=== PATIENT | male | born 1960 | race Hispanic/Latino ===

== ENCOUNTER 2017-01-26 01:07 | Inpatient (IN) | payer MEDICARE, MEDICAID ==
[2017-01-26] MEDS ORDERED: PROVENTIL IH ONE ×3 (01:16→01:23)
[2017-01-26] MEDS ORDERED: ATROVENT IH ONE ×2 (01:16→01:18)
--- NOTE | 2017-01-26 01:21 | Emergency Department Report ---
ED General Adult HPI - General Chief complaint: Dyspnea/Respdistress Stated complaint: CHIVO Time Seen by Provider: 01/26/17 01:19 Source: patient Mode of arrival: Ambulatory Limitations: No Limitations - History of Present Illness Initial comments: He is a 56-year-old male past medical history of COPD history is limited due to acuity of condition. Patient arrives short of breath with increasing difficulty breathing. History obtained by patient's son who states the patient went out for a walk however he became more short of breath and EMS arrived. He was given breathing treatments and his initial O2 sat was 75% and was placed on a nonrebreather mask. Patient's shortness of breath is severe - Related Data Previous Rx's Medication Instructions Recorded Last Taken Type ALBUTEROL NEB's [Proventil 0.083% 2.5 mg IH Q3HRT PRN #100 nebu 01/17/17 Unknown Rx NEBS] Carvedilol [Coreg] 6.25 mg PO BID #60 tablet 01/17/17 Unknown Rx Citalopram [celeXA] 10 mg PO QDAY #30 tablet 01/17/17 Unknown Rx Clopidogrel [Plavix] 75 mg PO QDAY #30 tablet 01/17/17 Unknown Rx Digoxin [Lanoxin] 0.125 mg PO DAILY@1700 #30 tablet 01/17/17 Unknown Rx Furosemide [Lasix TAB] 40 mg PO QDAY #30 tablet 01/17/17 Unknown Rx Ipratropium [Atrovent NEB] 0.5 mg IH Q4HR #100 ml 01/17/17 Unknown Rx Ipratropium/Albuterol Sulfate 1 ampul IH Q6HRT #50 ampul.neb 01/17/17 Unknown Rx [DUONEB *Not for PRN Use*] LORazepam [Ativan] 1 mg PO Q6H PRN 10 Days #40 tablet 01/17/17 Unknown Rx Levofloxacin [Levaquin] 750 mg PO QDAY #8 tablet 01/17/17 Unknown Rx Sacubitril/Valsartan [Entresto 24 1 each PO BID #60 01/17/17 Unknown Rx mg-26 mg Tablet] levETIRAcetam [Keppra TAB] 500 mg PO BID #60 tablet 01/17/17 Unknown Rx oxyCODONE /ACETAMINOPHEN [Percocet 1 tab PO Q6H PRN #40 tablet 01/17/17 Unknown Rx 5/325 mg] Allergies Allergy/AdvReac Type Severity Reaction Status Date / Time No Known Allergies Allergy Verified 12/29/16 02:17 ED Review of Systems ROS: Stated complaint: CHIVO Other details as noted in HPI Comment: Unobtainable due to pts medical conditions (acute of patient's condition) ED Past Medical Hx - Past Medical History Previous Medical History?: Yes Hx Hypertension: Yes Hx CVA: Yes Hx Heart Attack/AMI: Yes Hx Congestive Heart Failure: Yes Hx Diabetes: No Hx Asthma: No Hx COPD: Yes - Surgical History Past Surgical History?: Yes Hx Pacemaker: Yes Additional Surgical History: brain surgery. - Social History Smoking Status: Never Smoker - Medications Home Medications: Home Medications Medication Instructions Recorded Confirmed Last Taken Type ALBUTEROL NEB's [Proventil 0.083% 2.5 mg IH Q3HRT PRN #100 nebu 01/17/17 Unknown Rx NEBS] Carvedilol [Coreg] 6.25 mg PO BID #60 tablet 01/17/17 01/26/17 Unknown Rx Citalopram [celeXA] 10 mg PO QDAY #30 tablet 01/17/17 01/26/17 Unknown Rx Clopidogrel [Plavix] 75 mg PO QDAY #30 tablet 01/17/17 01/26/17 Unknown Rx Digoxin [Lanoxin] 0.125 mg PO DAILY@1700 #30 tablet 01/17/17 01/26/17 Unknown Rx Furosemide [Lasix TAB] 40 mg PO QDAY #30 tablet 01/17/17 01/26/17 Unknown Rx Ipratropium [Atrovent NEB] 0.5 mg IH Q4HR #100 ml 01/17/17 01/26/17 Unknown Rx Ipratropium/Albuterol Sulfate 1 ampul IH Q6HRT #50 ampul.neb 01/17/17 01/26/17 Unknown Rx [DUONEB *Not for PRN Use*] LORazepam [Ativan] 1 mg PO Q6H PRN 10 Days #40 tablet 01/17/17 01/26/17 Unknown Rx Levofloxacin [Levaquin] 750 mg PO QDAY #8 tablet 01/17/17 01/26/17 Unknown Rx Sacubitril/Valsartan [Entresto 24 1 each PO BID #60 01/17/17 01/26/17 Unknown Rx mg-26 mg Tablet] levETIRAcetam [Keppra TAB] 500 mg PO BID #60 tablet 01/17/17 01/26/17 Unknown Rx oxyCODONE /ACETAMINOPHEN [Percocet 1 tab PO Q6H PRN #40 tablet 01/17/17 Unknown Rx 5/325 mg] ED Physical Exam - General Limitations: No Limitations General appearance: in distress - Head Head exam: Present: atraumatic, normocephalic - Eye Eye exam: Present: normal appearance - ENT ENT exam: Present: mucous membranes moist - Neck Neck exam: Present: normal inspection - Respiratory Respiratory exam: Present: respiratory distress, wheezes, rhonchi, accessory muscle use - Cardiovascular Cardiovascular Exam: Present: normal rhythm, tachycardia. Absent: systolic murmur, diastolic murmur, rubs, gallop - GI/Abdominal GI/Abdominal exam: Present: soft, normal bowel sounds - Rectal Rectal exam: Present: deferred - Extremities Exam Extremities exam: Present: normal inspection - Back Exam Back exam: Present: normal inspection - Neurological Exam Neurological exam: Present: alert, oriented X3 - Psychiatric Psychiatric exam: Present: normal affect, normal mood - Skin Skin exam: Present: warm, dry, intact, normal color. Absent: rash ED Course Vital Signs 01/26/17 01/26/17 01/26/17 01:08 01:09 01:16 Temperature 97.8 F Pulse Rate 119 H 121 H Pulse Rate [ Anterior Left] Respiratory 22 23 Rate Respiratory Rate [Anterior Left] Blood Pressure 118/116 187/116 O2 Sat by Pulse 94 98 98 Oximetry 01/26/17 01/26/17 01/26/17 01:30 01:46 01:47 Temperature Pulse Rate 116 H 114 H 114 H Pulse Rate [ Anterior Left] Respiratory 21 20 25 H Rate Respiratory Rate [Anterior Left] Blood Pressure 187/116 187/116 187/116 O2 Sat by Pulse 100 100 100 Oximetry 01/26/17 01/26/17 01/26/17 01:59 02:00 02:15 Temperature Pulse Rate 112 H 110 H Pulse Rate [ 111 H Anterior Left] Respiratory 20 19 Rate Respiratory 20 Rate [Anterior Left] Blood Pressure 187/116 101/72 O2 Sat by Pulse 99 100 Oximetry 1201/26/17 01/26/17 02:30 02:41 02:51 Temperature Pulse Rate 106 H 103 H 99 H Pulse Rate [ Anterior Left] Respiratory 15 15 15 Rate Respiratory Rate [Anterior Left] Blood Pressure 97/59 101/72 101/72 O2 Sat by Pulse 98 100 100 Oximetry 01/26/17 01/26/17 01/26/17 03:00 03:11 03:21 Temperature Pulse Rate 101 H 102 H 99 H Pulse Rate [ Anterior Left] Respiratory 19 19 16 Rate Respiratory Rate [Anterior Left] Blood Pressure 106/63 97/59 97/59 O2 Sat by Pulse 90 95 99 Oximetry 01/26/17 01/26/17 01/26/17 03:30 03:41 03:51 Temperature Pulse Rate 99 H 101 H 102 H Pulse Rate [ Anterior Left] Respiratory 16 20 15 Rate Respiratory Rate [Anterior Left] Blood Pressure 94/61 106/63 106/63 O2 Sat by Pulse 98 97 95 Oximetry 01/26/17 01/26/17 04:01 05:12 Temperature 98.9 F Pulse Rate 104 H 96 H Pulse Rate [ Anterior Left] Respiratory 16 18 Rate Respiratory Rate [Anterior Left] Blood Pressure 102/47 94/57 O2 Sat by Pulse 97 100 Oximetry ED Medical Decision Making - Lab Data Result diagrams: 01/26/17 01:23 01/26/17 01:23 Lab Results 01/26/17 01/26/17 01/26/17 Range/Units 01:23 01:23 02:17 WBC 18.9 H (4.5-11.0) K/mm3 RBC 5.39 H (3.65-5.03) M/mm3 Hgb 10.8 L (11.8-15.2) gm/dl Hct 36.5 (35.5-45.6) % MCV 68 L (84-94) fl MCH 20 L (28-32) pg MCHC 30 L (32-34) % RDW 19.8 H (13.2-15.2) % Plt Count 320 (140-440) K/mm3 Lymph % (Auto) 15.6 (13.4-35.0) % [place] % (Auto) 8.3 H (0.0-7.3) % Eos % (Auto) 8.3 H (0.0-4.3) % Baso % (Auto) 0.7 (0.0-1.8) % Lymph # 3.0 (1.2-5.4) K/mm3 [place] # 1.6 H (0.0-0.8) K/mm3 Eos # 1.6 H (0.0-0.4) K/mm3 Baso # 0.1 (0.0-0.1) K/mm3 Seg Neutrophils % 67.1 (40.0-70.0) % Seg Neutrophils # 12.7 H (1.8-7.7) K/mm3 Sodium 134 L (137-145) mmol/L Potassium 4.3 (3.6-5.0) mmol/L Chloride 97.7 L (98-107) mmol/L Carbon Dioxide 22 (22-30) mmol/L Anion Gap 19 mmol/L BUN 26 H (9-20) mg/dL Creatinine 1.2 (0.8-1.5) mg/dL Estimated GFR > 60 ml/min BUN/Creatinine Ratio 22 % Glucose 107 H (75-100) mg/dL Calcium 8.9 (8.4-10.2) mg/dL Troponin T 0.037 H 0.032 H (0.00-0.029) ng/mL Triglycerides 192 H (2-149) mg/dL Cholesterol 174 (50-199) mg/dL LDL Cholesterol Direct 76 (50-130) mg/dL HDL Cholesterol 60 H (40-59) mg/dL Cholesterol/HDL Ratio 2.90 % - EKG Data -: EKG Interpreted by Ar - EKG Data 01/26/17 07:23 EKG shows sinus tachycardia no ST segment elevation no nonspecific T-wave abnormality normal axis 01/26/17 07:23 - Radiology Data Radiology results: report reviewed, image reviewed Chest x-ray: Shows no acute cardiopulmonary disease - Medical Decision Making Chief medical diagnosis: COPD exacerbation except differential diagnosis: Pneumonia, arrhythmia, pneumothorax, metabolic abnormality CBC, CMP, EKG, albuterol, IV steroids, IV magnesium, BiPAP, ABG Due to patient's severe shortness of breath he will need to be admitted for this life-threatening condition. Upon reevaluation after an hour of BiPAP patient is able to tolerate nasal cannula. Discussed Dr. Maria the hospitalist. Patient will be admitted. Patient's current O2 sat was 96% with 80% FiO2 on BiPAP. Patient's chest x-ray shows some infiltrates due to him having severe leukocytosis even though chest x-ray is negative due to his severe shortness of breath that occurred without warning I will treat him empirically for HCAP. IV vancomycin IV Rocephin and IV azithromycin Critical Care Time: Yes (50) Critical care time in (mins) excluding proc time.: 50 Critical care attestation.: If time is entered above; I have spent that time in minutes in the direct care of this critically ill patient, excluding procedure time. Critical care time spent with patient is 30 minutes Critical care time spent doing all the labs 10 minutes Critical care time spent patient's family 5 minutes critical care time spent reviewing imaging findings 5 minutes ED Disposition Clinical Impression: Respiratory distress, COPD exacerbation, Shortness of breath Pneumonia Qualifiers: Pneumonia type: due to unspecified organism Laterality: right Lung location: lower lobe of lung Qualified Code(s): J18.1 - Lobar pneumonia, unspecified organism Disposition: OP ADMIT IP TO THIS HOSP Is pt being admited?: Yes Condition: Stable
[2017-01-26] MEDS ORDERED: MAGNESIUM SULFATE 2GM/50ML 2 GM/50 ML BAG IV ONE (01:23)
[2017-01-26 01:33] LABS: Basophils % (Auto) 0.7 % (0.0-1.8); Eosinophils % (Auto) 8.3 % (0.0-4.3); Mean Corpuscular HGB Conc 30 % (32-34); Platelet Count 320 K/mm3 (140-440); Red Blood Count 5.39 M/mm3 (3.65-5.03); Red Cell Distribution Width 19.8 % (13.2-15.2); White Blood Count 18.9 K/mm3 (4.5-11.0)
[2017-01-26 01:54] LABS: Hematocrit 36.5 % (35.5-45.6); Hemoglobin 10.8 gm/dl (11.8-15.2); Mean Corpuscular Hemoglobin 20 pg (28-32); Mean Corpuscular Volume 68 fl (84-94)
[2017-01-26 01:56] LABS: Anion Gap 19 mmol/L; BUN/Creatinine Ratio 22; Blood Urea Nitrogen 26 mg/dL (9-20); Calcium 8.9 mg/dL (8.4-10.2); Carbon Dioxide 22 mmol/L (22-30); Chloride 97.7 mmol/L (98-107); Glucose 107 mg/dL (75-100); Potassium 4.3 mmol/L (3.6-5.0); Sodium 134 mmol/L (137-145)
[2017-01-26 02:24] LABS: Cholesterol 174 mg/dL (50-199); HDL Cholesterol 60 mg/dL (40-59); LDL Cholesterol,Direct 76 mg/dL (50-130); Triglycerides 192 mg/dL (2-149)
[2017-01-26] MEDS ORDERED: ROCEPHIN/NS 1 GM/50 ML 1 GM/50 ML BAG IV ONE (02:46)
[2017-01-26] MEDS ORDERED: VANCOMYCIN VIAL IV ONE ×2 (02:46→03:22)
[2017-01-26] MEDS ORDERED: VANCOMYCIN PHARMACY TO DOSE IV SCH (03:00)
[2017-01-26] MEDS ORDERED: ROCEPHIN 1 GM in NACL 0.9% 20 ML IV ONE (03:00)
[2017-01-26] MEDS ORDERED: ZITHROMAX 500 MG in NACL 0.9% 250ML 250 ML IV ONE (03:00)
--- NOTE | 2017-01-26 03:02 | XRay Report ---
FINAL REPORT PROCEDURE: XR CHEST 1V AP TECHNIQUE: Chest radiograph anteroposterior view. CPT 01845 HISTORY: Shortness of breath COMPARISON: No prior studies are available for comparison. FINDINGS: Heart: Heart size is normal. Mediastinum/Vessels: Normal. Lungs/Pleural space: Lungs are clear and expanded. There are no infiltrates, effusions or pneumothoraces.. Bony thorax: No acute osseous abnormality. Life support devices: Pacemaker leads are in proper position.. IMPRESSION: No acute cardiopulmonary abnormality.
--- NOTE | 2017-01-26 03:19 | History and Physical Report ---
History of Present Illness Chief complaint: I cant breathe History of present illness: 56 YO Male with HTN, COPD, CHF, SD, CVA presents to ED for evaluation. Pt states that he has experienced shortness of breath for the past 2 days with worsening symptoms over the past 2 hours. Pt acknowledges productive cough of greenish sputum over the past 3 days with increased sputum production over the past 1 day. Pt states that he tried multiple nebulizer therapies over the past day without relief. Pt denies fever, chills, CP, Palpitations, NVD, skin rash, recent ill contacts, sore throat, hemoptysis, unintentional weight loss, leg swelling, calf pain, prolonged immobility/travel, individual/family history of DVT/PE. Pt seen and evaluated in ED and found to have evidence of sepsis, as well as hypoxemic respiratory failure. Pt treated IAW sepsis protocol, nebulizer therpay, and supplemental oxygen. Past History Past Medical History: acute SD, COPD, heart failure, hypertension, stroke Past Surgical History: Other (Brain surgery, ICD placement) Social history: . denies: smoking, alcohol abuse, prescription drug abuse Family history: CAD, hypertension Medications and Allergies Allergies Allergy/AdvReac Type Severity Reaction Status Date / Time No Known Allergies Allergy Verified 12/29/16 02:17 Home Medications Medication Instructions Recorded Confirmed Last Taken Type ALBUTEROL NEB's [Proventil 0.083% 2.5 mg IH Q3HRT PRN #100 nebu 01/17/17 Unknown Rx NEBS] Carvedilol [Coreg] 6.25 mg PO BID #60 tablet 01/17/17 01/26/17 Unknown Rx Citalopram [celeXA] 10 mg PO QDAY #30 tablet 01/17/17 01/26/17 Unknown Rx Clopidogrel [Plavix] 75 mg PO QDAY #30 tablet 01/17/17 01/26/17 Unknown Rx Digoxin [Lanoxin] 0.125 mg PO DAILY@1700 #30 tablet 01/17/17 01/26/17 Unknown Rx Furosemide [Lasix TAB] 40 mg PO QDAY #30 tablet 01/17/17 01/26/17 Unknown Rx Ipratropium [Atrovent NEB] 0.5 mg IH Q4HR #100 ml 01/17/17 01/26/17 Unknown Rx Ipratropium/Albuterol Sulfate 1 ampul IH Q6HRT #50 ampul.neb 01/17/17 01/26/17 Unknown Rx [DUONEB *Not for PRN Use*] LORazepam [Ativan] 1 mg PO Q6H PRN 10 Days #40 tablet 01/17/17 01/26/17 Unknown Rx Levofloxacin [Levaquin] 750 mg PO QDAY #8 tablet 01/17/17 01/26/17 Unknown Rx Sacubitril/Valsartan [Entresto 24 1 each PO BID #60 01/17/17 01/26/17 Unknown Rx mg-26 mg Tablet] levETIRAcetam [Keppra TAB] 500 mg PO BID #60 tablet 01/17/17 01/26/17 Unknown Rx oxyCODONE /ACETAMINOPHEN [Percocet 1 tab PO Q6H PRN #40 tablet 01/17/17 Unknown Rx 5/325 mg] Active Meds: Active Medications Azithromycin 500 mg/ Sodium (Chloride) 250 mls @ 250 mls/hr IV ONCE.ED ONE Stop: 01/26/17 03:59 Vancomycin HCl 1,250 mg/ (Sodium Chloride) 262.5 mls @ 166.667 mls/hr IV ONCE.ED ONE Stop: 01/26/17 05:34 Vancomycin HCl (Vancomycin Pharmacy To Dose) 1 each IV PKCONSULT DANNY PRN Reason: Protocol Review of Systems Constitutional: no weight loss, no weight gain, no fever, no chills Ears, nose, mouth and throat: no ear pain, no ear discharge, no tinnitis, no decreased hearing, no nose pain, no nasal congestion Cardiovascular: shortness of breath, no chest pain, no orthopnea, no palpitations Respiratory: cough with sputum, excessive sputum, shortness of breath, no hemoptysis Gastrointestinal: no abdominal pain, no nausea, no vomiting, no diarrhea Genitourinary Male: no hematuria, no flank pain, no discharge, no urinary frequency, no urinary hesitancy Rectal: no pain, no incontinence, no bleeding Musculoskeletal: no neck stiffness, no neck pain, no shooting arm pain, no arm numbness/tingling, no low back pain, no shooting leg pain Integumentary: no rash, no pruritis, no redness, no sores, no wounds Neurological: no head injury, no transient paralysis, no paralysis, no weakness , no parathesias, no numbness, no tingling, no seizures, no syncope Psychiatric: no anxiety, no memory loss, no change in sleep habits, no sleep disturbances, no insomnia, no hypersomnia, no change in appetite Endocrine: no cold intolerance, no heat intolerance, no polyphagia, no excessive thirst, no polydipsia, no polyuria Hematologic/Lymphatic: no easy bruising, no easy bleeding Allergic/Immunologic: no urticaria, no allergic rhinitis, no wheezing Exam - Constitutional Vitals: Temp Pulse Resp BP Pulse Ox 97.8 F 110 H 18 101/72 100 01/26/17 01:09 01/26/17 02:15 01/26/17 02:30 01/26/17 02:15 01/26/17 02:30 General appearance: Present: mild distress, cachectic - EENT Eyes: Present: PERRL ENT: hearing intact, clear oral mucosa - Neck Neck: Present: supple, normal ROM - Respiratory Respiratory effort: labored Respiratory: bilateral: diminished, wheezing - Cardiovascular Rhythm: regular (tachycardia) - Extremities Extremities: pulses symmetrical, No edema Peripheral Pulses: abnormal (capillary refill: greater than 4 seconds) - Abdominal General gastrointestinal: Present: soft, non-tender, non-distended Male genitourinary: Present: normal - Integumentary Integumentary: Present: clear, dry, clammy, decreased turgor - Musculoskeletal Musculoskeletal: generalized weakness - Psychiatric Psychiatric: appropriate mood/affect, intact judgment & insight - Neurologic Neurologic: CNII-XII intact, moves all extremities Results - Labs CBC & Chem 7: 01/26/17 01:23 01/26/17 01:23 Labs: Abnormal lab results 01/26/17 01/26/17 01/26/17 Range/Units 01:23 01:23 02:17 WBC 18.9 H (4.5-11.0) K/mm3 RBC 5.39 H (3.65-5.03) M/mm3 Hgb 10.8 L (11.8-15.2) gm/dl MCV 68 L (84-94) fl MCH 20 L (28-32) pg MCHC 30 L (32-34) % RDW 19.8 H (13.2-15.2) % [place] % (Auto) 8.3 H (0.0-7.3) % Eos % (Auto) 8.3 H (0.0-4.3) % [place] # 1.6 H (0.0-0.8) K/mm3 Eos # 1.6 H (0.0-0.4) K/mm3 Seg Neutrophils # 12.7 H (1.8-7.7) K/mm3 Sodium 134 L (137-145) mmol/L Chloride 97.7 L (98-107) mmol/L BUN 26 H (9-20) mg/dL Glucose 107 H (75-100) mg/dL Troponin T 0.037 H 0.032 H (0.00-0.029) ng/mL Triglycerides 192 H (2-149) mg/dL HDL Cholesterol 60 H (40-59) mg/dL Assessment and Plan - Patient Problems (1) Sepsis Current Visit: Yes Status: Acute Qualifiers: Sepsis type: sepsis due to unspecified organism Qualified Code(s): A41.9 - Sepsis, unspecified organism Plan to address problem: IV abx, monitor uop q shift, IVF resuscitation, monitor uop q shift, blood cultures, urinalysis, serial lactic acid levels. (2) Acute respiratory failure Current Visit: Yes Status: Acute Plan to address problem: Supplemental oxygen, nebs, aspiration precautions, NIPPV as clinically indicated , treat pneumonia/copd exacerbation, (3) COPD exacerbation Current Visit: No Status: Acute Plan to address problem: supplemental oxygen, nebs, aspiration precautions, will hold steroid therapy for now. (4) Pneumonia Current Visit: No Status: Acute Qualifiers: Laterality: right Lung location: lower lobe of lung Plan to address problem: IV ABX, IVF, blood cultures, supplemental oxygen, nebulizer therapy, (5) CHF (congestive heart failure) Current Visit: Yes Status: Chronic Plan to address problem: Stable, continue current therapy, remote telemetry, No angina at this time. (6) DVT prophylaxis Current Visit: No Status: Acute Plan to address problem: SCD to BLE while in bed
[2017-01-26] MEDS ORDERED: MILK OF MAGNESIA PO PRN (03:22)
[2017-01-26] MEDS ORDERED: DULCOLAX PR PRN (03:22)
[2017-01-26] MEDS ORDERED: ZOFRAN IV PRN (03:22)
[2017-01-26] MEDS ORDERED: TYLENOL PO PRN (03:22)
[2017-01-26] MEDS ORDERED: NACL 0.9% 1000 ML IV ONE (03:22)
[2017-01-26] MEDS ORDERED: VANCOMYCIN 1,250 MG in NACL 0.9% 250ML 250 ML IV ONE (04:00)
[2017-01-26 05:15] LABS: Bilirubin,Urine NEG (Negative); Blood,Urine SM (Negative); Ketones,Urine NEG (Negative); Leukocyte Esterase,Urine NEG (Negative); Nitrite,Urine NEG (Negative); Urobilinogen,Urine < 2.0 mg/dL (<2.0)
[2017-01-26] MEDS ORDERED: LASIX IV SCH (06:00)
[2017-01-26] MEDS ORDERED: LASIX PO SCH (06:00)
[2017-01-26] MEDS: ZOSYN/NS 4.5GM/100ML 4.5 GM/100 ML VIAL IV SCH ×2 (06:36→14:04)
[2017-01-26] MEDS ORDERED: DUONEB *Not for PRN Use IH SCH (08:00)
[2017-01-26] MEDS: LEVAQUIN 750MG/150ML 750 MG/150 ML BAG IV SCH (09:10)
[2017-01-26] MEDS: PLAVIX PO SCH (09:11)
[2017-01-26] MEDS: celeXA PO SCH (09:11)
[2017-01-26] MEDS: KEPPRA PO SCH ×2 (09:11→21:47)
[2017-01-26] MEDS: PEPCID PO SCH ×2 (09:11→21:47)
[2017-01-26] MEDS ORDERED: SACUBITRIL PO SCH (10:00)
[2017-01-26] MEDS ORDERED: COREG PO SCH (10:00)
[2017-01-26] MEDS ORDERED: VALSARTAN PO SCH (10:00)
[2017-01-26] MEDS: PERCOCET 5/325 PO PRN ×3 (10:45→23:13)
[2017-01-26] MEDS: ATROVENT IH SCH ×5 (10:48→23:29)
[2017-01-26] MEDS ORDERED: NACL 0.9% 1000 ML 1,000 ML IV ONE (11:10)
[2017-01-26] MEDS ORDERED: NACL 0.9% 250ML 250 ML IV ONE (15:15)
--- NOTE | 2017-01-26 15:18 | Event Note ---
Date: 01/26/17 Patient seen and examined in no acute distress but bedside reported the patient says his stroke a few years ago has been having some forgetful memory. Also the patient went out to walk in about 2 days ago and was out follow-up 3 hours prior to returning. The patient reports that he believes he got in contact with one of his family members who has an upper respiratory infection and for 3 days has been having postnasal drip and also rhinorrhea. She tries to the compliance with all his medications and also with by mouth intake although his dullness concerned about his intake of decaffeinated coffee. On admission the patient was noted to have an oxygen saturation of 88% and remarkably improved within 24 hours. He still very lethargic. He probably will benefit from home health and also cardiopulmonary discharge. We'll continue current treatment at this time
[2017-01-26] MEDS ORDERED: VANCOMYCIN/NS 1 GM/250 ML 1 GM/250 ML BAG IV SCH (16:00)
[2017-01-26] MEDS: VANCOMYCIN/NS 1 GM/250 ML 1 GM/250 ML BAG IV SCH (17:35)
[2017-01-26] MEDS: LANOXIN PO SCH (17:36)
--- NOTE | 2017-01-26 19:52 | Consultation ---
History of Present Illness - Reason for Consult Consult date: 01/26/17 sepsis Requesting physician: GREG ROSALES - History of Present Illness 56 years old male with history of cardiomyopathy status post AICD placement, CAD , COPD, hypertension, previous brain hemorrhage status post craniotomy; admitted on 12/29/2016 - 01/04/17 due to one-week history of worsening shortness of breath, cough with yellowish sputum production and weakness. Initial white count 17.6. Lactate acid 4.8. His BP dropped and he was placed on levophed. Chest x-ray showed bilateral pulmonary infiltrates. CT of the chest showed extensive alveolar and interstitial infiltrate right more than the left. Pt was intubated on the vent sent to ICU, found to be on severe sepsis with septic shock from bilateral pneumonia felt to be aspiration. Sputum positive for Corazon. Strep pneumoniae urine antigen was negative. Legionella urine antigen negative. HIV negative. Treated with zosyn and levaquin for 10 days. Patient sent home. Unfortunately, readmitted today 01/26 due to 3 weeks history ( since discharge) of progressive SOB, dry cough and paroximal nocturnal dyspnea. Denies fever, chills, chest pain, urinary symptoms. In the ED, temp 97.8, HR 119, R22 BP 118/116. WBC 18K, hg 10.8. plat 320. Lactic acid 2.4. UA negative. CXR was negative. Micro: Influenza negative GAS negative blood cx ngtd Antibiotics: zosyn Past History Past Medical History: acute [place], COPD, heart failure, hypertension, stroke Past Surgical History: Other (Brain surgery, ICD placement) Social history: . denies: smoking, alcohol abuse, prescription drug abuse Family history: CAD, hypertension Medications and Allergies Allergies Allergy/AdvReac Type Severity Reaction Status Date / Time No Known Allergies Allergy Verified 12/29/16 02:17 Home Medications Medication Instructions Recorded Confirmed Last Taken Type ALBUTEROL NEB's [Proventil 0.083% 2.5 mg IH Q3HRT PRN #100 nebu 01/17/17 Unknown Rx NEBS] Carvedilol [Coreg] 6.25 mg PO BID #60 tablet 01/17/17 01/26/17 Unknown Rx Citalopram [celeXA] 10 mg PO QDAY #30 tablet 01/17/17 01/26/17 Unknown Rx Clopidogrel [Plavix] 75 mg PO QDAY #30 tablet 01/17/17 01/26/17 Unknown Rx Digoxin [Lanoxin] 0.125 mg PO DAILY@1700 #30 tablet 01/17/17 01/26/17 Unknown Rx Furosemide [Lasix TAB] 40 mg PO QDAY #30 tablet 01/17/17 01/26/17 Unknown Rx Ipratropium [Atrovent NEB] 0.5 mg IH Q4HR #100 ml 01/17/17 01/26/17 Unknown Rx Ipratropium/Albuterol Sulfate 1 ampul IH Q6HRT #50 ampul.neb 01/17/17 01/26/17 Unknown Rx [DUONEB *Not for PRN Use*] LORazepam [Ativan] 1 mg PO Q6H PRN 10 Days #40 tablet 01/17/17 01/26/17 Unknown Rx Levofloxacin [Levaquin] 750 mg PO QDAY #8 tablet 01/17/17 01/26/17 Unknown Rx Sacubitril/Valsartan [Entresto 24 1 each PO BID #60 01/17/17 01/26/17 Unknown Rx mg-26 mg Tablet] levETIRAcetam [Keppra TAB] 500 mg PO BID #60 tablet 01/17/17 01/26/17 Unknown Rx oxyCODONE /ACETAMINOPHEN [Percocet 1 tab PO Q6H PRN #40 tablet 01/17/17 Unknown Rx 5/325 mg] Active Meds: Active Medications Acetaminophen (Tylenol) 650 mg PO Q4H PRN PRN Reason: Pain MILD(1-3)/Fever >100.5/OCAMPO Albuterol (Proventil) 2.5 mg IH Q4HRT PRN PRN Reason: Shortness Of Breath Bisacodyl (Dulcolax) 10 mg [place] QDAY PRN PRN Reason: Constipation unrelieved by MOM Carvedilol (Coreg) 3.125 mg PO BID [facility] Citalopram Hydrobromide (Celexa) 10 mg PO QDAY [facility] Last Admin: 01/26/17 09:11 Dose: 10 mg Clopidogrel Bisulfate (Plavix) 75 mg PO QDAY [facility] Last Admin: 01/26/17 09:11 Dose: 75 mg Digoxin (Lanoxin) 0.125 mg PO DAILY@1700 [facility] Last Admin: 01/26/17 17:36 Dose: 0.125 mg Famotidine (Pepcid) 10 mg PO BID [facility] Last Admin: 01/26/17 09:11 Dose: 10 mg Furosemide (Lasix) 40 mg PO DAILY@0600 [facility] Levofloxacin/Dextrose (Levaquin 750mg/150ml) 750 mg in 150 mls @ 100 mls/hr IV Q24HR [facility] PRN Reason: Protocol Last Admin: 01/26/17 09:10 Dose: 100 mls/hr Piperacillin Sod/Tazobactam Sod (Zosyn/Ns 4.5gm/100ml) 4.5 gm in 100 mls @ 200 mls/hr IV Q8HR [facility] PRN Reason: Protocol Last Admin: 01/26/17 14:04 Dose: 200 mls/hr Vancomycin HCl (Vancomycin/Ns 1 Gm/250 Ml) 1 gm in 250 mls @ 166.667 mls/hr IV Q12H [facility] Last Admin: 01/26/17 17:35 Dose: 166.667 mls/hr Influenza Virus Vaccine Quadrival (Fluarix Quad [id number](36 Mos+) 0.5 ml IM .ONCE ONE Stop: 01/27/17 12:01 Ipratropium [place] (Atrovent) 0.5 mg IH Q4HRT [facility] Last Admin: 01/26/17 18:01 Dose: 0.5 mg Levetiracetam (Keppra) 500 mg PO BID [facility] Last Admin: 01/26/17 09:11 Dose: 500 mg Lorazepam (Ativan) 1 mg PO Q6H PRN PRN Reason: CIWA-Ar 16-25 Magnesium Hydroxide (Milk Of Magnesia) 30 ml PO Q4H PRN PRN Reason: Constipation Miscellaneous Medication (Sacubitril/Valsartan [Entresto 24 Mg-26 Mg Tablet]) 1 each PO BID [facility] Ondansetron HCl (Zofran) 4 mg IV Q8H PRN PRN Reason: N/V unrelieved by Reglan Oxycodone/Acetaminophen (Percocet 5/325) 1 tab PO Q6H PRN PRN Reason: Pain, Moderate (4-6) Last Admin: 01/26/17 16:45 Dose: 1 tab Pneumococcal Polyvalent Vaccine (Pneumovax 23) 0.5 ml IM .ONCE ONE Stop: 01/27/17 12:01 Vancomycin HCl (Vancomycin Pharmacy To Dose) 1 each IV PKCONSULT [facility] PRN Reason: Protocol Review of Systems All systems: negative (as per HPI rest neg) Physical Examination - Constitutional Vitals: Vital Signs Temp Pulse Resp BP Pulse Ox 97.2 F L 80 18 95/57 99 01/26/17 16:38 01/26/17 18:05 01/26/17 18:05 01/26/17 16:38 01/26/17 16:38 Temperature -Last 24 Hours Temperature 97.2 F Temperature 99.1 F Temperature 98.9 F Temperature 97.8 F Results - Labs CBC & Chem 7: 01/26/17 01:23 01/26/17 01:23 Labs: Abnormal lab results 01/26/17 01/26/17 01/26/17 Range/Units 01:23 01:23 02:17 WBC 18.9 H (4.5-11.0) K/mm3 RBC 5.39 H (3.65-5.03) M/mm3 Hgb 10.8 L (11.8-15.2) gm/dl MCV 68 L (84-94) fl MCH 20 L (28-32) pg MCHC 30 L (32-34) % RDW 19.8 H (13.2-15.2) % [place] % (Auto) 8.3 H (0.0-7.3) % Eos % (Auto) 8.3 H (0.0-4.3) % [place] # 1.6 H (0.0-0.8) K/mm3 Eos # 1.6 H (0.0-0.4) K/mm3 Seg Neutrophils # 12.7 H (1.8-7.7) K/mm3 Sodium 134 L (137-145) mmol/L Chloride 97.7 L (98-107) mmol/L BUN 26 H (9-20) mg/dL Glucose 107 H (75-100) mg/dL Lactic Acid (0.7-2.0) mmol/L Troponin T 0.037 H 0.032 H (0.00-0.029) ng/mL Triglycerides 192 H (2-149) mg/dL HDL Cholesterol 60 H (40-59) mg/dL 01/26/17 01/26/17 Range/Units 09:32 12:30 WBC (4.5-11.0) K/mm3 RBC (3.65-5.03) M/mm3 Hgb (11.8-15.2) gm/dl MCV (84-94) fl MCH (28-32) pg MCHC (32-34) % RDW (13.2-15.2) % [place] % (Auto) (0.0-7.3) % Eos % (Auto) (0.0-4.3) % [place] # (0.0-0.8) K/mm3 Eos # (0.0-0.4) K/mm3 Seg Neutrophils # (1.8-7.7) K/mm3 Sodium (137-145) mmol/L Chloride (98-107) mmol/L BUN (9-20) mg/dL Glucose (75-100) mg/dL Lactic Acid 2.40 H* 2.40 H* (0.7-2.0) mmol/L Troponin T (0.00-0.029) ng/mL Triglycerides (2-149) mg/dL HDL Cholesterol (40-59) mg/dL Assessment and Plan Assessment: 1) SIRS: present on admission, manifested by leukocytosis/tachycardia/elevated lactic acid. Unclear etiology ? COPD exacerbation ? CHF exacerbation. Doubt pneumonia. 2) Resp distress ? COPD excerbation, ? CHF exacerbation 3) Recent Bilateral pneumonia/multifocal: CT of the chest showed extensive alveolar and interstitial infiltrate right more than the left. Sputum cx + Corazon Influenza ag negative. HIV neg / CD4>500. Legionella and Strep pnuemoniae urine ag negative. 3) Recent respiratory failure 4) COPD 5) CMP status post AICD placement 6) CAD 7) Previous brain hemorrhage status post craniotomy 8) Dysphagia / GERD / Hiatal hernia 9) Weight loss Plan: -check CRP, procalcitonin -stop zosyn -add levaquin x 3 days -COPD exacerbation / CHF exacerbation per IMS -monitor leukocytosis Desirae Lucas
[2017-01-26] MEDS: COREG PO SCH (22:47)
[2017-01-27] MEDS: ATROVENT IH SCH ×4 (03:40→16:11)
[2017-01-27] MEDS ORDERED: NACL 0.9% 250ML 250 ML IV ONE (05:39)
[2017-01-27] MEDS: LASIX PO SCH (06:22)
[2017-01-27 06:25] LABS: Mean Corpuscular HGB Conc 30 % (32-34); Platelet Count 239 K/mm3 (140-440); Red Blood Count 4.35 M/mm3 (3.65-5.03); Red Cell Distribution Width 19.3 % (13.2-15.2); White Blood Count 12.2 K/mm3 (4.5-11.0)
[2017-01-27 06:28] LABS: Hematocrit 29.2 % (35.5-45.6); Hemoglobin 8.6 gm/dl (11.8-15.2); Mean Corpuscular Hemoglobin 20 pg (28-32); Mean Corpuscular Volume 67 fl (84-94)
[2017-01-27] MEDS: PERCOCET 5/325 PO PRN ×3 (06:28→23:49)
[2017-01-27 06:39] LABS: Anion Gap 14 mmol/L; BUN/Creatinine Ratio 29; Blood Urea Nitrogen 23 mg/dL (9-20); Calcium 8.3 mg/dL (8.4-10.2); Carbon Dioxide 24 mmol/L (22-30); Chloride 102.2 mmol/L (98-107); Glucose 88 mg/dL (75-100); Potassium 3.8 mmol/L (3.6-5.0); Sodium 136 mmol/L (137-145)
[2017-01-27] MEDS: VANCOMYCIN/NS 1 GM/250 ML 1 GM/250 ML BAG IV SCH ×2 (06:46→17:46)
--- NOTE | 2017-01-27 08:18 | Progress Note ---
Assessment and Plan Assessment and plan: 56 YO Male with HTN, COPD, CHF, [place], CVA presents to ED for evaluation. Pt states that he has experienced shortness of breath for the past 2 days with worsening symptoms over the past 2 hours. Pt acknowledges productive cough of greenish sputum over the past 3 days with increased sputum production over the past 1 day. Patient was recently hospitalized and treated for bilateral pneumonia which involved on ICU stay. Acute on chronic hypoxic respiratory failure * Continue oxygen therapy. * Aspiration precautions COPD with exacerbation * Continue nebs SIRS likely secondary to COPD * Continue Abx Possible on the line and upper respiratory infection * The patient to recent sick contacts, recent hospitalization, had rhinorrhea and postnasal drip a few days prior to admission. * Continue Levaquin Cardiomyopathy with an ejection fraction of 10% status post AICD * Continue lasix Anemia of chronic disease * Slight drop, will monitor. Recurrent lactic acidosis * Gave some fluids also due to Hypotension. Will monitor Vascular dementia likely secondary to CVA with intermittent memory loss * Stable per family GERD * ppi DVT and GI prophylaxis Plan discussed with patient and family History Interval history: Patient seen and examined, still with some shortness of breath but denies any chest pain, nausea, vomiting, fever. Nursing staff reports patient with hypotension early this morning. Hospitalist Physical - Physical exam Narrative exam: VITAL SIGNS: Reviewed. GENERAL: The patient appeared chronically ill over the past. Age. Vital signs as documented. HEAD: No signs of head trauma. EYES: Pupils are equal. Extraocular motions intact. EARS: Hearing grossly intact. MOUTH: Oropharynx is normal. NECK: No adenopathy, no JVD. CHEST: Chest with wheezing expiratory more than expected breath sounds bilaterally. No rales, or rhonchi. CARDIAC: Regular rate and rhythm. S1 and S2, without murmurs, gallops, or rubs. VASCULAR: No Edema. Peripheral pulses normal and equal in all extremities. ABDOMEN: Soft, without detectable tenderness. No sign of distention. No rebound or guarding, and no masses palpated. Bowel Sounds normal. MUSCULOSKELETAL: Good range of motion of all major joints. Extremities without clubbing, cyanosis or edema. NEUROLOGIC EXAM: Alert and oriented x 3. No focal sensory or strength deficits. Speech normal. Follows commands. PSYCHIATRIC: Mood normal. SKIN: No rash or lesions. - Constitutional Vitals: Temp Pulse Resp BP Pulse Ox 98.2 F 85 16 89/58 98 12/02/17 03:50 01/27/17 05:00 01/27/17 06:28 01/27/17 05:00 01/27/17 03:50 General appearance: Present: mild distress, cachectic Results - Labs CBC & Chem 7: 01/27/17 05:46 01/27/17 05:46 Labs: Laboratory Last Values WBC 12.2 K/mm3 (4.5-11.0) H 01/27/17 05:46 RBC 4.35 M/mm3 (3.65-5.03) 01/27/17 05:46 Hgb 8.6 gm/dl (11.8-15.2) L 01/27/17 05:46 Hct 29.2 % (35.5-45.6) L D 01/27/17 05:46 MCV 67 fl (84-94) L 01/27/17 05:46 MCH 20 pg (28-32) L 01/27/17 05:46 MCHC 30 % (32-34) L 01/27/17 05:46 RDW 19.3 % (13.2-15.2) H 01/27/17 05:46 Plt Count 239 K/mm3 (140-440) 01/27/17 05:46 Lymph % (Auto) 15.6 % (13.4-35.0) 01/26/17 01:23 [place] % (Auto) 8.3 % (0.0-7.3) H 01/26/17 01:23 Eos % (Auto) 8.3 % (0.0-4.3) H 01/26/17 01:23 Baso % (Auto) 0.7 % (0.0-1.8) 01/26/17 01:23 Lymph # 3.0 K/mm3 (1.2-5.4) 01/26/17 01:23 [place] # 1.6 K/mm3 (0.0-0.8) H 01/26/17 01:23 Eos # 1.6 K/mm3 (0.0-0.4) H 01/26/17 01:23 Baso # 0.1 K/mm3 (0.0-0.1) 01/26/17 01:23 Seg Neutrophils % 67.1 % (40.0-70.0) 01/26/17 01:23 Seg Neutrophils # 12.7 K/mm3 (1.8-7.7) H 01/26/17 01:23 Sodium 136 mmol/L (137-145) L 01/27/17 05:46 Potassium 3.8 mmol/L (3.6-5.0) 01/27/17 05:46 Chloride 102.2 mmol/L (98-107) 01/27/17 05:46 Carbon Dioxide 24 mmol/L (22-30) 01/27/17 05:46 Anion Gap 14 mmol/L 01/27/17 05:46 BUN 23 mg/dL (9-20) H 01/27/17 05:46 Creatinine 0.8 mg/dL (0.8-1.5) 01/27/17 05:46 Estimated GFR > 60 ml/min 01/27/17 05:46 BUN/Creatinine Ratio 29 % 01/27/17 05:46 Glucose 88 mg/dL (75-100) 01/27/17 05:46 Lactic Acid 2.40 mmol/L (0.7-2.0) H* 01/26/17 12:30 Calcium 8.3 mg/dL (8.4-10.2) L 01/27/17 05:46 Troponin T 0.019 ng/mL (0.00-0.029) 01/26/17 07:30 C-Reactive Protein 1.20 mg/dL (0.00-1.30) 01/26/17 20:38 Triglycerides 192 mg/dL (2-149) H 01/26/17 01:23 Cholesterol 174 mg/dL (50-199) 01/26/17 01:23 LDL Cholesterol Direct 76 mg/dL (50-130) 01/26/17 01:23 HDL Cholesterol 60 mg/dL (40-59) H 01/26/17 01:23 Cholesterol/HDL Ratio 2.90 % 01/26/17 01:23 Urine Color Yellow (Yellow) 01/26/17 03:58 Urine Turbidity Clear (Clear) 01/26/17 03:58 Urine pH 6.0 (5.0-7.0) 01/26/17 03:58 Ur Specific [place] 1.012 (1.003-1.030) 01/26/17 03:58 Urine Protein 30 mg/dl mg/dL (Negative) 01/26/17 03:58 Urine Glucose (UA) Neg mg/dL (Negative) 01/26/17 03:58 Urine Ketones Neg mg/dL (Negative) 01/26/17 03:58 Urine Blood Sm (Negative) 01/26/17 03:58 Urine Nitrite Neg (Negative) 01/26/17 03:58 Urine Bilirubin Neg (Negative) 01/26/17 03:58 Urine Urobilinogen < 2.0 mg/dL (<2.0) 01/26/17 03:58 Ur Leukocyte Esterase Neg (Negative) 01/26/17 03:58 Urine WBC (Auto) 1.0 /HPF (0.0-6.0) 01/26/17 03:58 Urine RBC (Auto) 1.0 /HPF (0.0-6.0) 01/26/17 03:58 - Imaging and Cardiology Chest x-ray: image reviewed (no acute cardiopulmonary pathology)
[2017-01-27] MEDS: PEPCID PO SCH ×2 (09:55→23:48)
[2017-01-27] MEDS: celeXA PO SCH (09:56)
[2017-01-27] MEDS: PLAVIX PO SCH (09:56)
[2017-01-27] MEDS: KEPPRA PO SCH ×2 (09:59→23:50)
[2017-01-27] MEDS: LEVAQUIN 750MG/150ML 750 MG/150 ML BAG IV SCH (10:05)
[2017-01-27] MEDS: COREG PO SCH ×2 (10:10→23:48)
[2017-01-27] MEDS ORDERED: Fluarix Quad 2017-2018(36 MOS+ IM ONE (12:00)
[2017-01-27] MEDS ORDERED: PNEUMOVAX 23 IM ONE (12:00)
--- NOTE | 2017-01-27 13:02 | Consultation ---
History of Present Illness Consult date: 01/27/17 Requesting physician: GREG ROSALES Reason for consult: COPD History of present illness: PULMONARY/CCM CONSULT NOTE (Full dictation # ) Please see dictated notes for full details Past History Past Medical History: acute [place], COPD, heart failure, hypertension, stroke Past Surgical History: Other (Brain surgery, ICD placement) Social history: . denies: smoking, alcohol abuse, prescription drug abuse Family history: CAD, hypertension Medications and Allergies Allergies Allergy/AdvReac Type Severity Reaction Status Date / Time No Known Allergies Allergy Verified 12/29/16 02:17 Home Medications Medication Instructions Recorded Confirmed Last Taken Type ALBUTEROL NEB's [Proventil 0.083% 2.5 mg IH Q3HRT PRN #100 nebu 01/17/17 Unknown Rx NEBS] Carvedilol [Coreg] 6.25 mg PO BID #60 tablet 01/17/17 01/26/17 Unknown Rx Citalopram [celeXA] 10 mg PO QDAY #30 tablet 01/17/17 01/26/17 Unknown Rx Clopidogrel [Plavix] 75 mg PO QDAY #30 tablet 01/17/17 01/26/17 Unknown Rx Digoxin [Lanoxin] 0.125 mg PO DAILY@1700 #30 tablet 01/17/17 01/26/17 Unknown Rx Furosemide [Lasix TAB] 40 mg PO QDAY #30 tablet 01/17/17 01/26/17 Unknown Rx Ipratropium [Atrovent NEB] 0.5 mg IH Q4HR #100 ml 01/17/17 01/26/17 Unknown Rx Ipratropium/Albuterol Sulfate 1 ampul IH Q6HRT #50 ampul.neb 01/17/17 01/26/17 Unknown Rx [DUONEB *Not for PRN Use*] LORazepam [Ativan] 1 mg PO Q6H PRN 10 Days #40 tablet 01/17/17 01/26/17 Unknown Rx Levofloxacin [Levaquin] 750 mg PO QDAY #8 tablet 01/17/17 01/26/17 Unknown Rx Sacubitril/Valsartan [Entresto 24 1 each PO BID #60 01/17/17 01/26/17 Unknown Rx mg-26 mg Tablet] levETIRAcetam [Keppra TAB] 500 mg PO BID #60 tablet 01/17/17 01/26/17 Unknown Rx oxyCODONE /ACETAMINOPHEN [Percocet 1 tab PO Q6H PRN #40 tablet 01/17/17 Unknown Rx 5/325 mg] Active Meds: Active Medications Acetaminophen (Tylenol) 650 mg PO Q4H PRN PRN Reason: Pain MILD(1-3)/Fever >100.5/OCAMPO Albuterol (Proventil) 2.5 mg IH Q4HRT PRN PRN Reason: Shortness Of Breath Bisacodyl (Dulcolax) 10 mg [place] QDAY PRN PRN Reason: Constipation unrelieved by MOM Carvedilol (Coreg) 3.125 mg PO BID [facility] Last Admin: 01/27/17 10:10 Dose: Not Given Citalopram Hydrobromide (Celexa) 10 mg PO QDAY [facility] Last Admin: 01/27/17 09:56 Dose: 10 mg Clopidogrel Bisulfate (Plavix) 75 mg PO QDAY [facility] Last Admin: 01/27/17 09:56 Dose: 75 mg Digoxin (Lanoxin) 0.125 mg PO DAILY@1700 [facility] Last Admin: 01/26/17 17:36 Dose: 0.125 mg Famotidine (Pepcid) 10 mg PO BID [facility] Last Admin: 01/27/17 09:55 Dose: 10 mg Furosemide (Lasix) 40 mg PO DAILY@0600 [facility] Last Admin: 01/27/17 06:22 Dose: 40 mg Levofloxacin/Dextrose (Levaquin 750mg/150ml) 750 mg in 150 mls @ 100 mls/hr IV Q24HR [facility] PRN Reason: Protocol Last Admin: 01/27/17 10:05 Dose: 100 mls/hr Vancomycin HCl (Vancomycin/Ns 1 Gm/250 Ml) 1 gm in 250 mls @ 166.667 mls/hr IV Q12H [facility] Last Admin: 01/27/17 06:46 Dose: 166.667 mls/hr Ipratropium [place] (Atrovent) 0.5 mg IH Q4HRT [facility] Last Admin: 01/27/17 09:08 Dose: 0.5 mg Levetiracetam (Keppra) 500 mg PO BID [facility] Last Admin: 12/02/17 09:59 Dose: 500 mg Lorazepam (Ativan) 1 mg PO Q6H PRN PRN Reason: CIWA-Ar 16-25 Magnesium Hydroxide (Milk Of Magnesia) 30 ml PO Q4H PRN PRN Reason: Constipation Miscellaneous Medication (Sacubitril/Valsartan [Entresto 24 Mg-26 Mg Tablet]) 1 each PO BID [facility] Ondansetron HCl (Zofran) 4 mg IV Q8H PRN PRN Reason: N/V unrelieved by Reglan Oxycodone/Acetaminophen (Percocet 5/325) 1 tab PO Q6H PRN PRN Reason: Pain, Moderate (4-6) Last Admin: 01/27/17 06:28 Dose: 1 tab Vancomycin HCl (Vancomycin Pharmacy To Dose) 1 each IV PKCONSULT DANNY PRN Reason: Protocol Physical Examination Vital signs: Vital Signs Pulse Ox 94 01/26/17 01:08 Results - Laboratory Findings CBC and BMP: 01/27/17 05:46 01/27/17 05:46 Abnormal lab findings: Abnormal Labs 01/26/17 01/26/17 01/26/17 01:23 01:23 02:17 WBC 18.9 H RBC 5.39 H Hgb 10.8 L Hct MCV 68 L MCH 20 L MCHC 30 L RDW 19.8 H Page % (Auto) 8.3 H Eos % (Auto) 8.3 H Page # 1.6 H Eos # 1.6 H Seg Neutrophils # 12.7 H Sodium 134 L Chloride 97.7 L BUN 26 H Glucose 107 H Lactic Acid Calcium Troponin T 0.037 H 0.032 H Triglycerides 192 H HDL Cholesterol 60 H 01/26/17 01/26/17 01/27/17 09:32 12:30 05:46 WBC 12.2 H RBC Hgb 8.6 L Hct 29.2 L D MCV 67 L MCH 20 L MCHC 30 L RDW 19.3 H Page % (Auto) Eos % (Auto) Page # Eos # Seg Neutrophils # Sodium Chloride BUN Glucose Lactic Acid 2.40 H* 2.40 H* Calcium Troponin T Triglycerides HDL Cholesterol 01/27/17 01/27/17 05:46 09:21 WBC RBC Hgb Hct MCV MCH MCHC RDW [place] % (Auto) Eos % (Auto) Page # Eos # Seg Neutrophils # Sodium 136 L Chloride BUN 23 H Glucose Lactic Acid 2.90 H* Calcium 8.3 L Troponin T Triglycerides HDL Cholesterol
--- NOTE | 2017-01-27 14:43 | Consultation ---
History of Present Illness - Reason for Consult Consult date: 01/27/17 - History of Present Illness Micro: Influenza negative GAS negative blood cx ngtd Antibiotics: zosyn Past History Past Medical History: acute [place], COPD, heart failure, hypertension, stroke Past Surgical History: Other (Brain surgery, ICD placement) Social history: . denies: smoking, alcohol abuse, prescription drug abuse Family history: CAD, hypertension Medications and Allergies Allergies Allergy/AdvReac Type Severity Reaction Status Date / Time No Known Allergies Allergy Verified 12/29/16 02:17 Home Medications Medication Instructions Recorded Confirmed Last Taken Type ALBUTEROL NEB's [Proventil 0.083% 2.5 mg IH Q3HRT PRN #100 nebu 01/17/17 Unknown Rx NEBS] Carvedilol [Coreg] 6.25 mg PO BID #60 tablet 01/17/17 01/26/17 Unknown Rx Citalopram [celeXA] 10 mg PO QDAY #30 tablet 01/17/17 01/26/17 Unknown Rx Clopidogrel [Plavix] 75 mg PO QDAY #30 tablet 01/17/17 01/26/17 Unknown Rx Digoxin [Lanoxin] 0.125 mg PO DAILY@1700 #30 tablet 01/17/17 01/26/17 Unknown Rx Furosemide [Lasix TAB] 40 mg PO QDAY #30 tablet 01/17/17 01/26/17 Unknown Rx Ipratropium [Atrovent NEB] 0.5 mg IH Q4HR #100 ml 01/17/17 01/26/17 Unknown Rx Ipratropium/Albuterol Sulfate 1 ampul IH Q6HRT #50 ampul.neb 01/17/17 01/26/17 Unknown Rx [DUONEB *Not for PRN Use*] LORazepam [Ativan] 1 mg PO Q6H PRN 10 Days #40 tablet 01/17/17 01/26/17 Unknown Rx Levofloxacin [Levaquin] 750 mg PO QDAY #8 tablet 01/17/17 01/26/17 Unknown Rx Sacubitril/Valsartan [Entresto 24 1 each PO BID #60 01/17/17 01/26/17 Unknown Rx mg-26 mg Tablet] levETIRAcetam [Keppra TAB] 500 mg PO BID #60 tablet 01/17/17 01/26/17 Unknown Rx oxyCODONE /ACETAMINOPHEN [Percocet 1 tab PO Q6H PRN #40 tablet 01/17/17 Unknown Rx 5/325 mg] Active Meds: Active Medications Acetaminophen (Tylenol) 650 mg PO Q4H PRN PRN Reason: Pain MILD(1-3)/Fever >100.5/OCAMPO Albuterol (Proventil) 2.5 mg IH Q4HRT PRN PRN Reason: Shortness Of Breath Bisacodyl (Dulcolax) 10 mg [place] QDAY PRN PRN Reason: Constipation unrelieved by MOM Carvedilol (Coreg) 3.125 mg PO BID [facility] Last Admin: 01/27/17 10:10 Dose: Not Given Citalopram Hydrobromide (Celexa) 10 mg PO QDAY [facility] Last Admin: 01/27/17 09:56 Dose: 10 mg Clopidogrel Bisulfate (Plavix) 75 mg PO QDAY [facility] Last Admin: 01/27/17 09:56 Dose: 75 mg Digoxin (Lanoxin) 0.125 mg PO DAILY@1700 [facility] Last Admin: 01/26/17 17:36 Dose: 0.125 mg Famotidine (Pepcid) 10 mg PO BID [facility] Last Admin: 01/27/17 09:55 Dose: 10 mg Furosemide (Lasix) 40 mg PO DAILY@0600 [facility] Last Admin: 01/27/17 06:22 Dose: 40 mg Levofloxacin/Dextrose (Levaquin 750mg/150ml) 750 mg in 150 mls @ 100 mls/hr IV Q24HR [facility] PRN Reason: Protocol Last Admin: 01/27/17 10:05 Dose: 100 mls/hr Vancomycin HCl (Vancomycin/Ns 1 Gm/250 Ml) 1 gm in 250 mls @ 166.667 mls/hr IV Q12H [facility] Last Admin: 01/27/17 06:46 Dose: 166.667 mls/hr Ipratropium [place] (Atrovent) 0.5 mg IH Q4HRT [facility] Last Admin: 01/27/17 13:04 Dose: 0.5 mg Levetiracetam (Keppra) 500 mg PO BID [facility] Last Admin: 01/27/17 09:59 Dose: 500 mg Lorazepam (Ativan) 1 mg PO Q6H PRN PRN Reason: CIWA-Ar 16-25 Magnesium Hydroxide (Milk Of Magnesia) 30 ml PO Q4H PRN PRN Reason: Constipation Miscellaneous Medication (Sacubitril/Valsartan [Entresto 24 Mg-26 Mg Tablet]) 1 each PO BID [facility] Ondansetron HCl (Zofran) 4 mg IV Q8H PRN PRN Reason: N/V unrelieved by Reglan Oxycodone/Acetaminophen (Percocet 5/325) 1 tab PO Q6H PRN PRN Reason: Pain, Moderate (4-6) Last Admin: 01/27/17 14:38 Dose: 1 tab Vancomycin HCl (Vancomycin Pharmacy To Dose) 1 each IV PKCONSULT [facility] PRN Reason: Protocol Physical Examination - Constitutional Vitals: Vital Signs Temp Pulse Resp BP Pulse Ox 98.4 F 81 18 104/72 100 01/27/17 07:51 01/27/17 13:14 01/27/17 13:14 01/27/17 07:51 01/27/17 10:00 Temperature -Last 24 Hours Temperature 98.4 F Temperature 98.2 F Temperature 98.6 F Temperature 98.6 F Temperature 98.6 F Temperature 97.2 F Results - Labs CBC & Chem 7: 01/27/17 05:46 01/27/17 05:46 Labs: Abnormal lab results 01/27/17 01/27/17 01/27/17 Range/Units 05:46 05:46 09:21 WBC 12.2 H (4.5-11.0) K/mm3 Hgb 8.6 L (11.8-15.2) gm/dl Hct 29.2 L D (35.5-45.6) % MCV 67 L (84-94) fl MCH 20 L (28-32) pg MCHC 30 L (32-34) % RDW 19.3 H (13.2-15.2) % Sodium 136 L (137-145) mmol/L BUN 23 H (9-20) mg/dL Lactic Acid 2.90 H* (0.7-2.0) mmol/L Calcium 8.3 L (8.4-10.2) mg/dL Assessment and Plan Assessment: 1) SIRS: present on admission, manifested by leukocytosis/tachycardia/elevated lactic acid. Unclear etiology ? COPD exacerbation ? CHF exacerbation. Doubt pneumonia. 2) Resp distress ? COPD excerbation, ? CHF exacerbation 3) Recent Bilateral pneumonia/multifocal: CT of the chest showed extensive alveolar and interstitial infiltrate right more than the left. Sputum cx + Corazon Influenza ag negative. HIV neg / CD4>500. Legionella and Strep pnuemoniae urine ag negative. 3) Recent respiratory failure 4) COPD 5) CMP status post AICD placement 6) CAD 7) Previous brain hemorrhage status post craniotomy 8) Dysphagia / GERD / Hiatal hernia 9) Weight loss Plan: -check CRP, procalcitonin -stop zosyn -add levaquin x 3 days -COPD exacerbation / CHF exacerbation per IMS -monitor leukocytosis Desirae Lucas
[2017-01-27] MEDS: LANOXIN PO SCH (17:45)
[2017-01-27] MEDS: ATIVAN PO PRN (18:03)
[2017-01-27] MEDS ORDERED: PROVENTIL IH SCH (20:00)
[2017-01-27] MEDS: DUONEB *Not for PRN Use IH SCH (21:35)
[2017-01-28] MEDS: DUONEB *Not for PRN Use IH SCH ×4 (02:24→20:24)
[2017-01-28 05:11] LABS: Anion Gap 16 mmol/L; BUN/Creatinine Ratio 26; Blood Urea Nitrogen 21 mg/dL (9-20); Calcium 8.7 mg/dL (8.4-10.2); Carbon Dioxide 24 mmol/L (22-30); Chloride 101.1 mmol/L (98-107); Glucose 83 mg/dL (75-100); Potassium 4.2 mmol/L (3.6-5.0); Sodium 137 mmol/L (137-145)
[2017-01-28 05:25] LABS: Mean Corpuscular HGB Conc 30 % (32-34); Platelet Count 253 K/mm3 (140-440); Red Blood Count 4.84 M/mm3 (3.65-5.03); Red Cell Distribution Width 19.5 % (13.2-15.2)
[2017-01-28 05:31] LABS: Hematocrit 32.5 % (35.5-45.6); Hemoglobin 9.8 gm/dl (11.8-15.2); Mean Corpuscular Hemoglobin 20 pg (28-32); Mean Corpuscular Volume 67 fl (84-94)
[2017-01-28] MEDS: VANCOMYCIN/NS 1 GM/250 ML 1 GM/250 ML BAG IV SCH ×2 (06:59→17:31)
[2017-01-28] MEDS: LASIX PO SCH (07:03)
[2017-01-28] MEDS: PERCOCET 5/325 PO PRN ×3 (07:03→19:52)
[2017-01-28] MEDS: ATIVAN PO PRN (10:03)
[2017-01-28] MEDS: PEPCID PO SCH ×2 (10:03→21:54)
[2017-01-28] MEDS: LEVAQUIN 750MG/150ML 750 MG/150 ML BAG IV SCH (10:04)
[2017-01-28] MEDS: PLAVIX PO SCH (10:04)
[2017-01-28] MEDS: celeXA PO SCH (10:04)
[2017-01-28] MEDS: KEPPRA PO SCH ×2 (10:04→21:54)
[2017-01-28] MEDS: COREG PO SCH ×2 (10:04→21:53)
[2017-01-28] MEDS: PROVENTIL IH PRN (11:52)
[2017-01-28] MEDS: LANOXIN PO SCH (16:05)
--- NOTE | 2017-01-28 21:36 | Progress Note ---
Assessment and Plan Assessment and Plan Assessment and plan: 56 YO Male with HTN, COPD, CHF, [place], CVA presents to ED for evaluation. Pt states that he has experienced shortness of breath for the past 2 days with worsening symptoms over the past 2 hours. Pt acknowledges productive cough of greenish sputum over the past 3 days with increased sputum production over the past 1 day. Patient was recently hospitalized and treated for bilateral pneumonia which involved on ICU stay. Acute on chronic hypoxic respiratory failure * Continue oxygen therapy. * Aspiration precautions COPD with exacerbation * Continue nebs SIRS likely secondary to COPD * Continue Abx Possible on the line and upper respiratory infection * The patient to recent sick contacts, recent hospitalization, had rhinorrhea and postnasal drip a few days prior to admission. * Continue Levaquin Cardiomyopathy with an ejection fraction of 10% status post AICD * Continue lasix Anemia of chronic disease * Slight drop, will monitor. Recurrent lactic acidosis * Gave some fluids also due to Hypotension. Will monitor Vascular dementia likely secondary to CVA with intermittent memory loss * Stable per family GERD * ppi DVT and GI prophylaxis Plan discussed with patient and family Possible discharge tomorrow. Subjective Date of service: 01/28/17 Principal diagnosis: Resp failure Copd exacerbation Interval history: Sx better Objective - Constitutional Vitals: Vital Signs - 12hr 01/28/17 01/28/17 01/28/17 11:52 12:02 12:45 Temperature 98.6 F Pulse Rate 75 Pulse Rate [ 94 H 84 Anterior Bilateral Throughout] Respiratory 15 Rate Respiratory 20 20 Rate [Anterior Bilateral Throughout] Blood Pressure 85/51 O2 Sat by Pulse 100 Oximetry 01/28/17 01/28/17 01/28/17 14:33 14:43 15:24 Temperature 98.6 F Pulse Rate 74 Pulse Rate [ 80 88 Anterior Bilateral Throughout] Respiratory 16 Rate Respiratory 20 20 Rate [Anterior Bilateral Throughout] Blood Pressure 96/60 O2 Sat by Pulse 100 Oximetry 01/28/17 01/28/17 01/28/17 16:05 19:53 20:26 Temperature 98.4 F Pulse Rate 88 88 Pulse Rate [ 81 Anterior Bilateral Throughout] Respiratory 20 Rate Respiratory 22 Rate [Anterior Bilateral Throughout] Blood Pressure 130/83 O2 Sat by Pulse 99 99 Oximetry 01/28/17 20:58 Temperature Pulse Rate Pulse Rate [ 85 Anterior Bilateral Throughout] Respiratory Rate Respiratory 19 Rate [Anterior Bilateral Throughout] Blood Pressure O2 Sat by Pulse Oximetry General appearance: Present: no acute distress, well-nourished - EENT Eyes: PERRL, EOM intact ENT: hearing intact, clear oral mucosa Ears: bilateral: normal - Neck Neck: supple, normal ROM - Respiratory Respiratory effort: normal Respiratory: bilateral: CTA, rhonchi - Breasts Breasts: normal - Cardiovascular Rhythm: regular Heart Sounds: Present: S1 & S2. Absent: gallop, rub Extremities: pulses intact, No edema, normal color, Full ROM - Gastrointestinal General gastrointestinal: Present: soft, non-tender, non-distended, normal bowel sounds - Genitourinary Male genitourinary: normal - Integumentary Integumentary: clear, warm, dry - Musculoskeletal Musculoskeletal: 1, strength equal bilaterally - Neurologic Neurologic: moves all extremities - Psychiatric Psychiatric: memory intact, appropriate mood/affect, intact judgment & insight - Labs CBC & Chem 7: 01/28/17 04:36 01/28/17 04:36 Labs: Abnormal lab results 01/28/17 01/28/17 Range/Units 04:36 04:36 WBC 15.0 H (4.5-11.0) K/mm3 Hgb 9.8 L (11.8-15.2) gm/dl Hct 32.5 L (35.5-45.6) % MCV 67 L (84-94) fl MCH 20 L (28-32) pg MCHC 30 L (32-34) % RDW 19.5 H (13.2-15.2) % BUN 21 H (9-20) mg/dL
[2017-01-29] MEDS: PROVENTIL IH PRN (00:02)
[2017-01-29] MEDS: PERCOCET 5/325 PO PRN ×4 (01:49→20:24)
[2017-01-29] MEDS: DUONEB *Not for PRN Use IH SCH ×4 (06:17→20:18)
[2017-01-29] MEDS: LASIX PO SCH (06:21)
[2017-01-29] MEDS: VANCOMYCIN/NS 1 GM/250 ML 1 GM/250 ML BAG IV SCH ×2 (07:37→18:27)
[2017-01-29] MEDS: COREG PO SCH ×2 (09:37→21:25)
[2017-01-29] MEDS: PEPCID PO SCH ×2 (09:54→21:25)
[2017-01-29] MEDS: celeXA PO SCH (09:55)
[2017-01-29] MEDS: PLAVIX PO SCH (09:55)
[2017-01-29] MEDS: LEVAQUIN PO SCH (09:55)
[2017-01-29] MEDS: KEPPRA PO SCH ×2 (09:55→21:25)
[2017-01-29] MEDS: LANOXIN PO SCH (18:19)
--- NOTE | 2017-01-29 19:38 | Progress Note ---
Assessment and Plan Assessment and plan: 56 YO Male with HTN, CHF, COPD, CVA presented for SOB, productive cough; he was recently hospitalized and treated for bilateral pneumonia which involved ICU stay. Acute on chronic hypoxic respiratory failure - Treat underlying conditions - Supplemental oxygen - Inhaled bronchodilators - Aspiration precautions COPD exacerbation - Continue levofloxacin alone complete a had bronchodilators Sepsis - Upper respiratory infection+/- line infection - On antibiotic Cardiomyopathy with an ejection fraction of 10% status post AICD - On BB and diuresis with Lasix Anemia of chronic disease - Monitor Hgb Vascular dementia likely secondary to CVA with intermittent memory loss - Supportive care DVT and GI prophylaxis History Interval history: no complaints Hospitalist Physical - Constitutional Vitals: Temp Pulse Resp BP Pulse Ox 98.5 F 90 18 114/71 98 01/29/17 17:33 01/29/17 17:33 01/29/17 17:33 01/29/17 17:33 01/29/17 17:33 General appearance: Present: no acute distress, cachectic - EENT Eyes: Present: PERRL, EOM intact - Neck Neck: Present: supple, normal ROM. Absent: masses or JVD - Respiratory Respiratory effort: normal Respiratory: bilateral: CTA, negative: rhonchi, wheezing - Cardiovascular Rhythm: regular Heart Sounds: Present: S1 & S2. Absent: systolic murmur - Extremities Extremities: no ischemia - Abdominal General gastrointestinal: soft, non-tender, non-distended, normal bowel sounds - Neurologic Neurologic: moves all extremities Results - Labs CBC & Chem 7: 02/02/17 05:38 02/02/17 05:38 Labs: Laboratory Last Values WBC 15.0 K/mm3 (4.5-11.0) H 01/28/17 04:36 RBC 4.84 M/mm3 (3.65-5.03) 01/28/17 04:36 Hgb 9.8 gm/dl (11.8-15.2) L 01/28/17 04:36 Hct 32.5 % (35.5-45.6) L 01/28/17 04:36 MCV 67 fl (84-94) L 01/28/17 04:36 MCH 20 pg (28-32) L 01/28/17 04:36 MCHC 30 % (32-34) L 01/28/17 04:36 RDW 19.5 % (13.2-15.2) H 01/28/17 04:36 Plt Count 253 K/mm3 (140-440) 01/28/17 04:36 Lymph % (Auto) 15.6 % (13.4-35.0) 01/26/17 01:23 [place] % (Auto) 8.3 % (0.0-7.3) H 01/26/17 01:23 Eos % (Auto) 8.3 % (0.0-4.3) H 01/26/17 01:23 Baso % (Auto) 0.7 % (0.0-1.8) 01/26/17 01:23 Lymph # 3.0 K/mm3 (1.2-5.4) 01/26/17 01:23 [place] # 1.6 K/mm3 (0.0-0.8) H 01/26/17 01:23 Eos # 1.6 K/mm3 (0.0-0.4) H 01/26/17 01:23 Baso # 0.1 K/mm3 (0.0-0.1) 01/26/17 01:23 Seg Neutrophils % 67.1 % (40.0-70.0) 01/26/17 01:23 Seg Neutrophils # 12.7 K/mm3 (1.8-7.7) H 01/26/17 01:23 Sodium 137 mmol/L (137-145) 01/28/17 04:36 Potassium 4.2 mmol/L (3.6-5.0) 01/28/17 04:36 Chloride 101.1 mmol/L (98-107) 01/28/17 04:36 Carbon Dioxide 24 mmol/L (22-30) 01/28/17 04:36 Anion Gap 16 mmol/L 01/28/17 04:36 BUN 21 mg/dL (9-20) H 01/28/17 04:36 Creatinine 0.8 mg/dL (0.8-1.5) 01/28/17 04:36 Estimated GFR > 60 ml/min 01/28/17 04:36 BUN/Creatinine Ratio 26 % 01/28/17 04:36 Glucose 83 mg/dL (75-100) 01/28/17 04:36 Lactic Acid 2.90 mmol/L (0.7-2.0) H* 01/27/17 09:21 Calcium 8.7 mg/dL (8.4-10.2) 01/28/17 04:36 Troponin T 0.019 ng/mL (0.00-0.029) 01/26/17 07:30 C-Reactive Protein 1.20 mg/dL (0.00-1.30) 01/26/17 20:38 Triglycerides 192 mg/dL (2-149) H 01/26/17 01:23 Cholesterol 174 mg/dL (50-199) 01/26/17 01:23 LDL Cholesterol Direct 76 mg/dL (50-130) 01/26/17 01:23 HDL Cholesterol 60 mg/dL (40-59) H 01/26/17 01:23 Cholesterol/HDL Ratio 2.90 % 01/26/17 01:23 Urine Color Yellow (Yellow) 01/26/17 03:58 Urine Turbidity Clear (Clear) 01/26/17 03:58 Urine pH 6.0 (5.0-7.0) 01/26/17 03:58 Ur Specific [place] 1.012 (1.003-1.030) 01/26/17 03:58 Urine Protein 30 mg/dl mg/dL (Negative) 01/26/17 03:58 Urine Glucose (UA) Neg mg/dL (Negative) 01/26/17 03:58 Urine Ketones Neg mg/dL (Negative) 01/26/17 03:58 Urine Blood Sm (Negative) 01/26/17 03:58 Urine Nitrite Neg (Negative) 01/26/17 03:58 Urine Bilirubin Neg (Negative) 01/26/17 03:58 Urine Urobilinogen < 2.0 mg/dL (<2.0) 01/26/17 03:58 Ur Leukocyte Esterase Neg (Negative) 01/26/17 03:58 Urine WBC (Auto) 1.0 /HPF (0.0-6.0) 01/26/17 03:58 Urine RBC (Auto) 1.0 /HPF (0.0-6.0) 01/26/17 03:58 Vancomycin Trough 18.1 ug/mL (5.0-20.0) 01/29/17 04:55
[2017-01-30] MEDS: DUONEB *Not for PRN Use IH SCH ×4 (02:12→20:20)
[2017-01-30] MEDS: PERCOCET 5/325 PO PRN ×4 (02:50→23:21)
[2017-01-30] MEDS: VANCOMYCIN/NS 1 GM/250 ML 1 GM/250 ML BAG IV SCH (05:36)
[2017-01-30] MEDS: LASIX PO SCH ×2 (05:37→05:43)
[2017-01-30] MEDS: KEPPRA PO SCH ×2 (10:21→21:05)
[2017-01-30] MEDS: LEVAQUIN PO SCH (10:21)
[2017-01-30] MEDS: PLAVIX PO SCH (10:21)
[2017-01-30] MEDS: celeXA PO SCH (10:21)
[2017-01-30] MEDS: PEPCID PO SCH ×2 (10:21→21:05)
[2017-01-30] MEDS: COREG PO SCH ×2 (10:21→23:24)
--- NOTE | 2017-01-30 11:00 | Discharge Summary ---
Providers - Providers Date of Admission: 01/26/17 03:22 Date of discharge: 01/30/17 Attending physician: AMRIT PEREZ 01/26/17 11:22 Consult to Physician [CONS] Routine Consulting Provider: CHRISTIE VUONG Reason For Exam: sepsis Place consult to:: dr. valladares Notified:: md Phone number called:: [phone] Was contact made?: No Time called:: 11:35 Comment:: left msg 01/26/17 14:48 Consult to Physician [CONS] Routine Consulting Provider: TONY SCHNEIDER Reason For Exam: copd exacerbation Place consult to:: Notified:: office Phone number called:: Was contact made?: Yes If yes, spoke with:: filipe Time called:: 15:42 01/27/17 10:08 Consult to Physician [CONS] Routine Consulting Provider: KOFI DUKE Reason For Exam: Re:CHF Place consult to:: [facility] Notified:: Was contact made?: Yes If yes, spoke with:: Primary care physician: LABORATORY CHEMICAL ASSISTANT Hospitalization Reason for admission: sob Condition: Stable Hospital course: 56 YO Male with HTN, CHF, COPD, CVA presented for SOB, productive cough; he was recently hospitalized and treated for bilateral pneumonia which involved ICU stay. Acute on chronic hypoxic respiratory failure - Treat underlying conditions - Supplemental oxygen - Inhaled bronchodilators - Aspiration precautions COPD exacerbation - Continue levofloxacin alone complete a had bronchodilators Sepsis - Upper respiratory infection+/- line infection - On antibiotic Cardiomyopathy with an ejection fraction of 10% status post AICD - On BB and diuresis with Lasix Anemia of chronic disease - Monitor Hgb Vascular dementia likely secondary to CVA with intermittent memory loss - Supportive care DVT and GI prophylaxis Disposition: DC/TX-06 HOME UNDER HOME [facility] Time spent for discharge: 40 min Core Measure Documentation - Palliative Care Palliative Care/ Comfort Measures: Not Applicable - Core Measures Any of the following diagnoses?: heart failure - Heart Failure Discharge Requirements SILVERIO/ARB for LVSD if EF <40%: Yes Beta sixto at discharge: Yes Exam - Physical Exam Narrative exam: Seen and examined: - Constitutional Vitals: Temp Pulse Resp BP Pulse Ox 98.6 F 81 18 104/71 99 01/30/17 07:24 01/30/17 07:24 01/30/17 07:24 01/30/17 07:24 01/30/17 07:24 General appearance: Present: no acute distress - EENT Eyes: Present: PERRL, EOM intact - Neck Neck: Present: supple, normal ROM. Absent: masses or JVD - Respiratory Respiratory effort: normal Respiratory: bilateral: CTA, negative: rhonchi, wheezing - Cardiovascular Rhythm: regular Heart Sounds: Present: S1 & S2. Absent: systolic murmur - Extremities Extremities: no ischemia - Abdominal General gastrointestinal: Present: soft, non-tender, non-distended, normal bowel sounds - Musculoskeletal Musculoskeletal: generalized weakness - Neurologic Neurologic: CNII-XII intact, no focal deficits Plan Activity: advance as tolerated, fall precautions Diet: low cholesterol, low salt Special Instructions: home health RN Follow up with: PRIMARY CARE,MD [Primary Care Provider] - 3-5 Days Prescriptions: ALBUTEROL NEB's [Proventil 0.083% NEBS] 2.5 mg IH Q3HRT PRN #100 nebu PRN Reason: Shortness Of Breath Carvedilol [Coreg] 3.125 mg PO BID #60 tablet Carvedilol [Coreg] 6.25 mg PO BID #60 tablet Citalopram [celeXA] 10 mg PO QDAY #30 tablet Clopidogrel [Plavix] 75 mg PO QDAY #30 tablet Digoxin [Lanoxin] 0.125 mg PO DAILY@1700 #30 tablet Famotidine [Pepcid] 10 mg PO BID #60 tablet Furosemide [Lasix TAB] 40 mg PO QDAY #30 tablet Ipratropium [Atrovent NEB] 0.5 mg IH Q4HR #100 ml Ipratropium/Albuterol Sulfate [DUONEB *Not for PRN Use*] 1 ampul IH Q6HRT #50 ampul.neb levETIRAcetam [Keppra TAB] 500 mg PO BID #60 tablet Sacubitril/Valsartan [Entresto 24 mg-26 mg Tablet] 1 each PO BID #60
[2017-01-30] MEDS: PROVENTIL IH PRN (12:11)
[2017-01-30] MEDS ORDERED: PHARMACY CONSULT (FOR PT FALL) PO ONE (13:56)
[2017-01-30] MEDS ORDERED: CUBICIN IV SCH (14:00)
[2017-01-30] MEDS ORDERED: NACL 0.9% IV SCH (14:00)
[2017-01-30 16:54] LABS: Mean Corpuscular HGB Conc 30 % (32-34); Platelet Count 245 K/mm3 (140-440); Red Blood Count 5.24 M/mm3 (3.65-5.03); White Blood Count 11.5 K/mm3 (4.5-11.0)
[2017-01-30 16:56] LABS: Hemoglobin 10.5 gm/dl (11.8-15.2); Mean Corpuscular Volume 67 fl (84-94)
[2017-01-30 16:57] LABS: Mean Corpuscular Hemoglobin 20 pg (28-32); Red Cell Distribution Width 20.4 % (13.2-15.2)
[2017-01-30 17:22] LABS: Alanine Aminotransferase 16 units/L (7-56); Albumin 4.2 g/dL (3.9-5); Albumin/Globulin Ratio 1.8 %; Alkaline Phosphatase 122 units/L (35-129); Anion Gap 19 mmol/L; BUN/Creatinine Ratio 17; Blood Urea Nitrogen 15 mg/dL (9-20); Calcium 9.2 mg/dL (8.4-10.2); Carbon Dioxide 31 mmol/L (22-30); Chloride 97.6 mmol/L (98-107); Glucose 94 mg/dL (75-100); Potassium 4.5 mmol/L (3.6-5.0); Sodium 143 mmol/L (137-145); Total Protein 6.6 g/dL (6.3-8.2)
[2017-01-30 17:32] LABS: Basophils % (Manual) 0 % (0.0-1.8); Blastocytes % (Manual) 0 %
[2017-01-30 17:33] LABS: Anisocytosis 1+; Elliptocytes 1+; Microcytosis 1+
[2017-01-30 17:34] LABS: Diff Status Complete; Poikilocytosis 1+
[2017-01-30] MEDS: LANOXIN PO SCH (17:53)
[2017-01-30] MEDS: CUBICIN IV SCH (20:24)
[2017-01-30] MEDS: NACL 0.9% IV SCH (20:24)
--- NOTE | 2017-01-30 22:25 | Event Note ---
Date: 01/30/17/ blood cultures from 01/26/17 positive for enterococcus resistant to vancomycin. Discussed with ID and start daptomycin. Discharged canceled.
[2017-01-31] MEDS: DUONEB *Not for PRN Use IH SCH ×4 (01:01→19:44)
[2017-01-31] MEDS: PROVENTIL IH PRN ×2 (04:47→23:59)
[2017-01-31] MEDS: LASIX PO SCH (05:58)
[2017-01-31] MEDS: PERCOCET 5/325 PO PRN ×3 (05:59→18:58)
[2017-01-31 06:39] LABS: Hematocrit 31.9 % (35.5-45.6); Hemoglobin 9.7 gm/dl (11.8-15.2); Mean Corpuscular HGB Conc 31 % (32-34); Mean Corpuscular Hemoglobin 21 pg (28-32); Mean Corpuscular Volume 67 fl (84-94); Platelet Count 194 K/mm3 (140-440); Red Blood Count 4.75 M/mm3 (3.65-5.03); Red Cell Distribution Width 19.9 % (13.2-15.2); White Blood Count 11.3 K/mm3 (4.5-11.0)
[2017-01-31 06:57] LABS: Anion Gap 15 mmol/L; BUN/Creatinine Ratio 16; Blood Urea Nitrogen 13 mg/dL (9-20); Calcium 9.1 mg/dL (8.4-10.2); Carbon Dioxide 29 mmol/L (22-30); Chloride 96.7 mmol/L (98-107); Glucose 96 mg/dL (75-100); Potassium 3.3 mmol/L (3.6-5.0); Sodium 137 mmol/L (137-145)
[2017-01-31 08:44] LABS: Anisocytosis 1+; Basophils % (Manual) 0 % (0.0-1.8); Blastocytes % (Manual) 0 %; Eosinophils % (Manual) 20 % (0.0-4.3); Hypochromasia 2+; Microcytosis 2+
[2017-01-31 08:45] LABS: Diff Status Complete; Poikilocytosis 1+
[2017-01-31] MEDS: COREG PO SCH ×2 (09:42→21:30)
[2017-01-31] MEDS: celeXA PO SCH (09:43)
[2017-01-31] MEDS: KEPPRA PO SCH ×2 (09:43→21:30)
[2017-01-31] MEDS: PEPCID PO SCH ×2 (09:43→21:30)
[2017-01-31] MEDS: PLAVIX PO SCH (09:43)
[2017-01-31] MEDS: LANOXIN PO SCH (16:58)
[2017-01-31] MEDS: CUBICIN IV SCH (17:02)
[2017-01-31] MEDS: NACL 0.9% IV SCH (17:02)
--- NOTE | 2017-01-31 19:00 | Progress Note ---
Assessment and Plan Assessment and plan: 56 YO Male with HTN, CHF, COPD, CVA presented for SOB, productive cough; he was recently hospitalized and treated for bilateral pneumonia which involved ICU stay. Acute on chronic hypoxic respiratory failure - Treat underlying conditions - Supplemental oxygen - Inhaled bronchodilators - Aspiration precautions COPD exacerbation - Completed levofloxacin course; continue inhaled bronchodilators Sepsis - 1/2 blood cultures 01/26/17 positive for enterococcus resistant to vancomycin - Discussed with ID and started on daptomycin; repeated blood cultures; ID will decide duration of treatment Cardiomyopathy with an ejection fraction of 10% status post AICD - On BB and diuresis with Lasix Anemia of chronic disease - Monitor Hgb Vascular dementia likely secondary to CVA with intermittent memory loss - Supportive care DVT and GI prophylaxis History Interval history: no complaints Hospitalist Physical - Constitutional Vitals: Temp Pulse Resp BP Pulse Ox 97.6 F 83 18 96/65 98 01/31/17 15:28 01/31/17 16:58 01/31/17 15:28 01/31/17 16:58 01/31/17 15:28 General appearance: Present: no acute distress, cachectic - EENT Eyes: Present: PERRL, EOM intact, scleral icterus. Absent: conjunctival injection - Neck Neck: Present: supple, normal ROM. Absent: masses or JVD - Respiratory Respiratory effort: normal Respiratory: bilateral: CTA, negative: rhonchi, wheezing - Cardiovascular Rhythm: regular Heart Sounds: Present: S1 & S2. Absent: systolic murmur - Extremities Extremities: no ischemia - Abdominal General gastrointestinal: soft, non-tender, non-distended, normal bowel sounds - Psychiatric Psychiatric: cooperative - Neurologic Neurologic: CNII-XII intact, no focal deficits Results - Labs CBC & Chem 7: 02/02/17 05:38 02/02/17 05:38 Labs: Laboratory Last Values WBC 11.3 K/mm3 (4.5-11.0) H 01/31/17 05:54 RBC 4.75 M/mm3 (3.65-5.03) 01/31/17 05:54 Hgb 9.7 gm/dl (11.8-15.2) L 01/31/17 05:54 Hct 31.9 % (35.5-45.6) L 01/31/17 05:54 MCV 67 fl (84-94) L 01/31/17 05:54 MCH 21 pg (28-32) L 01/31/17 05:54 MCHC 31 % (32-34) L 01/31/17 05:54 RDW 19.9 % (13.2-15.2) H 01/31/17 05:54 Plt Count 194 K/mm3 (140-440) 01/31/17 05:54 Lymph % (Auto) 15.6 % (13.4-35.0) 01/26/17 01:23 [place] % (Auto) 8.3 % (0.0-7.3) H 01/26/17 01:23 Eos % (Auto) [employer] 01/31/17 05:54 Baso % (Auto) 0.7 % (0.0-1.8) 01/26/17 01:23 Lymph # 3.0 K/mm3 (1.2-5.4) 01/26/17 01:23 [place] # 1.6 K/mm3 (0.0-0.8) H 01/26/17 01:23 Eos # 1.6 K/mm3 (0.0-0.4) H 01/26/17 01:23 Baso # 0.1 K/mm3 (0.0-0.1) 01/26/17 01:23 Add Manual Diff Complete 01/31/17 05:54 Total Counted 100 01/31/17 05:54 Seg Neutrophils % 67.1 % (40.0-70.0) 01/26/17 01:23 Seg Neuts % (Manual) 59 % (40.0-70.0) 01/31/17 05:54 Band Neutrophils % 0 % 01/31/17 05:54 Lymphocytes % (Manual) 14.0 % (13.4-35.0) 01/31/17 05:54 Reactive Lymphs % (Man) 0 % 01/31/17 05:54 Monocytes % (Manual) 9.0 % (0.0-7.3) H 01/31/17 05:54 Eosinophils % (Manual) 20 % (0.0-4.3) H 01/31/17 05:54 Basophils % (Manual) 0 % (0.0-1.8) 01/31/17 05:54 Metamyelocytes % 0 % 01/31/17 05:54 Myelocytes % 0 % 01/31/17 05:54 Promyelocytes % 0 % 01/31/17 05:54 Blast Cells % 0 % 01/31/17 05:54 Nucleated RBC % Not Reportable 01/31/17 05:54 Seg Neutrophils # 12.7 K/mm3 (1.8-7.7) H 01/26/17 01:23 Seg Neutrophils # Man 6.6 K/mm3 (1.8-7.7) 01/31/17 05:54 Band Neutrophils # 0.0 K/mm3 01/31/17 05:54 Lymphocytes # (Manual) 1.6 K/mm3 (1.2-5.4) 01/31/17 05:54 Abs React Lymphs (Man) 0.0 K/mm3 01/31/17 05:54 Monocytes # (Manual) 1.0 K/mm3 (0.0-0.8) H 01/31/17 05:54 Eosinophils # (Manual) 2.2 K/mm3 (0.0-0.4) H 01/31/17 05:54 Basophils # (Manual) 0.0 K/mm3 (0.0-0.1) 01/31/17 05:54 Metamyelocytes # 0.0 K/mm3 01/31/17 05:54 Myelocytes # 0.0 K/mm3 01/31/17 05:54 Promyelocytes # 0.0 K/mm3 01/31/17 05:54 Blast Cells # 0.0 K/mm3 01/31/17 05:54 WBC Morphology Not Reportable 01/31/17 05:54 Hypersegmented Neuts Not Reportable 01/31/17 05:54 Hyposegmented Neuts Not Reportable 01/31/17 05:54 Hypogranular Neuts Not Reportable 01/31/17 05:54 Smudge Cells Not Reportable 01/31/17 05:54 Toxic Granulation Not Reportable 01/31/17 05:54 Toxic Vacuolation Not Reportable 01/31/17 05:54 Dohle Bodies Not Reportable 01/31/17 05:54 Pelger-Huet Anomaly Not Reportable 01/31/17 05:54 Ana Luisa Rods Not Reportable 01/31/17 05:54 Platelet Estimate Not Reportable 01/31/17 05:54 Clumped Platelets Not Reportable 01/31/17 05:54 Plt Clumps, EDTA Not Reportable 01/31/17 05:54 Large Platelets Not Reportable 01/31/17 05:54 Giant Platelets Not Reportable 01/31/17 05:54 Platelet Satelliting Not Reportable 01/31/17 05:54 Plt Morphology Comment Not Reportable 01/31/17 05:54 RBC Morphology Not Reportable 01/31/17 05:54 Dimorphic RBCs Not Reportable 01/31/17 05:54 Polychromasia Not Reportable 01/31/17 05:54 Hypochromasia 2+ 01/31/17 05:54 Poikilocytosis 1+ 01/31/17 05:54 Anisocytosis 1+ 01/31/17 05:54 Microcytosis 2+ 01/31/17 05:54 Macrocytosis Not Reportable 01/31/17 05:54 Spherocytes Not Reportable 01/31/17 05:54 Pappenheimer Bodies Not Reportable 01/31/17 05:54 Sickle Cells Not Reportable 01/31/17 05:54 Target Cells Not Reportable 01/31/17 05:54 Tear Drop Cells Not Reportable 01/31/17 05:54 Ovalocytes Not Reportable 01/31/17 05:54 Helmet Cells Not Reportable 01/31/17 05:54 [place] Bodies Not Reportable 01/31/17 05:54 [place] Rings Not Reportable 01/31/17 05:54 [place] Cells Not Reportable 01/31/17 05:54 Bite Cells Not Reportable 01/31/17 05:54 Crenated Cell Not Reportable 01/31/17 05:54 Elliptocytes Not Reportable 01/31/17 05:54 Acanthocytes (Spur) Not Reportable 01/31/17 05:54 Rouleaux Not Reportable 01/31/17 05:54 Hemoglobin C Crystals Not Reportable 01/31/17 05:54 Schistocytes Not Reportable 01/31/17 05:54 Malaria parasites Not Reportable 01/31/17 05:54 [place] Bodies Not Reportable 01/31/17 05:54 Hem Pathologist Commnt N. 01/31/17 05:54 Sodium 137 mmol/L (137-145) 01/31/17 05:54 Potassium 3.3 mmol/L (3.6-5.0) L D 01/31/17 05:54 Chloride 96.7 mmol/L (98-107) L 01/31/17 05:54 Carbon Dioxide 29 mmol/L (22-30) 01/31/17 05:54 Anion Gap 15 mmol/L 01/31/17 05:54 BUN 13 mg/dL (9-20) 01/31/17 05:54 Creatinine 0.8 mg/dL (0.8-1.5) 01/31/17 05:54 Estimated GFR > 60 ml/min 01/31/17 05:54 BUN/Creatinine Ratio 16 % 01/31/17 05:54 Glucose 96 mg/dL (75-100) 01/31/17 05:54 Lactic Acid 1.00 mmol/L (0.7-2.0) 01/30/17 16:12 Calcium 9.1 mg/dL (8.4-10.2) 01/31/17 05:54 Total Bilirubin 0.30 mg/dL (0.1-1.2) 01/30/17 16:12 AST 15 units/L (5-40) 01/30/17 16:12 ALT 16 units/L (7-56) 01/30/17 16:12 Alkaline Phosphatase 122 units/L (35-129) 01/30/17 16:12 Troponin T 0.019 ng/mL (0.00-0.029) 01/26/17 07:30 C-Reactive Protein 1.20 mg/dL (0.00-1.30) 01/26/17 20:38 Total Protein 6.6 g/dL (6.3-8.2) 01/30/17 16:12 Albumin 4.2 g/dL (3.9-5) 01/30/17 16:12 Albumin/Globulin Ratio 1.8 % 01/30/17 16:12 Triglycerides 192 mg/dL (2-149) H 01/26/17 01:23 Cholesterol 174 mg/dL (50-199) 01/26/17 01:23 LDL Cholesterol Direct 76 mg/dL (50-130) 01/26/17 01:23 HDL Cholesterol 60 mg/dL (40-59) H 01/26/17 01:23 Cholesterol/HDL Ratio 2.90 % 01/26/17 01:23 Urine Color Yellow (Yellow) 01/26/17 03:58 Urine Turbidity Clear (Clear) 01/26/17 03:58 Urine pH 6.0 (5.0-7.0) 01/26/17 03:58 Ur Specific [place] 1.012 (1.003-1.030) 01/26/17 03:58 Urine Protein 30 mg/dl mg/dL (Negative) 01/26/17 03:58 Urine Glucose (UA) Neg mg/dL (Negative) 01/26/17 03:58 Urine Ketones Neg mg/dL (Negative) 01/26/17 03:58 Urine Blood Sm (Negative) 01/26/17 03:58 Urine Nitrite Neg (Negative) 01/26/17 03:58 Urine Bilirubin Neg (Negative) 01/26/17 03:58 Urine Urobilinogen < 2.0 mg/dL (<2.0) 01/26/17 03:58 Ur Leukocyte Esterase Neg (Negative) 01/26/17 03:58 Urine WBC (Auto) 1.0 /HPF (0.0-6.0) 01/26/17 03:58 Urine RBC (Auto) 1.0 /HPF (0.0-6.0) 01/26/17 03:58 Vancomycin Trough 18.1 ug/mL (5.0-20.0) 01/29/17 04:55
[2017-02-01] MEDS ORDERED: DELTASONE PO ONE (01:05)
[2017-02-01] MEDS: PERCOCET 5/325 PO PRN ×4 (01:09→22:00)
[2017-02-01] MEDS: DUONEB *Not for PRN Use IH SCH ×4 (02:29→20:20)
[2017-02-01] MEDS: LASIX PO SCH (05:43)
[2017-02-01] MEDS: PULMICORT IH SCH ×2 (07:36→20:20)
[2017-02-01] MEDS: COREG PO SCH ×2 (09:51→22:07)
[2017-02-01] MEDS: PLAVIX PO SCH (09:54)
[2017-02-01] MEDS: PEPCID PO SCH ×2 (09:54→22:07)
[2017-02-01] MEDS: KEPPRA PO SCH ×2 (09:54→22:08)
[2017-02-01] MEDS: celeXA PO SCH (09:55)
[2017-02-01] MEDS: CUBICIN IV SCH (17:52)
[2017-02-01] MEDS: NACL 0.9% IV SCH (17:52)
[2017-02-01] MEDS: LANOXIN PO SCH (17:53)
--- NOTE | 2017-02-01 20:46 | Progress Note ---
Assessment and Plan Assessment and plan: 56 YO Male with HTN, CHF, COPD, CVA presented for SOB, productive cough; he was recently hospitalized and treated for bilateral pneumonia which involved ICU stay. Acute on chronic hypoxic respiratory failure - Treat underlying conditions - Supplemental oxygen - Inhaled bronchodilators - Aspiration precautions COPD exacerbation - Completed levofloxacin course; continue inhaled bronchodilators Sepsis - 1/2 blood cultures 01/26/17 positive for enterococcus resistant to vancomycin - Discussed with ID and started on daptomycin; repeated blood cultures; ID will decide duration of treatment Cardiomyopathy with an ejection fraction of 10% status post AICD - On BB, ACEI and diuresis with Lasix Anemia of chronic disease - Monitor Hgb Vascular dementia likely secondary to CVA with intermittent memory loss - Supportive care DVT and GI prophylaxis History Interval history: no complaints Hospitalist Physical - Constitutional Vitals: Temp Pulse Resp BP Pulse Ox 98.4 F 84 18 106/74 95 02/01/17 16:11 02/01/17 17:53 02/01/17 16:11 02/01/17 16:11 02/01/17 20:04 General appearance: Present: no acute distress, cachectic - EENT Eyes: Present: PERRL, EOM intact - Neck Neck: Present: supple, normal ROM. Absent: masses or JVD - Respiratory Respiratory effort: normal Respiratory: bilateral: CTA, negative: rhonchi, wheezing - Cardiovascular Rhythm: regular Heart Sounds: Present: S1 & S2. Absent: systolic murmur - Extremities Extremities: no ischemia - Abdominal General gastrointestinal: soft, non-tender, non-distended, normal bowel sounds - Psychiatric Psychiatric: cooperative - Neurologic Neurologic: CNII-XII intact, no focal deficits Results - Labs CBC & Chem 7: 02/02/17 05:38 02/02/17 05:38 Labs: Laboratory Last Values WBC 11.3 K/mm3 (4.5-11.0) H 01/31/17 05:54 RBC 4.75 M/mm3 (3.65-5.03) 01/31/17 05:54 Hgb 9.7 gm/dl (11.8-15.2) L 01/31/17 05:54 Hct 31.9 % (35.5-45.6) L 01/31/17 05:54 MCV 67 fl (84-94) L 01/31/17 05:54 MCH 21 pg (28-32) L 01/31/17 05:54 MCHC 31 % (32-34) L 01/31/17 05:54 RDW 19.9 % (13.2-15.2) H 01/31/17 05:54 Plt Count 194 K/mm3 (140-440) 01/31/17 05:54 Lymph % (Auto) 15.6 % (13.4-35.0) 01/26/17 01:23 [place] % (Auto) 8.3 % (0.0-7.3) H 01/26/17 01:23 Eos % (Auto) Tissue Packer 01/31/17 05:54 Baso % (Auto) 0.7 % (0.0-1.8) 01/26/17 01:23 Lymph # 3.0 K/mm3 (1.2-5.4) 01/26/17 01:23 [place] # 1.6 K/mm3 (0.0-0.8) H 01/26/17 01:23 Eos # 1.6 K/mm3 (0.0-0.4) H 01/26/17 01:23 Baso # 0.1 K/mm3 (0.0-0.1) 01/26/17 01:23 Add Manual Diff Complete 01/31/17 05:54 Total Counted 100 01/31/17 05:54 Seg Neutrophils % 67.1 % (40.0-70.0) 01/26/17 01:23 Seg Neuts % (Manual) 59 % (40.0-70.0) 01/31/17 05:54 Band Neutrophils % 0 % 01/31/17 05:54 Lymphocytes % (Manual) 14.0 % (13.4-35.0) 01/31/17 05:54 Reactive Lymphs % (Man) 0 % 01/31/17 05:54 Monocytes % (Manual) 9.0 % (0.0-7.3) H 01/31/17 05:54 Eosinophils % (Manual) 20 % (0.0-4.3) H 01/31/17 05:54 Basophils % (Manual) 0 % (0.0-1.8) 01/31/17 05:54 Metamyelocytes % 0 % 01/31/17 05:54 Myelocytes % 0 % 01/31/17 05:54 Promyelocytes % 0 % 01/31/17 05:54 Blast Cells % 0 % 01/31/17 05:54 Nucleated RBC % Not Reportable 01/31/17 05:54 Seg Neutrophils # 12.7 K/mm3 (1.8-7.7) H 01/26/17 01:23 Seg Neutrophils # Man 6.6 K/mm3 (1.8-7.7) 01/31/17 05:54 Band Neutrophils # 0.0 K/mm3 01/31/17 05:54 Lymphocytes # (Manual) 1.6 K/mm3 (1.2-5.4) 01/31/17 05:54 Abs React Lymphs (Man) 0.0 K/mm3 01/31/17 05:54 Monocytes # (Manual) 1.0 K/mm3 (0.0-0.8) H 01/31/17 05:54 Eosinophils # (Manual) 2.2 K/mm3 (0.0-0.4) H 01/31/17 05:54 Basophils # (Manual) 0.0 K/mm3 (0.0-0.1) 01/31/17 05:54 Metamyelocytes # 0.0 K/mm3 01/31/17 05:54 Myelocytes # 0.0 K/mm3 01/31/17 05:54 Promyelocytes # 0.0 K/mm3 01/31/17 05:54 Blast Cells # 0.0 K/mm3 01/31/17 05:54 WBC Morphology Not Reportable 01/31/17 05:54 Hypersegmented Neuts Not Reportable 01/31/17 05:54 Hyposegmented Neuts Not Reportable 01/31/17 05:54 Hypogranular Neuts Not Reportable 01/31/17 05:54 Smudge Cells Not Reportable 01/31/17 05:54 Toxic Granulation Not Reportable 01/31/17 05:54 Toxic Vacuolation Not Reportable 01/31/17 05:54 Dohle Bodies Not Reportable 01/31/17 05:54 Pelger-Huet Anomaly Not Reportable 01/31/17 05:54 Ana Luisa Rods Not Reportable 01/31/17 05:54 Platelet Estimate Not Reportable 01/31/17 05:54 Clumped Platelets Not Reportable 01/31/17 05:54 Plt Clumps, EDTA Not Reportable 01/31/17 05:54 Large Platelets Not Reportable 01/31/17 05:54 Giant Platelets Not Reportable 01/31/17 05:54 Platelet Satelliting Not Reportable 01/31/17 05:54 Plt Morphology Comment Not Reportable 01/31/17 05:54 RBC Morphology Not Reportable 01/31/17 05:54 Dimorphic RBCs Not Reportable 01/31/17 05:54 Polychromasia Not Reportable 01/31/17 05:54 Hypochromasia 2+ 01/31/17 05:54 Poikilocytosis 1+ 01/31/17 05:54 Anisocytosis 1+ 01/31/17 05:54 Microcytosis 2+ 01/31/17 05:54 Macrocytosis Not Reportable 01/31/17 05:54 Spherocytes Not Reportable 01/31/17 05:54 Pappenheimer Bodies Not Reportable 01/31/17 05:54 Sickle Cells Not Reportable 01/31/17 05:54 Target Cells Not Reportable 01/31/17 05:54 Tear Drop Cells Not Reportable 01/31/17 05:54 Ovalocytes Not Reportable 01/31/17 05:54 Helmet Cells Not Reportable 01/31/17 05:54 [place] Bodies Not Reportable 01/31/17 05:54 [employer] Rings Not Reportable 01/31/17 05:54 [place] Cells Not Reportable 01/31/17 05:54 Bite Cells Not Reportable 01/31/17 05:54 Crenated Cell Not Reportable 01/31/17 05:54 Elliptocytes Not Reportable 01/31/17 05:54 Acanthocytes (Spur) Not Reportable 01/31/17 05:54 Rouleaux Not Reportable 01/31/17 05:54 Hemoglobin C Crystals Not Reportable 01/31/17 05:54 Schistocytes Not Reportable 01/31/17 05:54 Malaria parasites Not Reportable 01/31/17 05:54 [place] Bodies Not Reportable 01/31/17 05:54 Hem Pathologist Commnt N. 01/31/17 05:54 Sodium 137 mmol/L (137-145) 01/31/17 05:54 Potassium 3.3 mmol/L (3.6-5.0) L D 01/31/17 05:54 Chloride 96.7 mmol/L (98-107) L 01/31/17 05:54 Carbon Dioxide 29 mmol/L (22-30) 01/31/17 05:54 Anion Gap 15 mmol/L 01/31/17 05:54 BUN 13 mg/dL (9-20) 01/31/17 05:54 Creatinine 0.8 mg/dL (0.8-1.5) 01/31/17 05:54 Estimated GFR > 60 ml/min 01/31/17 05:54 BUN/Creatinine Ratio 16 % 01/31/17 05:54 Glucose 96 mg/dL (75-100) 01/31/17 05:54 Lactic Acid 1.00 mmol/L (0.7-2.0) 01/30/17 16:12 Calcium 9.1 mg/dL (8.4-10.2) 01/31/17 05:54 Total Bilirubin 0.30 mg/dL (0.1-1.2) 01/30/17 16:12 AST 15 units/L (5-40) 01/30/17 16:12 ALT 16 units/L (7-56) 01/30/17 16:12 Alkaline Phosphatase 122 units/L (35-129) 01/30/17 16:12 Total Creatine Kinase 33 units/L (55-170) L 02/01/17 06:01 Troponin T 0.019 ng/mL (0.00-0.029) 01/26/17 07:30 C-Reactive Protein 1.20 mg/dL (0.00-1.30) 01/26/17 20:38 Total Protein 6.6 g/dL (6.3-8.2) 01/30/17 16:12 Albumin 4.2 g/dL (3.9-5) 01/30/17 16:12 Albumin/Globulin Ratio 1.8 % 01/30/17 16:12 Triglycerides 192 mg/dL (2-149) H 01/26/17 01:23 Cholesterol 174 mg/dL (50-199) 01/26/17 01:23 LDL Cholesterol Direct 76 mg/dL (50-130) 01/26/17 01:23 HDL Cholesterol 60 mg/dL (40-59) H 01/26/17 01:23 Cholesterol/HDL Ratio 2.90 % 01/26/17 01:23 Urine Color Yellow (Yellow) 01/26/17 03:58 Urine Turbidity Clear (Clear) 01/26/17 03:58 Urine pH 6.0 (5.0-7.0) 01/26/17 03:58 Ur Specific [place] 1.012 (1.003-1.030) 01/26/17 03:58 Urine Protein 30 mg/dl mg/dL (Negative) 01/26/17 03:58 Urine Glucose (UA) Neg mg/dL (Negative) 01/26/17 03:58 Urine Ketones Neg mg/dL (Negative) 01/26/17 03:58 Urine Blood Sm (Negative) 01/26/17 03:58 Urine Nitrite Neg (Negative) 01/26/17 03:58 Urine Bilirubin Neg (Negative) 01/26/17 03:58 Urine Urobilinogen < 2.0 mg/dL (<2.0) 01/26/17 03:58 Ur Leukocyte Esterase Neg (Negative) 01/26/17 03:58 Urine WBC (Auto) 1.0 /HPF (0.0-6.0) 01/26/17 03:58 Urine RBC (Auto) 1.0 /HPF (0.0-6.0) 01/26/17 03:58 Vancomycin Trough 18.1 ug/mL (5.0-20.0) 01/29/17 04:55
[2017-02-02] MEDS: DUONEB *Not for PRN Use IH SCH ×4 (02:32→20:16)
[2017-02-02] MEDS: PERCOCET 5/325 PO PRN ×4 (04:36→22:23)
[2017-02-02] MEDS: LASIX PO SCH (06:18)
[2017-02-02 06:39] LABS: Basophils % (Auto) 0.8 % (0.0-1.8); Eosinophils % (Auto) 9.7 % (0.0-4.3); Hematocrit 29.5 % (35.5-45.6); Hemoglobin 9.3 gm/dl (11.8-15.2); Mean Corpuscular HGB Conc 32 % (32-34); Platelet Count 188 K/mm3 (140-440); Red Blood Count 4.41 M/mm3 (3.65-5.03); White Blood Count 8.9 K/mm3 (4.5-11.0)
[2017-02-02 06:47] LABS: Mean Corpuscular Hemoglobin 21 pg (28-32); Mean Corpuscular Volume 67 fl (84-94); Red Cell Distribution Width 20.2 % (13.2-15.2)
[2017-02-02 06:55] LABS: Anion Gap 15 mmol/L; BUN/Creatinine Ratio 20; Blood Urea Nitrogen 18 mg/dL (9-20); Calcium 8.9 mg/dL (8.4-10.2); Carbon Dioxide 29 mmol/L (22-30); Chloride 99.4 mmol/L (98-107); Glucose 77 mg/dL (75-100); Potassium 3.5 mmol/L (3.6-5.0); Sodium 140 mmol/L (137-145)
[2017-02-02] MEDS: PULMICORT IH SCH ×2 (08:29→20:16)
[2017-02-02] MEDS: PEPCID PO SCH ×2 (11:10→22:22)
[2017-02-02] MEDS: PLAVIX PO SCH (11:10)
[2017-02-02] MEDS: celeXA PO SCH (11:10)
[2017-02-02] MEDS: COREG PO SCH ×2 (11:11→22:23)
[2017-02-02] MEDS: KEPPRA PO SCH ×2 (11:11→22:22)
[2017-02-02] MEDS: LANOXIN PO SCH (17:14)
[2017-02-02] MEDS: NACL 0.9% IV SCH (18:36)
[2017-02-02] MEDS: CUBICIN IV SCH (18:36)
--- NOTE | 2017-02-02 21:38 | Progress Note ---
Assessment and Plan Assessment and plan: 56 YO Male with HTN, CHF, COPD, CVA presented for SOB, productive cough; he was recently hospitalized and treated for bilateral pneumonia which involved ICU stay. Acute on chronic hypoxic respiratory failure - Treat underlying conditions - Supplemental oxygen - Inhaled bronchodilators - Aspiration precautions COPD exacerbation - Completed levofloxacin course; continue inhaled bronchodilators Sepsis - 1/2 blood cultures 01/26/17 positive for Enterococcus resistant to vancomycin - Discussed with ID and started on daptomycin; repeated blood cultures; awainting ID recommendation regarding duration of treatment Cardiomyopathy with an ejection fraction of 10% status post AICD - On BB, ACEI and diuresis with Lasix Anemia of chronic disease - Monitor Hgb Vascular dementia likely secondary to CVA with intermittent memory loss - Supportive care DVT and GI prophylaxis History Interval history: no complaints Hospitalist Physical - Constitutional Vitals: Temp Pulse Resp BP Pulse Ox 98.8 F 80 18 103/66 94 02/02/17 14:54 02/02/17 17:14 02/02/17 14:54 02/02/17 14:54 02/02/17 20:17 General appearance: Present: no acute distress, cachectic - EENT Eyes: Present: PERRL, EOM intact - Neck Neck: Present: supple, normal ROM. Absent: masses or JVD - Respiratory Respiratory effort: normal Respiratory: bilateral: CTA, negative: rhonchi, wheezing - Cardiovascular Rhythm: regular Heart Sounds: Present: S1 & S2. Absent: systolic murmur - Extremities Extremities: no ischemia - Abdominal General gastrointestinal: soft, non-tender, non-distended, normal bowel sounds - Psychiatric Psychiatric: cooperative - Neurologic Neurologic: CNII-XII intact, no focal deficits Results - Labs CBC & Chem 7: 02/02/17 05:38 02/02/17 05:38 Labs: Laboratory Last Values WBC 8.9 K/mm3 (4.5-11.0) 02/02/17 05:38 RBC 4.41 M/mm3 (3.65-5.03) 02/02/17 05:38 Hgb 9.3 gm/dl (11.8-15.2) L 02/02/17 05:38 Hct 29.5 % (35.5-45.6) L 02/02/17 05:38 MCV 67 fl (84-94) L 02/02/17 05:38 MCH 21 pg (28-32) L 02/02/17 05:38 MCHC 32 % (32-34) 02/02/17 05:38 RDW 20.2 % (13.2-15.2) H 02/02/17 05:38 Plt Count 188 K/mm3 (140-440) 02/02/17 05:38 Lymph % (Auto) 19.5 % (13.4-35.0) 02/02/17 05:38 [place] % (Auto) 11.3 % (0.0-7.3) H 02/02/17 05:38 Eos % (Auto) 9.7 % (0.0-4.3) H 02/02/17 05:38 Baso % (Auto) 0.8 % (0.0-1.8) 02/02/17 05:38 Lymph # 1.7 K/mm3 (1.2-5.4) 02/02/17 05:38 [place] # 1.0 K/mm3 (0.0-0.8) H 02/02/17 05:38 Eos # 0.9 K/mm3 (0.0-0.4) H 02/02/17 05:38 Baso # 0.1 K/mm3 (0.0-0.1) 02/02/17 05:38 Add Manual Diff Complete 01/31/17 05:54 Total Counted 100 01/31/17 05:54 Seg Neutrophils % 58.7 % (40.0-70.0) 02/02/17 05:38 Seg Neuts % (Manual) 59 % (40.0-70.0) 01/31/17 05:54 Band Neutrophils % 0 % 01/31/17 05:54 Lymphocytes % (Manual) 14.0 % (13.4-35.0) 01/31/17 05:54 Reactive Lymphs % (Man) 0 % 01/31/17 05:54 Monocytes % (Manual) 9.0 % (0.0-7.3) H 01/31/17 05:54 Eosinophils % (Manual) 20 % (0.0-4.3) H 01/31/17 05:54 Basophils % (Manual) 0 % (0.0-1.8) 01/31/17 05:54 Metamyelocytes % 0 % 01/31/17 05:54 Myelocytes % 0 % 01/31/17 05:54 Promyelocytes % 0 % 01/31/17 05:54 Blast Cells % 0 % 01/31/17 05:54 Nucleated RBC % Not Reportable 01/31/17 05:54 Seg Neutrophils # 5.3 K/mm3 (1.8-7.7) 02/02/17 05:38 Seg Neutrophils # Man 6.6 K/mm3 (1.8-7.7) 01/31/17 05:54 Band Neutrophils # 0.0 K/mm3 01/31/17 05:54 Lymphocytes # (Manual) 1.6 K/mm3 (1.2-5.4) 01/31/17 05:54 Abs React Lymphs (Man) 0.0 K/mm3 01/31/17 05:54 Monocytes # (Manual) 1.0 K/mm3 (0.0-0.8) H 01/31/17 05:54 Eosinophils # (Manual) 2.2 K/mm3 (0.0-0.4) H 01/31/17 05:54 Basophils # (Manual) 0.0 K/mm3 (0.0-0.1) 01/31/17 05:54 Metamyelocytes # 0.0 K/mm3 01/31/17 05:54 Myelocytes # 0.0 K/mm3 01/31/17 05:54 Promyelocytes # 0.0 K/mm3 01/31/17 05:54 Blast Cells # 0.0 K/mm3 01/31/17 05:54 WBC Morphology Not Reportable 01/31/17 05:54 Hypersegmented Neuts Not Reportable 01/31/17 05:54 Hyposegmented Neuts Not Reportable 01/31/17 05:54 Hypogranular Neuts Not Reportable 01/31/17 05:54 Smudge Cells Not Reportable 01/31/17 05:54 Toxic Granulation Not Reportable 01/31/17 05:54 Toxic Vacuolation Not Reportable 01/31/17 05:54 Dohle Bodies Not Reportable 01/31/17 05:54 Pelger-Huet Anomaly Not Reportable 01/31/17 05:54 Ana Luisa Rods Not Reportable 01/31/17 05:54 Platelet Estimate Not Reportable 01/31/17 05:54 Clumped Platelets Not Reportable 01/31/17 05:54 Plt Clumps, EDTA Not Reportable 01/31/17 05:54 Large Platelets Not Reportable 01/31/17 05:54 Giant Platelets Not Reportable 01/31/17 05:54 Platelet Satelliting Not Reportable 01/31/17 05:54 Plt Morphology Comment Not Reportable 01/31/17 05:54 RBC Morphology Not Reportable 01/31/17 05:54 Dimorphic RBCs Not Reportable 01/31/17 05:54 Polychromasia Not Reportable 01/31/17 05:54 Hypochromasia 2+ 01/31/17 05:54 Poikilocytosis 1+ 01/31/17 05:54 Anisocytosis 1+ 01/31/17 05:54 Microcytosis 2+ 01/31/17 05:54 Macrocytosis Not Reportable 01/31/17 05:54 Spherocytes Not Reportable 01/31/17 05:54 Pappenheimer Bodies Not Reportable 01/31/17 05:54 Sickle Cells Not Reportable 01/31/17 05:54 Target Cells Not Reportable 01/31/17 05:54 Tear Drop Cells Not Reportable 01/31/17 05:54 Ovalocytes Not Reportable 01/31/17 05:54 Helmet Cells Not Reportable 01/31/17 05:54 [place] Bodies Not Reportable 01/31/17 05:54 [place] Rings Not Reportable 01/31/17 05:54 [place] Cells Not Reportable 01/31/17 05:54 Bite Cells Not Reportable 01/31/17 05:54 Crenated Cell Not Reportable 01/31/17 05:54 Elliptocytes Not Reportable 01/31/17 05:54 Acanthocytes (Spur) Not Reportable 01/31/17 05:54 Rouleaux Not Reportable 01/31/17 05:54 Hemoglobin C Crystals Not Reportable 01/31/17 05:54 Schistocytes Not Reportable 01/31/17 05:54 Malaria parasites Not Reportable 01/31/17 05:54 Nestor Bodies Not Reportable 01/31/17 05:54 Hem Pathologist Commnt N. 01/31/17 05:54 Sodium 140 mmol/L (137-145) 02/02/17 05:38 Potassium 3.5 mmol/L (3.6-5.0) L 02/02/17 05:38 Chloride 99.4 mmol/L (98-107) 02/02/17 05:38 Carbon Dioxide 29 mmol/L (22-30) 02/02/17 05:38 Anion Gap 15 mmol/L 02/02/17 05:38 BUN 18 mg/dL (9-20) 02/02/17 05:38 Creatinine 0.9 mg/dL (0.8-1.5) 02/02/17 05:38 Estimated GFR > 60 ml/min 02/02/17 05:38 BUN/Creatinine Ratio 20 % 02/02/17 05:38 Glucose 77 mg/dL (75-100) 02/02/17 05:38 Lactic Acid 1.00 mmol/L (0.7-2.0) 01/30/17 16:12 Calcium 8.9 mg/dL (8.4-10.2) 02/02/17 05:38 Total Bilirubin 0.30 mg/dL (0.1-1.2) 01/30/17 16:12 AST 15 units/L (5-40) 01/30/17 16:12 ALT 16 units/L (7-56) 01/30/17 16:12 Alkaline Phosphatase 122 units/L (35-129) 01/30/17 16:12 Total Creatine Kinase 33 units/L (55-170) L 02/01/17 06:01 Troponin T 0.019 ng/mL (0.00-0.029) 01/26/17 07:30 C-Reactive Protein 1.20 mg/dL (0.00-1.30) 01/26/17 20:38 Total Protein 6.6 g/dL (6.3-8.2) 01/30/17 16:12 Albumin 4.2 g/dL (3.9-5) 01/30/17 16:12 Albumin/Globulin Ratio 1.8 % 01/30/17 16:12 Triglycerides 192 mg/dL (2-149) H 01/26/17 01:23 Cholesterol 174 mg/dL (50-199) 01/26/17 01:23 LDL Cholesterol Direct 76 mg/dL (50-130) 01/26/17 01:23 HDL Cholesterol 60 mg/dL (40-59) H 01/26/17 01:23 Cholesterol/HDL Ratio 2.90 % 01/26/17 01:23 Urine Color Yellow (Yellow) 01/26/17 03:58 Urine Turbidity Clear (Clear) 01/26/17 03:58 Urine pH 6.0 (5.0-7.0) 01/26/17 03:58 Ur Specific [place] 1.012 (1.003-1.030) 01/26/17 03:58 Urine Protein 30 mg/dl mg/dL (Negative) 01/26/17 03:58 Urine Glucose (UA) Neg mg/dL (Negative) 01/26/17 03:58 Urine Ketones Neg mg/dL (Negative) 01/26/17 03:58 Urine Blood Sm (Negative) 01/26/17 03:58 Urine Nitrite Neg (Negative) 01/26/17 03:58 Urine Bilirubin Neg (Negative) 01/26/17 03:58 Urine Urobilinogen < 2.0 mg/dL (<2.0) 01/26/17 03:58 Ur Leukocyte Esterase Neg (Negative) 01/26/17 03:58 Urine WBC (Auto) 1.0 /HPF (0.0-6.0) 01/26/17 03:58 Urine RBC (Auto) 1.0 /HPF (0.0-6.0) 01/26/17 03:58 Vancomycin Trough 18.1 ug/mL (5.0-20.0) 01/29/17 04:55
[2017-02-03] MEDS: DUONEB *Not for PRN Use IH SCH ×4 (02:47→19:28)
[2017-02-03] MEDS: PERCOCET 5/325 PO PRN ×4 (04:12→22:55)
[2017-02-03] MEDS: PROVENTIL IH PRN (04:23)
[2017-02-03] MEDS: LASIX PO SCH (07:08)
[2017-02-03] MEDS: PULMICORT IH SCH ×2 (07:16→19:28)
--- NOTE | 2017-02-03 07:47 | Progress Note ---
Assessment and Plan Assessment and plan: 56 YO Male with HTN, CHF, COPD, CVA presented for SOB, productive cough; blood cultures positive for VRE , on daptomycin , ID following --Hypokalemia: Replace per protocol and monitor levels --Sepsis/VRE: Continue daptomycin advised by ID, repeat blood cultures negative to date Follow ID recommendations, discharge planning --Acute on chronic hypoxic respiratory failure: Oxygen, nebulizers, steroids, supportive care --Acute COPD exacerbation Oxygen, nebulizers, received full course of of Levaquin --Dilated Cardiomyopathy with an ejection fraction of 10% status post AICD Continue anti-failure medications , BB, ACEI and diuretics --Anemia of chronic disease; dose and monitor --Vascular dementia likely secondary to CVA with intermittent memory loss, Supportive care --DVT and GI prophylaxis History Interval history: Patient seen and examined medical records reviewed Patient is receiving daptomycin for enterococcus bacteremia advised by ID Patient feels better no new complaints Hospitalist Physical - Constitutional Vitals: Temp Pulse Resp BP Pulse Ox 98.5 F 77 18 110/71 100 02/02/17 22:17 02/03/17 07:05 02/03/17 07:05 02/03/17 07:05 02/03/17 07:05 General appearance: Present: no acute distress, cachectic - EENT Eyes: Present: PERRL, EOM intact - Neck Neck: Present: supple, normal ROM - Respiratory Respiratory effort: normal Respiratory: bilateral: diminished, negative: rales, rhonchi, wheezing - Cardiovascular Rhythm: regular Heart Sounds: Present: S1 & S2 - Extremities Extremities: no ischemia, No edema Peripheral Pulses: within normal limits - Abdominal General gastrointestinal: soft, non-tender, non-distended, normal bowel sounds - Integumentary Integumentary: Present: clear, warm - Psychiatric Psychiatric: appropriate mood/affect, cooperative - Neurologic Neurologic: CNII-XII intact, moves all extremities Results - Labs CBC & Chem 7: 02/02/17 05:38 02/02/17 05:38 Labs: Laboratory Last Values WBC 8.9 K/mm3 (4.5-11.0) 02/02/17 05:38 RBC 4.41 M/mm3 (3.65-5.03) 02/02/17 05:38 Hgb 9.3 gm/dl (11.8-15.2) L 02/02/17 05:38 Hct 29.5 % (35.5-45.6) L 02/02/17 05:38 MCV 67 fl (84-94) L 02/02/17 05:38 MCH 21 pg (28-32) L 02/02/17 05:38 MCHC 32 % (32-34) 02/02/17 05:38 RDW 20.2 % (13.2-15.2) H 02/02/17 05:38 Plt Count 188 K/mm3 (140-440) 02/02/17 05:38 Lymph % (Auto) 19.5 % (13.4-35.0) 02/02/17 05:38 [place] % (Auto) 11.3 % (0.0-7.3) H 02/02/17 05:38 Eos % (Auto) 9.7 % (0.0-4.3) H 02/02/17 05:38 Baso % (Auto) 0.8 % (0.0-1.8) 02/02/17 05:38 Lymph # 1.7 K/mm3 (1.2-5.4) 02/02/17 05:38 [place] # 1.0 K/mm3 (0.0-0.8) H 02/02/17 05:38 Eos # 0.9 K/mm3 (0.0-0.4) H 02/02/17 05:38 Baso # 0.1 K/mm3 (0.0-0.1) 02/02/17 05:38 Add Manual Diff Complete 01/31/17 05:54 Total Counted 100 01/31/17 05:54 Seg Neutrophils % 58.7 % (40.0-70.0) 02/02/17 05:38 Seg Neuts % (Manual) 59 % (40.0-70.0) 01/31/17 05:54 Band Neutrophils % 0 % 01/31/17 05:54 Lymphocytes % (Manual) 14.0 % (13.4-35.0) 01/31/17 05:54 Reactive Lymphs % (Man) 0 % 01/31/17 05:54 Monocytes % (Manual) 9.0 % (0.0-7.3) H 01/31/17 05:54 Eosinophils % (Manual) 20 % (0.0-4.3) H 01/31/17 05:54 Basophils % (Manual) 0 % (0.0-1.8) 01/31/17 05:54 Metamyelocytes % 0 % 01/31/17 05:54 Myelocytes % 0 % 01/31/17 05:54 Promyelocytes % 0 % 01/31/17 05:54 Blast Cells % 0 % 01/31/17 05:54 Nucleated RBC % Not Reportable 01/31/17 05:54 Seg Neutrophils # 5.3 K/mm3 (1.8-7.7) 02/02/17 05:38 Seg Neutrophils # Man 6.6 K/mm3 (1.8-7.7) 01/31/17 05:54 Band Neutrophils # 0.0 K/mm3 01/31/17 05:54 Lymphocytes # (Manual) 1.6 K/mm3 (1.2-5.4) 01/31/17 05:54 Abs React Lymphs (Man) 0.0 K/mm3 01/31/17 05:54 Monocytes # (Manual) 1.0 K/mm3 (0.0-0.8) H 01/31/17 05:54 Eosinophils # (Manual) 2.2 K/mm3 (0.0-0.4) H 01/31/17 05:54 Basophils # (Manual) 0.0 K/mm3 (0.0-0.1) 01/31/17 05:54 Metamyelocytes # 0.0 K/mm3 01/31/17 05:54 Myelocytes # 0.0 K/mm3 01/31/17 05:54 Promyelocytes # 0.0 K/mm3 01/31/17 05:54 Blast Cells # 0.0 K/mm3 01/31/17 05:54 WBC Morphology Not Reportable 01/31/17 05:54 Hypersegmented Neuts Not Reportable 01/31/17 05:54 Hyposegmented Neuts Not Reportable 01/31/17 05:54 Hypogranular Neuts Not Reportable 01/31/17 05:54 Smudge Cells Not Reportable 01/31/17 05:54 Toxic Granulation Not Reportable 01/31/17 05:54 Toxic Vacuolation Not Reportable 01/31/17 05:54 Dohle Bodies Not Reportable 01/31/17 05:54 Pelger-Huet Anomaly Not Reportable 01/31/17 05:54 Ana Luisa Rods Not Reportable 01/31/17 05:54 Platelet Estimate Not Reportable 01/31/17 05:54 Clumped Platelets Not Reportable 01/31/17 05:54 Plt Clumps, EDTA Not Reportable 01/31/17 05:54 Large Platelets Not Reportable 01/31/17 05:54 Giant Platelets Not Reportable 01/31/17 05:54 Platelet Satelliting Not Reportable 01/31/17 05:54 Plt Morphology Comment Not Reportable 01/31/17 05:54 RBC Morphology Not Reportable 01/31/17 05:54 Dimorphic RBCs Not Reportable 01/31/17 05:54 Polychromasia Not Reportable 01/31/17 05:54 Hypochromasia 2+ 01/31/17 05:54 Poikilocytosis 1+ 01/31/17 05:54 Anisocytosis 1+ 01/31/17 05:54 Microcytosis 2+ 01/31/17 05:54 Macrocytosis Not Reportable 01/31/17 05:54 Spherocytes Not Reportable 01/31/17 05:54 Pappenheimer Bodies Not Reportable 01/31/17 05:54 Sickle Cells Not Reportable 01/31/17 05:54 Target Cells Not Reportable 01/31/17 05:54 Tear Drop Cells Not Reportable 01/31/17 05:54 Ovalocytes Not Reportable 01/31/17 05:54 Helmet Cells Not Reportable 01/31/17 05:54 [place] Bodies Not Reportable 01/31/17 05:54 [place] Rings Not Reportable 01/31/17 05:54 [place] Cells Not Reportable 01/31/17 05:54 Bite Cells Not Reportable 01/31/17 05:54 Crenated Cell Not Reportable 01/31/17 05:54 Elliptocytes Not Reportable 01/31/17 05:54 Acanthocytes (Spur) Not Reportable 01/31/17 05:54 [place]leaux Not Reportable 01/31/17 05:54 Hemoglobin C Crystals Not Reportable 01/31/17 05:54 Schistocytes Not Reportable 01/31/17 05:54 [place]aria parasites Not Reportable 01/31/17 05:54 [place] Bodies Not Reportable 01/31/17 05:54 Hem Pathologist Commnt N. 01/31/17 05:54 Sodium 140 mmol/L (137-145) 02/02/17 05:38 Potassium 3.5 mmol/L (3.6-5.0) L 02/02/17 05:38 Chloride 99.4 mmol/L (98-107) 02/02/17 05:38 Carbon Dioxide 29 mmol/L (22-30) 02/02/17 05:38 Anion Gap 15 mmol/L 02/02/17 05:38 BUN 18 mg/dL (9-20) 02/02/17 05:38 Creatinine 0.9 mg/dL (0.8-1.5) 02/02/17 05:38 Estimated GFR > 60 ml/min 02/02/17 05:38 BUN/Creatinine Ratio 20 % 02/02/17 05:38 Glucose 77 mg/dL (75-100) 02/02/17 05:38 Lactic Acid 1.00 mmol/L (0.7-2.0) 01/30/17 16:12 Calcium 8.9 mg/dL (8.4-10.2) 02/02/17 05:38 Total Bilirubin 0.30 mg/dL (0.1-1.2) 01/30/17 16:12 AST 15 units/L (5-40) 01/30/17 16:12 ALT 16 units/L (7-56) 01/30/17 16:12 Alkaline Phosphatase 122 units/L (35-129) 01/30/17 16:12 Total Creatine Kinase 33 units/L (55-170) L 02/01/17 06:01 Troponin T 0.019 ng/mL (0.00-0.029) 01/26/17 07:30 C-Reactive Protein 1.20 mg/dL (0.00-1.30) 01/26/17 20:38 Total Protein 6.6 g/dL (6.3-8.2) 01/30/17 16:12 Albumin 4.2 g/dL (3.9-5) 01/30/17 16:12 Albumin/Globulin Ratio 1.8 % 01/30/17 16:12 Triglycerides 192 mg/dL (2-149) H 01/26/17 01:23 Cholesterol 174 mg/dL (50-199) 01/26/17 01:23 LDL Cholesterol Direct 76 mg/dL (50-130) 01/26/17 01:23 HDL Cholesterol 60 mg/dL (40-59) H 01/26/17 01:23 Cholesterol/HDL Ratio 2.90 % 01/26/17 01:23 Urine Color Yellow (Yellow) 01/26/17 03:58 Urine Turbidity Clear (Clear) 01/26/17 03:58 Urine pH 6.0 (5.0-7.0) 01/26/17 03:58 Ur Specific [place] 1.012 (1.003-1.030) 01/26/17 03:58 Urine Protein 30 mg/dl mg/dL (Negative) 01/26/17 03:58 Urine Glucose (UA) Neg mg/dL (Negative) 01/26/17 03:58 Urine Ketones Neg mg/dL (Negative) 01/26/17 03:58 Urine Blood Sm (Negative) 01/26/17 03:58 Urine Nitrite Neg (Negative) 01/26/17 03:58 Urine Bilirubin Neg (Negative) 01/26/17 03:58 Urine Urobilinogen < 2.0 mg/dL (<2.0) 01/26/17 03:58 Ur Leukocyte Esterase Neg (Negative) 01/26/17 03:58 Urine WBC (Auto) 1.0 /HPF (0.0-6.0) 01/26/17 03:58 Urine RBC (Auto) 1.0 /HPF (0.0-6.0) 01/26/17 03:58 Vancomycin Trough 18.1 ug/mL (5.0-20.0) 01/29/17 04:55
[2017-02-03] MEDS ORDERED: K-DUR PO ONE (09:00)
[2017-02-03] MEDS: PLAVIX PO SCH (10:21)
[2017-02-03] MEDS: COREG PO SCH ×2 (10:21→22:48)
[2017-02-03] MEDS: celeXA PO SCH (10:21)
[2017-02-03] MEDS: PEPCID PO SCH ×2 (10:21→22:45)
[2017-02-03] MEDS: KEPPRA PO SCH ×2 (10:22→22:46)
[2017-02-03] MEDS: LANOXIN PO SCH (17:10)
[2017-02-03] MEDS: CUBICIN IV SCH (17:55)
[2017-02-03] MEDS: NACL 0.9% IV SCH (17:55)
[2017-02-03] MEDS: LOVENOX SUB-Q SCH (22:44)
[2017-02-04] MEDS: DUONEB *Not for PRN Use IH SCH ×4 (02:57→20:54)
[2017-02-04] MEDS: PERCOCET 5/325 PO PRN ×3 (05:48→18:15)
[2017-02-04] MEDS: LASIX PO SCH (05:48)
[2017-02-04] MEDS: PULMICORT IH SCH ×2 (08:34→20:54)
[2017-02-04] MEDS ORDERED: PROVENTIL IH PRN (08:52)
[2017-02-04] MEDS: celeXA PO SCH (10:28)
[2017-02-04] MEDS: KEPPRA PO SCH ×2 (10:28→22:02)
[2017-02-04] MEDS: PEPCID PO SCH ×2 (10:28→22:01)
[2017-02-04] MEDS: COREG PO SCH ×2 (10:29→22:41)
[2017-02-04] MEDS: PLAVIX PO SCH (10:30)
--- NOTE | 2017-02-04 13:11 | Progress Note ---
Assessment and Plan Assessment and Plan 56 YO Male with HTN, CHF, COPD, CVA presented for SOB, productive cough; blood cultures positive for VRE , on daptomycin , ID following Hypokalemia: Replace per protocol and monitor levels Sepsis/VRE: Continue daptomycin advised by ID, repeat blood cultures negative to date Follow ID recommendations, discharge planning. Duration to be reccommended Acute on chronic hypoxic respiratory failure: Oxygen, nebulizers, steroids, supportive care Acute COPD exacerbation Oxygen, nebulizers, received full course of of Levaquin Dilated Cardiomyopathy with an ejection fraction of 10% status post AICD Continue anti-failure medications , BB, ACEI and diuretics Anemia of chronic disease; dose and monitor Vascular dementia likely secondary to CVA with intermittent memory loss, Supportive care DVT and GI prophylaxis Subjective Date of service: 02/04/17 Principal diagnosis: Resp failure Copd exacerbation Interval history: Sx better Objective - Exam Narrative Exam: Lying comfortably - Constitutional Vitals: Vital Signs - 12hr 02/04/17 02/04/17 02/04/17 07:26 08:33 08:34 Temperature 98.5 F Pulse Rate 80 Pulse Rate [ 88 Anterior Bilateral Throughout] Respiratory 16 Rate Respiratory 18 Rate [Anterior Bilateral Throughout] Respiratory Rate [Back] Blood Pressure 116/82 O2 Sat by Pulse 96 98 Oximetry 02/04/17 02/04/17 02/04/17 08:48 08:50 11:48 Temperature 98.5 F Pulse Rate 81 Pulse Rate [ 83 Anterior Bilateral Throughout] Respiratory 16 Rate Respiratory 16 Rate [Anterior Bilateral Throughout] Respiratory Rate [Back] Blood Pressure 104/70 O2 Sat by Pulse 98 98 Oximetry 02/04/17 02/04/17 12:05 12:06 Temperature Pulse Rate Pulse Rate [ Anterior Bilateral Throughout] Respiratory 18 Rate Respiratory Rate [Anterior Bilateral Throughout] Respiratory 18 Rate [Back] Blood Pressure O2 Sat by Pulse Oximetry General appearance: Present: no acute distress, well-nourished - EENT Eyes: PERRL, EOM intact ENT: hearing intact, clear oral mucosa Ears: bilateral: normal - Neck Neck: supple, normal ROM - Respiratory Respiratory effort: normal Respiratory: bilateral: rhonchi - Breasts Breasts: normal - Cardiovascular Rhythm: regular Heart Sounds: Present: S1 & S2. Absent: gallop, rub Extremities: pulses intact, No edema, normal color, Full ROM - Gastrointestinal General gastrointestinal: Present: soft, non-tender, non-distended, normal bowel sounds Rectal Exam: deferred - Genitourinary Male genitourinary: normal - Integumentary Integumentary: clear, warm, dry - Musculoskeletal Musculoskeletal: 1, strength equal bilaterally - Neurologic Neurologic: moves all extremities - Psychiatric Psychiatric: memory intact, appropriate mood/affect, intact judgment & insight - Labs CBC & Chem 7: 02/02/17 05:38 02/02/17 05:38
[2017-02-04] MEDS: LANOXIN PO SCH (18:15)
[2017-02-04] MEDS: NACL 0.9% IV SCH (18:28)
[2017-02-04] MEDS: CUBICIN IV SCH (18:28)
[2017-02-04] MEDS: LOVENOX SUB-Q SCH (22:01)
[2017-02-05] MEDS: PERCOCET 5/325 PO PRN ×4 (00:22→18:38)
[2017-02-05] MEDS: LASIX PO SCH (06:06)
[2017-02-05] MEDS: KEPPRA PO SCH ×2 (09:36→21:39)
[2017-02-05] MEDS: PEPCID PO SCH ×2 (09:36→21:38)
[2017-02-05] MEDS: PLAVIX PO SCH (09:36)
[2017-02-05] MEDS: celeXA PO SCH (09:37)
[2017-02-05] MEDS: COREG PO SCH ×2 (09:37→21:44)
[2017-02-05] MEDS: DUONEB *Not for PRN Use IH SCH ×3 (09:47→19:36)
[2017-02-05] MEDS: PULMICORT IH SCH ×2 (09:47→19:36)
--- NOTE | 2017-02-05 10:09 | Progress Note ---
Assessment and Plan Assessment: 1) Sepsis: present on admission, better. Etiology- VRE septicemia. 2) Resp distress ? COPD excerbation, ? CHF exacerbation 3) Recent Bilateral pneumonia/multifocal: CT of the chest showed extensive alveolar and interstitial infiltrate right more than the left. Sputum cx + Corazon Influenza ag negative. HIV neg / CD4>500. Legionella and Strep pnuemoniae urine ag negative. 3) Recent respiratory failure 4) COPD 5) CMP status post AICD placement 6) CAD 7) Previous brain hemorrhage status post craniotomy 8) Dysphagia / GERD / Hiatal hernia 9) Weight loss 10) Complicated VRE septicemia: unclear source, pt has an AICD Plan: -cards consult for FARZANA eval for endocarditis -obtain TTE -continue daptomycin day 6 -upon discharge will do 2 versus 6 weeks of IV daptomycin depending on echo results -contact isolation due to VRE Thank you Dr Sy for your consultation, will follow up with you. Desirae Alegria MD Infectious Diseases Specialist [facility] [phone] O [phone] Subjective Date of service: 02/05/17 Principal diagnosis: Resp failure Copd exacerbation Interval history: Feels better, no fever, no pain. Micro: Influenza negative GAS negative blood cx 01/26 VRE 1 of 4 bottles 01/30 neg Current Antibiotics: Dapto 01/30 Previous Antibiotics: zosyn Objective - Exam Narrative Exam: General appearance: Alert in NAD, conversant Eyes: anicteric sclerae, moist conjunctivae; no lid-lag; PERRLA HENT: Atraumatic; oropharynx clear Neck: Trachea midline; supple, no thyromegaly or lymphadenopathy Lungs: decreased BS on the leftm, + Left sided AICD CV: RRR Abdomen: Soft, non-tender; no masses or hepatosplenomegaly Extremities: No peripheral edema or extremity lymphadenopathy Skin: Normal temperature, turgor and texture; no rash, ulcers or subcutaneous nodules Psych: Appropriate affect, alert and oriented to person, place and time. Neuro: alert and oriented x 3. Moving all extermities Lines: - Constitutional Vitals: Vital Signs Temp Pulse Resp BP Pulse Ox 98.5 F 82 18 117/84 96 02/05/17 07:46 02/05/17 09:47 02/05/17 09:47 02/05/17 07:46 02/05/17 07:46 Temperature -Last 24 Hours Temperature 98.5 F Temperature 98.0 F Temperature 98.5 F Temperature 98.5 F - Labs CBC & Chem 7: 02/02/17 05:38 02/02/17 05:38
--- NOTE | 2017-02-05 18:06 | Progress Note ---
Assessment and Plan Assessment and plan: 56 YO Male with HTN, CHF, COPD, CVA presented for SOB, productive cough; blood cultures positive for VRE , on daptomycin , ID following --Sepsis/VRE: Continue daptomycin advised by ID, repeat blood cultures negative to date ID recommend 2-6 weeks of daptomycin upon discharge as needed Consult Cardiology for FARZANA and evaluation to rule out endocarditis --Hypokalemia: Replace per protocol and monitor levels --Acute on chronic hypoxic respiratory failure: Oxygen, nebulizers, steroids, supportive care --Acute COPD exacerbation Oxygen, nebulizers, received full course of of Levaquin --Ischemic Cardiomyopathy with an ejection fraction of 10% Continue anti-failure medications , BB, ACEI and diuretics --status post AICD, able --CAD s/p PCI, continue current cardiac medications --Anemia of chronic disease; dose and monitor --Vascular dementia/h/o ?hemorrhagic CVA s/p craniotomy, intermittent memory loss, Supportive care --DVT prophylaxis; Lovenox Plan of care discussed with the patient, his nurse and case management History Interval history: Patient seen and examined Medical records reviewed No New complaints Hospitalist Physical - Constitutional Vitals: Temp Pulse Resp BP Pulse Ox 98.2 F 85 18 98/64 97 02/05/17 15:31 02/05/17 15:31 02/05/17 15:31 02/05/17 15:31 02/05/17 15:31 General appearance: Present: no acute distress, well-nourished - EENT Eyes: Present: PERRL, EOM intact - Neck Neck: Present: supple, normal ROM - Respiratory Respiratory effort: normal Respiratory: bilateral: diminished, negative: rales, rhonchi - Cardiovascular Rhythm: regular Heart Sounds: Present: S1 & S2 - Extremities Extremities: no ischemia, No edema - Abdominal General gastrointestinal: soft, non-tender, non-distended, normal bowel sounds - Integumentary Integumentary: Present: clear, warm - Psychiatric Psychiatric: appropriate mood/affect, cooperative - Neurologic Neurologic: CNII-XII intact, moves all extremities Results - Labs CBC & Chem 7: 02/02/17 05:38 02/02/17 05:38 Labs: Laboratory Last Values WBC 8.9 K/mm3 (4.5-11.0) 02/02/17 05:38 RBC 4.41 M/mm3 (3.65-5.03) 02/02/17 05:38 Hgb 9.3 gm/dl (11.8-15.2) L 02/02/17 05:38 Hct 29.5 % (35.5-45.6) L 02/02/17 05:38 MCV 67 fl (84-94) L 02/02/17 05:38 MCH 21 pg (28-32) L 02/02/17 05:38 MCHC 32 % (32-34) 02/02/17 05:38 RDW 20.2 % (13.2-15.2) H 02/02/17 05:38 Plt Count 188 K/mm3 (140-440) 02/02/17 05:38 Lymph % (Auto) 19.5 % (13.4-35.0) 02/02/17 05:38 [place] % (Auto) 11.3 % (0.0-7.3) H 02/02/17 05:38 Eos % (Auto) 9.7 % (0.0-4.3) H 02/02/17 05:38 Baso % (Auto) 0.8 % (0.0-1.8) 02/02/17 05:38 Lymph # 1.7 K/mm3 (1.2-5.4) 02/02/17 05:38 [place] # 1.0 K/mm3 (0.0-0.8) H 02/02/17 05:38 Eos # 0.9 K/mm3 (0.0-0.4) H 02/02/17 05:38 Baso # 0.1 K/mm3 (0.0-0.1) 02/02/17 05:38 Add Manual Diff Complete 01/31/17 05:54 Total Counted 100 01/31/17 05:54 Seg Neutrophils % 58.7 % (40.0-70.0) 02/02/17 05:38 Seg Neuts % (Manual) 59 % (40.0-70.0) 01/31/17 05:54 Band Neutrophils % 0 % 01/31/17 05:54 Lymphocytes % (Manual) 14.0 % (13.4-35.0) 01/31/17 05:54 Reactive Lymphs % (Man) 0 % 01/31/17 05:54 Monocytes % (Manual) 9.0 % (0.0-7.3) H 01/31/17 05:54 Eosinophils % (Manual) 20 % (0.0-4.3) H 01/31/17 05:54 Basophils % (Manual) 0 % (0.0-1.8) 01/31/17 05:54 Metamyelocytes % 0 % 01/31/17 05:54 Myelocytes % 0 % 01/31/17 05:54 Promyelocytes % 0 % 01/31/17 05:54 Blast Cells % 0 % 01/31/17 05:54 Nucleated RBC % Not Reportable 01/31/17 05:54 Seg Neutrophils # 5.3 K/mm3 (1.8-7.7) 02/02/17 05:38 Seg Neutrophils # Man 6.6 K/mm3 (1.8-7.7) 01/31/17 05:54 Band Neutrophils # 0.0 K/mm3 01/31/17 05:54 Lymphocytes # (Manual) 1.6 K/mm3 (1.2-5.4) 01/31/17 05:54 Abs React Lymphs (Man) 0.0 K/mm3 01/31/17 05:54 Monocytes # (Manual) 1.0 K/mm3 (0.0-0.8) H 01/31/17 05:54 Eosinophils # (Manual) 2.2 K/mm3 (0.0-0.4) H 01/31/17 05:54 Basophils # (Manual) 0.0 K/mm3 (0.0-0.1) 01/31/17 05:54 Metamyelocytes # 0.0 K/mm3 01/31/17 05:54 Myelocytes # 0.0 K/mm3 01/31/17 05:54 Promyelocytes # 0.0 K/mm3 01/31/17 05:54 Blast Cells # 0.0 K/mm3 01/31/17 05:54 WBC Morphology Not Reportable 01/31/17 05:54 Hypersegmented Neuts Not Reportable 01/31/17 05:54 Hyposegmented Neuts Not Reportable 01/31/17 05:54 Hypogranular Neuts Not Reportable 01/31/17 05:54 Smudge Cells Not Reportable 01/31/17 05:54 Toxic Granulation Not Reportable 01/31/17 05:54 Toxic Vacuolation Not Reportable 01/31/17 05:54 Dohle Bodies Not Reportable 01/31/17 05:54 Pelger-Huet Anomaly Not Reportable 01/31/17 05:54 Ana Luisa Rods Not Reportable 01/31/17 05:54 Platelet Estimate Not Reportable 01/31/17 05:54 Clumped Platelets Not Reportable 01/31/17 05:54 Plt Clumps, EDTA Not Reportable 01/31/17 05:54 Large Platelets Not Reportable 01/31/17 05:54 Giant Platelets Not Reportable 01/31/17 05:54 Platelet Satelliting Not Reportable 01/31/17 05:54 Plt Morphology Comment Not Reportable 01/31/17 05:54 RBC Morphology Not Reportable 01/31/17 05:54 Dimorphic RBCs Not Reportable 01/31/17 05:54 Polychromasia Not Reportable 01/31/17 05:54 Hypochromasia 2+ 01/31/17 05:54 Poikilocytosis 1+ 01/31/17 05:54 Anisocytosis 1+ 01/31/17 05:54 Microcytosis 2+ 01/31/17 05:54 Macrocytosis Not Reportable 01/31/17 05:54 Spherocytes Not Reportable 01/31/17 05:54 Pappenheimer Bodies Not Reportable 01/31/17 05:54 Sickle Cells Not Reportable 01/31/17 05:54 Target Cells Not Reportable 01/31/17 05:54 Tear Drop Cells Not Reportable 01/31/17 05:54 Ovalocytes Not Reportable 01/31/17 05:54 Helmet Cells Not Reportable 01/31/17 05:54 [place] Bodies Not Reportable 01/31/17 05:54 [place] Rings Not Reportable 01/31/17 05:54 [place] Cells Not Reportable 01/31/17 05:54 Bite Cells Not Reportable 01/31/17 05:54 Crenated Cell Not Reportable 01/31/17 05:54 Elliptocytes Not Reportable 01/31/17 05:54 Acanthocytes (Spur) Not Reportable 01/31/17 05:54 Rouleaux Not Reportable 01/31/17 05:54 Hemoglobin C Crystals Not Reportable 01/31/17 05:54 Schistocytes Not Reportable 01/31/17 05:54 Malaria parasites Not Reportable 01/31/17 05:54 Nestor Bodies Not Reportable 01/31/17 05:54 Hem Pathologist Commnt N. 01/31/17 05:54 Sodium 140 mmol/L (137-145) 02/02/17 05:38 Potassium 3.5 mmol/L (3.6-5.0) L 02/02/17 05:38 Chloride 99.4 mmol/L (98-107) 02/02/17 05:38 Carbon Dioxide 29 mmol/L (22-30) 02/02/17 05:38 Anion Gap 15 mmol/L 02/02/17 05:38 BUN 18 mg/dL (9-20) 02/02/17 05:38 Creatinine 0.9 mg/dL (0.8-1.5) 02/02/17 05:38 Estimated GFR > 60 ml/min 02/02/17 05:38 BUN/Creatinine Ratio 20 % 02/02/17 05:38 Glucose 77 mg/dL (75-100) 02/02/17 05:38 Lactic Acid 1.00 mmol/L (0.7-2.0) 01/30/17 16:12 Calcium 8.9 mg/dL (8.4-10.2) 02/02/17 05:38 Total Bilirubin 0.30 mg/dL (0.1-1.2) 01/30/17 16:12 AST 15 units/L (5-40) 01/30/17 16:12 ALT 16 units/L (7-56) 01/30/17 16:12 Alkaline Phosphatase 122 units/L (35-129) 01/30/17 16:12 Total Creatine Kinase 33 units/L (55-170) L 02/01/17 06:01 Troponin T 0.019 ng/mL (0.00-0.029) 01/26/17 07:30 C-Reactive Protein 1.20 mg/dL (0.00-1.30) 01/26/17 20:38 Total Protein 6.6 g/dL (6.3-8.2) 01/30/17 16:12 Albumin 4.2 g/dL (3.9-5) 01/30/17 16:12 Albumin/Globulin Ratio 1.8 % 01/30/17 16:12 Triglycerides 192 mg/dL (2-149) H 01/26/17 01:23 Cholesterol 174 mg/dL (50-199) 01/26/17 01:23 LDL Cholesterol Direct 76 mg/dL (50-130) 01/26/17 01:23 HDL Cholesterol 60 mg/dL (40-59) H 01/26/17 01:23 Cholesterol/HDL Ratio 2.90 % 01/26/17 01:23 Urine Color Yellow (Yellow) 01/26/17 03:58 Urine Turbidity Clear (Clear) 01/26/17 03:58 Urine pH 6.0 (5.0-7.0) 01/26/17 03:58 Ur Specific [place] 1.012 (1.003-1.030) 01/26/17 03:58 Urine Protein 30 mg/dl mg/dL (Negative) 01/26/17 03:58 Urine Glucose (UA) Neg mg/dL (Negative) 01/26/17 03:58 Urine Ketones Neg mg/dL (Negative) 01/26/17 03:58 Urine Blood Sm (Negative) 01/26/17 03:58 Urine Nitrite Neg (Negative) 01/26/17 03:58 Urine Bilirubin Neg (Negative) 01/26/17 03:58 Urine Urobilinogen < 2.0 mg/dL (<2.0) 01/26/17 03:58 Ur Leukocyte Esterase Neg (Negative) 01/26/17 03:58 Urine WBC (Auto) 1.0 /HPF (0.0-6.0) 01/26/17 03:58 Urine RBC (Auto) 1.0 /HPF (0.0-6.0) 01/26/17 03:58 Vancomycin Trough 18.1 ug/mL (5.0-20.0) 01/29/17 04:55 Miscellaneous Test Flexitest 1 01/26/17 20:50
[2017-02-05] MEDS: NACL 0.9% IV SCH (18:38)
[2017-02-05] MEDS: CUBICIN IV SCH (18:38)
[2017-02-05] MEDS: LANOXIN PO SCH (18:38)
[2017-02-05] MEDS: LOVENOX SUB-Q SCH (21:39)
[2017-02-06] MEDS: PERCOCET 5/325 PO PRN ×3 (03:02→16:46)
[2017-02-06] MEDS: LASIX PO SCH (05:44)
[2017-02-06 06:27] LABS: Magnesium 1.7 mg/dL (1.7-2.3); Potassium 4.3 mmol/L (3.6-5.0)
--- NOTE | 2017-02-06 07:59 | Progress Note ---
Assessment and Plan Assessment and plan: 56 YO Male with HTN, CHF, COPD, CVA presented for SOB, productive cough; blood cultures positive for VRE , on daptomycin , ID following --Sepsis/VRE: Continue daptomycin advised by ID, repeat blood cultures negative to date ID recommend 2-6 weeks of daptomycin upon discharge as needed FARZANA scheduled for tomorrow cardiology to rule out endocarditis --Hypokalemia: Corrected --Acute on chronic hypoxic respiratory failure: Oxygen, nebulizers, steroids, supportive care --Acute COPD exacerbation Oxygen, nebulizers, received full course of of Levaquin --Ischemic Cardiomyopathy with an ejection fraction of 10% Continue anti-failure medications , BB, ACEI and diuretics --status post AICD, stable --CAD s/p PCI, continue current cardiac medications --Anemia of chronic disease; dose and monitor --Vascular dementia/h/o ?hemorrhagic CVA s/p craniotomy, intermittent memory loss, Supportive care --DVT prophylaxis; Lovenox PICC line placement for long-term IV antibiotics per ID Plan of care reviewed with the patient, answered all his questions History Interval history: Patient seen and examined medical records reviewed He is better no new complaints Anxious to go home, vital signs reviewed Hospitalist Physical - Constitutional Vitals: Temp Pulse Resp BP Pulse Ox 98.2 F 79 14 117/83 94 02/06/17 07:46 02/06/17 07:46 02/06/17 07:46 02/06/17 07:46 02/06/17 07:46 General appearance: Present: no acute distress, well-nourished - EENT Eyes: Present: PERRL, EOM intact - Neck Neck: Present: supple, normal ROM - Respiratory Respiratory effort: normal Respiratory: negative: diminished, rales, rhonchi - Cardiovascular Rhythm: regular Heart Sounds: Present: S1 & S2 - Extremities Extremities: no ischemia, No edema - Abdominal General gastrointestinal: soft, non-tender, non-distended, normal bowel sounds - Integumentary Integumentary: Present: clear, warm - Psychiatric Psychiatric: appropriate mood/affect, cooperative - Neurologic Neurologic: CNII-XII intact, moves all extremities Results - Labs CBC & Chem 7: 02/02/17 05:38 02/06/17 05:24 Labs: Laboratory Last Values WBC 8.9 K/mm3 (4.5-11.0) 02/02/17 05:38 RBC 4.41 M/mm3 (3.65-5.03) 02/02/17 05:38 Hgb 9.3 gm/dl (11.8-15.2) L 02/02/17 05:38 Hct 29.5 % (35.5-45.6) L 02/02/17 05:38 MCV 67 fl (84-94) L 02/02/17 05:38 MCH 21 pg (28-32) L 02/02/17 05:38 MCHC 32 % (32-34) 02/02/17 05:38 RDW 20.2 % (13.2-15.2) H 02/02/17 05:38 Plt Count 188 K/mm3 (140-440) 02/02/17 05:38 Lymph % (Auto) 19.5 % (13.4-35.0) 02/02/17 05:38 [place] % (Auto) 11.3 % (0.0-7.3) H 02/02/17 05:38 Eos % (Auto) 9.7 % (0.0-4.3) H 02/02/17 05:38 Baso % (Auto) 0.8 % (0.0-1.8) 02/02/17 05:38 Lymph # 1.7 K/mm3 (1.2-5.4) 02/02/17 05:38 [place] # 1.0 K/mm3 (0.0-0.8) H 02/02/17 05:38 Eos # 0.9 K/mm3 (0.0-0.4) H 02/02/17 05:38 Baso # 0.1 K/mm3 (0.0-0.1) 02/02/17 05:38 Add Manual Diff Complete 01/31/17 05:54 Total Counted 100 01/31/17 05:54 Seg Neutrophils % 58.7 % (40.0-70.0) 02/02/17 05:38 Seg Neuts % (Manual) 59 % (40.0-70.0) 01/31/17 05:54 Band Neutrophils % 0 % 01/31/17 05:54 Lymphocytes % (Manual) 14.0 % (13.4-35.0) 01/31/17 05:54 Reactive Lymphs % (Man) 0 % 01/31/17 05:54 Monocytes % (Manual) 9.0 % (0.0-7.3) H 01/31/17 05:54 Eosinophils % (Manual) 20 % (0.0-4.3) H 01/31/17 05:54 Basophils % (Manual) 0 % (0.0-1.8) 01/31/17 05:54 Metamyelocytes % 0 % 01/31/17 05:54 Myelocytes % 0 % 01/31/17 05:54 Promyelocytes % 0 % 01/31/17 05:54 Blast Cells % 0 % 01/31/17 05:54 Nucleated RBC % Not Reportable 01/31/17 05:54 Seg Neutrophils # 5.3 K/mm3 (1.8-7.7) 02/02/17 05:38 Seg Neutrophils # Man 6.6 K/mm3 (1.8-7.7) 01/31/17 05:54 Band Neutrophils # 0.0 K/mm3 01/31/17 05:54 Lymphocytes # (Manual) 1.6 K/mm3 (1.2-5.4) 01/31/17 05:54 Abs React Lymphs (Man) 0.0 K/mm3 01/31/17 05:54 Monocytes # (Manual) 1.0 K/mm3 (0.0-0.8) H 01/31/17 05:54 Eosinophils # (Manual) 2.2 K/mm3 (0.0-0.4) H 01/31/17 05:54 Basophils # (Manual) 0.0 K/mm3 (0.0-0.1) 01/31/17 05:54 Metamyelocytes # 0.0 K/mm3 01/31/17 05:54 Myelocytes # 0.0 K/mm3 01/31/17 05:54 Promyelocytes # 0.0 K/mm3 01/31/17 05:54 Blast Cells # 0.0 K/mm3 01/31/17 05:54 WBC Morphology Not Reportable 01/31/17 05:54 Hypersegmented Neuts Not Reportable 01/31/17 05:54 Hyposegmented Neuts Not Reportable 01/31/17 05:54 Hypogranular Neuts Not Reportable 01/31/17 05:54 Smudge Cells Not Reportable 01/31/17 05:54 Toxic Granulation Not Reportable 01/31/17 05:54 Toxic Vacuolation Not Reportable 01/31/17 05:54 Dohle Bodies Not Reportable 01/31/17 05:54 Pelger-Huet Anomaly Not Reportable 01/31/17 05:54 Ana Luisa Rods Not Reportable 01/31/17 05:54 Platelet Estimate Not Reportable 01/31/17 05:54 Clumped Platelets Not Reportable 01/31/17 05:54 Plt Clumps, EDTA Not Reportable 01/31/17 05:54 Large Platelets Not Reportable 01/31/17 05:54 Giant Platelets Not Reportable 01/31/17 05:54 Platelet Satelliting Not Reportable 01/31/17 05:54 Plt Morphology Comment Not Reportable 01/31/17 05:54 RBC Morphology Not Reportable 01/31/17 05:54 Dimorphic RBCs Not Reportable 01/31/17 05:54 Polychromasia Not Reportable 01/31/17 05:54 Hypochromasia 2+ 01/31/17 05:54 Poikilocytosis 1+ 01/31/17 05:54 Anisocytosis 1+ 01/31/17 05:54 Microcytosis 2+ 01/31/17 05:54 Macrocytosis Not Reportable 01/31/17 05:54 Spherocytes Not Reportable 01/31/17 05:54 Pappenheimer Bodies Not Reportable 01/31/17 05:54 Sickle Cells Not Reportable 01/31/17 05:54 Target Cells Not Reportable 01/31/17 05:54 Tear Drop Cells Not Reportable 01/31/17 05:54 Ovalocytes Not Reportable 01/31/17 05:54 Helmet Cells Not Reportable 01/31/17 05:54 [place] Bodies Not Reportable 01/31/17 05:54 [place] Rings Not Reportable 01/31/17 05:54 [place] Cells Not Reportable 01/31/17 05:54 Bite Cells Not Reportable 01/31/17 05:54 Crenated Cell Not Reportable 01/31/17 05:54 Elliptocytes Not Reportable 01/31/17 05:54 Acanthocytes (Spur) Not Reportable 01/31/17 05:54 Rouleaux Not Reportable 01/31/17 05:54 Hemoglobin C Crystals Not Reportable 01/31/17 05:54 Schistocytes Not Reportable 01/31/17 05:54 Malaria parasites Not Reportable 01/31/17 05:54 Nestor Bodies Not Reportable 01/31/17 05:54 Hem Pathologist Commnt N. 01/31/17 05:54 Sodium 140 mmol/L (137-145) 02/02/17 05:38 Potassium 4.3 mmol/L (3.6-5.0) D 02/06/17 05:24 Chloride 99.4 mmol/L (98-107) 02/02/17 05:38 Carbon Dioxide 29 mmol/L (22-30) 02/02/17 05:38 Anion Gap 15 mmol/L 02/02/17 05:38 BUN 18 mg/dL (9-20) 02/02/17 05:38 Creatinine 0.9 mg/dL (0.8-1.5) 02/02/17 05:38 Estimated GFR > 60 ml/min 02/02/17 05:38 BUN/Creatinine Ratio 20 % 02/02/17 05:38 Glucose 77 mg/dL (75-100) 02/02/17 05:38 Lactic Acid 1.00 mmol/L (0.7-2.0) 01/30/17 16:12 Calcium 8.9 mg/dL (8.4-10.2) 02/02/17 05:38 Magnesium 1.70 mg/dL (1.7-2.3) 02/06/17 05:24 Total Bilirubin 0.30 mg/dL (0.1-1.2) 01/30/17 16:12 AST 15 units/L (5-40) 01/30/17 16:12 ALT 16 units/L (7-56) 01/30/17 16:12 Alkaline Phosphatase 122 units/L (35-129) 01/30/17 16:12 Total Creatine Kinase 33 units/L (55-170) L 02/01/17 06:01 Troponin T 0.019 ng/mL (0.00-0.029) 01/26/17 07:30 C-Reactive Protein 1.20 mg/dL (0.00-1.30) 01/26/17 20:38 Total Protein 6.6 g/dL (6.3-8.2) 01/30/17 16:12 Albumin 4.2 g/dL (3.9-5) 01/30/17 16:12 Albumin/Globulin Ratio 1.8 % 01/30/17 16:12 Triglycerides 192 mg/dL (2-149) H 01/26/17 01:23 Cholesterol 174 mg/dL (50-199) 01/26/17 01:23 LDL Cholesterol Direct 76 mg/dL (50-130) 01/26/17 01:23 HDL Cholesterol 60 mg/dL (40-59) H 01/26/17 01:23 Cholesterol/HDL Ratio 2.90 % 01/26/17 01:23 Urine Color Yellow (Yellow) 01/26/17 03:58 Urine Turbidity Clear (Clear) 01/26/17 03:58 Urine pH 6.0 (5.0-7.0) 01/26/17 03:58 Ur Specific [place] 1.012 (1.003-1.030) 01/26/17 03:58 Urine Protein 30 mg/dl mg/dL (Negative) 01/26/17 03:58 Urine Glucose (UA) Neg mg/dL (Negative) 01/26/17 03:58 Urine Ketones Neg mg/dL (Negative) 01/26/17 03:58 Urine Blood Sm (Negative) 01/26/17 03:58 Urine Nitrite Neg (Negative) 01/26/17 03:58 Urine Bilirubin Neg (Negative) 01/26/17 03:58 Urine Urobilinogen < 2.0 mg/dL (<2.0) 01/26/17 03:58 Ur Leukocyte Esterase Neg (Negative) 01/26/17 03:58 Urine WBC (Auto) 1.0 /HPF (0.0-6.0) 01/26/17 03:58 Urine RBC (Auto) 1.0 /HPF (0.0-6.0) 01/26/17 03:58 Vancomycin Trough 18.1 ug/mL (5.0-20.0) 01/29/17 04:55 Miscellaneous Test Flexitest 1 01/26/17 20:50
[2017-02-06] MEDS: PULMICORT IH SCH ×2 (09:30→20:19)
[2017-02-06] MEDS: DUONEB *Not for PRN Use IH SCH ×3 (09:30→20:19)
[2017-02-06] MEDS: PLAVIX PO SCH (09:55)
[2017-02-06] MEDS: KEPPRA PO SCH ×2 (09:55→22:42)
[2017-02-06] MEDS: PEPCID PO SCH ×2 (09:55→22:41)
[2017-02-06] MEDS: COREG PO SCH ×2 (09:56→22:42)
[2017-02-06] MEDS: celeXA PO SCH (09:57)
--- NOTE | 2017-02-06 11:30 | Progress Note ---
Assessment and Plan Assessment: 1) Sepsis: present on admission, better. Etiology- VRE septicemia. 2) Resp distress ? COPD excerbation, ? CHF exacerbation 3) Recent Bilateral pneumonia/multifocal: CT of the chest showed extensive alveolar and interstitial infiltrate right more than the left. Sputum cx + Coraz[place] Influenza ag negative. HIV neg / CD4>500. Legionella and Strep pnuemoniae urine ag negative. 3) Recent respiratory failure 4) COPD 5) CMP status post AICD placement 6) CAD 7) Previous brain hemorrhage status post craniotomy 8) Dysphagia / GERD / Hiatal hernia 9) Weight loss 10) Complicated VRE septicemia: unclear source, pt has an AICD Plan: -cards consult for FARZANA eval for endocarditis - pending -obtain TTE -pending -continue daptomycin day 7 -upon discharge will do 2 versus 6 weeks of IV daptomycin depending on echo results -contact isolation due to VRE -place PICC Thank you Dr Sy for your consultation, will follow up with you. Desirae Alegria MD Infectious Diseases Specialist [facility] [phone] O [phone] Subjective Date of service: 02/06/17 Principal diagnosis: Resp failure Copd exacerbation Interval history: Feels ok still c/o chest congestion and mild SOB, no fever, no pain. Micro: Influenza negative GAS negative blood cx 01/26 VRE 1 of 4 bottles 01/30 neg Current Antibiotics: Dapto 01/30 Previous Antibiotics: zosyn Objective - Exam Narrative Exam: General appearance: Alert in NAD, conversant Eyes: anicteric sclerae, moist conjunctivae; no lid-lag; PERRLA HENT: Atraumatic; oropharynx clear Neck: Trachea midline; supple, no thyromegaly or lymphadenopathy Lungs: decreased BS on the left, right sided wheezing, + Left sided AICD CV: RRR Abdomen: Soft, non-tender; no masses or hepatosplenomegaly Extremities: No peripheral edema or extremity lymphadenopathy Skin: Normal temperature, turgor and texture; no rash, ulcers or subcutaneous nodules Psych: Appropriate affect, alert and oriented to person, place and time. Neuro: alert and oriented x 3. Moving all extermities Lines: - Constitutional Vitals: Vital Signs Temp Pulse Resp BP Pulse Ox 98.2 F 80 18 118/78 94 02/06/17 07:46 02/06/17 09:56 02/06/17 09:32 02/06/17 09:56 02/06/17 07:46 Temperature -Last 24 Hours Temperature 98.2 F Temperature 98.3 F Temperature 98.2 F - Labs CBC & Chem 7: 02/02/17 05:38 02/06/17 05:24
[2017-02-06] MEDS: LANOXIN PO SCH (16:46)
[2017-02-06] MEDS: CUBICIN IV SCH (18:01)
[2017-02-06] MEDS: NACL 0.9% IV SCH (18:01)
[2017-02-06] MEDS: LOVENOX SUB-Q SCH (22:41)
[2017-02-07] MEDS: LASIX PO SCH (06:07)
[2017-02-07] MEDS ORDERED: HURRICAINE ONE 20% TOPICAL SPRAY MM NR (09:00)
[2017-02-07] MEDS ORDERED: VERSED IV ONE (09:30)
[2017-02-07] MEDS ORDERED: SUBLIMAZE IV ONE (09:30)
[2017-02-07] MEDS: DUONEB *Not for PRN Use IH SCH ×3 (10:37→21:02)
[2017-02-07] MEDS: PULMICORT IH SCH ×2 (10:37→21:02)
--- NOTE | 2017-02-07 10:57 | Consultation ---
History of Present Illness Consult date: 02/07/17 Consult reason: other History of present illness: 56 year old male admitted with shortness of breath, sputum productive cough. 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 Repeat blood cultures 01/30 are negative to date. CXR on admission - NAP. Patient is known to have a history of ischemic cardiomyopathy s/p AICD inserted 4 months in [place]. Patient believes it is a [facility] AICD. A FARZANA done today is showing evidence of a small mobile echogenic density attached to the AICD lead on the right atrial side. A vegetation cannot be excluded. Past History Past Medical History: acute OR, COPD, heart failure, hypertension, stroke Past Surgical History: Other (Brain surgery, ICD placement) Social history: . denies: smoking, alcohol abuse, prescription drug abuse Family history: CAD, hypertension Medications and Allergies Allergies Allergy/AdvReac Type Severity Reaction Status Date / Time No Known Allergies Allergy Verified 12/29/16 02:17 Home Medications Medication Instructions Recorded Confirmed Last Taken Type oxyCODONE /ACETAMINOPHEN [Percocet 1 tab PO Q6H PRN #40 tablet 01/17/17 Unknown Rx 5/325 mg] ALBUTEROL NEB's [Proventil 0.083% 2.5 mg IH Q3HRT PRN #100 nebu 01/30/17 Unknown Rx NEBS] Carvedilol [Coreg] 3.125 mg PO BID #60 tablet 01/30/17 Unknown Rx Carvedilol [Coreg] 6.25 mg PO BID #60 tablet 01/30/17 Unknown Rx Citalopram [celeXA] 10 mg PO QDAY #30 tablet 01/30/17 Unknown Rx Clopidogrel [Plavix] 75 mg PO QDAY #30 tablet 01/30/17 Unknown Rx Digoxin [Lanoxin] 0.125 mg PO DAILY@1700 #30 tablet 01/30/17 Unknown Rx Famotidine [Pepcid] 10 mg PO BID #60 tablet 01/30/17 Unknown Rx Furosemide [Lasix TAB] 40 mg PO QDAY #30 tablet 01/30/17 Unknown Rx Ipratropium [Atrovent NEB] 0.5 mg IH Q4HR #100 ml 01/30/17 Unknown Rx Ipratropium/Albuterol Sulfate 1 ampul IH Q6HRT #50 ampul.neb 01/30/17 Unknown Rx [DUONEB *Not for PRN Use*] Sacubitril/Valsartan [Entresto 24 1 each PO BID #60 01/30/17 Unknown Rx mg-26 mg Tablet] levETIRAcetam [Keppra TAB] 500 mg PO BID #60 tablet 01/30/17 Unknown Rx Active Meds: Active Medications Acetaminophen (Tylenol) 650 mg PO Q4H PRN PRN Reason: Pain MILD(1-3)/Fever >100.5/OCAMPO Albuterol (Proventil) 2.5 mg IH Q4HRT PRN PRN Reason: Shortness Of Breath Albuterol/Ipratropium (Duoneb *Not For Prn Use*) 1 ampul IH TIDRT [facility] Last Admin: 02/07/17 10:37 Dose: 1 ampul Bisacodyl (Dulcolax) 10 mg WA QDAY PRN PRN Reason: Constipation unrelieved by MOM Budesonide (Pulmicort) 0.5 mg IH Q12HRT [facility] Last Admin: 02/07/17 10:37 Dose: 0.5 mg Carvedilol (Coreg) 3.125 mg PO BID [facility] Last Admin: 02/06/17 22:42 Dose: 3.125 mg Citalopram Hydrobromide (Celexa) 10 mg PO QDAY [facility] Last Admin: 02/06/17 09:57 Dose: 10 mg Clopidogrel Bisulfate (Plavix) 75 mg PO QDAY [facility] Last Admin: 02/06/17 09:55 Dose: 75 mg Digoxin (Lanoxin) 0.125 mg PO DAILY@1700 [facility] Last Admin: 02/06/17 16:46 Dose: 0.125 mg Enoxaparin Sodium (Lovenox) 40 mg SUB-Q QDAY@2200 [facility] Last Admin: 02/06/17 22:41 Dose: 40 mg Famotidine (Pepcid) 10 mg PO BID [facility] Last Admin: 02/06/17 22:41 Dose: 10 mg Furosemide (Lasix) 40 mg PO DAILY@0600 [facility] Last Admin: 02/07/17 06:07 Dose: 40 mg Daptomycin 380 mg/ Sodium (Chloride) 100 mls @ 200 mls/hr IV Q24H [facility] Last Admin: 02/06/17 18:01 Dose: 200 mls/hr Levetiracetam (Keppra) 500 mg PO BID [facility] Last Admin: 02/06/17 22:42 Dose: 500 mg Lorazepam (Ativan) 1 mg PO Q6H PRN PRN Reason: CIWA-Ar 16-25 Last Admin: 01/28/17 10:03 Dose: 1 mg Magnesium Hydroxide (Milk Of Magnesia) 30 ml PO Q4H PRN PRN Reason: Constipation Miscellaneous Medication (Sacubitril/Valsartan [Entresto 24 Mg-26 Mg Tablet]) 1 each PO BID [facility] Ondansetron HCl (Zofran) 4 mg IV Q8H PRN PRN Reason: N/V unrelieved by Reglan Oxycodone/Acetaminophen (Percocet 5/325) 1 tab PO Q6H PRN PRN Reason: Pain, Moderate (4-6) Last Admin: 02/06/17 16:46 Dose: 1 tab Review of Systems All systems: negative Physical Examination Vital Signs Pulse Ox 94 01/26/17 01:08 General appearance: no acute distress HEENT: Positive: PERRL Neck: Positive: neck supple Cardiac: Positive: Reg Rate and Rhythm Lungs: Positive: Normal Exam Results 02/02/17 05:38 02/06/17 05:24 Cardiac Enzymes 01/26/17 01/26/17 01/26/17 Range/Units 01:23 01:23 02:17 WBC 18.9 H (4.5-11.0) K/mm3 RBC 5.39 H (3.65-5.03) M/mm3 Hgb 10.8 L (11.8-15.2) gm/dl Hct 36.5 (35.5-45.6) % MCV 68 L (84-94) fl MCH 20 L (28-32) pg MCHC 30 L (32-34) % RDW 19.8 H (13.2-15.2) % Plt Count 320 (140-440) K/mm3 Lymph % (Auto) 15.6 (13.4-35.0) % [place] % (Auto) 8.3 H (0.0-7.3) % Eos % (Auto) 8.3 H (0.0-4.3) % Baso % (Auto) 0.7 (0.0-1.8) % Lymph # 3.0 (1.2-5.4) K/mm3 [place] # 1.6 H (0.0-0.8) K/mm3 Eos # 1.6 H (0.0-0.4) K/mm3 Baso # 0.1 (0.0-0.1) K/mm3 Add Manual Diff Total Counted Seg Neutrophils % 67.1 (40.0-70.0) % Seg Neuts % (Manual) (40.0-70.0) % Band Neutrophils % % Lymphocytes % (Manual) (13.4-35.0) % Reactive Lymphs % (Man) % Monocytes % (Manual) (0.0-7.3) % Eosinophils % (Manual) (0.0-4.3) % Basophils % (Manual) (0.0-1.8) % Metamyelocytes % % Myelocytes % % Promyelocytes % % Blast Cells % % Nucleated RBC % Seg Neutrophils # 12.7 H (1.8-7.7) K/mm3 Seg Neutrophils # Man (1.8-7.7) K/mm3 Band Neutrophils # K/mm3 Lymphocytes # (Manual) (1.2-5.4) K/mm3 Abs React Lymphs (Man) K/mm3 Monocytes # (Manual) (0.0-0.8) K/mm3 Eosinophils # (Manual) (0.0-0.4) K/mm3 Basophils # (Manual) (0.0-0.1) K/mm3 Metamyelocytes # K/mm3 Myelocytes # K/mm3 Promyelocytes # K/mm3 Blast Cells # K/mm3 WBC Morphology Hypersegmented Neuts Hyposegmented Neuts Hypogranular Neuts Smudge Cells Toxic Granulation Toxic Vacuolation Dohle Bodies Pelger-Huet Anomaly Ana Luisa Rods Platelet Estimate Clumped Platelets Plt Clumps, EDTA Large Platelets Giant Platelets Platelet Satelliting Plt Morphology Comment RBC Morphology Dimorphic RBCs Polychromasia Hypochromasia Poikilocytosis Anisocytosis Microcytosis Macrocytosis Spherocytes Pappenheimer Bodies Sickle Cells Target Cells Tear Drop Cells Ovalocytes Helmet Cells [place] Bodies Fisher Rings [place] Cells Bite Cells Crenated Cell Elliptocytes Acanthocytes (Spur) Rouleaux Hemoglobin C Crystals Schistocytes Malaria parasites Nestor Bodies Hem Pathologist Commnt Sodium 134 L (137-145) mmol/L Potassium 4.3 (3.6-5.0) mmol/L Chloride 97.7 L (98-107) mmol/L Carbon Dioxide 22 (22-30) mmol/L Anion Gap 19 mmol/L BUN 26 H (9-20) mg/dL Creatinine 1.2 (0.8-1.5) mg/dL Estimated GFR > 60 ml/min BUN/Creatinine Ratio 22 % Glucose 107 H (75-100) mg/dL Lactic Acid (0.7-2.0) mmol/L Calcium 8.9 (8.4-10.2) mg/dL Magnesium (1.7-2.3) mg/dL Total Bilirubin (0.1-1.2) mg/dL ALT (7-56) units/L Alkaline Phosphatase (35-129) units/L Total Creatine Kinase (55-170) units/L Troponin T 0.037 H 0.032 H (0.00-0.029) ng/mL C-Reactive Protein (0.00-1.30) mg/dL Total Protein (6.3-8.2) g/dL Albumin (3.9-5) g/dL Albumin/Globulin Ratio % Triglycerides 192 H (2-149) mg/dL Cholesterol 174 (50-199) mg/dL LDL Cholesterol Direct 76 (50-130) mg/dL HDL Cholesterol 60 H (40-59) mg/dL Cholesterol/HDL Ratio 2.90 % Urine Color (Yellow) Urine Turbidity (Clear) Urine pH (5.0-7.0) Ur Specific [place] (1.003-1.030) Urine Protein (Negative) mg/dL Urine Glucose (UA) (Negative) mg/dL Urine Ketones (Negative) mg/dL Urine Blood (Negative) Urine Nitrite (Negative) Urine Bilirubin (Negative) Urine Urobilinogen (<2.0) mg/dL Ur Leukocyte Esterase (Negative) Urine WBC (Auto) (0.0-6.0) /HPF Urine RBC (Auto) (0.0-6.0) /HPF Vancomycin Trough (5.0-20.0) ug/mL Miscellaneous Test 01/26/17 01/26/17 01/26/17 Range/Units 03:58 07:30 07:30 WBC (4.5-11.0) K/mm3 RBC (3.65-5.03) M/mm3 Hgb (11.8-15.2) gm/dl Hct (35.5-45.6) % MCV (84-94) fl MCH (28-32) pg MCHC (32-34) % RDW (13.2-15.2) % Plt Count (140-440) K/mm3 Lymph % (Auto) (13.4-35.0) % [place] % (Auto) (0.0-7.3) % Eos % (Auto) (0.0-4.3) % Baso % (Auto) (0.0-1.8) % Lymph # (1.2-5.4) K/mm3 [place] # (0.0-0.8) K/mm3 Eos # (0.0-0.4) K/mm3 Baso # (0.0-0.1) K/mm3 Add Manual Diff Total Counted Seg Neutrophils % (40.0-70.0) % Seg Neuts % (Manual) (40.0-70.0) % Band Neutrophils % % Lymphocytes % (Manual) (13.4-35.0) % Reactive Lymphs % (Man) % Monocytes % (Manual) (0.0-7.3) % Eosinophils % (Manual) (0.0-4.3) % Basophils % (Manual) (0.0-1.8) % Metamyelocytes % % Myelocytes % % Promyelocytes % % Blast Cells % % Nucleated RBC % Seg Neutrophils # (1.8-7.7) K/mm3 Seg Neutrophils # Man (1.8-7.7) K/mm3 Band Neutrophils # K/mm3 Lymphocytes # (Manual) (1.2-5.4) K/mm3 Abs React Lymphs (Man) K/mm3 Monocytes # (Manual) (0.0-0.8) K/mm3 Eosinophils # (Manual) (0.0-0.4) K/mm3 Basophils # (Manual) (0.0-0.1) K/mm3 Metamyelocytes # K/mm3 Myelocytes # K/mm3 Promyelocytes # K/mm3 Blast Cells # K/mm3 WBC Morphology Hypersegmented Neuts Hyposegmented Neuts Hypogranular Neuts Smudge Cells Toxic Granulation Toxic Vacuolation Dohle Bodies Pelger-Huet Anomaly Ana Luisa Rods Platelet Estimate Clumped Platelets Plt Clumps, EDTA Large Platelets Giant Platelets Platelet Satelliting Plt Morphology Comment RBC Morphology Dimorphic RBCs Polychromasia Hypochromasia Poikilocytosis Anisocytosis Microcytosis Macrocytosis Spherocytes Pappenheimer Bodies Sickle Cells Target Cells Tear Drop Cells Ovalocytes Helmet Cells [place] Bodies Fisher Rings [place] Cells Bite Cells Crenated Cell Elliptocytes Acanthocytes (Spur) Rouleaux Hemoglobin C Crystals Schistocytes Malaria parasites Nestor Bodies Hem Pathologist Commnt Sodium (137-145) mmol/L Potassium (3.6-5.0) mmol/L Chloride (98-107) mmol/L Carbon Dioxide (22-30) mmol/L Anion Gap mmol/L BUN (9-20) mg/dL Creatinine (0.8-1.5) mg/dL Estimated GFR ml/min BUN/Creatinine Ratio % Glucose (75-100) mg/dL Lactic Acid 1.30 (0.7-2.0) mmol/L Calcium (8.4-10.2) mg/dL Magnesium (1.7-2.3) mg/dL Total Bilirubin (0.1-1.2) mg/dL ALT (7-56) units/L Alkaline Phosphatase (35-129) units/L Total Creatine Kinase (55-170) units/L Troponin T 0.019 (0.00-0.029) ng/mL C-Reactive Protein (0.00-1.30) mg/dL Total Protein (6.3-8.2) g/dL Albumin (3.9-5) g/dL Albumin/Globulin Ratio % Triglycerides (2-149) mg/dL Cholesterol (50-199) mg/dL LDL Cholesterol Direct (50-130) mg/dL HDL Cholesterol (40-59) mg/dL Cholesterol/HDL Ratio % Urine Color Yellow (Yellow) Urine Turbidity Clear (Clear) Urine pH 6.0 (5.0-7.0) Ur Specific [place] 1.012 (1.003-1.030) Urine Protein 30 mg/dl (Negative) mg/dL Urine Glucose (UA) Neg (Negative) mg/dL Urine Ketones Neg (Negative) mg/dL Urine Blood Sm (Negative) Urine Nitrite Neg (Negative) Urine Bilirubin Neg (Negative) Urine Urobilinogen < 2.0 (<2.0) mg/dL Ur Leukocyte Esterase Neg (Negative) Urine WBC (Auto) 1.0 (0.0-6.0) /HPF Urine RBC (Auto) 1.0 (0.0-6.0) /HPF Vancomycin Trough (5.0-20.0) ug/mL Miscellaneous Test 01/26/17 01/26/17 01/26/17 Range/Units 09:32 12:30 20:38 WBC (4.5-11.0) K/mm3 RBC (3.65-5.03) M/mm3 Hgb (11.8-15.2) gm/dl Hct (35.5-45.6) % MCV (84-94) fl MCH (28-32) pg MCHC (32-34) % RDW (13.2-15.2) % Plt Count (140-440) K/mm3 Lymph % (Auto) (13.4-35.0) % [place] % (Auto) (0.0-7.3) % Eos % (Auto) (0.0-4.3) % Baso % (Auto) (0.0-1.8) % Lymph # (1.2-5.4) K/mm3 [place] # (0.0-0.8) K/mm3 Eos # (0.0-0.4) K/mm3 Baso # (0.0-0.1) K/mm3 Add Manual Diff Total Counted Seg Neutrophils % (40.0-70.0) % Seg Neuts % (Manual) (40.0-70.0) % Band Neutrophils % % Lymphocytes % (Manual) (13.4-35.0) % Reactive Lymphs % (Man) % Monocytes % (Manual) (0.0-7.3) % Eosinophils % (Manual) (0.0-4.3) % Basophils % (Manual) (0.0-1.8) % Metamyelocytes % % Myelocytes % % Promyelocytes % % Blast Cells % % Nucleated RBC % Seg Neutrophils # (1.8-7.7) K/mm3 Seg Neutrophils # Man (1.8-7.7) K/mm3 Band Neutrophils # K/mm3 Lymphocytes # (Manual) (1.2-5.4) K/mm3 Abs React Lymphs (Man) K/mm3 Monocytes # (Manual) (0.0-0.8) K/mm3 Eosinophils # (Manual) (0.0-0.4) K/mm3 Basophils # (Manual) (0.0-0.1) K/mm3 Metamyelocytes # K/mm3 Myelocytes # K/mm3 Promyelocytes # K/mm3 Blast Cells # K/mm3 WBC Morphology Hypersegmented Neuts Hyposegmented Neuts Hypogranular Neuts Smudge Cells Toxic Granulation Toxic Vacuolation Dohle Bodies Pelger-Huet Anomaly Ana Luisa Rods Platelet Estimate Clumped Platelets Plt Clumps, EDTA Large Platelets Giant Platelets Platelet Satelliting Plt Morphology Comment RBC Morphology Dimorphic RBCs Polychromasia Hypochromasia Poikilocytosis Anisocytosis Microcytosis Macrocytosis Spherocytes Pappenheimer Bodies Sickle Cells Target Cells Tear Drop Cells Ovalocytes Helmet Cells [place] Bodies Fisher Rings [place] Cells Bite Cells Crenated Cell Elliptocytes Acanthocytes (Spur) Rouleaux Hemoglobin C Crystals Schistocytes Malaria parasites Nestor Bodies Hem Pathologist Commnt Sodium (137-145) mmol/L Potassium (3.6-5.0) mmol/L Chloride (98-107) mmol/L Carbon Dioxide (22-30) mmol/L Anion Gap mmol/L BUN (9-20) mg/dL Creatinine (0.8-1.5) mg/dL Estimated GFR ml/min BUN/Creatinine Ratio % Glucose (75-100) mg/dL Lactic Acid 2.40 H* 2.40 H* (0.7-2.0) mmol/L Calcium (8.4-10.2) mg/dL Magnesium (1.7-2.3) mg/dL Total Bilirubin (0.1-1.2) mg/dL ALT (7-56) units/L Alkaline Phosphatase (35-129) units/L Total Creatine Kinase (55-170) units/L Troponin T (0.00-0.029) ng/mL C-Reactive Protein 1.20 (0.00-1.30) mg/dL Total Protein (6.3-8.2) g/dL Albumin (3.9-5) g/dL Albumin/Globulin Ratio % Triglycerides (2-149) mg/dL Cholesterol (50-199) mg/dL LDL Cholesterol Direct (50-130) mg/dL HDL Cholesterol (40-59) mg/dL Cholesterol/HDL Ratio % Urine Color (Yellow) Urine Turbidity (Clear) Urine pH (5.0-7.0) Ur Specific [place] (1.003-1.030) Urine Protein (Negative) mg/dL Urine Glucose (UA) (Negative) mg/dL Urine Ketones (Negative) mg/dL Urine Blood (Negative) Urine Nitrite (Negative) Urine Bilirubin (Negative) Urine Urobilinogen (<2.0) mg/dL Ur Leukocyte Esterase (Negative) Urine WBC (Auto) (0.0-6.0) /HPF Urine RBC (Auto) (0.0-6.0) /HPF Vancomycin Trough (5.0-20.0) ug/mL Miscellaneous Test 01/26/17 01/27/17 01/27/17 Range/Units 20:50 05:46 05:46 WBC 12.2 H (4.5-11.0) K/mm3 RBC 4.35 (3.65-5.03) M/mm3 Hgb 8.6 L (11.8-15.2) gm/dl Hct 29.2 L D (35.5-45.6) % MCV 67 L (84-94) fl MCH 20 L (28-32) pg MCHC 30 L (32-34) % RDW 19.3 H (13.2-15.2) % Plt Count 239 (140-440) K/mm3 Lymph % (Auto) (13.4-35.0) % [place] % (Auto) (0.0-7.3) % Eos % (Auto) (0.0-4.3) % Baso % (Auto) (0.0-1.8) % Lymph # (1.2-5.4) K/mm3 [place] # (0.0-0.8) K/mm3 Eos # (0.0-0.4) K/mm3 Baso # (0.0-0.1) K/mm3 Add Manual Diff Total Counted Seg Neutrophils % (40.0-70.0) % Seg Neuts % (Manual) (40.0-70.0) % Band Neutrophils % % Lymphocytes % (Manual) (13.4-35.0) % Reactive Lymphs % (Man) % Monocytes % (Manual) (0.0-7.3) % Eosinophils % (Manual) (0.0-4.3) % Basophils % (Manual) (0.0-1.8) % Metamyelocytes % % Myelocytes % % Promyelocytes % % Blast Cells % % Nucleated RBC % Seg Neutrophils # (1.8-7.7) K/mm3 Seg Neutrophils # Man (1.8-7.7) K/mm3 Band Neutrophils # K/mm3 Lymphocytes # (Manual) (1.2-5.4) K/mm3 Abs React Lymphs (Man) K/mm3 Monocytes # (Manual) (0.0-0.8) K/mm3 Eosinophils # (Manual) (0.0-0.4) K/mm3 Basophils # (Manual) (0.0-0.1) K/mm3 Metamyelocytes # K/mm3 Myelocytes # K/mm3 Promyelocytes # K/mm3 Blast Cells # K/mm3 WBC Morphology Hypersegmented Neuts Hyposegmented Neuts Hypogranular Neuts Smudge Cells Toxic Granulation Toxic Vacuolation Dohle Bodies Pelger-Huet Anomaly Ana Luisa Rods Platelet Estimate Clumped Platelets Plt Clumps, EDTA Large Platelets Giant Platelets Platelet Satelliting Plt Morphology Comment RBC Morphology Dimorphic RBCs Polychromasia Hypochromasia Poikilocytosis Anisocytosis Microcytosis Macrocytosis Spherocytes Pappenheimer Bodies Sickle Cells Target Cells Tear Drop Cells Ovalocytes Helmet Cells [place] Bodies Fisher Rings [place] Cells Bite Cells Crenated Cell Elliptocytes Acanthocytes (Spur) Rouleaux Hemoglobin C Crystals Schistocytes Malaria parasites Nestor Bodies Hem Pathologist Commnt Sodium 136 L (137-145) mmol/L Potassium 3.8 (3.6-5.0) mmol/L Chloride 102.2 (98-107) mmol/L Carbon Dioxide 24 (22-30) mmol/L Anion Gap 14 mmol/L BUN 23 H (9-20) mg/dL Creatinine 0.8 (0.8-1.5) mg/dL Estimated GFR > 60 ml/min BUN/Creatinine Ratio 29 % Glucose 88 (75-100) mg/dL Lactic Acid (0.7-2.0) mmol/L Calcium 8.3 L (8.4-10.2) mg/dL Magnesium (1.7-2.3) mg/dL Total Bilirubin (0.1-1.2) mg/dL ALT (7-56) units/L Alkaline Phosphatase (35-129) units/L Total Creatine Kinase (55-170) units/L Troponin T (0.00-0.029) ng/mL C-Reactive Protein (0.00-1.30) mg/dL Total Protein (6.3-8.2) g/dL Albumin (3.9-5) g/dL Albumin/Globulin Ratio % Triglycerides (2-149) mg/dL Cholesterol (50-199) mg/dL LDL Cholesterol Direct (50-130) mg/dL HDL Cholesterol (40-59) mg/dL Cholesterol/HDL Ratio % Urine Color (Yellow) Urine Turbidity (Clear) Urine pH (5.0-7.0) Ur Specific [place] (1.003-1.030) Urine Protein (Negative) mg/dL Urine Glucose (UA) (Negative) mg/dL Urine Ketones (Negative) mg/dL Urine Blood (Negative) Urine Nitrite (Negative) Urine Bilirubin (Negative) Urine Urobilinogen (<2.0) mg/dL Ur Leukocyte Esterase (Negative) Urine WBC (Auto) (0.0-6.0) /HPF Urine RBC (Auto) (0.0-6.0) /HPF Vancomycin Trough (5.0-20.0) ug/mL Miscellaneous Test Flexitest 1 01/27/17 01/28/17 01/28/17 Range/Units 09:21 04:36 04:36 WBC 15.0 H (4.5-11.0) K/mm3 RBC 4.84 (3.65-5.03) M/mm3 Hgb 9.8 L (11.8-15.2) gm/dl Hct 32.5 L (35.5-45.6) % MCV 67 L (84-94) fl MCH 20 L (28-32) pg MCHC 30 L (32-34) % RDW 19.5 H (13.2-15.2) % Plt Count 253 (140-440) K/mm3 Lymph % (Auto) (13.4-35.0) % [place] % (Auto) (0.0-7.3) % Eos % (Auto) (0.0-4.3) % Baso % (Auto) (0.0-1.8) % Lymph # (1.2-5.4) K/mm3 [place] # (0.0-0.8) K/mm3 Eos # (0.0-0.4) K/mm3 Baso # (0.0-0.1) K/mm3 Add Manual Diff Total Counted Seg Neutrophils % (40.0-70.0) % Seg Neuts % (Manual) (40.0-70.0) % Band Neutrophils % % Lymphocytes % (Manual) (13.4-35.0) % Reactive Lymphs % (Man) % Monocytes % (Manual) (0.0-7.3) % Eosinophils % (Manual) (0.0-4.3) % Basophils % (Manual) (0.0-1.8) % Metamyelocytes % % Myelocytes % % Promyelocytes % % Blast Cells % % Nucleated RBC % Seg Neutrophils # (1.8-7.7) K/mm3 Seg Neutrophils # Man (1.8-7.7) K/mm3 Band Neutrophils # K/mm3 Lymphocytes # (Manual) (1.2-5.4) K/mm3 Abs React Lymphs (Man) K/mm3 Monocytes # (Manual) (0.0-0.8) K/mm3 Eosinophils # (Manual) (0.0-0.4) K/mm3 Basophils # (Manual) (0.0-0.1) K/mm3 Metamyelocytes # K/mm3 Myelocytes # K/mm3 Promyelocytes # K/mm3 Blast Cells # K/mm3 WBC Morphology Hypersegmented Neuts Hyposegmented Neuts Hypogranular Neuts Smudge Cells Toxic Granulation Toxic Vacuolation Dohle Bodies Pelger-Huet Anomaly Ana Luisa Rods Platelet Estimate Clumped Platelets Plt Clumps, EDTA Large Platelets Giant Platelets Platelet Satelliting Plt Morphology Comment RBC Morphology Dimorphic RBCs Polychromasia Hypochromasia Poikilocytosis Anisocytosis Microcytosis Macrocytosis Spherocytes Pappenheimer Bodies Sickle Cells Target Cells Tear Drop Cells Ovalocytes Helmet Cells [place] Bodies Fisher Rings [place] Cells Bite Cells Crenated Cell Elliptocytes Acanthocytes (Spur) Rouleaux Hemoglobin C Crystals Schistocytes Malaria parasites Nestor Bodies Hem Pathologist Commnt Sodium 137 (137-145) mmol/L Potassium 4.2 (3.6-5.0) mmol/L Chloride 101.1 (98-107) mmol/L Carbon Dioxide 24 (22-30) mmol/L Anion Gap 16 mmol/L BUN 21 H (9-20) mg/dL Creatinine 0.8 (0.8-1.5) mg/dL Estimated GFR > 60 ml/min BUN/Creatinine Ratio 26 % Glucose 83 (75-100) mg/dL Lactic Acid 2.90 H* (0.7-2.0) mmol/L Calcium 8.7 (8.4-10.2) mg/dL Magnesium (1.7-2.3) mg/dL Total Bilirubin (0.1-1.2) mg/dL ALT (7-56) units/L Alkaline Phosphatase (35-129) units/L Total Creatine Kinase (55-170) units/L Troponin T (0.00-0.029) ng/mL C-Reactive Protein (0.00-1.30) mg/dL Total Protein (6.3-8.2) g/dL Albumin (3.9-5) g/dL Albumin/Globulin Ratio % Triglycerides (2-149) mg/dL Cholesterol (50-199) mg/dL LDL Cholesterol Direct (50-130) mg/dL HDL Cholesterol (40-59) mg/dL Cholesterol/HDL Ratio % Urine Color (Yellow) Urine Turbidity (Clear) Urine pH (5.0-7.0) Ur Specific [place] (1.003-1.030) Urine Protein (Negative) mg/dL Urine Glucose (UA) (Negative) mg/dL Urine Ketones (Negative) mg/dL Urine Blood (Negative) Urine Nitrite (Negative) Urine Bilirubin (Negative) Urine Urobilinogen (<2.0) mg/dL Ur Leukocyte Esterase (Negative) Urine WBC (Auto) (0.0-6.0) /HPF Urine RBC (Auto) (0.0-6.0) /HPF Vancomycin Trough (5.0-20.0) ug/mL Miscellaneous Test 01/29/17 01/30/17 01/30/17 Range/Units 04:55 16:12 16:12 WBC 11.5 H (4.5-11.0) K/mm3 RBC 5.24 H (3.65-5.03) M/mm3 Hgb 10.5 L (11.8-15.2) gm/dl Hct 35.0 L (35.5-45.6) % MCV 67 L (84-94) fl MCH 20 L (28-32) pg MCHC 30 L (32-34) % RDW 20.4 H (13.2-15.2) % Plt Count 245 (140-440) K/mm3 Lymph % (Auto) (13.4-35.0) % Powell % (Auto) (0.0-7.3) % Eos % (Auto) Sales Office Manager (0.0-4.3) % Baso % (Auto) (0.0-1.8) % Lymph # (1.2-5.4) K/mm3 Powell # (0.0-0.8) K/mm3 Eos # (0.0-0.4) K/mm3 Baso # (0.0-0.1) K/mm3 Add Manual Diff Complete Total Counted 100 Seg Neutrophils % (40.0-70.0) % Seg Neuts % (Manual) 74.0 H (40.0-70.0) % Band Neutrophils % 0 % Lymphocytes % (Manual) 10.0 L (13.4-35.0) % Reactive Lymphs % (Man) 0 % Monocytes % (Manual) 4.0 (0.0-7.3) % Eosinophils % (Manual) 12.0 H (0.0-4.3) % Basophils % (Manual) 0 (0.0-1.8) % Metamyelocytes % 0 % Myelocytes % 0 % Promyelocytes % 0 % Blast Cells % 0 % Nucleated RBC % Not Reportable Seg Neutrophils # (1.8-7.7) K/mm3 Seg Neutrophils # Man 8.5 H (1.8-7.7) K/mm3 Band Neutrophils # 0.0 K/mm3 Lymphocytes # (Manual) 1.2 (1.2-5.4) K/mm3 Abs React Lymphs (Man) 0.0 K/mm3 Monocytes # (Manual) 0.5 (0.0-0.8) K/mm3 Eosinophils # (Manual) 1.4 H (0.0-0.4) K/mm3 Basophils # (Manual) 0.0 (0.0-0.1) K/mm3 Metamyelocytes # 0.0 K/mm3 Myelocytes # 0.0 K/mm3 Promyelocytes # 0.0 K/mm3 Blast Cells # 0.0 K/mm3 WBC Morphology Not Reportable Hypersegmented Neuts Not Reportable Hyposegmented Neuts Not Reportable Hypogranular Neuts Not Reportable Smudge Cells Not Reportable Toxic Granulation Not Reportable Toxic Vacuolation Not Reportable Dohle Bodies Not Reportable Pelger-Huet Anomaly Not Reportable Ana Luisa Rods Not Reportable Platelet Estimate Appears normal Clumped Platelets Not Reportable Plt Clumps, EDTA Not Reportable Large Platelets Not Reportable Giant Platelets Not Reportable Platelet Satelliting Not Reportable Plt Morphology Comment Not Reportable RBC Morphology Not Reportable Dimorphic RBCs Not Reportable Polychromasia Not Reportable Hypochromasia Not Reportable Poikilocytosis 1+ Anisocytosis 1+ Microcytosis 1+ Macrocytosis Not Reportable Spherocytes Not Reportable Pappenheimer Bodies Not Reportable Sickle Cells Not Reportable Target Cells Not Reportable Tear Drop Cells Not Reportable Ovalocytes Not Reportable Helmet Cells Not Reportable [place] Bodies Not Reportable Fisher Rings Not Reportable [place] Cells Not Reportable Bite Cells Not Reportable Crenated Cell Not Reportable Elliptocytes 1+ Acanthocytes (Spur) Not Reportable Rouleaux Not Reportable Hemoglobin C Crystals Not Reportable Schistocytes Not Reportable Malaria parasites Not Reportable Nestor Bodies Not Reportable Hem Pathologist Commnt No Sodium (137-145) mmol/L Potassium (3.6-5.0) mmol/L Chloride (98-107) mmol/L Carbon Dioxide (22-30) mmol/L Anion Gap mmol/L BUN (9-20) mg/dL Creatinine (0.8-1.5) mg/dL Estimated GFR ml/min BUN/Creatinine Ratio % Glucose (75-100) mg/dL Lactic Acid 1.00 (0.7-2.0) mmol/L Calcium (8.4-10.2) mg/dL Magnesium (1.7-2.3) mg/dL Total Bilirubin (0.1-1.2) mg/dL ALT (7-56) units/L Alkaline Phosphatase (35-129) units/L Total Creatine Kinase (55-170) units/L Troponin T (0.00-0.029) ng/mL C-Reactive Protein (0.00-1.30) mg/dL Total Protein (6.3-8.2) g/dL Albumin (3.9-5) g/dL Albumin/Globulin Ratio % Triglycerides (2-149) mg/dL Cholesterol (50-199) mg/dL LDL Cholesterol Direct (50-130) mg/dL HDL Cholesterol (40-59) mg/dL Cholesterol/HDL Ratio % Urine Color (Yellow) Urine Turbidity (Clear) Urine pH (5.0-7.0) Ur Specific [place] (1.003-1.030) Urine Protein (Negative) mg/dL Urine Glucose (UA) (Negative) mg/dL Urine Ketones (Negative) mg/dL Urine Blood (Negative) Urine Nitrite (Negative) Urine Bilirubin (Negative) Urine Urobilinogen (<2.0) mg/dL Ur Leukocyte Esterase (Negative) Urine WBC (Auto) (0.0-6.0) /HPF Urine RBC (Auto) (0.0-6.0) /HPF Vancomycin Trough 18.1 (5.0-20.0) ug/mL Miscellaneous Test 01/30/17 01/31/17 01/31/17 Range/Units 16:12 05:54 05:54 WBC 11.3 H (4.5-11.0) K/mm3 RBC 4.75 (3.65-5.03) M/mm3 Hgb 9.7 L (11.8-15.2) gm/dl Hct 31.9 L (35.5-45.6) % MCV 67 L (84-94) fl MCH 21 L (28-32) pg MCHC 31 L (32-34) % RDW 19.9 H (13.2-15.2) % Plt Count 194 (140-440) K/mm3 Lymph % (Auto) (13.4-35.0) % [place] % (Auto) (0.0-7.3) % Eos % (Auto) Sales Office Manager (0.0-4.3) % Baso % (Auto) (0.0-1.8) % Lymph # (1.2-5.4) K/mm3 [place] # (0.0-0.8) K/mm3 Eos # (0.0-0.4) K/mm3 Baso # (0.0-0.1) K/mm3 Add Manual Diff Complete Total Counted 100 Seg Neutrophils % (40.0-70.0) % Seg Neuts % (Manual) 59 (40.0-70.0) % Band Neutrophils % 0 % Lymphocytes % (Manual) 14.0 (13.4-35.0) % Reactive Lymphs % (Man) 0 % Monocytes % (Manual) 9.0 H (0.0-7.3) % Eosinophils % (Manual) 20 H (0.0-4.3) % Basophils % (Manual) 0 (0.0-1.8) % Metamyelocytes % 0 % Myelocytes % 0 % Promyelocytes % 0 % Blast Cells % 0 % Nucleated RBC % Not Reportable Seg Neutrophils # (1.8-7.7) K/mm3 Seg Neutrophils # Man 6.6 (1.8-7.7) K/mm3 Band Neutrophils # 0.0 K/mm3 Lymphocytes # (Manual) 1.6 (1.2-5.4) K/mm3 Abs React Lymphs (Man) 0.0 K/mm3 Monocytes # (Manual) 1.0 H (0.0-0.8) K/mm3 Eosinophils # (Manual) 2.2 H (0.0-0.4) K/mm3 Basophils # (Manual) 0.0 (0.0-0.1) K/mm3 Metamyelocytes # 0.0 K/mm3 Myelocytes # 0.0 K/mm3 Promyelocytes # 0.0 K/mm3 Blast Cells # 0.0 K/mm3 WBC Morphology Not Reportable Hypersegmented Neuts Not Reportable Hyposegmented Neuts Not Reportable Hypogranular Neuts Not Reportable Smudge Cells Not Reportable Toxic Granulation Not Reportable Toxic Vacuolation Not Reportable Dohle Bodies Not Reportable Pelger-Huet Anomaly Not Reportable Ana Luisa Rods Not Reportable Platelet Estimate Not Reportable Clumped Platelets Not Reportable Plt Clumps, EDTA Not Reportable Large Platelets Not Reportable Giant Platelets Not Reportable Platelet Satelliting Not Reportable Plt Morphology Comment Not Reportable RBC Morphology Not Reportable Dimorphic RBCs Not Reportable Polychromasia Not Reportable Hypochromasia 2+ Poikilocytosis 1+ Anisocytosis 1+ Microcytosis 2+ Macrocytosis Not Reportable Spherocytes Not Reportable Pappenheimer Bodies Not Reportable Sickle Cells Not Reportable Target Cells Not Reportable Tear Drop Cells Not Reportable Ovalocytes Not Reportable Helmet Cells Not Reportable [place] Bodies Not Reportable Fisher Rings Not Reportable [place] Cells Not Reportable Bite Cells Not Reportable Crenated Cell Not Reportable Elliptocytes Not Reportable Acanthocytes (Spur) Not Reportable Rouleaux Not Reportable Hemoglobin C Crystals Not Reportable Schistocytes Not Reportable Malaria parasites Not Reportable Nestor Bodies Not Reportable Hem Pathologist Commnt N. Sodium 143 137 (137-145) mmol/L Potassium 4.5 3.3 L D (3.6-5.0) mmol/L Chloride 97.6 L 96.7 L (98-107) mmol/L Carbon Dioxide 31 H D 29 (22-30) mmol/L Anion Gap 19 15 mmol/L BUN 15 13 (9-20) mg/dL Creatinine 0.9 0.8 (0.8-1.5) mg/dL Estimated GFR > 60 > 60 ml/min BUN/Creatinine Ratio 17 16 % Glucose 94 96 (75-100) mg/dL Lactic Acid (0.7-2.0) mmol/L Calcium 9.2 9.1 (8.4-10.2) mg/dL Magnesium (1.7-2.3) mg/dL Total Bilirubin 0.30 (0.1-1.2) mg/dL ALT 16 (7-56) units/L Alkaline Phosphatase 122 (35-129) units/L Total Creatine Kinase (55-170) units/L Troponin T (0.00-0.029) ng/mL C-Reactive Protein (0.00-1.30) mg/dL Total Protein 6.6 (6.3-8.2) g/dL Albumin 4.2 (3.9-5) g/dL Albumin/Globulin Ratio 1.8 % Triglycerides (2-149) mg/dL Cholesterol (50-199) mg/dL LDL Cholesterol Direct (50-130) mg/dL HDL Cholesterol (40-59) mg/dL Cholesterol/HDL Ratio % Urine Color (Yellow) Urine Turbidity (Clear) Urine pH (5.0-7.0) Ur Specific [place] (1.003-1.030) Urine Protein (Negative) mg/dL Urine Glucose (UA) (Negative) mg/dL Urine Ketones (Negative) mg/dL Urine Blood (Negative) Urine Nitrite (Negative) Urine Bilirubin (Negative) Urine Urobilinogen (<2.0) mg/dL Ur Leukocyte Esterase (Negative) Urine WBC (Auto) (0.0-6.0) /HPF Urine RBC (Auto) (0.0-6.0) /HPF Vancomycin Trough (5.0-20.0) ug/mL Miscellaneous Test 02/01/17 02/02/17 02/02/17 Range/Units 06:01 05:38 05:38 WBC 8.9 (4.5-11.0) K/mm3 RBC 4.41 (3.65-5.03) M/mm3 Hgb 9.3 L (11.8-15.2) gm/dl Hct 29.5 L (35.5-45.6) % MCV 67 L (84-94) fl MCH 21 L (28-32) pg MCHC 32 (32-34) % RDW 20.2 H (13.2-15.2) % Plt Count 188 (140-440) K/mm3 Lymph % (Auto) 19.5 (13.4-35.0) % [place] % (Auto) 11.3 H (0.0-7.3) % Eos % (Auto) 9.7 H (0.0-4.3) % Baso % (Auto) 0.8 (0.0-1.8) % Lymph # 1.7 (1.2-5.4) K/mm3 [place] # 1.0 H (0.0-0.8) K/mm3 Eos # 0.9 H (0.0-0.4) K/mm3 Baso # 0.1 (0.0-0.1) K/mm3 Add Manual Diff Total Counted Seg Neutrophils % 58.7 (40.0-70.0) % Seg Neuts % (Manual) (40.0-70.0) % Band Neutrophils % % Lymphocytes % (Manual) (13.4-35.0) % Reactive Lymphs % (Man) % Monocytes % (Manual) (0.0-7.3) % Eosinophils % (Manual) (0.0-4.3) % Basophils % (Manual) (0.0-1.8) % Metamyelocytes % % Myelocytes % % Promyelocytes % % Blast Cells % % Nucleated RBC % Seg Neutrophils # 5.3 (1.8-7.7) K/mm3 Seg Neutrophils # Man (1.8-7.7) K/mm3 Band Neutrophils # K/mm3 Lymphocytes # (Manual) (1.2-5.4) K/mm3 Abs React Lymphs (Man) K/mm3 Monocytes # (Manual) (0.0-0.8) K/mm3 Eosinophils # (Manual) (0.0-0.4) K/mm3 Basophils # (Manual) (0.0-0.1) K/mm3 Metamyelocytes # K/mm3 Myelocytes # K/mm3 Promyelocytes # K/mm3 Blast Cells # K/mm3 WBC Morphology Hypersegmented Neuts Hyposegmented Neuts Hypogranular Neuts Smudge Cells Toxic Granulation Toxic Vacuolation Dohle Bodies Pelger-Huet Anomaly Ana Luisa Rods Platelet Estimate Clumped Platelets Plt Clumps, EDTA Large Platelets Giant Platelets Platelet Satelliting Plt Morphology Comment RBC Morphology Dimorphic RBCs Polychromasia Hypochromasia Poikilocytosis Anisocytosis Microcytosis Macrocytosis Spherocytes Pappenheimer Bodies Sickle Cells Target Cells Tear Drop Cells Ovalocytes Helmet Cells [place] Bodies Fisher Rings [place] Cells Bite Cells Crenated Cell Elliptocytes Acanthocytes (Spur) Rouleaux Hemoglobin C Crystals Schistocytes Malaria parasites Nestor Bodies Hem Pathologist Commnt Sodium 140 (137-145) mmol/L Potassium 3.5 L (3.6-5.0) mmol/L Chloride 99.4 (98-107) mmol/L Carbon Dioxide 29 (22-30) mmol/L Anion Gap 15 mmol/L BUN 18 (9-20) mg/dL Creatinine 0.9 (0.8-1.5) mg/dL Estimated GFR > 60 ml/min BUN/Creatinine Ratio 20 % Glucose 77 (75-100) mg/dL Lactic Acid (0.7-2.0) mmol/L Calcium 8.9 (8.4-10.2) mg/dL Magnesium (1.7-2.3) mg/dL Total Bilirubin (0.1-1.2) mg/dL ALT (7-56) units/L Alkaline Phosphatase (35-129) units/L Total Creatine Kinase 33 L (55-170) units/L Troponin T (0.00-0.029) ng/mL C-Reactive Protein (0.00-1.30) mg/dL Total Protein (6.3-8.2) g/dL Albumin (3.9-5) g/dL Albumin/Globulin Ratio % Triglycerides (2-149) mg/dL Cholesterol (50-199) mg/dL LDL Cholesterol Direct (50-130) mg/dL HDL Cholesterol (40-59) mg/dL Cholesterol/HDL Ratio % Urine Color (Yellow) Urine Turbidity (Clear) Urine pH (5.0-7.0) Ur Specific [place] (1.003-1.030) Urine Protein (Negative) mg/dL Urine Glucose (UA) (Negative) mg/dL Urine Ketones (Negative) mg/dL Urine Blood (Negative) Urine Nitrite (Negative) Urine Bilirubin (Negative) Urine Urobilinogen (<2.0) mg/dL Ur Leukocyte Esterase (Negative) Urine WBC (Auto) (0.0-6.0) /HPF Urine RBC (Auto) (0.0-6.0) /HPF Vancomycin Trough (5.0-20.0) ug/mL Miscellaneous Test 02/06/17 Range/Units 05:24 WBC (4.5-11.0) K/mm3 RBC (3.65-5.03) M/mm3 Hgb (11.8-15.2) gm/dl Hct (35.5-45.6) % MCV (84-94) fl MCH (28-32) pg MCHC (32-34) % RDW (13.2-15.2) % Plt Count (140-440) K/mm3 Lymph % (Auto) (13.4-35.0) % [place] % (Auto) (0.0-7.3) % Eos % (Auto) (0.0-4.3) % Baso % (Auto) (0.0-1.8) % Lymph # (1.2-5.4) K/mm3 [place] # (0.0-0.8) K/mm3 Eos # (0.0-0.4) K/mm3 Baso # (0.0-0.1) K/mm3 Add Manual Diff Total Counted Seg Neutrophils % (40.0-70.0) % Seg Neuts % (Manual) (40.0-70.0) % Band Neutrophils % % Lymphocytes % (Manual) (13.4-35.0) % Reactive Lymphs % (Man) % Monocytes % (Manual) (0.0-7.3) % Eosinophils % (Manual) (0.0-4.3) % Basophils % (Manual) (0.0-1.8) % Metamyelocytes % % Myelocytes % % Promyelocytes % % Blast Cells % % Nucleated RBC % Seg Neutrophils # (1.8-7.7) K/mm3 Seg Neutrophils # Man (1.8-7.7) K/mm3 Band Neutrophils # K/mm3 Lymphocytes # (Manual) (1.2-5.4) K/mm3 Abs React Lymphs (Man) K/mm3 Monocytes # (Manual) (0.0-0.8) K/mm3 Eosinophils # (Manual) (0.0-0.4) K/mm3 Basophils # (Manual) (0.0-0.1) K/mm3 Metamyelocytes # K/mm3 Myelocytes # K/mm3 Promyelocytes # K/mm3 Blast Cells # K/mm3 WBC Morphology Hypersegmented Neuts Hyposegmented Neuts Hypogranular Neuts Smudge Cells Toxic Granulation Toxic Vacuolation Dohle Bodies Pelger-Huet Anomaly Ana Luisa Rods Platelet Estimate Clumped Platelets Plt Clumps, EDTA Large Platelets Giant Platelets Platelet Satelliting Plt Morphology Comment RBC Morphology Dimorphic RBCs Polychromasia Hypochromasia Poikilocytosis Anisocytosis Microcytosis Macrocytosis Spherocytes Pappenheimer Bodies Sickle Cells Target Cells Tear Drop Cells Ovalocytes Helmet Cells [place] Bodies Fisher Rings [place] Cells Bite Cells Crenated Cell Elliptocytes Acanthocytes (Spur) Rouleaux Hemoglobin C Crystals Schistocytes Malaria parasites Nestor Bodies Hem Pathologist Commnt Sodium (137-145) mmol/L Potassium 4.3 D (3.6-5.0) mmol/L Chloride (98-107) mmol/L Carbon Dioxide (22-30) mmol/L Anion Gap mmol/L BUN (9-20) mg/dL Creatinine (0.8-1.5) mg/dL Estimated GFR ml/min BUN/Creatinine Ratio % Glucose (75-100) mg/dL Lactic Acid (0.7-2.0) mmol/L Calcium (8.4-10.2) mg/dL Magnesium 1.70 (1.7-2.3) mg/dL Total Bilirubin (0.1-1.2) mg/dL ALT (7-56) units/L Alkaline Phosphatase (35-129) units/L Total Creatine Kinase (55-170) units/L Troponin T (0.00-0.029) ng/mL C-Reactive Protein (0.00-1.30) mg/dL Total Protein (6.3-8.2) g/dL Albumin (3.9-5) g/dL Albumin/Globulin Ratio % Triglycerides (2-149) mg/dL Cholesterol (50-199) mg/dL LDL Cholesterol Direct (50-130) mg/dL HDL Cholesterol (40-59) mg/dL Cholesterol/HDL Ratio % Urine Color (Yellow) Urine Turbidity (Clear) Urine pH (5.0-7.0) Ur Specific [place] (1.003-1.030) Urine Protein (Negative) mg/dL Urine Glucose (UA) (Negative) mg/dL Urine Ketones (Negative) mg/dL Urine Blood (Negative) Urine Nitrite (Negative) Urine Bilirubin (Negative) Urine Urobilinogen (<2.0) mg/dL Ur Leukocyte Esterase (Negative) Urine WBC (Auto) (0.0-6.0) /HPF Urine RBC (Auto) (0.0-6.0) /HPF Vancomycin Trough (5.0-20.0) ug/mL Miscellaneous Test Assessment and Plan 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 Device interrogation Will discuss with EP
--- NOTE | 2017-02-07 10:57 | Progress Note ---
Assessment and Plan Assessment: 1) Sepsis: better. Etiology- VRE septicemia. 2) Resp distress ? COPD excerbation, ? CHF exacerbation 3) Recent Bilateral pneumonia/multifocal: CT of the chest showed extensive alveolar and interstitial infiltrate right more than the left. Sputum cx + Corazon Influenza ag negative. HIV neg / CD4>500. Legionella and Strep pnuemoniae urine ag negative. 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 Desirae Alegria MD Infectious Diseases Specialist [facility], [place], [facility] ([facility]) M [phone] O [phone] Subjective Date of service: 02/07/17 Principal diagnosis: Resp failure Copd exacerbation Interval history: Feels better, no fever, no pain. Micro: Influenza negative GAS negative blood cx 01/26 VRE 1 of 4 bottles 01/30 neg Current Antibiotics: Dapto 01/30 Previous Antibiotics: zosyn Objective - Exam Narrative Exam: General appearance: Alert in NAD, conversant Eyes: anicteric sclerae, moist conjunctivae; no lid-lag; PERRLA HENT: Atraumatic; oropharynx clear Neck: Trachea midline; supple, no thyromegaly or lymphadenopathy Lungs: decreased BS on the left, right sided wheezing, + Left sided AICD CV: RRR Abdomen: Soft, non-tender; no masses or hepatosplenomegaly Extremities: No peripheral edema or extremity lymphadenopathy Skin: Normal temperature, turgor and texture; no rash, ulcers or subcutaneous nodules Psych: Appropriate affect, alert and oriented to person, place and time. Neuro: alert and oriented x 3. Moving all extermities Lines: - Constitutional Vitals: Vital Signs Temp Pulse Resp BP Pulse Ox 98.7 F 76 18 98/66 100 02/07/17 07:38 02/07/17 09:21 02/07/17 09:21 02/07/17 09:21 02/07/17 09:21 Temperature -Last 24 Hours Temperature 98.7 F Temperature 98.8 F - Labs CBC & Chem 7: 02/02/17 05:38 02/06/17 05:24
[2017-02-07] MEDS: KEPPRA PO SCH ×2 (13:01→21:36)
[2017-02-07] MEDS: PEPCID PO SCH ×2 (13:01→21:35)
[2017-02-07] MEDS: PLAVIX PO SCH (13:01)
[2017-02-07] MEDS: COREG PO SCH ×2 (13:01→21:35)
[2017-02-07] MEDS: celeXA PO SCH (13:02)
--- NOTE | 2017-02-07 13:19 | XRay Report ---
Single view chest: Compared to 01/26/17. History: Right arm PICC line placement. Findings: Cardiomegaly. Trachea is midline. Stable pacemaker. Tip of right PICC line in mid superior vena cava. No consolidation, pneumothorax or pleural effusion. Impression: Cardiomegaly. No acute lung changes. Tip of right PICC line in MID superior vena cava.
[2017-02-07] MEDS: PERCOCET 5/325 PO PRN (16:12)
[2017-02-07] MEDS: LANOXIN PO SCH (17:52)
--- NOTE | 2017-02-07 18:45 | Progress Note ---
Assessment and Plan Assessment and plan: 56 YO Male with HTN, CHF, COPD, CVA presented for SOB, productive cough; blood cultures positive for VRE , on daptomycin , ID following --Sepsis/VRE: On daptomycin advised by ID, repeat blood cultures negative to date ID recommend 6 weeks of daptomycin if the report endocarditis --FARZANA; small mobile density attached to AICD lead on the right atrial side, vegetation cannot be excluded --Possible endocarditis ;ID recommend 6 weeks of daptomycin, stop date 2017 PICC line placement, home health, discussed with case management Evaluation by EP child and family counselor --Hypokalemia: Corrected --Acute on chronic hypoxic respiratory failure: Oxygen, nebulizers, steroids, supportive care --Acute COPD exacerbation Oxygen, nebulizers, received full course of of Levaquin --Ischemic Cardiomyopathy with an ejection fraction of 10% Continue anti-failure medications , BB, ACEI and diuretics --status post AICD, stable --CAD s/p PCI, continue current cardiac medications --Anemia of chronic disease; dose and monitor --Vascular dementia/h/o ?hemorrhagic CVA s/p craniotomy, intermittent memory loss, Supportive care --DVT prophylaxis; Lovenox PICC line placement total 6 weeks of daptomycin per ID DC planning. Case management Plan of care reviewed with the patient, answered all his questions History Interval history: Patient seen and examined medical records reviewed FARZANA reports vegetation Patient has no new complaints Vital signs reviewed Hospitalist Physical - Constitutional Vitals: Temp Pulse Resp BP Pulse Ox 98.7 F 82 20 121/85 100 02/07/17 07:38 02/07/17 14:12 02/07/17 14:12 02/07/17 13:01 02/07/17 09:21 General appearance: Present: no acute distress, well-nourished - EENT Eyes: Present: PERRL, EOM intact - Neck Neck: Present: supple, normal ROM - Respiratory Respiratory effort: normal Respiratory: bilateral: diminished, negative: rales, rhonchi, wheezing - Cardiovascular Rhythm: regular Heart Sounds: Present: S1 & S2 - Extremities Extremities: no ischemia, No edema - Abdominal General gastrointestinal: soft, non-tender, non-distended, normal bowel sounds - Integumentary Integumentary: Present: clear, warm - Psychiatric Psychiatric: appropriate mood/affect, cooperative - Neurologic Neurologic: CNII-XII intact, moves all extremities Results - Labs CBC & Chem 7: 02/02/17 05:38 02/06/17 05:24 Labs: Laboratory Last Values WBC 8.9 K/mm3 (4.5-11.0) 02/02/17 05:38 RBC 4.41 M/mm3 (3.65-5.03) 02/02/17 05:38 Hgb 9.3 gm/dl (11.8-15.2) L 02/02/17 05:38 Hct 29.5 % (35.5-45.6) L 02/02/17 05:38 MCV 67 fl (84-94) L 02/02/17 05:38 MCH 21 pg (28-32) L 02/02/17 05:38 MCHC 32 % (32-34) 02/02/17 05:38 RDW 20.2 % (13.2-15.2) H 02/02/17 05:38 Plt Count 188 K/mm3 (140-440) 02/02/17 05:38 Lymph % (Auto) 19.5 % (13.4-35.0) 02/02/17 05:38 [place] % (Auto) 11.3 % (0.0-7.3) H 02/02/17 05:38 Eos % (Auto) 9.7 % (0.0-4.3) H 02/02/17 05:38 Baso % (Auto) 0.8 % (0.0-1.8) 02/02/17 05:38 Lymph # 1.7 K/mm3 (1.2-5.4) 02/02/17 05:38 [place] # 1.0 K/mm3 (0.0-0.8) H 02/02/17 05:38 Eos # 0.9 K/mm3 (0.0-0.4) H 02/02/17 05:38 Baso # 0.1 K/mm3 (0.0-0.1) 02/02/17 05:38 Add Manual Diff Complete 01/31/17 05:54 Total Counted 100 01/31/17 05:54 Seg Neutrophils % 58.7 % (40.0-70.0) 02/02/17 05:38 Seg Neuts % (Manual) 59 % (40.0-70.0) 01/31/17 05:54 Band Neutrophils % 0 % 01/31/17 05:54 Lymphocytes % (Manual) 14.0 % (13.4-35.0) 01/31/17 05:54 Reactive Lymphs % (Man) 0 % 01/31/17 05:54 Monocytes % (Manual) 9.0 % (0.0-7.3) H 01/31/17 05:54 Eosinophils % (Manual) 20 % (0.0-4.3) H 01/31/17 05:54 Basophils % (Manual) 0 % (0.0-1.8) 01/31/17 05:54 Metamyelocytes % 0 % 01/31/17 05:54 Myelocytes % 0 % 01/31/17 05:54 Promyelocytes % 0 % 01/31/17 05:54 Blast Cells % 0 % 01/31/17 05:54 Nucleated RBC % Not Reportable 01/31/17 05:54 Seg Neutrophils # 5.3 K/mm3 (1.8-7.7) 02/02/17 05:38 Seg Neutrophils # Man 6.6 K/mm3 (1.8-7.7) 01/31/17 05:54 Band Neutrophils # 0.0 K/mm3 01/31/17 05:54 Lymphocytes # (Manual) 1.6 K/mm3 (1.2-5.4) 01/31/17 05:54 Abs React Lymphs (Man) 0.0 K/mm3 01/31/17 05:54 Monocytes # (Manual) 1.0 K/mm3 (0.0-0.8) H 01/31/17 05:54 Eosinophils # (Manual) 2.2 K/mm3 (0.0-0.4) H 01/31/17 05:54 Basophils # (Manual) 0.0 K/mm3 (0.0-0.1) 01/31/17 05:54 Metamyelocytes # 0.0 K/mm3 01/31/17 05:54 Myelocytes # 0.0 K/mm3 01/31/17 05:54 Promyelocytes # 0.0 K/mm3 01/31/17 05:54 Blast Cells # 0.0 K/mm3 01/31/17 05:54 WBC Morphology Not Reportable 01/31/17 05:54 Hypersegmented Neuts Not Reportable 01/31/17 05:54 Hyposegmented Neuts Not Reportable 01/31/17 05:54 Hypogranular Neuts Not Reportable 01/31/17 05:54 Smudge Cells Not Reportable 01/31/17 05:54 Toxic Granulation Not Reportable 01/31/17 05:54 Toxic Vacuolation Not Reportable 01/31/17 05:54 Dohle Bodies Not Reportable 01/31/17 05:54 Pelger-Huet Anomaly Not Reportable 01/31/17 05:54 Ana Luisa Rods Not Reportable 01/31/17 05:54 Platelet Estimate Not Reportable 01/31/17 05:54 Clumped Platelets Not Reportable 01/31/17 05:54 Plt Clumps, EDTA Not Reportable 01/31/17 05:54 Large Platelets Not Reportable 01/31/17 05:54 Giant Platelets Not Reportable 01/31/17 05:54 Platelet Satelliting Not Reportable 01/31/17 05:54 Plt Morphology Comment Not Reportable 01/31/17 05:54 RBC Morphology Not Reportable 01/31/17 05:54 Dimorphic RBCs Not Reportable 01/31/17 05:54 Polychromasia Not Reportable 01/31/17 05:54 Hypochromasia 2+ 01/31/17 05:54 Poikilocytosis 1+ 01/31/17 05:54 Anisocytosis 1+ 01/31/17 05:54 Microcytosis 2+ 01/31/17 05:54 Macrocytosis Not Reportable 01/31/17 05:54 Spherocytes Not Reportable 01/31/17 05:54 Pappenheimer Bodies Not Reportable 01/31/17 05:54 Sickle Cells Not Reportable 01/31/17 05:54 Target Cells Not Reportable 01/31/17 05:54 Tear Drop Cells Not Reportable 01/31/17 05:54 Ovalocytes Not Reportable 01/31/17 05:54 Helmet Cells Not Reportable 01/31/17 05:54 [place] Bodies Not Reportable 01/31/17 05:54 [place] Rings Not Reportable 01/31/17 05:54 [place] Cells Not Reportable 01/31/17 05:54 Bite Cells Not Reportable 01/31/17 05:54 Crenated Cell Not Reportable 01/31/17 05:54 Elliptocytes Not Reportable 01/31/17 05:54 Acanthocytes (Spur) Not Reportable 01/31/17 05:54 Rouleaux Not Reportable 01/31/17 05:54 Hemoglobin C Crystals Not Reportable 01/31/17 05:54 Schistocytes Not Reportable 01/31/17 05:54 Malaria parasites Not Reportable 01/31/17 05:54 Nestor Bodies Not Reportable 01/31/17 05:54 Hem Pathologist Commnt N. 01/31/17 05:54 Sodium 140 mmol/L (137-145) 02/02/17 05:38 Potassium 4.3 mmol/L (3.6-5.0) D 02/06/17 05:24 Chloride 99.4 mmol/L (98-107) 02/02/17 05:38 Carbon Dioxide 29 mmol/L (22-30) 02/02/17 05:38 Anion Gap 15 mmol/L 02/02/17 05:38 BUN 18 mg/dL (9-20) 02/02/17 05:38 Creatinine 0.9 mg/dL (0.8-1.5) 02/02/17 05:38 Estimated GFR > 60 ml/min 02/02/17 05:38 BUN/Creatinine Ratio 20 % 02/02/17 05:38 Glucose 77 mg/dL (75-100) 02/02/17 05:38 Lactic Acid 1.00 mmol/L (0.7-2.0) 01/30/17 16:12 Calcium 8.9 mg/dL (8.4-10.2) 02/02/17 05:38 Magnesium 1.70 mg/dL (1.7-2.3) 02/06/17 05:24 Total Bilirubin 0.30 mg/dL (0.1-1.2) 01/30/17 16:12 AST 15 units/L (5-40) 01/30/17 16:12 ALT 16 units/L (7-56) 01/30/17 16:12 Alkaline Phosphatase 122 units/L (35-129) 01/30/17 16:12 Total Creatine Kinase 33 units/L (55-170) L 02/01/17 06:01 Troponin T 0.019 ng/mL (0.00-0.029) 01/26/17 07:30 C-Reactive Protein 1.20 mg/dL (0.00-1.30) 01/26/17 20:38 Total Protein 6.6 g/dL (6.3-8.2) 01/30/17 16:12 Albumin 4.2 g/dL (3.9-5) 01/30/17 16:12 Albumin/Globulin Ratio 1.8 % 01/30/17 16:12 Triglycerides 192 mg/dL (2-149) H 01/26/17 01:23 Cholesterol 174 mg/dL (50-199) 01/26/17 01:23 LDL Cholesterol Direct 76 mg/dL (50-130) 01/26/17 01:23 HDL Cholesterol 60 mg/dL (40-59) H 01/26/17 01:23 Cholesterol/HDL Ratio 2.90 % 01/26/17 01:23 Urine Color Yellow (Yellow) 01/26/17 03:58 Urine Turbidity Clear (Clear) 01/26/17 03:58 Urine pH 6.0 (5.0-7.0) 01/26/17 03:58 Ur Specific [place] 1.012 (1.003-1.030) 01/26/17 03:58 Urine Protein 30 mg/dl mg/dL (Negative) 01/26/17 03:58 Urine Glucose (UA) Neg mg/dL (Negative) 01/26/17 03:58 Urine Ketones Neg mg/dL (Negative) 01/26/17 03:58 Urine Blood Sm (Negative) 01/26/17 03:58 Urine Nitrite Neg (Negative) 01/26/17 03:58 Urine Bilirubin Neg (Negative) 01/26/17 03:58 Urine Urobilinogen < 2.0 mg/dL (<2.0) 01/26/17 03:58 Ur Leukocyte Esterase Neg (Negative) 01/26/17 03:58 Urine WBC (Auto) 1.0 /HPF (0.0-6.0) 01/26/17 03:58 Urine RBC (Auto) 1.0 /HPF (0.0-6.0) 01/26/17 03:58 Vancomycin Trough 18.1 ug/mL (5.0-20.0) 01/29/17 04:55 Miscellaneous Test Flexitest 1 01/26/17 20:50
[2017-02-07] MEDS: NACL 0.9% IV SCH (19:07)
[2017-02-07] MEDS: CUBICIN IV SCH (19:07)
[2017-02-07] MEDS: LOVENOX SUB-Q SCH (21:36)
[2017-02-08] MEDS: LASIX PO SCH (06:14)
[2017-02-08] MEDS: PULMICORT IH SCH ×2 (08:52→20:33)
[2017-02-08] MEDS: DUONEB *Not for PRN Use IH SCH ×3 (08:52→20:33)
--- NOTE | 2017-02-08 10:42 | Progress Note ---
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 Lifevest placement before discharge. Subjective Date of service: 02/08/17 Principal diagnosis: Resp failure Copd exacerbation Objective Vital Signs Temp Pulse Pulse Pulse Resp Resp Resp 02/08/17 08:53 85 17 02/08/17 08:52 02/08/17 08:00 84 17 02/08/17 07:28 98.0 F 73 18 02/07/17 22:23 98.1 F 74 18 02/07/17 21:35 76 02/07/17 21:12 90 18 02/07/17 21:02 88 18 02/07/17 20:00 02/07/17 16:02 97.5 F L 76 18 02/07/17 14:12 82 20 02/07/17 13:01 02/07/17 12:58 02/07/17 10:47 73 20 BP Pulse Ox 02/08/17 08:53 02/08/17 08:52 100 02/08/17 08:00 02/08/17 07:28 103/60 97 02/07/17 22:23 111/76 95 02/07/17 21:35 115/78 02/07/17 21:12 02/07/17 21:02 100 02/07/17 20:00 97 02/07/17 16:02 107/77 98 02/07/17 14:12 02/07/17 13:01 121/85 02/07/17 12:58 121/85 02/07/17 10:47 - Physical Examination HEENT: Positive: PERRL Neck: Positive: neck supple
[2017-02-08] MEDS: PEPCID PO SCH ×2 (11:05→21:06)
[2017-02-08] MEDS: PLAVIX PO SCH (11:06)
[2017-02-08] MEDS: KEPPRA PO SCH ×2 (11:06→21:06)
[2017-02-08] MEDS: COREG PO SCH ×2 (11:07→21:25)
[2017-02-08] MEDS: PERCOCET 5/325 PO PRN ×2 (11:13→21:06)
[2017-02-08] MEDS: celeXA PO SCH (11:14)
[2017-02-08 12:08] LABS: Basophils % (Auto) 0.4 % (0.0-1.8); Eosinophils % (Auto) 11.4 % (0.0-4.3); Hematocrit 35.3 % (35.5-45.6); Hemoglobin 10.6 gm/dl (11.8-15.2); Mean Corpuscular HGB Conc 30 % (32-34); Platelet Count 268 K/mm3 (140-440); Red Blood Count 5.25 M/mm3 (3.65-5.03); White Blood Count 10.2 K/mm3 (4.5-11.0)
[2017-02-08 12:09] LABS: Mean Corpuscular Hemoglobin 20 pg (28-32); Mean Corpuscular Volume 67 fl (84-94); Red Cell Distribution Width 20.6 % (13.2-15.2)
[2017-02-08 12:17] LABS: INR 1.04 (0.87-1.13)
[2017-02-08 12:23] LABS: Anion Gap 16 mmol/L; BUN/Creatinine Ratio 20; Blood Urea Nitrogen 16 mg/dL (9-20); Calcium 9.3 mg/dL (8.4-10.2); Carbon Dioxide 27 mmol/L (22-30); Chloride 102.9 mmol/L (98-107); Glucose 88 mg/dL (75-100); Potassium 4.6 mmol/L (3.6-5.0); Sodium 141 mmol/L (137-145)
--- NOTE | 2017-02-08 14:44 | Progress Note ---
Assessment and Plan Assessment and plan: 56 YO Male with HTN, CHF, COPD, CVA presented for SOB, productive cough; blood cultures positive for VRE , on daptomycin , ID following , FARZANA, possible vegetation on AICD lead --Sepsis/VRE: On daptomycin advised by ID, repeat blood cultures negative to date ID recommend 6 weeks of daptomycin if the report endocarditis --FARZANA; possible vegetation attached to AICD lead , ICD lead extraction , life is placement prior to discharge per cardiology --Possible endocarditis ;ID recommend 6 weeks of daptomycin, stop date 2017 PICC line placement, home health, discussed with case management --Hypokalemia: Corrected --Acute on chronic hypoxic respiratory failure: Improved Oxygen, nebulizers, steroids, supportive care --Acute COPD exacerbation Oxygen, nebulizers, received full course of of Levaquin --Ischemic Cardiomyopathy with an ejection fraction of 10% Continue anti-failure medications , BB, ACEI and diuretics --status post AICD, possible lead extraction secondary to endocarditis --CAD s/p PCI, continue current cardiac medications --Anemia of chronic disease; dose and monitor --Vascular dementia/h/o ?hemorrhagic CVA s/p craniotomy, intermittent memory loss, Supportive care --DVT prophylaxis; Lovenox PICC line placement total 6 weeks of daptomycin per ID DC planning. Case management Plan of care reviewed with the patient, answered all his questions Possible discharge in 1-2 days with home health, long-term IV antibiotics History Interval history: Patient seen and examined, No new complaints , cardiology planning ICD lead extraction and LifeVest placement prior to discharge Vital signs reviewed On long-term IV daptomycin recommended by ID Hospitalist Physical - Constitutional Vitals: Temp Pulse Resp BP Pulse Ox 98.0 F 81 17 103/60 100 02/08/17 07:28 02/08/17 13:55 02/08/17 13:55 02/08/17 11:07 02/08/17 08:52 General appearance: Present: no acute distress, well-nourished - EENT Eyes: Present: PERRL, EOM intact - Neck Neck: Present: supple, normal ROM - Respiratory Respiratory effort: normal Respiratory: bilateral: diminished, negative: rales, rhonchi, wheezing - Cardiovascular Rhythm: regular Heart Sounds: Present: S1 & S2 - Extremities Extremities: no ischemia, No edema - Abdominal General gastrointestinal: soft, non-tender, non-distended, normal bowel sounds - Integumentary Integumentary: Present: clear, warm - Psychiatric Psychiatric: appropriate mood/affect, cooperative - Neurologic Neurologic: CNII-XII intact, moves all extremities Results - Labs CBC & Chem 7: 02/08/17 11:48 02/08/17 11:48 Labs: Laboratory Last Values WBC 10.2 K/mm3 (4.5-11.0) 02/08/17 11:48 RBC 5.25 M/mm3 (3.65-5.03) H 02/08/17 11:48 Hgb 10.6 gm/dl (11.8-15.2) L 02/08/17 11:48 Hct 35.3 % (35.5-45.6) L 02/08/17 11:48 MCV 67 fl (84-94) L 02/08/17 11:48 MCH 20 pg (28-32) L 02/08/17 11:48 MCHC 30 % (32-34) L 02/08/17 11:48 RDW 20.6 % (13.2-15.2) H 02/08/17 11:48 Plt Count 268 K/mm3 (140-440) 02/08/17 11:48 Lymph % (Auto) 12.5 % (13.4-35.0) L 02/08/17 11:48 [place] % (Auto) 11.8 % (0.0-7.3) H 02/08/17 11:48 Eos % (Auto) 11.4 % (0.0-4.3) H 02/08/17 11:48 Baso % (Auto) 0.4 % (0.0-1.8) 02/08/17 11:48 Lymph # 1.3 K/mm3 (1.2-5.4) 02/08/17 11:48 [place] # 1.2 K/mm3 (0.0-0.8) H 02/08/17 11:48 Eos # 1.2 K/mm3 (0.0-0.4) H 02/08/17 11:48 Baso # 0.0 K/mm3 (0.0-0.1) 02/08/17 11:48 Add Manual Diff Complete 01/31/17 05:54 Total Counted 100 01/31/17 05:54 Seg Neutrophils % 63.9 % (40.0-70.0) 02/08/17 11:48 Seg Neuts % (Manual) 59 % (40.0-70.0) 01/31/17 05:54 Band Neutrophils % 0 % 01/31/17 05:54 Lymphocytes % (Manual) 14.0 % (13.4-35.0) 01/31/17 05:54 Reactive Lymphs % (Man) 0 % 01/31/17 05:54 Monocytes % (Manual) 9.0 % (0.0-7.3) H 01/31/17 05:54 Eosinophils % (Manual) 20 % (0.0-4.3) H 01/31/17 05:54 Basophils % (Manual) 0 % (0.0-1.8) 01/31/17 05:54 Metamyelocytes % 0 % 01/31/17 05:54 Myelocytes % 0 % 01/31/17 05:54 Promyelocytes % 0 % 01/31/17 05:54 Blast Cells % 0 % 01/31/17 05:54 Nucleated RBC % Not Reportable 01/31/17 05:54 Seg Neutrophils # 6.5 K/mm3 (1.8-7.7) 02/08/17 11:48 Seg Neutrophils # Man 6.6 K/mm3 (1.8-7.7) 01/31/17 05:54 Band Neutrophils # 0.0 K/mm3 01/31/17 05:54 Lymphocytes # (Manual) 1.6 K/mm3 (1.2-5.4) 01/31/17 05:54 Abs React Lymphs (Man) 0.0 K/mm3 01/31/17 05:54 Monocytes # (Manual) 1.0 K/mm3 (0.0-0.8) H 01/31/17 05:54 Eosinophils # (Manual) 2.2 K/mm3 (0.0-0.4) H 01/31/17 05:54 Basophils # (Manual) 0.0 K/mm3 (0.0-0.1) 01/31/17 05:54 Metamyelocytes # 0.0 K/mm3 01/31/17 05:54 Myelocytes # 0.0 K/mm3 01/31/17 05:54 Promyelocytes # 0.0 K/mm3 01/31/17 05:54 Blast Cells # 0.0 K/mm3 01/31/17 05:54 WBC Morphology Not Reportable 01/31/17 05:54 Hypersegmented Neuts Not Reportable 01/31/17 05:54 Hyposegmented Neuts Not Reportable 01/31/17 05:54 Hypogranular Neuts Not Reportable 01/31/17 05:54 Smudge Cells Not Reportable 01/31/17 05:54 Toxic Granulation Not Reportable 01/31/17 05:54 Toxic Vacuolation Not Reportable 01/31/17 05:54 Dohle Bodies Not Reportable 01/31/17 05:54 Pelger-Huet Anomaly Not Reportable 01/31/17 05:54 Ana Luisa Rods Not Reportable 01/31/17 05:54 Platelet Estimate Not Reportable 01/31/17 05:54 Clumped Platelets Not Reportable 01/31/17 05:54 Plt Clumps, EDTA Not Reportable 01/31/17 05:54 Large Platelets Not Reportable 01/31/17 05:54 Giant Platelets Not Reportable 01/31/17 05:54 Platelet Satelliting Not Reportable 01/31/17 05:54 Plt Morphology Comment Not Reportable 01/31/17 05:54 RBC Morphology Not Reportable 01/31/17 05:54 Dimorphic RBCs Not Reportable 01/31/17 05:54 Polychromasia Not Reportable 01/31/17 05:54 Hypochromasia 2+ 01/31/17 05:54 Poikilocytosis 1+ 01/31/17 05:54 Anisocytosis 1+ 01/31/17 05:54 Microcytosis 2+ 01/31/17 05:54 Macrocytosis Not Reportable 01/31/17 05:54 Spherocytes Not Reportable 01/31/17 05:54 Pappenheimer Bodies Not Reportable 01/31/17 05:54 Sickle Cells Not Reportable 01/31/17 05:54 Target Cells Not Reportable 01/31/17 05:54 Tear Drop Cells Not Reportable 01/31/17 05:54 Ovalocytes Not Reportable 01/31/17 05:54 Helmet Cells Not Reportable 01/31/17 05:54 [place] Bodies Not Reportable 01/31/17 05:54 [place] Rings Not Reportable 01/31/17 05:54 [place] Cells Not Reportable 01/31/17 05:54 Bite Cells Not Reportable 01/31/17 05:54 Crenated Cell Not Reportable 01/31/17 05:54 Elliptocytes Not Reportable 01/31/17 05:54 Acanthocytes (Spur) Not Reportable 01/31/17 05:54 Rouleaux Not Reportable 01/31/17 05:54 Hemoglobin C Crystals Not Reportable 01/31/17 05:54 Schistocytes Not Reportable 01/31/17 05:54 Malaria parasites Not Reportable 01/31/17 05:54 [place] Bodies Not Reportable 01/31/17 05:54 Hem Pathologist Commnt N. 01/31/17 05:54 PT 14.1 Sec. (12.2-14.9) 02/08/17 11:48 INR 1.04 (0.87-1.13) 02/08/17 11:48 Sodium 141 mmol/L (137-145) 02/08/17 11:48 Potassium 4.6 mmol/L (3.6-5.0) 02/08/17 11:48 Chloride 102.9 mmol/L (98-107) 02/08/17 11:48 Carbon Dioxide 27 mmol/L (22-30) 02/08/17 11:48 Anion Gap 16 mmol/L 02/08/17 11:48 BUN 16 mg/dL (9-20) 02/08/17 11:48 Creatinine 0.8 mg/dL (0.8-1.5) 02/08/17 11:48 Estimated GFR > 60 ml/min 02/08/17 11:48 BUN/Creatinine Ratio 20 % 02/08/17 11:48 Glucose 88 mg/dL (75-100) 02/08/17 11:48 Lactic Acid 1.00 mmol/L (0.7-2.0) 01/30/17 16:12 Calcium 9.3 mg/dL (8.4-10.2) 02/08/17 11:48 Magnesium 1.70 mg/dL (1.7-2.3) 02/06/17 05:24 Total Bilirubin 0.30 mg/dL (0.1-1.2) 01/30/17 16:12 AST 15 units/L (5-40) 01/30/17 16:12 ALT 16 units/L (7-56) 01/30/17 16:12 Alkaline Phosphatase 122 units/L (35-129) 01/30/17 16:12 Total Creatine Kinase 33 units/L (55-170) L 02/01/17 06:01 Troponin T 0.019 ng/mL (0.00-0.029) 01/26/17 07:30 C-Reactive Protein 1.20 mg/dL (0.00-1.30) 01/26/17 20:38 Total Protein 6.6 g/dL (6.3-8.2) 01/30/17 16:12 Albumin 4.2 g/dL (3.9-5) 01/30/17 16:12 Albumin/Globulin Ratio 1.8 % 01/30/17 16:12 Triglycerides 192 mg/dL (2-149) H 01/26/17 01:23 Cholesterol 174 mg/dL (50-199) 01/26/17 01:23 LDL Cholesterol Direct 76 mg/dL (50-130) 01/26/17 01:23 HDL Cholesterol 60 mg/dL (40-59) H 01/26/17 01:23 Cholesterol/HDL Ratio 2.90 % 01/26/17 01:23 Urine Color Yellow (Yellow) 01/26/17 03:58 Urine Turbidity Clear (Clear) 01/26/17 03:58 Urine pH 6.0 (5.0-7.0) 01/26/17 03:58 Ur Specific [place] 1.012 (1.003-1.030) 01/26/17 03:58 Urine Protein 30 mg/dl mg/dL (Negative) 01/26/17 03:58 Urine Glucose (UA) Neg mg/dL (Negative) 01/26/17 03:58 Urine Ketones Neg mg/dL (Negative) 01/26/17 03:58 Urine Blood Sm (Negative) 01/26/17 03:58 Urine Nitrite Neg (Negative) 01/26/17 03:58 Urine Bilirubin Neg (Negative) 01/26/17 03:58 Urine Urobilinogen < 2.0 mg/dL (<2.0) 01/26/17 03:58 Ur Leukocyte Esterase Neg (Negative) 01/26/17 03:58 Urine WBC (Auto) 1.0 /HPF (0.0-6.0) 01/26/17 03:58 Urine RBC (Auto) 1.0 /HPF (0.0-6.0) 01/26/17 03:58 Vancomycin Trough 18.1 ug/mL (5.0-20.0) 01/29/17 04:55 Miscellaneous Test Flexitest 1 01/26/17 20:50
[2017-02-08] MEDS ORDERED: NACL 0.9% 1,000 ML, VANCOMYCIN VIAL 1,000 MG IR ONE (15:00)
[2017-02-08] MEDS ORDERED: NACL 0.9% 500 ML IR ONE (15:56)
[2017-02-08] MEDS ORDERED: XYLOCAINE 1% 20 mL ONE (16:07)
[2017-02-08] MEDS ORDERED: ANCEF/STERILE WATER 2 GM/20 ML 2 GM/20 ML SYRINGE IV ONE (16:07)
[2017-02-08] MEDS ORDERED: MARCAINE 0.5% 60 ML INFILTRATI ONE (16:07)
[2017-02-08] MEDS ORDERED: NACL 0.9% 500 ML 500 ML ONE (16:09)
[2017-02-08] MEDS: VERSED ONE ×4 (16:41→17:01)
[2017-02-08] MEDS: SUBLIMAZE ONE ×4 (16:41→17:01)
--- NOTE | 2017-02-08 18:03 | Event Note ---
Date: 02/08/17 Pt underwent extraction of dual chamber ICD system (generator and leads) without apparent complications due to VRE sepsis and lead vegetation. Recommend: Set up life vest. Continue antibiotics per ID service. Eventual re-implantation of ICD after antibiotic therapy completed and blood cultures cleared - will recommend subcutaneous ICD. Magdiel Calvo MD
[2017-02-08] MEDS: LANOXIN PO SCH (18:19)
[2017-02-08] MEDS: CUBICIN IV SCH (19:37)
[2017-02-08] MEDS: NACL 0.9% IV SCH (19:37)
[2017-02-09] MEDS: PERCOCET 5/325 PO PRN (06:10)
[2017-02-09] MEDS: LASIX PO SCH (06:11)
[2017-02-09] MEDS: PULMICORT IH SCH ×2 (07:42→20:51)
[2017-02-09] MEDS: DUONEB *Not for PRN Use IH SCH ×3 (07:42→20:51)
[2017-02-09] MEDS: PEPCID PO SCH ×2 (09:36→21:41)
[2017-02-09] MEDS: PLAVIX PO SCH (09:36)
[2017-02-09] MEDS: KEPPRA PO SCH ×2 (09:37→21:41)
[2017-02-09] MEDS: COREG PO SCH ×2 (09:37→21:41)
[2017-02-09] MEDS: celeXA PO SCH (09:37)
--- NOTE | 2017-02-09 10:10 | Progress Note ---
Assessment and Plan VRE septicemia on blood cultures 01/26/2017 Repeat blood cultures 01/30/2017 FARZANA: small mobile echogenic density attached to the AICD lead on the right atrial side suspicious for a vegetation s/p extraction of dual chamber ICD system (generator and leads) Ischemic cardiomyopathy LVEF 10-15% CAD s/p PCI AICD implanted 4 months ago in [facility] Scientific Type II DM History of a bleeding stroke ~ 1 year ago s/p craniotomy Plan: Lifevest placement before discharge. F/U with Dr Calvo, as scheduled, once discharged. Subjective Date of service: 02/09/17 Principal diagnosis: Resp failure Copd exacerbation Interval history: s/p extraction of dual chamber ICD system (generator and leads). Patient has no complaints. No redness, edema of upper left chest incision site. Objective Vital Signs Temp Pulse Pulse Pulse Resp Resp BP 02/09/17 08:30 99.3 F 84 20 109/77 02/09/17 06:10 20 02/09/17 06:06 98.0 F 92 H 18 131/96 02/08/17 23:28 98.4 F 78 17 106/74 02/08/17 22:06 18 02/08/17 22:00 84 02/08/17 21:13 84 02/08/17 21:12 98.7 F 84 18 112/76 02/08/17 21:06 18 02/08/17 20:48 94 H 18 02/08/17 20:33 91 H 18 02/08/17 13:55 81 17 02/08/17 13:54 83 16 02/08/17 11:07 84 103/60 Pulse Ox 02/09/17 08:30 98 02/09/17 06:10 02/09/17 06:06 97 02/08/17 23:28 97 02/08/17 22:06 02/08/17 22:00 99 02/08/17 21:13 97 02/08/17 21:12 98 02/08/17 21:06 02/08/17 20:48 02/08/17 20:33 02/08/17 13:55 02/08/17 13:54 02/08/17 11:07 - Physical Examination General: No Apparent Distress HEENT: Positive: PERRL Cardiac: Positive: Reg Rate and Rhythm Lungs: Positive: Decreased Breath Sounds Neuro: Positive: Grossly Intact - Labs and Meds Coagulation 02/08/17 Range/Units 11:48 PT 14.1 (12.2-14.9) Sec. INR 1.04 (0.87-1.13) CBC 02/08/17 Range/Units 11:48 WBC 10.2 (4.5-11.0) K/mm3 RBC 5.25 H (3.65-5.03) M/mm3 Hgb 10.6 L (11.8-15.2) gm/dl Hct 35.3 L (35.5-45.6) % Plt Count 268 (140-440) K/mm3 Lymph # 1.3 (1.2-5.4) K/mm3 [place] # 1.2 H (0.0-0.8) K/mm3 Eos # 1.2 H (0.0-0.4) K/mm3 Baso # 0.0 (0.0-0.1) K/mm3 Comprehensive Metabolic Panel 02/08/17 Range/Units 11:48 Sodium 141 (137-145) mmol/L Potassium 4.6 (3.6-5.0) mmol/L Chloride 102.9 (98-107) mmol/L Carbon Dioxide 27 (22-30) mmol/L BUN 16 (9-20) mg/dL Creatinine 0.8 (0.8-1.5) mg/dL Glucose 88 (75-100) mg/dL Calcium 9.3 (8.4-10.2) mg/dL
[2017-02-09] MEDS: ULTRAM PO PRN ×2 (13:06→20:52)
[2017-02-09] MEDS: NACL 0.9% IV SCH (17:19)
[2017-02-09] MEDS: CUBICIN IV SCH (17:19)
--- NOTE | 2017-02-09 17:19 | Progress Note ---
Assessment and Plan Assessment and plan: 56 YO Male with HTN, CHF, COPD, CVA presented for SOB, productive cough; blood cultures positive for VRE , on daptomycin , ID following , FARZANA, possible vegetation on AICD lead --FARZANA; possible vegetation attached to AICD lead ,s/p ICD lead extraction , life vest placement prior to discharge per cardiology --Sepsis/VRE: On daptomycin advised by ID, repeat blood cultures negative to date ID recommend 6 weeks of daptomycin Possible endocarditis stop date 03/12/2017 PICC line placement, home health, discussed with case management, keeping a setup --Hypokalemia: Corrected --Acute on chronic hypoxic respiratory failure: Improved Oxygen, nebulizers, steroids, supportive care --Acute COPD exacerbation Oxygen, nebulizers, received full course of of Levaquin --Ischemic Cardiomyopathy with an ejection fraction of 10% Continue anti-failure medications , BB, ACEI and diuretics --status post AICD, possible lead extraction secondary to endocarditis --CAD s/p PCI, continue current cardiac medications --Anemia of chronic disease; dose and monitor --Vascular dementia/h/o ?hemorrhagic CVA s/p craniotomy, intermittent memory loss, Supportive care --DVT prophylaxis; Lovenox PICC line placement total 6 weeks of daptomycin per ID DC planning. Awaiting life vest prior to discharge Plan of care reviewed with the patient, answered all his questions Possible discharge in 1-2 days with home health, long-term IV antibiotics History Interval history: Patient seen and examined medical records reviewed Feels better anxious to go home ICD leads extracted, awaiting LifeVest prior to discharge Hospitalist Physical - Constitutional Vitals: Temp Pulse Resp BP Pulse Ox 98.7 F 94 H 18 115/78 98 02/09/17 16:57 02/09/17 16:57 02/09/17 16:57 02/09/17 16:57 02/09/17 16:57 General appearance: Present: no acute distress, well-nourished - EENT Eyes: Present: PERRL, EOM intact - Neck Neck: Present: supple, normal ROM - Respiratory Respiratory effort: normal Respiratory: bilateral: diminished, negative: rales, rhonchi, wheezing - Cardiovascular Rhythm: regular Heart Sounds: Present: S1 & S2 - Extremities Extremities: no ischemia, pulses intact, pulses symmetrical Peripheral Pulses: within normal limits - Abdominal General gastrointestinal: soft, non-tender, non-distended, normal bowel sounds - Integumentary Integumentary: Present: clear, warm - Psychiatric Psychiatric: appropriate mood/affect, cooperative - Neurologic Neurologic: CNII-XII intact, moves all extremities Results - Labs CBC & Chem 7: 02/08/17 11:48 02/08/17 11:48 Labs: Laboratory Last Values WBC 10.2 K/mm3 (4.5-11.0) 02/08/17 11:48 RBC 5.25 M/mm3 (3.65-5.03) H 02/08/17 11:48 Hgb 10.6 gm/dl (11.8-15.2) L 02/08/17 11:48 Hct 35.3 % (35.5-45.6) L 02/08/17 11:48 MCV 67 fl (84-94) L 02/08/17 11:48 MCH 20 pg (28-32) L 02/08/17 11:48 MCHC 30 % (32-34) L 02/08/17 11:48 RDW 20.6 % (13.2-15.2) H 02/08/17 11:48 Plt Count 268 K/mm3 (140-440) 02/08/17 11:48 Lymph % (Auto) 12.5 % (13.4-35.0) L 02/08/17 11:48 [place] % (Auto) 11.8 % (0.0-7.3) H 02/08/17 11:48 Eos % (Auto) 11.4 % (0.0-4.3) H 02/08/17 11:48 Baso % (Auto) 0.4 % (0.0-1.8) 02/08/17 11:48 Lymph # 1.3 K/mm3 (1.2-5.4) 02/08/17 11:48 [place] # 1.2 K/mm3 (0.0-0.8) H 02/08/17 11:48 Eos # 1.2 K/mm3 (0.0-0.4) H 02/08/17 11:48 Baso # 0.0 K/mm3 (0.0-0.1) 02/08/17 11:48 Add Manual Diff Complete 01/31/17 05:54 Total Counted 100 01/31/17 05:54 Seg Neutrophils % 63.9 % (40.0-70.0) 02/08/17 11:48 Seg Neuts % (Manual) 59 % (40.0-70.0) 01/31/17 05:54 Band Neutrophils % 0 % 01/31/17 05:54 Lymphocytes % (Manual) 14.0 % (13.4-35.0) 01/31/17 05:54 Reactive Lymphs % (Man) 0 % 01/31/17 05:54 Monocytes % (Manual) 9.0 % (0.0-7.3) H 01/31/17 05:54 Eosinophils % (Manual) 20 % (0.0-4.3) H 01/31/17 05:54 Basophils % (Manual) 0 % (0.0-1.8) 01/31/17 05:54 Metamyelocytes % 0 % 01/31/17 05:54 Myelocytes % 0 % 01/31/17 05:54 Promyelocytes % 0 % 01/31/17 05:54 Blast Cells % 0 % 01/31/17 05:54 Nucleated RBC % Not Reportable 01/31/17 05:54 Seg Neutrophils # 6.5 K/mm3 (1.8-7.7) 02/08/17 11:48 Seg Neutrophils # Man 6.6 K/mm3 (1.8-7.7) 01/31/17 05:54 Band Neutrophils # 0.0 K/mm3 01/31/17 05:54 Lymphocytes # (Manual) 1.6 K/mm3 (1.2-5.4) 01/31/17 05:54 Abs React Lymphs (Man) 0.0 K/mm3 01/31/17 05:54 Monocytes # (Manual) 1.0 K/mm3 (0.0-0.8) H 01/31/17 05:54 Eosinophils # (Manual) 2.2 K/mm3 (0.0-0.4) H 01/31/17 05:54 Basophils # (Manual) 0.0 K/mm3 (0.0-0.1) 01/31/17 05:54 Metamyelocytes # 0.0 K/mm3 01/31/17 05:54 Myelocytes # 0.0 K/mm3 01/31/17 05:54 Promyelocytes # 0.0 K/mm3 01/31/17 05:54 Blast Cells # 0.0 K/mm3 01/31/17 05:54 WBC Morphology Not Reportable 01/31/17 05:54 Hypersegmented Neuts Not Reportable 01/31/17 05:54 Hyposegmented Neuts Not Reportable 01/31/17 05:54 Hypogranular Neuts Not Reportable 01/31/17 05:54 Smudge Cells Not Reportable 01/31/17 05:54 Toxic Granulation Not Reportable 01/31/17 05:54 Toxic Vacuolation Not Reportable 01/31/17 05:54 Dohle Bodies Not Reportable 01/31/17 05:54 Pelger-Huet Anomaly Not Reportable 01/31/17 05:54 Ana Luisa Rods Not Reportable 01/31/17 05:54 Platelet Estimate Not Reportable 01/31/17 05:54 Clumped Platelets Not Reportable 01/31/17 05:54 Plt Clumps, EDTA Not Reportable 01/31/17 05:54 Large Platelets Not Reportable 01/31/17 05:54 Giant Platelets Not Reportable 01/31/17 05:54 Platelet Satelliting Not Reportable 01/31/17 05:54 Plt Morphology Comment Not Reportable 01/31/17 05:54 RBC Morphology Not Reportable 01/31/17 05:54 Dimorphic RBCs Not Reportable 01/31/17 05:54 Polychromasia Not Reportable 01/31/17 05:54 Hypochromasia 2+ 01/31/17 05:54 Poikilocytosis 1+ 01/31/17 05:54 Anisocytosis 1+ 01/31/17 05:54 Microcytosis 2+ 01/31/17 05:54 Macrocytosis Not Reportable 01/31/17 05:54 Spherocytes Not Reportable 01/31/17 05:54 Pappenheimer Bodies Not Reportable 01/31/17 05:54 Sickle Cells Not Reportable 01/31/17 05:54 Target Cells Not Reportable 01/31/17 05:54 Tear Drop Cells Not Reportable 01/31/17 05:54 Ovalocytes Not Reportable 01/31/17 05:54 Helmet Cells Not Reportable 01/31/17 05:54 [place] Bodies Not Reportable 01/31/17 05:54 [place] Rings Not Reportable 01/31/17 05:54 [place] Cells Not Reportable 01/31/17 05:54 Bite Cells Not Reportable 01/31/17 05:54 Crenated Cell Not Reportable 01/31/17 05:54 Elliptocytes Not Reportable 01/31/17 05:54 Acanthocytes (Spur) Not Reportable 01/31/17 05:54 Rouleaux Not Reportable 01/31/17 05:54 Hemoglobin C Crystals Not Reportable 01/31/17 05:54 Schistocytes Not Reportable 01/31/17 05:54 Malaria parasites Not Reportable 01/31/17 05:54 [place] Bodies Not Reportable 01/31/17 05:54 Hem Pathologist Commnt N. 01/31/17 05:54 PT 14.1 Sec. (12.2-14.9) 02/08/17 11:48 INR 1.04 (0.87-1.13) 02/08/17 11:48 Sodium 141 mmol/L (137-145) 02/08/17 11:48 Potassium 4.6 mmol/L (3.6-5.0) 02/08/17 11:48 Chloride 102.9 mmol/L (98-107) 02/08/17 11:48 Carbon Dioxide 27 mmol/L (22-30) 02/08/17 11:48 Anion Gap 16 mmol/L 02/08/17 11:48 BUN 16 mg/dL (9-20) 02/08/17 11:48 Creatinine 0.8 mg/dL (0.8-1.5) 02/08/17 11:48 Estimated GFR > 60 ml/min 02/08/17 11:48 BUN/Creatinine Ratio 20 % 02/08/17 11:48 Glucose 88 mg/dL (75-100) 02/08/17 11:48 Lactic Acid 1.00 mmol/L (0.7-2.0) 01/30/17 16:12 Calcium 9.3 mg/dL (8.4-10.2) 02/08/17 11:48 Magnesium 1.70 mg/dL (1.7-2.3) 02/06/17 05:24 Total Bilirubin 0.30 mg/dL (0.1-1.2) 01/30/17 16:12 AST 15 units/L (5-40) 01/30/17 16:12 ALT 16 units/L (7-56) 01/30/17 16:12 Alkaline Phosphatase 122 units/L (35-129) 01/30/17 16:12 Total Creatine Kinase 55 units/L (55-170) 02/09/17 07:06 Troponin T 0.019 ng/mL (0.00-0.029) 01/26/17 07:30 C-Reactive Protein 1.20 mg/dL (0.00-1.30) 01/26/17 20:38 Total Protein 6.6 g/dL (6.3-8.2) 01/30/17 16:12 Albumin 4.2 g/dL (3.9-5) 01/30/17 16:12 Albumin/Globulin Ratio 1.8 % 01/30/17 16:12 Triglycerides 192 mg/dL (2-149) H 01/26/17 01:23 Cholesterol 174 mg/dL (50-199) 01/26/17 01:23 LDL Cholesterol Direct 76 mg/dL (50-130) 01/26/17 01:23 HDL Cholesterol 60 mg/dL (40-59) H 01/26/17 01:23 Cholesterol/HDL Ratio 2.90 % 01/26/17 01:23 Urine Color Yellow (Yellow) 01/26/17 03:58 Urine Turbidity Clear (Clear) 01/26/17 03:58 Urine pH 6.0 (5.0-7.0) 01/26/17 03:58 Ur Specific [place] 1.012 (1.003-1.030) 01/26/17 03:58 Urine Protein 30 mg/dl mg/dL (Negative) 01/26/17 03:58 Urine Glucose (UA) Neg mg/dL (Negative) 01/26/17 03:58 Urine Ketones Neg mg/dL (Negative) 01/26/17 03:58 Urine Blood Sm (Negative) 01/26/17 03:58 Urine Nitrite Neg (Negative) 01/26/17 03:58 Urine Bilirubin Neg (Negative) 01/26/17 03:58 Urine Urobilinogen < 2.0 mg/dL (<2.0) 01/26/17 03:58 Ur Leukocyte Esterase Neg (Negative) 01/26/17 03:58 Urine WBC (Auto) 1.0 /HPF (0.0-6.0) 01/26/17 03:58 Urine RBC (Auto) 1.0 /HPF (0.0-6.0) 01/26/17 03:58 Vancomycin Trough 18.1 ug/mL (5.0-20.0) 01/29/17 04:55 Miscellaneous Test Flexitest 1 01/26/17 20:50
[2017-02-09] MEDS: LANOXIN PO SCH (17:20)
[2017-02-09] MEDS ORDERED: ENTRESTO PO SCH (22:00)
[2017-02-10] MEDS: ULTRAM PO PRN ×3 (03:35→15:45)
[2017-02-10] MEDS: LASIX PO SCH (06:11)
--- NOTE | 2017-02-10 07:45 | Discharge Summary ---
Providers - Providers Date of Admission: 01/26/17 03:22 Date of discharge: 02/10/17 Attending physician: LILIYA RAMIREZ 01/26/17 11:22 Consult to Physician [CONS] Routine Consulting Provider: DESIRAE VUONG Reason For Exam: sepsis Place consult to:: dr. valladares Notified:: Phone number called:: [phone] Was contact made?: No Time called:: 11:35 Comment:: left msg 01/26/17 14:48 Consult to Physician [CONS] Routine Consulting Provider: TONY SCHNEIDER Reason For Exam: copd exacerbation Place consult to:: Notified:: office Phone number called:: Was contact made?: Yes If yes, spoke with:: filipe Time called:: 15:42 01/27/17 10:08 Consult to Physician [CONS] Routine Consulting Provider: KOFI DUEK Reason For Exam: Re:CHF Place consult to:: [facility] Notified:: Was contact made?: Yes If yes, spoke with:: BALJEET 02/04/17 13:21 Consult to Physician [CONS] Routine Consulting Provider: DESIRAE VUONG Reason For Exam: Enterococcus infection Duration of treatment Place consult to:: dr. valladares Notified:: Phone number called:: [phone] Was contact made?: Yes If yes, spoke with:: dr. valladares Time called:: 13:55 02/05/17 18:17 Consult to Physician [CONS] Routine Consulting Provider: KOFI DUKE Reason For Exam: FARZANA and evaluation/ enterococcus/VRE bacteremia Place consult to:: Taniya Notified:: yes Phone number called:: [phone] If yes, spoke with:: Elizabeth Time called:: 09:45 02/06/17 11:30 Consult to PICC Line RN [CONS] Stat Reason For Exam: IV abx for 2-6 weeks Type Line:: PICC 02/07/17 11:08 Consult to Case Management [CONS] Stat Services Needed at Discharge: Other Notified:: transportation job titles Additional Phys[facility] Instructions: [facility] MD David Irene [phone] O [phone] OUTPATIENT PARENTERAL ANTIBIOTIC THERAPY ORDERS Diagnoses: VRA endocarditis Antimicrobial administration: daptomycin 380 mg IV qday for 6 weeks from 01/30 until 03/12/17 Lines: PICC Lab monitoring: CBC, CMP, CRP, CK once a week preferly on Sunday morning. Please fax results to [phone] and call [phone] for critical lab results. Desirae Lance Date: 02/07/17 Primary care physician: [facility] Hospitalization Reason for admission: Worsening shortness of breath Condition: Stable Pertinent studies: FARZANA, ICD lead extraction, Chest x-ray no acute abnormality Procedures: PICC line placement Hospital course: 56 YO Male with HTN, CHF, COPD, CVA presented for SOB, productive cough; blood cultures positive for VRE , on daptomycin , ID following , FARZANA, possible vegetation on AICD lead, s/p ICD lead extraction LifeVest was placed prior to discharge., ID recommended daptomycin for total 6 weeks.stop Date 03/12/2017 Today patient is comfortable no new complaints Vital signs are stable Tuwb-on-ride evaluation physical examination unremarkable, ID, cardiology cleared Patient is hemodynamically and clinically stable for discharge today Discharge diagnosis: --Possible endocarditis ;FARZANA; possible vegetation attached to AICD lead ,s/p ICD lead extraction , life vest placement , follow cardiology per schedule --Sepsis/VRE: 6 weeks of daptomycin for Possible endocarditis, stop date 03/12 repeat blood cultures NGTD PICC line was placed , home health was set up , IV antibiotic prescriptions sent by ID --Hypokalemia: Corrected --Acute on chronic hypoxic respiratory failure: Improved --Acute COPD exacerbation, received full course of of Levaquin --Ischemic Cardiomyopathy with an ejection fraction of 10% ,On anti-failure medications --status post AICD, s/p lead extraction secondary to endocarditis --CAD s/p PCI, continue current cardiac medications --Anemia of chronic disease; --Vascular dementia/h/o ?hemorrhagic CVA s/p craniotomy, intermittent memory loss, --History of seizures on antiseizure medication Disposition: [id number]/[place]-06 HOME UNDER HOME [facility] Time spent for discharge: 35 min Core Measure Documentation - Palliative Care Palliative Care/ Comfort Measures: Not Applicable - Core Measures Any of the following diagnoses?: heart failure - Heart Failure Discharge Requirements SILVERIO/ARB for LVSD if EF <40%: Yes Beta sixto at discharge: Yes Exam - Constitutional Vitals: Temp Pulse Resp BP Pulse Ox 97.9 F 83 16 115/81 97 02/10/17 05:14 02/10/17 06:08 02/10/17 05:14 02/10/17 06:08 02/10/17 06:08 General appearance: Present: no acute distress, well-nourished - EENT Eyes: Present: PERRL, EOM intact - Neck Neck: Present: supple, normal ROM - Cardiovascular Rhythm: regular Heart Sounds: Present: S1 & S2 - Extremities Extremities: no ischemia, No edema - Abdominal General gastrointestinal: Present: soft, non-tender, non-distended, normal bowel sounds - Integumentary Integumentary: Present: clear, warm - Musculoskeletal Musculoskeletal: strength equal bilaterally - Psychiatric Psychiatric: appropriate mood/affect, cooperative - Neurologic Neurologic: CNII-XII intact, moves all extremities Plan Activity: no restrictions Diet: low salt, other (cardiac diet) Special Instructions: restrict fluid intake to (< 1200 ml/24 hrs) Additional Instructions: ID recommend to continue daptomycin 380 mg IV qday for 6 weeks from 01/30 until 03/12/17. Case management set it up and home health nurse will take care of the above IV therapy. Stop date 03/12/2017 [ rec by ID]. f/u infection doctor in 1 week Follow up with: KAYLA MEJIA MD [Staff Physician] - 7 Days PRIMARY CARE, [Primary Care Provider] - 3-5 Days CHRISTOS BRADY MD [Staff Physician] - 7 Days Prescriptions: ALBUTEROL NEB's [Proventil 0.083% NEBS] 2.5 mg IH Q3HRT PRN #100 nebu PRN Reason: Shortness Of Breath Carvedilol [Coreg] 3.125 mg PO BID #60 tablet Citalopram [celeXA] 10 mg PO QDAY #30 tablet Clopidogrel [Plavix] 75 mg PO QDAY #30 tablet Digoxin [Lanoxin] 0.125 mg PO DAILY@1700 #30 tablet Famotidine [Pepcid] 10 mg PO BID #60 tablet Furosemide [Lasix TAB] 40 mg PO QDAY #30 tablet Ipratropium [Atrovent NEB] 0.5 mg IH Q4HR #100 ml Ipratropium/Albuterol Sulfate [DUONEB *Not for PRN Use*] 1 ampul IH Q6HRT #50 ampul.neb levETIRAcetam [Keppra TAB] 500 mg PO BID #60 tablet Sacubitril/Valsartan [Entresto 24 mg-26 mg Tablet] 1 each PO BID #60
[2017-02-10] MEDS: PULMICORT IH SCH (07:51)
[2017-02-10] MEDS: DUONEB *Not for PRN Use IH SCH ×2 (07:51→13:29)
[2017-02-10 08:06] VITALS: BP 112/80
--- NOTE | 2017-02-10 08:57 | Progress Note ---
Assessment and Plan VRE septicemia on blood cultures 01/26/2017 Repeat blood cultures 01/30/2017 FARZANA: small mobile echogenic density attached to the AICD lead on the right atrial side suspicious for a vegetation s/p extraction of dual chamber ICD system (generator and leads) Ischemic cardiomyopathy LVEF 10-15% CAD s/p PCI AICD implanted 4 months ago in [place] [employer] Type II DM History of a bleeding stroke ~ 1 year ago s/p craniotomy Plan: May go home cardiac jo Subjective Date of service: 02/10/17 Principal diagnosis: Resp failure Copd exacerbation Interval history: Patient is doing well He is wearing his lifevest He denies chest pain or shortness of breath Objective Vital Signs Temp Pulse Pulse Resp Resp BP Pulse Ox 02/10/17 08:03 98.9 F 80 18 112/80 98 02/10/17 08:01 86 20 02/10/17 07:51 96 H 20 02/10/17 06:08 83 115/81 97 02/10/17 05:14 97.9 F 80 16 105/77 95 02/09/17 20:52 100 02/09/17 20:51 101 H 18 02/09/17 20:47 99.0 F 103 H 18 126/86 98 02/09/17 16:57 98.7 F 94 H 18 115/78 98 02/09/17 14:00 87 20 02/09/17 13:50 82 20 - Physical Examination General: No Apparent Distress HEENT: Positive: PERRL Neck: Positive: neck supple Cardiac: Positive: Reg Rate and Rhythm Lungs: Positive: Normal Exam Neuro: Positive: Grossly Intact
[2017-02-10] MEDS: PEPCID PO SCH (09:41)
[2017-02-10] MEDS: PLAVIX PO SCH (09:41)
[2017-02-10] MEDS: KEPPRA PO SCH (09:42)
[2017-02-10] MEDS: celeXA PO SCH (09:42)
[2017-02-10] MEDS: COREG PO SCH (09:43)
[2017-02-10] MEDS: CUBICIN IV SCH (15:44)
[2017-02-10] MEDS: NACL 0.9% IV SCH (15:44)
== END 2017-02-10 16:00 | disposition home health service (06) | DRG 260 ==
LOC: ED 01:07 → 3A 03:22
PROVIDERS: ADMIT Internal Medicine; ATTEND Internal Medicine
PROC: 02HV33Z Insertion of Infusion Device into Superior Vena Cava, Percutaneous Approach (ICD-10-PCS; 2017-02-06)
PROC: 5A09357 Assistance with Respiratory Ventilation, Less than 24 Consecutive Hours, Continuous Positive Airway Pressure (ICD-10-PCS; 2017-02-06)
PROC: B24BZZ4 Ultrasonography of Heart with Aorta, Transesophageal (ICD-10-PCS; 2017-02-07)
PROC: 0JPT0PZ Removal of Cardiac Rhythm Related Device from Trunk Subcutaneous Tissue and Fascia, Open Approach (ICD-10-PCS; principal; 2017-02-08)
PROC: 02PA3MZ Removal of Cardiac Lead from Heart, Percutaneous Approach (ICD-10-PCS; 2017-02-08)
DX: T82.7XXA Infection and inflammatory reaction due to other cardiac and vascular devices, implants and grafts, initial encounter (principal); J96.21 Acute and chronic respiratory failure with hypoxia; J18.9 Pneumonia, unspecified organism; A41.81 Sepsis due to Enterococcus; J44.1 Chronic obstructive pulmonary disease with (acute) exacerbation; E87.2 Acidosis; I38 Endocarditis, valve unspecified; I42.0 Dilated cardiomyopathy; K21.9 Gastro-esophageal reflux disease without esophagitis; D63.8 Anemia in other chronic diseases classified elsewhere; F01.50 Vascular dementia, unspecified severity, without behavioral disturbance, psychotic disturbance, mood disturbance, and anxiety; B95.2 Enterococcus as the cause of diseases classified elsewhere; Z16.21 Resistance to vancomycin; E87.6 Hypokalemia; Y83.8 Other surgical procedures as the cause of abnormal reaction of the patient, or of later complication, without mention of misadventure at the time of the procedure; I50.9 Heart failure, unspecified; I11.0 Hypertensive heart disease with heart failure; I25.5 Ischemic cardiomyopathy; Z86.73 Personal history of transient ischemic attack (TIA), and cerebral infarction without residual deficits; I25.2 Old myocardial infarction; Z95.0 Presence of cardiac pacemaker; Z82.49 Family history of ischemic heart disease and other diseases of the circulatory system; Z79.4 Long term (current) use of insulin; Y92.89 Other specified places as the place of occurrence of the external cause; Z79.899 Other long term (current) drug therapy; Z79.51 Long term (current) use of inhaled steroids
CPT/HCPCS: 33241; 33244; 36415; 71010; 80048; 80053; 80061; 80202; 81001; 82140; 82550; 83735; 84132; 84484; 85007; 85025; 85027; 85610; 86140; 87040; 87075; 87076; 87116; 87186; 87400; 87430; 90471; 90686; 90732; 93005; 93010; 93312; 93320; 93325; 94640; 94760; 96365; 96366; 96367; 96375; G0008; G0009; J0456; J0690; J0696; J0878; J1650; J1940; J1956; J2250; J2543; J2930; J3010; J3370; J3475; J7030; J7040; J7050; J7512

== ENCOUNTER 2017-02-12 18:03 | Emergency (ER) | payer MEDICARE, MEDICAID ==
[2017-02-12 18:40] VITALS: BP 123/89
== END 2017-02-12 18:40 | disposition left against medical advice (07) ==
LOC: ED 18:03
DX: R06.02 Shortness of breath (principal); Z53.21 Procedure and treatment not carried out due to patient leaving prior to being seen by health care provider

== ENCOUNTER 2017-02-19 07:45 | Inpatient (IN) | payer MEDICAID, MEDICARE ==
--- NOTE | 2017-02-19 08:15 | Emergency Department Report ---
ED General Adult HPI - General Chief complaint: Altered Mental Status Stated complaint: CHIVO Source: patient, EMS Mode of arrival: Stretcher Limitations: Altered Mental Status - History of Present Illness Initial comments: This is patient found in respiratory distress by paramedics. Apparently he was on a home neb machine. Paramedics gave patient morphine and Lasix thinking that he was in congestive heart failure. He was placed on a CPAP device. On arrival the CPAP device was removed. He is able to tell me that he simply choked on a sausage. Does admit to taking Percocet for chronic pain. I suspect he was somewhat somnolent on medic arrival. He is now awake and reasonably alert. His pulse oximetry on room air on arrival I am told was 96%. He does chronic home nebulizer treatments. He is not on oxygen nor CPAP at night. 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 He had a PICC line. It was recommended that he continue daptomycin 6 weeks. Apparently he refused PICC line and left without provision for continued treatment. Apparently he went home and not to hospice. He has a history of hypertension CHF COPD and CVA. The FARZANA was possibly and thickening of vegetation on an AICD lead. The AICD was removed. -: Sudden Quality: other (states he had food impaction) Consistency: now resolved Improves with: none Worsens with: none Associated Symptoms: denies other symptoms Treatments Prior to Arrival: none - Related Data Previous Rx's Medication Instructions Recorded Last Taken Type oxyCODONE /ACETAMINOPHEN [Percocet 1 tab PO Q6H PRN #40 tablet 01/17/17 Unknown Rx 5/325 mg] ALBUTEROL NEB's [Proventil 0.083% 2.5 mg IH Q3HRT PRN #100 nebu 01/30/17 Unknown Rx NEBS] Carvedilol [Coreg] 3.125 mg PO BID #60 tablet 01/30/17 Unknown Rx Citalopram [celeXA] 10 mg PO QDAY #30 tablet 01/30/17 Unknown Rx Clopidogrel [Plavix] 75 mg PO QDAY #30 tablet 01/30/17 Unknown Rx Digoxin [Lanoxin] 0.125 mg PO DAILY@1700 #30 tablet 01/30/17 Unknown Rx Famotidine [Pepcid] 10 mg PO BID #60 tablet 01/30/17 Unknown Rx Furosemide [Lasix TAB] 40 mg PO QDAY #30 tablet 01/30/17 Unknown Rx Ipratropium [Atrovent NEB] 0.5 mg IH Q4HR #100 ml 01/30/17 Unknown Rx Ipratropium/Albuterol Sulfate 1 ampul IH Q6HRT #50 ampul.neb 01/30/17 Unknown Rx [DUONEB *Not for PRN Use*] Sacubitril/Valsartan [Entresto 24 1 each PO BID #60 01/30/17 Unknown Rx mg-26 mg Tablet] levETIRAcetam [Keppra TAB] 500 mg PO BID #60 tablet 01/30/17 Unknown Rx Allergies Allergy/AdvReac Type Severity Reaction Status Date / Time No Known Allergies Allergy Verified 12/29/16 02:17 ED Review of Systems ROS: Stated complaint: CHIVO Other details as noted in HPI Comment: Unobtainable due to pts medical conditions (limited historian) Constitutional: denies: chills, fever Eyes: denies: eye pain, eye discharge, vision change ENT: denies: ear pain, throat pain Respiratory: shortness of breath, other (choking). denies: cough, wheezing Cardiovascular: denies: chest pain, palpitations Endocrine: no symptoms reported Gastrointestinal: denies: abdominal pain, nausea, diarrhea Genitourinary: denies: urgency, dysuria Musculoskeletal: denies: back pain, joint swelling, arthralgia Skin: denies: rash, lesions Neurological: denies: headache, weakness, paresthesias Psychiatric: denies: anxiety, depression Hematological/Lymphatic: denies: easy bleeding, easy bruising ED Past Medical Hx - Past Medical History Hx Hypertension: Yes Hx CVA: Yes Hx Heart Attack/AMI: Yes Hx Congestive Heart Failure: Yes Hx Diabetes: No Hx Deep Vein Thrombosis: No Hx Seizures: Yes Hx Asthma: No Hx COPD: Yes - Surgical History Hx Pacemaker: Yes (L chest) Hx Internal Defibrillator: No Additional Surgical History: brain surgery. - Social History Smoking Status: Former Smoker Substance Use Type: Alcohol - Medications Home Medications: Home Medications Medication Instructions Recorded Confirmed Last Taken Type oxyCODONE /ACETAMINOPHEN [Percocet 1 tab PO Q6H PRN #40 tablet 01/17/17 Unknown Rx 5/325 mg] ALBUTEROL NEB's [Proventil 0.083% 2.5 mg IH Q3HRT PRN #100 nebu 01/30/17 Unknown Rx NEBS] Carvedilol [Coreg] 3.125 mg PO BID #60 tablet 01/30/17 Unknown Rx Citalopram [celeXA] 10 mg PO QDAY #30 tablet 01/30/17 Unknown Rx Clopidogrel [Plavix] 75 mg PO QDAY #30 tablet 01/30/17 Unknown Rx Digoxin [Lanoxin] 0.125 mg PO DAILY@1700 #30 tablet 01/30/17 Unknown Rx Famotidine [Pepcid] 10 mg PO BID #60 tablet 01/30/17 Unknown Rx Furosemide [Lasix TAB] 40 mg PO QDAY #30 tablet 01/30/17 Unknown Rx Ipratropium [Atrovent NEB] 0.5 mg IH Q4HR #100 ml 01/30/17 Unknown Rx Ipratropium/Albuterol Sulfate 1 ampul IH Q6HRT #50 ampul.neb 01/30/17 Unknown Rx [DUONEB *Not for PRN Use*] Sacubitril/Valsartan [Entresto 24 1 each PO BID #60 01/30/17 Unknown Rx mg-26 mg Tablet] levETIRAcetam [Keppra TAB] 500 mg PO BID #60 tablet 01/30/17 Unknown Rx ED Physical Exam - General Limitations: Altered Mental Status General appearance: alert, in no apparent distress - Head Head exam: Present: atraumatic, normocephalic - Eye Eye exam: Present: normal appearance, PERRL, EOMI. Absent: scleral icterus - ENT ENT exam: Present: mucous membranes moist - Neck Neck exam: Present: normal inspection. Absent: tenderness, meningismus - Respiratory Respiratory exam: Present: normal lung sounds bilaterally. Absent: respiratory distress - Cardiovascular Cardiovascular Exam: Present: regular rate, normal rhythm. Absent: systolic murmur, diastolic murmur, rubs, gallop - GI/Abdominal GI/Abdominal exam: Present: soft, normal bowel sounds. Absent: distended, tenderness, guarding, rebound, rigid - Rectal Rectal exam: Present: deferred - Extremities Exam Extremities exam: Present: normal inspection - Back Exam Back exam: Present: normal inspection - Neurological Exam Neurological exam: Present: alert, oriented X3, CN II-XII intact. Absent: motor sensory deficit - Psychiatric Psychiatric exam: Present: normal affect, normal mood - Skin Skin exam: Present: warm, dry, intact, normal color. Absent: rash ED Course Vital Signs 02/19/17 02/19/17 02/19/17 07:48 08:00 08:14 Temperature 98.1 F Pulse Rate 89 89 85 Respiratory 17 17 Rate Blood Pressure 81/56 81/56 Blood Pressure 81/56 [Left] O2 Sat by Pulse 100 96 Oximetry 02/19/17 02/19/17 02/19/17 08:15 08:30 08:45 Temperature 98.1 F Pulse Rate 86 75 73 Respiratory 15 13 14 Rate Blood Pressure 71/41 61/39 60/36 Blood Pressure 60/36 [Left] O2 Sat by Pulse 88 93 91 Oximetry 02/19/17 02/19/17 02/19/17 08:57 09:00 09:16 Temperature Pulse Rate 70 82 Respiratory 14 14 23 Rate Blood Pressure 59/34 69/40 Blood Pressure 59/34 [Left] O2 Sat by Pulse 97 93 98 Oximetry 02/19/17 02/19/17 02/19/17 09:30 09:45 10:00 Temperature Pulse Rate 64 68 66 Respiratory 12 13 14 Rate Blood Pressure 64/32 61/28 57/31 Blood Pressure [Left] O2 Sat by Pulse 97 96 96 Oximetry 02/19/17 02/19/17 10:15 10:30 Temperature Pulse Rate 65 62 Respiratory 15 14 Rate Blood Pressure 72/36 69/36 Blood Pressure [Left] O2 Sat by Pulse 97 100 Oximetry - Reevaluation(s) Reevaluation #1: Chest x-ray indicates removal of the patient's AICD and PICC line. There is no acute process. I spoke with Dr. Lucas of infectious disease. She stated if the patient is cooperative I should start him back on his daptomycin. So far he has not refused any care. His blood pressure has improved. He will be admitted to the hospitalist service for further care and evaluation. 02/19/17 11:18 Reevaluation #2: Multiple reexaminations. After about a liter of IV fluid the patient's blood pressure was 99/55. He never had any specific plate. He will be admitted to the hospitalist service for further care and consultation with infectious disease. 02/19/17 11:20 ED Medical Decision Making - Lab Data Result diagrams: 02/19/17 08:09 02/19/17 08:21 Laboratory Results - last 24 hr 02/19/17 02/19/17 02/19/17 08:09 08:09 08:09 WBC 10.8 RBC 5.65 H Hgb 11.5 L Hct 38.9 MCV 69 L MCH 20 L MCHC 30 L RDW 20.0 H Plt Count 393 Eos % (Auto) Field Health Officer Add Manual Diff Complete Total Counted 100 Seg Neuts % (Manual) 58.0 Band Neutrophils % 1.0 Lymphocytes % (Manual) 12.0 L Reactive Lymphs % (Man) 0 Monocytes % (Manual) 7.0 Eosinophils % (Manual) 21.0 H Basophils % (Manual) 0 Metamyelocytes % 1.0 Myelocytes % 0 Promyelocytes % 0 Blast Cells % 0 Nucleated RBC % Not Reportable Seg Neutrophils # Man 6.3 Band Neutrophils # 0.1 Lymphocytes # (Manual) 1.3 Abs React Lymphs (Man) 0.0 Monocytes # (Manual) 0.8 Eosinophils # (Manual) 2.3 H Basophils # (Manual) 0.0 Metamyelocytes # 0.1 Myelocytes # 0.0 Promyelocytes # 0.0 Blast Cells # 0.0 WBC Morphology Not Reportable Hypersegmented Neuts Not Reportable Hyposegmented Neuts Not Reportable Hypogranular Neuts Not Reportable Smudge Cells Not Reportable Toxic Granulation Not Reportable Toxic Vacuolation Not Reportable Dohle Bodies Not Reportable Pelger-Huet Anomaly Not Reportable Ana Luisa Rods Not Reportable Platelet Estimate Appears normal Clumped Platelets Not Reportable Plt Clumps, EDTA Not Reportable Large Platelets Not Reportable Giant Platelets Not Reportable Platelet Satelliting Not Reportable Plt Morphology Comment Not Reportable RBC Morphology Not Reportable Dimorphic RBCs Not Reportable Polychromasia Not Reportable Hypochromasia Not Reportable Poikilocytosis 2+ Anisocytosis 1+ Microcytosis 1+ Macrocytosis Not Reportable Spherocytes Not Reportable Pappenheimer Bodies Not Reportable Sickle Cells Not Reportable Target Cells Not Reportable Tear Drop Cells Not Reportable Ovalocytes 1+ Helmet Cells Not Reportable [place] Bodies Not Reportable [place] Rings Not Reportable [place] Cells Not Reportable Bite Cells Not Reportable Crenated Cell Not Reportable Elliptocytes 1+ Acanthocytes (Spur) 2+ Rouleaux Not Reportable Hemoglobin C Crystals Not Reportable Schistocytes 1+ Malaria parasites Not Reportable Nestor Bodies Not Reportable Hem Pathologist Commnt No PT INR APTT Sodium Potassium Chloride Carbon Dioxide Anion Gap BUN Creatinine Estimated GFR BUN/Creatinine Ratio Glucose POC Glucose Lactic Acid Calcium Magnesium 1.90 Total Bilirubin Direct Bilirubin AST ALT Alkaline Phosphatase Troponin T NT-Pro-B Natriuret Pep Total Protein Albumin Albumin/Globulin Ratio Lipase Urine Color Urine Turbidity Urine pH Ur Specific [place] Urine Protein Urine Glucose (UA) Urine Ketones Urine Blood Urine Nitrite Urine Bilirubin Urine Urobilinogen Ur Leukocyte Esterase Urine WBC (Auto) Urine RBC (Auto) Urine Bacteria (Auto) Hyaline Casts Urine Mucus Urine Opiates Screen Urine Methadone Screen Ur Barbiturates Screen Ur Phencyclidine Scrn Ur Amphetamines Screen U Benzodiazepines Scrn Urine Cocaine Screen Plasma/Serum Alcohol < 0.01 Blood Type Antibody Screen 02/19/17 02/19/17 02/19/17 08:11 08:11 08:21 WBC RBC Hgb Hct MCV MCH MCHC RDW Plt Count Eos % (Auto) Add Manual Diff Total Counted Seg Neuts % (Manual) Band Neutrophils % Lymphocytes % (Manual) Reactive Lymphs % (Man) Monocytes % (Manual) Eosinophils % (Manual) Basophils % (Manual) Metamyelocytes % Myelocytes % Promyelocytes % Blast Cells % Nucleated RBC % Seg Neutrophils # Man Band Neutrophils # Lymphocytes # (Manual) Abs React Lymphs (Man) Monocytes # (Manual) Eosinophils # (Manual) Basophils # (Manual) Metamyelocytes # Myelocytes # Promyelocytes # Blast Cells # WBC Morphology Hypersegmented Neuts Hyposegmented Neuts Hypogranular Neuts Smudge Cells Toxic Granulation Toxic Vacuolation Dohle Bodies Pelger-Huet Anomaly Ana Luisa Rods Platelet Estimate Clumped Platelets Plt Clumps, EDTA Large Platelets Giant Platelets Platelet Satelliting Plt Morphology Comment RBC Morphology Dimorphic RBCs Polychromasia Hypochromasia Poikilocytosis Anisocytosis Microcytosis Macrocytosis Spherocytes Pappenheimer Bodies Sickle Cells Target Cells Tear Drop Cells Ovalocytes Helmet Cells [place] Bodies [place] Rings [place] Cells Bite Cells Crenated Cell Elliptocytes Acanthocytes (Spur) Rouleaux Hemoglobin C Crystals Schistocytes Malaria parasites Nestor Bodies Hem Pathologist Commnt PT INR APTT Sodium 137 Potassium 4.4 Chloride 99.4 Carbon Dioxide 20 L Anion Gap 22 BUN 25 H Creatinine 1.2 Estimated GFR > 60 BUN/Creatinine Ratio 21 Glucose 210 H POC Glucose Lactic Acid Calcium 9.3 Magnesium Total Bilirubin 0.30 Direct Bilirubin < 0.2 AST 14 ALT 11 Alkaline Phosphatase 71 Troponin T NT-Pro-B Natriuret Pep Total Protein 6.8 Albumin 4.3 Albumin/Globulin Ratio 1.7 Lipase Urine Color Straw Urine Turbidity Clear Urine pH 6.0 Ur Specific [place] 1.006 Urine Protein 30 mg/dl Urine Glucose (UA) Neg Urine Ketones Neg Urine Blood Sm Urine Nitrite Neg Urine Bilirubin Neg Urine Urobilinogen < 2.0 Ur Leukocyte Esterase Neg Urine WBC (Auto) 1.0 Urine RBC (Auto) 3.0 Urine Bacteria (Auto) 1+ Hyaline Casts 1 Urine Mucus Few Urine Opiates Screen Presumptive negative Urine Methadone Screen Presumptive negative Ur Barbiturates Screen Presumptive negative Ur Phencyclidine Scrn Presumptive negative Ur Amphetamines Screen Presumptive negative U Benzodiazepines Scrn Presumptive negative Urine Cocaine Screen Presumptive negative Plasma/Serum Alcohol Blood Type Antibody Screen 02/19/17 02/19/17 02/19/17 08:28 09:20 09:20 WBC RBC Hgb Hct MCV MCH MCHC RDW Plt Count Eos % (Auto) Add Manual Diff Total Counted Seg Neuts % (Manual) Band Neutrophils % Lymphocytes % (Manual) Reactive Lymphs % (Man) Monocytes % (Manual) Eosinophils % (Manual) Basophils % (Manual) Metamyelocytes % Myelocytes % Promyelocytes % Blast Cells % Nucleated RBC % Seg Neutrophils # Man Band Neutrophils # Lymphocytes # (Manual) Abs React Lymphs (Man) Monocytes # (Manual) Eosinophils # (Manual) Basophils # (Manual) Metamyelocytes # Myelocytes # Promyelocytes # Blast Cells # WBC Morphology Hypersegmented Neuts Hyposegmented Neuts Hypogranular Neuts Smudge Cells Toxic Granulation Toxic Vacuolation Dohle Bodies Pelger-Huet Anomaly Ana Luisa Rods Platelet Estimate Clumped Platelets Plt Clumps, EDTA Large Platelets Giant Platelets Platelet Satelliting Plt Morphology Comment RBC Morphology Dimorphic RBCs Polychromasia Hypochromasia Poikilocytosis Anisocytosis Microcytosis Macrocytosis Spherocytes Pappenheimer Bodies Sickle Cells Target Cells Tear Drop Cells Ovalocytes Helmet Cells [place] Bodies [place] Rings [place] Cells Bite Cells Crenated Cell Elliptocytes Acanthocytes (Spur) Rouleaux Hemoglobin C Crystals Schistocytes Malaria parasites Nestor Bodies Hem Pathologist Commnt PT 14.5 INR 1.07 APTT 31.3 Sodium Potassium Chloride Carbon Dioxide Anion Gap BUN Creatinine Estimated GFR BUN/Creatinine Ratio Glucose POC Glucose 222 H Lactic Acid 3.70 H* Calcium Magnesium Total Bilirubin Direct Bilirubin AST ALT Alkaline Phosphatase Troponin T NT-Pro-B Natriuret Pep Total Protein Albumin Albumin/Globulin Ratio Lipase Urine Color Urine Turbidity Urine pH Ur Specific [place] Urine Protein Urine Glucose (UA) Urine Ketones Urine Blood Urine Nitrite Urine Bilirubin Urine Urobilinogen Ur Leukocyte Esterase Urine WBC (Auto) Urine RBC (Auto) Urine Bacteria (Auto) Hyaline Casts Urine Mucus Urine Opiates Screen Urine Methadone Screen Ur Barbiturates Screen Ur Phencyclidine Scrn Ur Amphetamines Screen U Benzodiazepines Scrn Urine Cocaine Screen Plasma/Serum Alcohol Blood Type Antibody Screen 02/19/17 02/19/17 09:20 09:20 WBC RBC Hgb Hct MCV MCH MCHC RDW Plt Count Eos % (Auto) Add Manual Diff Total Counted Seg Neuts % (Manual) Band Neutrophils % Lymphocytes % (Manual) Reactive Lymphs % (Man) Monocytes % (Manual) Eosinophils % (Manual) Basophils % (Manual) Metamyelocytes % Myelocytes % Promyelocytes % Blast Cells % Nucleated RBC % Seg Neutrophils # Man Band Neutrophils # Lymphocytes # (Manual) Abs React Lymphs (Man) Monocytes # (Manual) Eosinophils # (Manual) Basophils # (Manual) Metamyelocytes # Myelocytes # Promyelocytes # Blast Cells # WBC Morphology Hypersegmented Neuts Hyposegmented Neuts Hypogranular Neuts Smudge Cells Toxic Granulation Toxic Vacuolation Dohle Bodies Pelger-Huet Anomaly Ana Luisa Rods Platelet Estimate Clumped Platelets Plt Clumps, EDTA Large Platelets Giant Platelets Platelet Satelliting Plt Morphology Comment RBC Morphology Dimorphic RBCs Polychromasia Hypochromasia Poikilocytosis Anisocytosis Microcytosis Macrocytosis Spherocytes Pappenheimer Bodies Sickle Cells Target Cells Tear Drop Cells Ovalocytes Helmet Cells [place] Bodies [place] Rings [place] Cells Bite Cells Crenated Cell Elliptocytes Acanthocytes (Spur) Rouleaux Hemoglobin C Crystals Schistocytes Malaria parasites Nestor Bodies Hem Pathologist Commnt PT INR APTT Sodium Potassium Chloride Carbon Dioxide Anion Gap BUN Creatinine Estimated GFR BUN/Creatinine Ratio Glucose POC Glucose Lactic Acid Calcium Magnesium Total Bilirubin Direct Bilirubin AST ALT Alkaline Phosphatase Troponin T 0.022 NT-Pro-B Natriuret Pep 1362 H Total Protein Albumin Albumin/Globulin Ratio Lipase 34 Urine Color Urine Turbidity Urine pH Ur Specific [place] Urine Protein Urine Glucose (UA) Urine Ketones Urine Blood Urine Nitrite Urine Bilirubin Urine Urobilinogen Ur Leukocyte Esterase Urine WBC (Auto) Urine RBC (Auto) Urine Bacteria (Auto) Hyaline Casts Urine Mucus Urine Opiates Screen Urine Methadone Screen Ur Barbiturates Screen Ur Phencyclidine Scrn Ur Amphetamines Screen U Benzodiazepines Scrn Urine Cocaine Screen Plasma/Serum Alcohol Blood Type A POSITIVE Antibody Screen Negative - EKG Data -: EKG Interpreted by Me EKG shows normal: sinus rhythm, axis, intervals, QRS complexes, ST-T waves Rate: normal - EKG Data Interpretation: other (no acute ischemic change. Consider old anteroseptal zone) - Radiology Data interpreted by me: Chest x-ray no acute findings Critical Care Time: Yes Critical care time in (mins) excluding proc time.: 60 Critical care attestation.: If time is entered above; I have spent that time in minutes in the direct care of this critically ill patient, excluding procedure time. ED Disposition Clinical Impression: Choking episode, Elevated lactic acid level, VRE infection (vancomycin resistant Enterococcus), Hyperglycemia Hypotension Qualifiers: Hypotension type: unspecified hypotension type Qualified Code(s): I95.9 - Hypotension, unspecified Cardiomyopathy Qualifiers: Cardiomyopathy type: unspecified Qualified Code(s): I42.9 - Cardiomyopathy, unspecified Disposition: 09 OP ADMIT IP TO THIS HOSP Is pt being admited?: Yes Does the pt Need Aspirin: Yes Condition: Stable Referrals: PRIMARY CARE, [Primary Care Provider] - 3-5 Days Time of Disposition: 11:22
[2017-02-19 08:22] LABS: Urine Drugs of Abuse Note Disclamer
[2017-02-19] MEDS ORDERED: NACL 0.9% 500 ML 500 ML ONE (08:32)
[2017-02-19] MEDS ORDERED: NACL 0.9% 1000 ML 500 ML IV ONE (08:34)
[2017-02-19 08:43] LABS: Bacteria,Urine 1+ /HPF (Negative); Bilirubin,Urine NEG (Negative); Blood,Urine SM (Negative); Ketones,Urine NEG (Negative); Leukocyte Esterase,Urine NEG (Negative); Mucus,Urine FEW /HPF; Nitrite,Urine NEG (Negative); Urobilinogen,Urine < 2.0 mg/dL (<2.0)
[2017-02-19 08:49] LABS: Alanine Aminotransferase 11 units/L (7-56); Albumin 4.3 g/dL (3.9-5); Albumin/Globulin Ratio 1.7 %; Alkaline Phosphatase 71 units/L (35-129); Anion Gap 22 mmol/L; BUN/Creatinine Ratio 21; Blood Urea Nitrogen 25 mg/dL (9-20); Calcium 9.3 mg/dL (8.4-10.2); Carbon Dioxide 20 mmol/L (22-30); Chloride 99.4 mmol/L (98-107); Glucose 210 mg/dL (75-100); Potassium 4.4 mmol/L (3.6-5.0); Sodium 137 mmol/L (137-145); Total Protein 6.8 g/dL (6.3-8.2)
--- NOTE | 2017-02-19 08:54 | XRay Report ---
Portable chest: Respiratory distress; choking. Comparison is made to prior exam of February 07, 2017. There has been interval removal of right PICC line and pacemaker with wires. The heart is grossly normal for positioning unchanged from prior exam. The lungs are clear and there is no vascular congestion. The central airway appears patent. The mediastinal and hilar contours are unremarkable. Mild degenerative spurring bilaterally in both shoulders. Impressions: Interval removal of life supports. No acute pathology identified.
[2017-02-19 09:03] LABS: Bilirubin,Direct < 0.2 mg/dL (0-0.2)
[2017-02-19] MEDS ORDERED: NACL 0.9% 1000 ML 1,000 ML IV ONE (09:09)
[2017-02-19 09:16] LABS: Mean Corpuscular HGB Conc 30 % (32-34); Platelet Count 393 K/mm3 (140-440); Red Blood Count 5.65 M/mm3 (3.65-5.03); White Blood Count 10.8 K/mm3 (4.5-11.0)
[2017-02-19 09:26] LABS: Hematocrit 38.9 % (35.5-45.6); Hemoglobin 11.5 gm/dl (11.8-15.2); Mean Corpuscular Hemoglobin 20 pg (28-32); Mean Corpuscular Volume 69 fl (84-94)
[2017-02-19 09:58] LABS: INR 1.07 (0.87-1.13)
[2017-02-19 09:59] LABS: Partial Thromboplastin Time 31.3 Sec. (24.2-36.6)
[2017-02-19] MEDS ORDERED: NARCAN 2 MG/2 ML ONE (10:10)
[2017-02-19 10:14] LABS: Acanthocytes 2+; Anisocytosis 1+; Basophils % (Manual) 0 % (0.0-1.8); Blastocytes % (Manual) 0 %; Diff Status Complete; Elliptocytes 1+; Microcytosis 1+; Ovalocytes 1+; Poikilocytosis 2+; Schistocytes 1+
[2017-02-19] MEDS ORDERED: NARCAN 2 MG/2 ML IV ONE (10:34)
[2017-02-19] MEDS ORDERED: BABY ASPIRIN PO ONE (11:22)
--- NOTE | 2017-02-19 11:55 | History and Physical Report ---
History of Present Illness Chief complaint: I could not breathe History of present illness: 56 YO Male with HTN, COPD, CHF, PR, CVA, VRE Endocarditis, Noncompliance with antibiotic therapy presents to ED for evaluation. Pt states that he has experienced acute onset shortness of breath while eating breakfast. Pt gave himself a nebulizer treatment without relief, and subsequently called EMS. Upon arrival EMS found patient to be in respiratory distress and placed on NIPPV and transported to [facility] for evaluation. Pt symptoms improved with therapy. Pt seen and evaluated in ED and found to have CHF decompensation, and treated with supplemental oxygen, nebs, and diuretic therapy. ID consulted in ED and recommend restarting Daptomycin. Past History Past Medical History: acute PR, COPD, heart failure, hypertension, stroke Past Surgical History: Other (Pacemaker placement and removal, PICC line placement and removal) Social history: . denies: smoking, alcohol abuse, prescription drug abuse Family history: hypertension Medications and Allergies Allergies Allergy/AdvReac Type Severity Reaction Status Date / Time No Known Allergies Allergy Verified 12/29/16 02:17 Home Medications Medication Instructions Recorded Confirmed Last Taken Type oxyCODONE /ACETAMINOPHEN [Percocet 1 tab PO Q6H PRN #40 tablet 01/17/17 Unknown Rx 5/325 mg] ALBUTEROL NEB's [Proventil 0.083% 2.5 mg IH Q3HRT PRN #100 nebu 01/30/17 Unknown Rx NEBS] Carvedilol [Coreg] 3.125 mg PO BID #60 tablet 01/30/17 Unknown Rx Citalopram [celeXA] 10 mg PO QDAY #30 tablet 01/30/17 Unknown Rx Clopidogrel [Plavix] 75 mg PO QDAY #30 tablet 01/30/17 Unknown Rx Digoxin [Lanoxin] 0.125 mg PO DAILY@1700 #30 tablet 01/30/17 Unknown Rx Famotidine [Pepcid] 10 mg PO BID #60 tablet 01/30/17 Unknown Rx Furosemide [Lasix TAB] 40 mg PO QDAY #30 tablet 01/30/17 Unknown Rx Ipratropium [Atrovent NEB] 0.5 mg IH Q4HR #100 ml 01/30/17 Unknown Rx Ipratropium/Albuterol Sulfate 1 ampul IH Q6HRT #50 ampul.neb 01/30/17 Unknown Rx [DUONEB *Not for PRN Use*] Sacubitril/Valsartan [Entresto 24 1 each PO BID #60 01/30/17 Unknown Rx mg-26 mg Tablet] levETIRAcetam [Keppra TAB] 500 mg PO BID #60 tablet 01/30/17 Unknown Rx Active Meds: Active Medications Daptomycin 450 mg/ Sodium (Chloride) 100 mls @ 200 mls/hr IV Q24H DANNY PRN Reason: Protocol Review of Systems Constitutional: no weight loss, no weight gain, no fever, no chills Ears, nose, mouth and throat: no ear pain, no ear discharge, no tinnitis, no decreased hearing, no nose pain Cardiovascular: shortness of breath, no chest pain, no orthopnea, no palpitations, no rapid/irregular heart beat, no edema, no dyspnea on exertion, no paroxysmal nocturnal dyspnea, no claudication, no phlebitis Gastrointestinal: no abdominal pain, no nausea, no vomiting, no diarrhea, no constipation Genitourinary Male: no hematuria, no flank pain, no discharge, no urinary frequency, no urinary hesitancy, no nocturia Rectal: no pain, no incontinence, no bleeding Musculoskeletal: no neck stiffness, no neck pain, no shooting arm pain, no arm numbness/tingling, no low back pain, no shooting leg pain, no leg numbness/ tingling Integumentary: no rash, no pruritis, no redness, no sores Neurological: no head injury, no transient paralysis, no paralysis, no weakness , no parathesias, no numbness, no tingling Psychiatric: no anxiety, no memory loss, no change in sleep habits, no sleep disturbances, no insomnia, no hypersomnia, no change in appetite, no change in libido Endocrine: no cold intolerance, no heat intolerance, no polyphagia, no excessive thirst, no polydipsia, no polyuria, no nocturia Hematologic/Lymphatic: no easy bruising, no easy bleeding Allergic/Immunologic: no urticaria, no allergic rhinitis, no wheezing Exam - Constitutional Vitals: Temp Pulse Resp BP Pulse Ox 98.1 F 62 14 69/36 100 02/19/17 08:45 02/19/17 10:30 02/19/17 10:30 02/19/17 10:30 02/19/17 10:30 General appearance: Present: mild distress - EENT Eyes: Present: PERRL ENT: hearing intact, clear oral mucosa - Neck Neck: Present: supple, normal ROM - Respiratory Respiratory: bilateral: diminished - Cardiovascular Heart Sounds: Present: S1 & S2. Absent: rub, click - Extremities Extremities: pulses symmetrical, No edema Extremity abnormal: edema Peripheral Pulses: within normal limits - Abdominal General gastrointestinal: Present: soft, non-tender, non-distended, normal bowel sounds Male genitourinary: Present: normal - Integumentary Integumentary: Present: clear, warm, dry - Musculoskeletal Musculoskeletal: gait normal, strength equal bilaterally - Psychiatric Psychiatric: appropriate mood/affect, intact judgment & insight - Neurologic Neurologic: CNII-XII intact, moves all extremities Results - Labs CBC & Chem 7: 02/19/17 08:09 02/19/17 08:21 Labs: Abnormal lab results 02/19/17 02/19/17 02/19/17 Range/Units 08:09 08:21 08:28 RBC 5.65 H (3.65-5.03) M/mm3 Hgb 11.5 L (11.8-15.2) gm/dl MCV 69 L (84-94) fl MCH 20 L (28-32) pg MCHC 30 L (32-34) % RDW 20.0 H (13.2-15.2) % Lymphocytes % (Manual) 12.0 L (13.4-35.0) % Eosinophils % (Manual) 21.0 H (0.0-4.3) % Eosinophils # (Manual) 2.3 H (0.0-0.4) K/mm3 Carbon Dioxide 20 L (22-30) mmol/L BUN 25 H (9-20) mg/dL Glucose 210 H (75-100) mg/dL POC Glucose 222 H (70-105) Lactic Acid (0.7-2.0) mmol/L NT-Pro-B Natriuret Pep (0-900) pg/mL 02/19/17 02/19/17 Range/Units 09:20 09:20 RBC (3.65-5.03) M/mm3 Hgb (11.8-15.2) gm/dl MCV (84-94) fl MCH (28-32) pg MCHC (32-34) % RDW (13.2-15.2) % Lymphocytes % (Manual) (13.4-35.0) % Eosinophils % (Manual) (0.0-4.3) % Eosinophils # (Manual) (0.0-0.4) K/mm3 Carbon Dioxide (22-30) mmol/L BUN (9-20) mg/dL Glucose (75-100) mg/dL POC Glucose (70-105) Lactic Acid 3.70 H* (0.7-2.0) mmol/L NT-Pro-B Natriuret Pep 1362 H (0-900) pg/mL Assessment and Plan - Patient Problems (1) Acute on chronic systolic (congestive) heart failure Current Visit: No Status: Acute Plan to address problem: Fluid restriction, supplemental oxygen, nebs, aspiration precautions, NIPPV as clinically indicated, afterload reduction, monitor uop q shift, (2) Endocarditis Current Visit: Yes Status: Acute Plan to address problem: IV abx, ID consulted, Resume IV daptomycin as per ID recommendation, Pt noncompliant with outpatient therapy. (3) Lactic acid acidosis Current Visit: Yes Status: Acute Plan to address problem: IVF resuscitation, monitor uop q shift, serial lactic acid (4) Seizure disorder Current Visit: Yes Status: Acute Plan to address problem: neuro checks, resume home medication. (5) DVT prophylaxis Current Visit: No Status: Acute
[2017-02-19] MEDS ORDERED: ZOFRAN IV PRN (12:17)
[2017-02-19] MEDS ORDERED: BABY ASPIRIN ONE (13:25)
[2017-02-19] MEDS: NACL 0.9% IV SCH (13:54)
[2017-02-19] MEDS: CUBICIN IV SCH (13:54)
[2017-02-19] MEDS ORDERED: TYLENOL ONE (14:23)
[2017-02-19] MEDS: TYLENOL PO PRN ×2 (14:30→17:49)
--- NOTE | 2017-02-19 17:20 | Consultation ---
History of Present Illness - Reason for Consult Consult date: 02/19/17 VRE device associated endocarditis Requesting physician: PARMJIT GREENE - History of Present Illness 56 years old male with history of cardiomyopathy status post AICD placement, CAD , COPD, hypertension, previous brain hemorrhage status post craniotomy; initially admitted on 12/29/2016 - 01/04/17 due to one-week history of worsening shortness of breath, cough with yellowish sputum production and weakness. Initial white count 17.6. Lactate acid 4.8. His BP dropped and he was placed on levophed. Chest x-ray showed bilateral pulmonary infiltrates. CT of the chest showed extensive alveolar and interstitial infiltrate right more than the left. Pt was intubated on the vent sent to ICU, found to be on severe sepsis with septic shock from bilateral pneumonia felt to be aspiration. Sputum positive for Corazon. Strep pneumoniae urine antigen was negative. Legionella urine antigen negative. HIV negative. Treated with zosyn and levaquin for 10 days. Patient sent home. Unfortunately, readmitted today 01/26/17 - 02/10/17 due to 3 weeks history (since previous discharge) of progressive SOB, dry cough and paroximal nocturnal dyspnea. WBC 18K. Lactic acid 2.4. UA negative. CXR was negative. Blood cultures grew VRE. 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 FARZANA positive small mobile echodensity mass attached to pacemaker at the right atrium. Patient was started on daptomycin 380 mg IV qday for 6 weeks from 01/30 until 03/12/17. Elena was that If VRE recurs then requires complete device and leads removal and IV antibitoics followed by later reimplatation of the new system through an infected route. Unfortunately, by 02/13 his PICC line became wet and fell out. Patient was adviced multiple times to come back to the ED for a new PICC and re- start IV daptomycin infusion but he refused. However, patient became into respiratory distress, ENT was called. Apparently he choked on a piece of sausage. Paramedics gave patient morphine and Lasix. He was placed on a CPAP device. On arrival the CPAP device was removed. In the ED, temp 98.1, HR 89, BP 81/56. WBC 10.8. Eosinophils 21%. Lactate 3.7. UA neg. UDS +marihuana. CXR neg Microbiology: Blood cultures: 02/19 ngtd 01/26 VRE 1 of 4 bottles 01/30 neg Urine cultures: Respiratory cultures: Current Antimicrobials: Dapto 02/19 initially 01/30 Previous Antimicrobials: Past History Past Medical History: acute ME, COPD, heart failure, hypertension, stroke Past Surgical History: Other (Pacemaker placement and removal, PICC line placement and removal) Social history: . denies: smoking, alcohol abuse, prescription drug abuse Family history: hypertension Medications and Allergies Allergies Allergy/AdvReac Type Severity Reaction Status Date / Time No Known Allergies Allergy Verified 12/29/16 02:17 Home Medications Medication Instructions Recorded Confirmed Last Taken Type oxyCODONE /ACETAMINOPHEN [Percocet 1 tab PO Q6H PRN #40 tablet 01/17/17 Unknown Rx 5/325 mg] ALBUTEROL NEB's [Proventil 0.083% 2.5 mg IH Q3HRT PRN #100 nebu 01/30/17 Unknown Rx NEBS] Carvedilol [Coreg] 3.125 mg PO BID #60 tablet 01/30/17 Unknown Rx Citalopram [celeXA] 10 mg PO QDAY #30 tablet 01/30/17 Unknown Rx Clopidogrel [Plavix] 75 mg PO QDAY #30 tablet 01/30/17 Unknown Rx Digoxin [Lanoxin] 0.125 mg PO DAILY@1700 #30 tablet 01/30/17 Unknown Rx Famotidine [Pepcid] 10 mg PO BID #60 tablet 01/30/17 Unknown Rx Furosemide [Lasix TAB] 40 mg PO QDAY #30 tablet 01/30/17 Unknown Rx Ipratropium [Atrovent NEB] 0.5 mg IH Q4HR #100 ml 01/30/17 Unknown Rx Ipratropium/Albuterol Sulfate 1 ampul IH Q6HRT #50 ampul.neb 01/30/17 Unknown Rx [DUONEB *Not for PRN Use*] Sacubitril/Valsartan [Entresto 24 1 each PO BID #60 01/30/17 Unknown Rx mg-26 mg Tablet] levETIRAcetam [Keppra TAB] 500 mg PO BID #60 tablet 01/30/17 Unknown Rx Active Meds: Active Medications Acetaminophen (Tylenol) 650 mg PO Q4H PRN PRN Reason: Pain MILD(1-3)/Fever >100.5/OCAMPO Last Admin: 02/19/17 14:30 Dose: 650 mg Albuterol (Proventil) 2.5 mg IH Q4HRT PRN PRN Reason: Shortness Of Breath Daptomycin 450 mg/ Sodium (Chloride) 100 mls @ 200 mls/hr IV Q24H DANNY PRN Reason: Protocol Last Admin: 02/19/17 13:54 Dose: 200 mls/hr Ondansetron HCl (Zofran) 4 mg IV Q8H PRN PRN Reason: N/V unrelieved by Reglan Review of Systems All systems: negative (as per HPI also c/o back pain. denies fever, chills, N/V/ D.) Physical Examination - Physical Exam Narrative exam: General appearance: Alert in NAD, conversant Eyes: anicteric sclerae, moist conjunctivae; no lid-lag; PERRLA HENT: Atraumatic; oropharynx clear Neck: Trachea midline; supple, no thyromegaly or lymphadenopathy Lungs: decreased BS on the left, right sided wheezing, + Left sided AICD CV: RRR Abdomen: Soft, non-tender; no masses or hepatosplenomegaly Extremities: No peripheral edema or extremity lymphadenopathy Skin: Normal temperature, turgor and texture; no rash, ulcers or subcutaneous nodules Psych: Appropriate affect, alert and oriented to person, place and time. Neuro: alert and oriented x 3. Moving all extermities Lines: - Constitutional Vitals: Vital Signs Temp Pulse Resp BP Pulse Ox 98.1 F 62 14 90/51 100 02/19/17 08:45 02/19/17 10:30 02/19/17 10:30 02/19/17 14:52 02/19/17 10:30 Temperature -Last 24 Hours Temperature 98.1 F Temperature 98.1 F Results - Labs CBC & Chem 7: 02/19/17 08:09 02/19/17 08:21 Labs: Abnormal lab results 02/19/17 02/19/17 02/19/17 Range/Units 08:09 08:21 08:28 RBC 5.65 H (3.65-5.03) M/mm3 Hgb 11.5 L (11.8-15.2) gm/dl MCV 69 L (84-94) fl MCH 20 L (28-32) pg MCHC 30 L (32-34) % RDW 20.0 H (13.2-15.2) % Lymphocytes % (Manual) 12.0 L (13.4-35.0) % Eosinophils % (Manual) 21.0 H (0.0-4.3) % Eosinophils # (Manual) 2.3 H (0.0-0.4) K/mm3 Carbon Dioxide 20 L (22-30) mmol/L BUN 25 H (9-20) mg/dL Glucose 210 H (75-100) mg/dL POC Glucose 222 H (70-105) Lactic Acid (0.7-2.0) mmol/L NT-Pro-B Natriuret Pep (0-900) pg/mL 02/19/17 02/19/17 Range/Units 09:20 09:20 RBC (3.65-5.03) M/mm3 Hgb (11.8-15.2) gm/dl MCV (84-94) fl MCH (28-32) pg MCHC (32-34) % RDW (13.2-15.2) % Lymphocytes % (Manual) (13.4-35.0) % Eosinophils % (Manual) (0.0-4.3) % Eosinophils # (Manual) (0.0-0.4) K/mm3 Carbon Dioxide (22-30) mmol/L BUN (9-20) mg/dL Glucose (75-100) mg/dL POC Glucose (70-105) Lactic Acid 3.70 H* (0.7-2.0) mmol/L NT-Pro-B Natriuret Pep 1362 H (0-900) pg/mL Assessment and Plan Assessment: 1) Recent 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 01/30 blood cultures neg. -FARZANA positive small mobile echodensity mass attached to pacemaker at the right atrium 2) Recent Bilateral pneumonia/multifocal: CT of the chest showed extensive alveolar and interstitial infiltrate right more than the left. Sputum cx + Corazon Influenza ag negative. HIV neg / CD4>500. Legionella and Strep pnuemoniae urine ag negative. 3) Recent respiratory failure 4) COPD 5) CMP status post AICD placement 6) CAD 7) Previous brain hemorrhage status post craniotomy 8) Dysphagia / GERD / Hiatal hernia 9) Weight loss 10) Non compliance with medical treatment 11) Marihuana abuse Plan: -continue daptomycin 380 mg IV qday for 6 weeks from 01/30 until 03/19/17. He missed a full one week -obtain new blood cx -place a PICC line -check blood culture a-week and 3-weeks after daptomycin course is completed -If VRE recurs then requires complete device and leads removal and IV antibitoics followed by later reimplatation of the new system through an infected route cards -needs ID clinic f/u in 1-2 weeks -check weekly CBC, CMP, CK, CRP Thank you Dr Greene for your consultation, will follow up with you. Desirae Alegria MD Infectious Diseases Specialist [facility] [phone] O [phone]
[2017-02-19] MEDS: PROVENTIL IH PRN (19:55)
[2017-02-20] MEDS: PROVENTIL IH PRN ×2 (04:15→14:26)
--- NOTE | 2017-02-20 11:28 | Progress Note ---
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 01/30 blood cultures neg. -FARZANA positive small mobile echodensity mass attached to pacemaker at the right atrium -S/P AICD removal 2) Recent Bilateral pneumonia/multifocal: CT of the chest showed extensive alveolar and interstitial infiltrate right more than the left. Sputum cx + Corazon Influenza ag negative. HIV neg / CD4>500. Legionella and Strep pnuemoniae urine ag negative. 3) Recent respiratory failure 4) COPD 5) CMP status post AICD placement 6) CAD 7) Previous brain hemorrhage status post craniotomy 8) Dysphagia / GERD / Hiatal hernia 9) Weight loss 10) Non compliance with medical treatment 11) Marihuana abuse Plan: -continue daptomycin 380 mg IV qday for 6 weeks from 01/30 until 03/19/17. He missed a full one week -f/u new blood cx -place a PICC line -check blood culture a-week and 3-weeks after daptomycin course is completed -needs ID clinic f/u in 1-2 weeks -check weekly CBC, CMP, CK, CRP Thank you Dr Moser for your consultation, will follow up with you. Desirae Alegria MD Infectious Diseases Specialist [facility] M [phone] O [phone] Subjective Date of service: 02/20/17 Principal diagnosis: VRE endocarditis Interval history: Feels better, still c/o lower back pain he is asking for percocet. No fever. remains hypotensive but no dizziness. Microbiology: Blood cultures: 02/19 neg 01/26 VRE 1 of 4 bottles 01/30 neg Urine cultures: Respiratory cultures: Current Antimicrobials: Dapto 02/19 initially 01/30 Objective - Exam Narrative Exam: General appearance: Alert in NAD, conversant Eyes: anicteric sclerae, moist conjunctivae; no lid-lag; PERRLA HENT: Atraumatic; oropharynx clear Neck: Trachea midline; supple, no thyromegaly or lymphadenopathy Lungs: decreased BS on the left, right sided wheezing, + Left sided AICD CV: RRR Abdomen: Soft, non-tender; no masses or hepatosplenomegaly Extremities: No peripheral edema or extremity lymphadenopathy Skin: Normal temperature, turgor and texture; no rash, ulcers or subcutaneous nodules Psych: Appropriate affect, alert and oriented to person, place and time. Neuro: alert and oriented x 3. Moving all extermities Lines: - Constitutional Vitals: Vital Signs Temp Pulse Resp BP Pulse Ox 98.7 F 86 16 99/71 100 02/20/17 08:36 02/20/17 08:36 02/20/17 08:36 02/20/17 08:36 02/20/17 08:39 Temperature -Last 24 Hours Temperature 98.7 F Temperature 98.6 F Temperature 97.8 F Temperature 98.2 F - Labs CBC & Chem 7: 02/19/17 08:09 02/19/17 08:21
[2017-02-20] MEDS: CUBICIN IV SCH (11:49)
[2017-02-20] MEDS: NACL 0.9% IV SCH (11:49)
[2017-02-20] MEDS ORDERED: Fluarix Quad 2017-2018(36 MOS+ IM ONE (12:00)
[2017-02-20] MEDS ORDERED: PNEUMOVAX 23 IM ONE (12:00)
--- NOTE | 2017-02-20 12:03 | Progress Note ---
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 The blood cultures 01/26 + VRE 1 of 4 bottles. 01/30 blood cultures neg. Repeat blood cultures are pending. The patient with FARZANA that revealed positive small mobile echodensity mass attached to pacemaker at the right atrium. PICC line placement and continuation of daptomycin 380 mg IV qday for 6 weeks from 01/30 until 03/19/17 Recent Bilateral pneumonia/multifocal: CT of the chest showed extensive alveolar and interstitial infiltrate right more than the left. Sputum cx + Corazon Influenza ag negative. HIV neg / CD4>500. Legionella and Strep pnuemoniae urine ag negative. Acute hypoxic respiratory failure. Continue supplemental oxygen. COPD. compensated. Cardiomyopathy. Patient is status post AICD placement CAD Previous brain hemorrhage status post craniotomy GERD. Disposition. Case management consultation to arrange for home IV antibiotics. History Interval history: No new issues overnight. Hospitalist Physical - Constitutional Vitals: Temp Pulse Resp BP Pulse Ox 98.7 F 86 16 99/71 100 02/20/17 08:36 02/20/17 08:36 02/20/17 08:36 02/20/17 08:36 02/20/17 08:39 General appearance: Present: no acute distress - EENT Eyes: Present: PERRL, EOM intact ENT: hearing intact, clear oral mucosa, dentition normal - Neck Neck: Present: supple, normal ROM - Respiratory Respiratory effort: normal Respiratory: bilateral: CTA - Cardiovascular Rhythm: regular Heart Sounds: Present: S1 & S2. Absent: gallop, rub - Extremities Extremities: no ischemia, No edema, Full ROM - Abdominal General gastrointestinal: soft, non-tender, non-distended, normal bowel sounds - Integumentary Integumentary: Present: clear, warm, dry - Neurologic Neurologic: CNII-XII intact, moves all extremities Results - Labs CBC & Chem 7: 02/19/17 08:09 02/19/17 08:21 Labs: Laboratory Last Values WBC 10.8 K/mm3 (4.5-11.0) 02/19/17 08:09 RBC 5.65 M/mm3 (3.65-5.03) H 02/19/17 08:09 Hgb 11.5 gm/dl (11.8-15.2) L 02/19/17 08:09 Hct 38.9 % (35.5-45.6) 02/19/17 08:09 MCV 69 fl (84-94) L 02/19/17 08:09 MCH 20 pg (28-32) L 02/19/17 08:09 MCHC 30 % (32-34) L 02/19/17 08:09 RDW 20.0 % (13.2-15.2) H 02/19/17 08:09 Plt Count 393 K/mm3 (140-440) 02/19/17 08:09 Eos % (Auto) Fence Maker 02/19/17 08:09 Add Manual Diff Complete 02/19/17 08:09 Total Counted 100 02/19/17 08:09 Seg Neuts % (Manual) 58.0 % (40.0-70.0) 02/19/17 08:09 Band Neutrophils % 1.0 % 02/19/17 08:09 Lymphocytes % (Manual) 12.0 % (13.4-35.0) L 02/19/17 08:09 Reactive Lymphs % (Man) 0 % 02/19/17 08:09 Monocytes % (Manual) 7.0 % (0.0-7.3) 02/19/17 08:09 Eosinophils % (Manual) 21.0 % (0.0-4.3) H 02/19/17 08:09 Basophils % (Manual) 0 % (0.0-1.8) 02/19/17 08:09 Metamyelocytes % 1.0 % 02/19/17 08:09 Myelocytes % 0 % 02/19/17 08:09 Promyelocytes % 0 % 02/19/17 08:09 Blast Cells % 0 % 02/19/17 08:09 Nucleated RBC % Not Reportable 02/19/17 08:09 Seg Neutrophils # Man 6.3 K/mm3 (1.8-7.7) 02/19/17 08:09 Band Neutrophils # 0.1 K/mm3 02/19/17 08:09 Lymphocytes # (Manual) 1.3 K/mm3 (1.2-5.4) 02/19/17 08:09 Abs React Lymphs (Man) 0.0 K/mm3 02/19/17 08:09 Monocytes # (Manual) 0.8 K/mm3 (0.0-0.8) 02/19/17 08:09 Eosinophils # (Manual) 2.3 K/mm3 (0.0-0.4) H 02/19/17 08:09 Basophils # (Manual) 0.0 K/mm3 (0.0-0.1) 02/19/17 08:09 Metamyelocytes # 0.1 K/mm3 02/19/17 08:09 Myelocytes # 0.0 K/mm3 02/19/17 08:09 Promyelocytes # 0.0 K/mm3 02/19/17 08:09 Blast Cells # 0.0 K/mm3 02/19/17 08:09 WBC Morphology Not Reportable 02/19/17 08:09 Hypersegmented Neuts Not Reportable 02/19/17 08:09 Hyposegmented Neuts Not Reportable 02/19/17 08:09 Hypogranular Neuts Not Reportable 02/19/17 08:09 Smudge Cells Not Reportable 02/19/17 08:09 Toxic Granulation Not Reportable 02/19/17 08:09 Toxic Vacuolation Not Reportable 02/19/17 08:09 Dohle Bodies Not Reportable 02/19/17 08:09 Pelger-Huet Anomaly Not Reportable 02/19/17 08:09 Ana Luisa Rods Not Reportable 02/19/17 08:09 Platelet Estimate Appears normal 02/19/17 08:09 Clumped Platelets Not Reportable 02/19/17 08:09 Plt Clumps, EDTA Not Reportable 02/19/17 08:09 Large Platelets Not Reportable 02/19/17 08:09 Giant Platelets Not Reportable 02/19/17 08:09 Platelet Satelliting Not Reportable 02/19/17 08:09 Plt Morphology Comment Not Reportable 02/19/17 08:09 RBC Morphology Not Reportable 02/19/17 08:09 Dimorphic RBCs Not Reportable 02/19/17 08:09 Polychromasia Not Reportable 02/19/17 08:09 Hypochromasia Not Reportable 02/19/17 08:09 Poikilocytosis 2+ 02/19/17 08:09 Anisocytosis 1+ 02/19/17 08:09 Microcytosis 1+ 02/19/17 08:09 Macrocytosis Not Reportable 02/19/17 08:09 Spherocytes Not Reportable 02/19/17 08:09 Pappenheimer Bodies Not Reportable 02/19/17 08:09 Sickle Cells Not Reportable 02/19/17 08:09 Target Cells Not Reportable 02/19/17 08:09 Tear Drop Cells Not Reportable 02/19/17 08:09 Ovalocytes 1+ 02/19/17 08:09 Helmet Cells Not Reportable 02/19/17 08:09 [place]-Concho Bodies Not Reportable 02/19/17 08:09 [place] Rings Not Reportable 02/19/17 08:09 [place] Cells Not Reportable 02/19/17 08:09 Bite Cells Not Reportable 02/19/17 08:09 Crenated Cell Not Reportable 02/19/17 08:09 Elliptocytes 1+ 02/19/17 08:09 Acanthocytes (Spur) 2+ 02/19/17 08:09 Rouleaux Not Reportable 02/19/17 08:09 Hemoglobin C Crystals Not Reportable 02/19/17 08:09 Schistocytes 1+ 02/19/17 08:09 Malaria parasites Not Reportable 02/19/17 08:09 Nestor Bodies Not Reportable 02/19/17 08:09 Hem Pathologist Commnt No 02/19/17 08:09 PT 14.5 Sec. (12.2-14.9) 02/19/17 09:20 INR 1.07 (0.87-1.13) 02/19/17 09:20 APTT 31.3 Sec. (24.2-36.6) 02/19/17 09:20 Sodium 137 mmol/L (137-145) 02/19/17 08:21 Potassium 4.4 mmol/L (3.6-5.0) 02/19/17 08:21 Chloride 99.4 mmol/L (98-107) 02/19/17 08:21 Carbon Dioxide 20 mmol/L (22-30) L 02/19/17 08:21 Anion Gap 22 mmol/L 02/19/17 08:21 BUN 25 mg/dL (9-20) H 02/19/17 08:21 Creatinine 1.2 mg/dL (0.8-1.5) 02/19/17 08:21 Estimated GFR > 60 ml/min 02/19/17 08:21 BUN/Creatinine Ratio 21 % 02/19/17 08:21 Glucose 210 mg/dL (75-100) H 02/19/17 08:21 POC Glucose 222 (70-105) H 02/19/17 08:28 Lactic Acid 3.70 mmol/L (0.7-2.0) H* 02/19/17 09:20 Calcium 9.3 mg/dL (8.4-10.2) 02/19/17 08:21 Magnesium 1.90 mg/dL (1.7-2.3) 02/19/17 08:09 Total Bilirubin 0.30 mg/dL (0.1-1.2) 02/19/17 08:21 Direct Bilirubin < 0.2 mg/dL (0-0.2) 02/19/17 08:21 AST 14 units/L (5-40) 02/19/17 08:21 ALT 11 units/L (7-56) 02/19/17 08:21 Alkaline Phosphatase 71 units/L (35-129) 02/19/17 08:21 Troponin T 0.022 ng/mL (0.00-0.029) 02/19/17 09:20 NT-Pro-B Natriuret Pep 1362 pg/mL (0-900) H 02/19/17 09:20 Total Protein 6.8 g/dL (6.3-8.2) 02/19/17 08:21 Albumin 4.3 g/dL (3.9-5) 02/19/17 08:21 Albumin/Globulin Ratio 1.7 % 02/19/17 08:21 Lipase 34 units/L (13-60) 02/19/17 09:20 Urine Color Straw (Yellow) 02/19/17 08:11 Urine Turbidity Clear (Clear) 02/19/17 08:11 Urine pH 6.0 (5.0-7.0) 02/19/17 08:11 Ur Specific [place] 1.006 (1.003-1.030) 02/19/17 08:11 Urine Protein 30 mg/dl mg/dL (Negative) 02/19/17 08:11 Urine Glucose (UA) Neg mg/dL (Negative) 02/19/17 08:11 Urine Ketones Neg mg/dL (Negative) 02/19/17 08:11 Urine Blood Sm (Negative) 02/19/17 08:11 Urine Nitrite Neg (Negative) 02/19/17 08:11 Urine Bilirubin Neg (Negative) 02/19/17 08:11 Urine Urobilinogen < 2.0 mg/dL (<2.0) 02/19/17 08:11 Ur Leukocyte Esterase Neg (Negative) 02/19/17 08:11 Urine WBC (Auto) 1.0 /HPF (0.0-6.0) 02/19/17 08:11 Urine RBC (Auto) 3.0 /HPF (0.0-6.0) 02/19/17 08:11 Urine Bacteria (Auto) 1+ /HPF (Negative) 02/19/17 08:11 Hyaline Casts 1 /LPF 02/19/17 08:11 Urine Mucus Few /HPF 02/19/17 08:11 Urine Opiates Screen Presumptive negative 02/19/17 08:11 Urine Methadone Screen Presumptive negative 02/19/17 08:11 Ur Barbiturates Screen Presumptive negative 02/19/17 08:11 Ur Phencyclidine Scrn Presumptive negative 02/19/17 08:11 Ur Amphetamines Screen Presumptive negative 02/19/17 08:11 U Benzodiazepines Scrn Presumptive negative 02/19/17 08:11 Urine Cocaine Screen Presumptive negative 02/19/17 08:11 U Marijuana (THC) Screen Presumptive positive 02/19/17 08:11 Drugs of Abuse Note Disclamer 02/19/17 08:11 Plasma/Serum Alcohol < 0.01 gm% (0-0.07) 02/19/17 08:09 Blood Type A POSITIVE 02/19/17 09:20 Antibody Screen Negative 02/19/17 09:20
--- NOTE | 2017-02-20 16:46 | XRay Report ---
FINAL REPORT PROCEDURE: XR CHEST 1V AP TECHNIQUE: Chest radiograph anteroposterior view. CPT 95793 HISTORY: Right upper arm PICC line. COMPARISON: Chest radiograph dated 01/26/2017. FINDINGS: Heart: Normal. ICD removed. Heart size top-normal. Mediastinum/Vessels: Mild aortic tortuosity. Lungs/Pleural space: Normal. Bony thorax: Mild degenerative changes of the glenohumeral joints. Life support devices: PICC line tip in the SVC. IMPRESSION: PICC line tip in the SVC. Mild cardiomegaly. No radiographic evidence of acute cardiopulmonary disease. ICD removal. Please note confirmed with [facility] this is the same patient.
[2017-02-20] MEDS ORDERED: DUONEB *Not for PRN Use IH SCH (20:00)
[2017-02-20] MEDS: DUONEB *Not for PRN Use IH SCH (20:19)
[2017-02-20] MEDS: TYLENOL PO PRN (22:00)
[2017-02-20] MEDS: PERCOCET 5/325 PO PRN (23:51)
[2017-02-21] MEDS: DUONEB *Not for PRN Use IH SCH ×3 (02:35→14:31)
[2017-02-21 05:57] VITALS: BP 124/79
[2017-02-21 07:46] LABS: Mean Corpuscular HGB Conc 30 % (32-34); Platelet Count 317 K/mm3 (140-440); Red Blood Count 4.99 M/mm3 (3.65-5.03); Red Cell Distribution Width 19.6 % (13.2-15.2); White Blood Count 15.4 K/mm3 (4.5-11.0)
[2017-02-21 07:50] LABS: Hematocrit 34.1 % (35.5-45.6); Mean Corpuscular Hemoglobin 20 pg (28-32); Mean Corpuscular Volume 68 fl (84-94)
[2017-02-21 08:01] LABS: Anion Gap 18 mmol/L; BUN/Creatinine Ratio 18; Blood Urea Nitrogen 14 mg/dL (9-20); Calcium 8.9 mg/dL (8.4-10.2); Carbon Dioxide 20 mmol/L (22-30); Chloride 105.1 mmol/L (98-107); Glucose 88 mg/dL (75-100); Potassium 3.8 mmol/L (3.6-5.0); Sodium 139 mmol/L (137-145)
[2017-02-21 09:52] LABS: Basophils % (Manual) 0 % (0.0-1.8); Blastocytes % (Manual) 0 %
[2017-02-21 09:53] LABS: Anisocytosis 1+; Microcytosis 1+; Poikilocytosis 1+
[2017-02-21 09:54] LABS: Elliptocytes 1+
[2017-02-21 10:00] LABS: Acanthocytes 1+; Schistocytes 1+
[2017-02-21 10:01] LABS: Diff Status Complete
--- NOTE | 2017-02-21 11:07 | Progress Note ---
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 01/30 blood cultures neg. -FARZANA positive small mobile echodensity mass attached to pacemaker at the right atrium -S/P AICD removal 2) Recent Bilateral pneumonia/multifocal: CT of the chest showed extensive alveolar and interstitial infiltrate right more than the left. Sputum cx + Corazon Influenza ag negative. HIV neg / CD4>500. Legionella and Strep pnuemoniae urine ag negative. 3) Recent respiratory failure 4) COPD 5) CMP status post AICD placement 6) CAD 7) Previous brain hemorrhage status post craniotomy 8) Dysphagia / GERD / Hiatal hernia 9) Weight loss 10) Non compliance with medical treatment 11) Marihuana abuse Plan: -continue daptomycin 380 mg IV qday for 6 weeks from 01/30 until 03/19/17. He missed a full one week -check blood culture a-week and 3-weeks after daptomycin course is completed -needs ID clinic f/u in 1-2 weeks -check weekly CBC, CMP, CK, CRP I am signing off Thank you Dr Garibay for your consultation, will follow up with you. Desirae Alegria MD Infectious Diseases Specialist [facility] ([facility] M [phone] O [phone] Subjective Date of service: 02/21/17 Principal diagnosis: VRE endocarditis Interval history: Feels better, still c/o lower back pain and some cough Microbiology: Blood cultures: 02/19 neg 01/26 VRE 1 of 4 bottles 01/30 neg Urine cultures: Respiratory cultures: Current Antimicrobials: Dapto 02/19 initially 01/30 Objective - Exam Narrative Exam: General appearance: Alert in NAD, conversant Eyes: anicteric sclerae, moist conjunctivae; no lid-lag; PERRLA HENT: Atraumatic; oropharynx clear Neck: Trachea midline; supple, no thyromegaly or lymphadenopathy Lungs: bibasilar rhonchi CV: RRR Abdomen: Soft, non-tender; no masses or hepatosplenomegaly Extremities: No peripheral edema or extremity lymphadenopathy Skin: Normal temperature, turgor and texture; no rash, ulcers or subcutaneous nodules Psych: Appropriate affect, alert and oriented to person, place and time. Neuro: alert and oriented x 3. Moving all extermities Lines: - Constitutional Vitals: Vital Signs Temp Pulse Resp BP Pulse Ox 97.6 F 99 H 20 124/79 99 02/21/17 05:14 02/21/17 07:44 02/21/17 07:44 02/21/17 05:14 02/21/17 07:27 Temperature -Last 24 Hours Temperature 97.6 F Temperature 98.5 F Temperature 99.3 F Temperature 98.0 F Temperature 97.7 F - Labs CBC & Chem 7: 02/21/17 06:23 02/21/17 06:23 Labs: Abnormal lab results 02/21/17 02/21/17 Range/Units 06:23 06:23 WBC 15.4 H (4.5-11.0) K/mm3 Hgb 10.0 L (11.8-15.2) gm/dl Hct 34.1 L (35.5-45.6) % MCV 68 L (84-94) fl MCH 20 L (28-32) pg MCHC 30 L (32-34) % RDW 19.6 H (13.2-15.2) % Lymphocytes % (Manual) 9.0 L (13.4-35.0) % Monocytes % (Manual) 9.0 H (0.0-7.3) % Eosinophils % (Manual) 20.0 H (0.0-4.3) % Seg Neutrophils # Man 9.2 H (1.8-7.7) K/mm3 Monocytes # (Manual) 1.4 H (0.0-0.8) K/mm3 Eosinophils # (Manual) 3.1 H (0.0-0.4) K/mm3 Carbon Dioxide 20 L (22-30) mmol/L
--- NOTE | 2017-02-21 11:44 | Discharge Summary ---
Providers - Providers Date of Admission: 02/19/17 12:18 Date of discharge: 02/21/17 Attending physician: SID CALDERON 02/19/17 11:14 Consult to Physician [CONS] Urgent Consulting Provider: DESIRAE VUONG Reason For Exam: VRE infection Notified:: yes 02/20/17 11:28 Consult to PICC Line RN [CONS] Routine Reason For Exam: IV abx for 6 weeks Type Line:: PICC 02/20/17 11:29 Consult to Case Management [CONS] Stat Services Needed at Discharge: Other Notified:: fraud prevention analyst Additional Physician Instructions: [facility] ([facility] Desirae Lucas MD M [phone] O [phone] OUTPATIENT PARENTERAL ANTIBIOTIC THERAPY ORDERS Diagnoses: VRE endocarditis Antimicrobial administration:daptomycin 380 mg IV qday for 6 weeks from 01/30 until 03/19/17. He missed a full one week Lines: PICC Lab monitoring: CBC, CMP, CRP, CK once a week preferly on Sunday morning. Please fax results to [phone] and call [phone] for critical lab results. Desirae Lucas Date: 02/20/17 Primary care physician: DARRYL COLEMAN Hospitalization Condition: Stable Hospital course: 56 years old male with history of cardiomyopathy status post AICD placement, CAD , COPD, hypertension, previous brain hemorrhage status post craniotomy; initially admitted on 12/29/2016 - 01/04/17 due to one-week history of worsening shortness of breath, cough with yellowish sputum production and weakness. Initial white count 17.6. Lactate acid 4.8. His BP dropped and he was placed on levophed. Chest x-ray showed bilateral pulmonary infiltrates. CT of the chest showed extensive alveolar and interstitial infiltrate right more than the left. Pt was intubated on the vent sent to ICU, found to be on severe sepsis with septic shock from bilateral pneumonia felt to be aspiration. Sputum positive for Corazon. Strep pneumoniae urine antigen was negative. Legionella urine antigen negative. HIV negative. Treated with zosyn and levaquin for 10 days. Patient sent home. Unfortunately, readmitted 01/26/17 - 02/10/17 due to 3 weeks history (since previous discharge) of progressive SOB, dry cough and paroximal nocturnal dyspnea. WBC 18K. Lactic acid 2.4. UA negative. CXR was negative. Blood cultures grew VRE. 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 FARZANA positive small mobile echodensity mass attached to pacemaker at the right atrium. Patient was started on daptomycin 380 mg IV qday for 6 weeks from 01/30 until 03/12/17. Plan was that If VRE recurs then requires complete device and leads removal and IV antibiotics followed by later reimplatation of the new system through an infected route. Unfortunately, by 02/13 his PICC line became wet and fell out. Patient was advised multiple times to come back to the ED for a new PICC and re- start IV daptomycin infusion but he refused. However, patient became into respiratory distress, ENT was called. Apparently he choked on a piece of sausage. Paramedics gave patient morphine and Lasix. He was placed on a CPAP device. On arrival the CPAP device was removed. In the ED, temp 98.1, HR 89, BP 81/56. WBC 10.8. Eosinophils 21%. Lactate 3.7. UA neg., CXR neg.. Patient was reevaluated by ID and consultation who recommended replacement of PICC line , which was completed. ID also recommended continuing daptomycin 380 mg IV qday for 6 weeks from 01/30 until 03/19/17. Also, check blood culture one week and 3-weeks after daptomycin course is completed. Pt. needs ID clinic f/u in 1- 2 weeks. Dedicated discharge time 32 minutes Disposition: [id number]-01 TO HOME OR SELFCARE Time spent for discharge: 32 - Discharge Diagnoses (1) Endocarditis Status: Acute Core Measure Documentation - Palliative Care Palliative Care/ Comfort Measures: Not Applicable - Core Measures Any of the following diagnoses?: none Exam - Constitutional Vitals: Temp Pulse Resp BP Pulse Ox 97.6 F 99 H 20 124/79 99 02/21/17 05:14 02/21/17 07:44 02/21/17 07:44 02/21/17 05:14 02/21/17 07:27 General appearance: Present: no acute distress, well-nourished - EENT Eyes: Present: PERRL ENT: hearing intact, clear oral mucosa - Neck Neck: Present: supple, normal ROM - Respiratory Respiratory effort: normal Respiratory: bilateral: CTA - Cardiovascular Heart Sounds: Present: S1 & S2. Absent: rub, click - Extremities Extremities: pulses symmetrical, No edema Peripheral Pulses: within normal limits - Abdominal General gastrointestinal: Present: soft, non-tender, non-distended, normal bowel sounds Male genitourinary: Present: normal - Integumentary Integumentary: Present: clear, warm, dry - Musculoskeletal Musculoskeletal: gait normal, strength equal bilaterally - Psychiatric Psychiatric: appropriate mood/affect, intact judgment & insight - Neurologic Neurologic: CNII-XII intact, moves all extremities Plan Activity: advance as tolerated Weight Bearing Status: Full Weight Bearing Diet: regular Special Instructions: home health RN Follow up with: PRIMARY CARE, [Referring] - 3-5 Days DESIRAE VUONG MD [Staff Physician] - 7 Days Prescriptions: DAPTOmycin [Cubicin] 450 mg IV Q24H 26 Days #26 vial oxyCODONE /ACETAMINOPHEN [Percocet 5/325 mg] 1 tab PO Q6H PRN #40 tablet PRN Reason: Pain, Moderate (4-6)
[2017-02-21] MEDS: PERCOCET 5/325 PO PRN (12:14)
[2017-02-21] MEDS: CUBICIN IV SCH (12:15)
[2017-02-21] MEDS: NACL 0.9% IV SCH (12:15)
== END 2017-02-21 17:33 | disposition home health service (06) | DRG 291 ==
LOC: ED 07:45 → 4A 12:18 → UNDODISIN 02-21 12:00
PROVIDERS: ADMIT Internal Medicine; ATTEND Hospitalist
PROC: 3E0234Z Introduction of Serum, Toxoid and Vaccine into Muscle, Percutaneous Approach (ICD-10-PCS; principal; 2017-02-20)
PROC: 02HV33Z Insertion of Infusion Device into Superior Vena Cava, Percutaneous Approach (ICD-10-PCS; 2017-02-20)
DX: I11.0 Hypertensive heart disease with heart failure (principal); J96.01 Acute respiratory failure with hypoxia; J18.9 Pneumonia, unspecified organism; I38 Endocarditis, valve unspecified; E87.2 Acidosis; J44.0 Chronic obstructive pulmonary disease with (acute) lower respiratory infection; I50.23 Acute on chronic systolic (congestive) heart failure; I95.9 Hypotension, unspecified; R73.9 Hyperglycemia, unspecified; I25.10 Atherosclerotic heart disease of native coronary artery without angina pectoris; K44.9 Diaphragmatic hernia without obstruction or gangrene; F12.10 Cannabis abuse, uncomplicated; R63.4 Abnormal weight loss; I42.9 Cardiomyopathy, unspecified; G40.909 Epilepsy, unspecified, not intractable, without status epilepticus; K21.9 Gastro-esophageal reflux disease without esophagitis; Z23 Encounter for immunization; Z86.73 Personal history of transient ischemic attack (TIA), and cerebral infarction without residual deficits; I25.2 Old myocardial infarction; Z95.0 Presence of cardiac pacemaker; Z87.891 Personal history of nicotine dependence; Z79.02 Long term (current) use of antithrombotics/antiplatelets; Z79.899 Other long term (current) drug therapy; Z91.19 Patient's noncompliance with other medical treatment and regimen; Z68.21 Body mass index [BMI] 21.0-21.9, adult
CPT/HCPCS: 36415; 71010; 80048; 80074; 80307; 80320; 81001; 82140; 82962; 83690; 83735; 83880; 84484; 85007; 85025; 85610; 85730; 86850; 86900; 86901; 87040; 87086; 90471; 90686; 90732; 93005; 93010; 94640; 94760; 96361; 96374; G0008; G0009; G0480; J0878; J2310; J7030; J7040

== ENCOUNTER 2017-07-06 15:22 | Emergency (ER) | payer MEDICARE ==
--- NOTE | 2017-07-06 15:30 | Emergency Department Report ---
ED Syncope HPI - General Chief Complaint: Syncope Stated Complaint: AMS Time Seen by Provider: 07/06/17 15:29 Source: EMS Exam Limitations: intoxication - History of Present Illness Initial Comments: Patient was found down on the streets by EMS. He admitted to drinking a lot of fluids today. Patient was given some IV fluids by EMS. On arrival to the ED was alert and oriented. He said that he's been drinking alcohol today. Precipitating Factors: Positive: none Loss of Consciousness: no loss of consciousness Current Symptoms: back to normal - Related Data Allergies/Adverse Reactions: Allergies No Known Allergies Allergy (Verified 02/25/17 14:18) Home Medications: Ambulatory Orders ALBUTEROL NEB's [Proventil 0.083% NEBS] 2.5 mg IH Q3HRT PRN #100 nebu 01/30/17 Furosemide [Lasix TAB] 40 mg PO QDAY #30 tablet 01/30/17 Ipratropium [Atrovent NEB] 0.5 mg IH Q4HR #100 ml 01/30/17 Sacubitril/Valsartan [Entresto 24 mg-26 mg Tablet] 1 each PO BID #60 01/30/17 DAPTOmycin [Cubicin] 450 mg IV Q24H 26 Days #26 vial 02/21/17 Acetaminophen [Acetaminophen TAB] 325 mg PO Q4H PRN #30 tablet 03/07/17 Arformoterol Nebu [Brovana Nebu] 15 mcg IH Q12HRT #30 day 03/07/17 Citalopram [celeXA] 10 mg PO QDAY #30 tablet 03/07/17 Clopidogrel [Plavix] 75 mg PO QDAY #30 tablet 03/07/17 DAPTOmycin [Cubicin] 450 mg IV Q24H #6 vial 03/07/17 Famotidine [Pepcid] 10 mg PO BID #60 tablet 03/07/17 HYDROcodone/APAP 5-325 [[place] 5-325 mg TAB] 1 each PO Q4H PRN #20 tablet Ipratropium/Albuterol Sulfate [DUONEB *Not for PRN Use*] 1 ampul IH TID #30 day 03/07/17 Metoprolol [Lopressor TAB] 12.5 mg PO BID #60 tablet 03/07/17 levETIRAcetam [Keppra TAB] 500 mg PO BID #60 tablet 03/07/17 predniSONE [Deltasone] 20 mg PO QDAY #30 tablet 03/07/17 ED Review of Systems ROS: Stated complaint: AMS Other details as noted in HPI Comment: All other systems reviewed and negative Constitutional: malaise. denies: chills, diaphoresis, fever Eyes: denies: vision change ENT: denies: ear pain Respiratory: denies: cough, shortness of breath Cardiovascular: syncope. denies: chest pain, palpitations, edema Endocrine: no symptoms reported Gastrointestinal: denies: abdominal pain, nausea, vomiting, diarrhea Genitourinary: denies: urgency, dysuria, frequency Musculoskeletal: denies: back pain, joint swelling Skin: denies: lesions, change in color Neurological: weakness. denies: headache, numbness, paresthesias Psychiatric: denies: suicidal thoughts Hematological/Lymphatic: denies: easy bleeding, easy bruising ED Past Medical Hx - Past Medical History Hx Hypertension: Yes Hx CVA: Yes Hx Heart Attack/AMI: Yes Hx Congestive Heart Failure: Yes Hx Diabetes: No Hx Deep Vein Thrombosis: No Hx Seizures: Yes Hx Asthma: Yes Hx COPD: Yes Hx HIV: No - Surgical History Hx Pacemaker: Yes Hx Internal Defibrillator: No Additional Surgical History: brain surgery. - Social History Smoking Status: Never Smoker - Medications Home Medications: Home Medications Medication Instructions Recorded Confirmed Last Taken Type ALBUTEROL NEB's [Proventil 0.083% 2.5 mg IH Q3HRT PRN #100 nebu 01/30/17 1 Day Ago Rx NEBS] ~02/25/17 2.5 mg q3h Furosemide [Lasix TAB] 40 mg PO QDAY #30 tablet 01/30/17 02/26/17 1 Day Ago Rx ~02/25/17 40 mg Ipratropium [Atrovent NEB] 0.5 mg IH Q4HR #100 ml 01/30/17 02/26/17 1 Day Ago Rx ~02/25/17 0.5 mg IH Sacubitril/Valsartan [Entresto 24 1 each PO BID #60 01/30/17 02/26/17 1 Day Ago Rx mg-26 mg Tablet] ~02/25/17 1 po bid DAPTOmycin [Cubicin] 450 mg IV Q24H 26 Days #26 vial 02/21/17 02/26/17 1 Day Ago Rx ~02/25/17 450 mg IV Acetaminophen [Acetaminophen TAB] 325 mg PO Q4H PRN #30 tablet 03/07/17 Unknown Rx Arformoterol Nebu [Brovana Nebu] 15 mcg IH Q12HRT #30 day 03/07/17 Unknown Rx Citalopram [celeXA] 10 mg PO QDAY #30 tablet 03/07/17 Unknown Rx Clopidogrel [Plavix] 75 mg PO QDAY #30 tablet 03/07/17 Unknown Rx DAPTOmycin [Cubicin] 450 mg IV Q24H #6 vial 03/07/17 Unknown Rx Famotidine [Pepcid] 10 mg PO BID #60 tablet 03/07/17 Unknown Rx HYDROcodone/APAP 5-325 [[place] 1 each PO Q4H PRN #20 tablet 03/07/17 Unknown Rx 5-325 mg TAB] Ipratropium/Albuterol Sulfate 1 ampul IH TID #30 day 03/07/17 Unknown Rx [DUONEB *Not for PRN Use*] Metoprolol [Lopressor TAB] 12.5 mg PO BID #60 tablet 03/07/17 Unknown Rx levETIRAcetam [Keppra TAB] 500 mg PO BID #60 tablet 03/07/17 Unknown Rx predniSONE [Deltasone] 20 mg PO QDAY #30 tablet 03/07/17 Unknown Rx ED Physical Exam - General Limitations: Altered Mental Status General appearance: alert, appears intoxicated, lethargic - Head Head exam: Present: atraumatic, normocephalic, normal inspection - Eye Eye exam: Present: normal appearance, PERRL, EOMI Pupils: Present: normal accommodation - ENT ENT exam: Present: normal exam, normal orophraynx, mucous membranes moist - Neck Neck exam: Present: normal inspection, full ROM - Respiratory Respiratory exam: Present: normal lung sounds bilaterally. Absent: respiratory distress, wheezes, rales, rhonchi - Cardiovascular Cardiovascular Exam: Present: regular rate, normal rhythm, normal heart sounds - GI/Abdominal GI/Abdominal exam: Present: soft, normal bowel sounds. Absent: distended, tenderness, guarding, rebound, rigid - Extremities Exam Extremities exam: Present: normal inspection, full ROM, normal capillary refill - Back Exam Back exam: Present: normal inspection, full ROM - Neurological Exam Neurological exam: Present: alert, oriented X3, CN II-XII intact - Psychiatric Psychiatric exam: Present: normal affect, depressed - Skin Skin exam: Present: warm, dry, intact, normal color ED Course Vital Signs 07/06/17 07/06/17 07/06/17 15:23 15:30 15:31 Temperature 98.2 F Pulse Rate 88 83 81 Respiratory 15 21 Rate Blood Pressure 73/48 73/48 Blood Pressure [Right] O2 Sat by Pulse 91 91 Oximetry 07/06/17 07/06/17 07/06/17 15:46 16:00 16:16 Temperature Pulse Rate 81 77 79 Respiratory 15 15 16 Rate Blood Pressure 73/44 72/42 72/42 Blood Pressure [Right] O2 Sat by Pulse 96 97 96 Oximetry 07/06/17 07/06/17 07/06/17 16:30 16:46 17:00 Temperature 98.7 F Pulse Rate 80 81 84 Respiratory 16 16 12 Rate Blood Pressure 85/41 85/41 93/63 Blood Pressure 85/41 [Right] O2 Sat by Pulse 100 100 100 Oximetry 07/06/17 07/06/17 07/06/17 17:20 17:30 17:46 Temperature Pulse Rate Respiratory Rate Blood Pressure 93/63 95/65 95/65 Blood Pressure [Right] O2 Sat by Pulse 97 86 98 Oximetry 07/06/17 07/06/17 07/06/17 18:00 18:16 18:30 Temperature Pulse Rate 85 81 Respiratory 13 14 14 Rate Blood Pressure 80/62 93/63 90/64 Blood Pressure [Right] O2 Sat by Pulse 93 100 Oximetry 07/06/17 07/06/17 18:46 19:00 Temperature Pulse Rate Respiratory 13 15 Rate Blood Pressure 90/64 90/62 Blood Pressure [Right] O2 Sat by Pulse Oximetry - Reevaluation(s) Reevaluation #1: 07/06/17 20:10 Patient woke up in the ED left without notifying anyone. ED Medical Decision Making - Lab Data Result diagrams: 07/06/17 16:12 07/06/17 16:12 - Radiology Data Radiology results: report reviewed, image reviewed - Medical Decision Making Alcohol Intoxication. Critical care attestation.: If time is entered above; I have spent that time in minutes in the direct care of this critically ill patient, excluding procedure time. ED Disposition Clinical Impression: Alcohol intoxication Qualifiers: Complication of substance-induced condition: with unspecified complication Qualified Code(s): F10.929 - Alcohol use, unspecified with intoxication, unspecified Disposition: Z-07 ELOPED Is pt being admited?: No Does the pt Need Aspirin: No Condition: Stable Referrals: PRIMARY CARE, [Primary Care Provider] - 3-5 Days
[2017-07-06] MEDS ORDERED: NACL 0.9% 1000 ML 1,000 ML ONE (15:37)
[2017-07-06] MEDS ORDERED: NACL 0.9% 1000 ML 1,000 ML IV ONE (15:43)
[2017-07-06] MEDS ORDERED: VITAMIN B-1 100 MG, FOLVITE 1 MG, INFUVITE 10 ML in NACL 0.9% 1000 ML 1,000 ML IV ONE (16:00)
[2017-07-06 16:39] LABS: Basophils # (Auto) 0.1 K/mm3 (0.0-0.1); Basophils % (Auto) 1.1 % (0.0-1.8); Eosinophils # (Auto) 0.2 K/mm3 (0.0-0.4); Eosinophils % (Auto) 1.8 % (0.0-4.3); Lymphocytes # (Auto) 1.4 K/mm3 (1.2-5.4); Lymphocytes % (Auto) 15.5 % (13.4-35.0); Mean Corpuscular HGB Conc 30 % (32-34); Monocytes # (Auto) 0.9 K/mm3 (0.0-0.8); Monocytes % (Auto) 10.1 % (0.0-7.3); Platelet Count 366 K/mm3 (140-440); Red Blood Count 4.82 M/mm3 (3.65-5.03); Red Cell Distribution Width 19.3 % (13.2-15.2)
--- NOTE | 2017-07-06 16:48 | XRay Report ---
FINAL REPORT EXAM: XR CHEST 1V AP HISTORY: Alcohol Intoxication COMPARISON: Chest radiograph performed on 02/28/2017 TECHNIQUE: Single frontal view of the chest FINDINGS: The cardiomediastinal silhouette is normal in appearance. The lungs are clear without focal consolidation. There is no pleural effusion or pneumothorax. There is no acute soft tissue or osseous abnormality. IMPRESSION: No acute cardiopulmonary disease.
[2017-07-06 16:52] LABS: INR 1.14 (0.87-1.13)
[2017-07-06 16:54] LABS: Hemoglobin 9.9 gm/dl (11.8-15.2); Mean Corpuscular Hemoglobin 21 pg (28-32); Mean Corpuscular Volume 69 fl (84-94); Partial Thromboplastin Time 32.6 Sec. (24.2-36.6)
[2017-07-06 17:07] LABS: Alanine Aminotransferase 8 units/L (7-56); Albumin 3.2 g/dL (3.9-5); BUN/Creatinine Ratio 22; Blood Urea Nitrogen 26 mg/dL (9-20); Calcium 8.2 mg/dL (8.4-10.2); Hemolysis Index 54; Lipase 34 units/L (13-60)
[2017-07-06 19:19] VITALS: BP 90/62
--- NOTE | 2017-07-06 19:26 | Cat Scan Report ---
FINAL REPORT EXAM: CT HEAD/BRAIN WO CON HISTORY: Alcohol Intoxication TECHNIQUE: Standard unenhanced CT of the head at 5.0 millimeter axial increments. PRIORS: CT head 01/15/2017 FINDINGS: The ventricular system is normal in size and configuration. There is no evidence for parenchymal volume loss. Postsurgical low-density encephalomalacia in the right temporal parietal region is stable. There is no evidence for mass lesion, mass effect, midline shift, acute intracranial hemorrhage, or acute ischemia/ infarction. No evidence for acute skull fracture is seen. No abnormality in the overlying scalp soft tissues is seen. Visualized paranasal sinuses demonstrates mucosal thickening in the frontal and bilateral ethmoid sinuses. Remote postsurgical findings in the right temporal bone is again noted. IMPRESSION: Postsurgical changes in the right temporal parietal region again noted.. No acute intracranial process noted. No change.
[2017-07-06 19:45] LABS: Bilirubin,Urine NEG (Negative); Blood,Urine SM (Negative); Color,Urine Yellow (Yellow); Mucus,Urine FEW /HPF; Protein,Urine <15 mg/dL mg/dL (Negative); Urobilinogen,Urine < 2.0 mg/dL (<2.0); WBC,Urine < 1.0 /HPF (0.0-6.0)
[2017-07-06 19:53] LABS: Amphetamine Screen,Urine PRESUMPTIVE NEGATIVE; Benzodiazepines Screen,Urine PRESUMPTIVE NEGATIVE; Cocaine Screen,Urine PRESUMPTIVE NEGATIVE; Methadone Screen,Urine PRESUMPTIVE NEGATIVE; Opiate Screen,Urine PRESUMPTIVE NEGATIVE
[2017-07-06 20:07] LABS: Cannabinoid Screen,Urine PRESUMPTIVE POSITIVE
== END 2017-07-06 20:20 | disposition left against medical advice (07) ==
LOC: ED 15:22
DX: F10.129 Alcohol abuse with intoxication, unspecified (principal); I10 Essential (primary) hypertension; I25.2 Old myocardial infarction; J44.9 Chronic obstructive pulmonary disease, unspecified; R53.81 Other malaise; R41.82 Altered mental status, unspecified
CPT/HCPCS: 36415; 70450; 71045; 80053; 80307; 81001; 82550; 83690; 83735; 84484; 85025; 85610; 85730; 93005; 93010; 96361; 96365; 96366; 99285; G0480; J3411; J7030; 80320

== ENCOUNTER 2017-07-28 03:57 | Inpatient (IN) | payer MEDICARE ==
[2017-07-28] MEDS ORDERED: ASPIRIN PO ONE (04:16)
[2017-07-28] MEDS ORDERED: MORPHINE ONE ×2 (04:33→12:20)
[2017-07-28] MEDS ORDERED: ZOFRAN ONE (04:33)
[2017-07-28] MEDS ORDERED: MORPHINE IV ONE ×2 (04:46→07:50)
[2017-07-28] MEDS ORDERED: ZOFRAN IV ONE (04:46)
[2017-07-28 05:47] LABS: Basophils # (Auto) 0.1 K/mm3 (0.0-0.1); Basophils % (Auto) 0.7 % (0.0-1.8); Eosinophils % (Auto) 0.1 % (0.0-4.3); Lymphocytes # (Auto) 0.8 K/mm3 (1.2-5.4); Lymphocytes % (Auto) 6.8 % (13.4-35.0); Mean Corpuscular HGB Conc 30 % (32-34); Monocytes # (Auto) 1.8 K/mm3 (0.0-0.8); Monocytes % (Auto) 15.4 % (0.0-7.3); Platelet Count 274 K/mm3 (140-440); Red Blood Count 4.99 M/mm3 (3.65-5.03)
[2017-07-28 05:56] LABS: Hematocrit 33.6 % (35.5-45.6); Hemoglobin 10.1 gm/dl (11.8-15.2); Mean Corpuscular Hemoglobin 20 pg (28-32); Mean Corpuscular Volume 67 fl (84-94); Red Cell Distribution Width 20.5 % (13.2-15.2)
[2017-07-28 06:23] LABS: BUN/Creatinine Ratio 24; Blood Urea Nitrogen 26 mg/dL (9-20); Calcium 8.9 mg/dL (8.4-10.2); Hemolysis Index 0
--- NOTE | 2017-07-28 06:40 | Emergency Department Report ---
ED Chest Pain HPI - General Chief Complaint: Chest Pain Stated Complaint: GENERAL WEAKNESS Time Seen by Provider: 07/28/17 06:32 Source: patient, EMS Mode of arrival: Stretcher Limitations: Physical Limitation - History of Present Illness Initial Comments: Patient is 57 years old male with history of coronary artery disease, congestive heart failure, hypertension, CVA and COPD. Patient presented to the ER complaining of left-sided chest pain started this morning, sharp and sometimes tightness. Patient denied any shortness of breath, cough, nausea or vomiting or fever. Severity scale (0 -10): 10 - Related Data Previous Rx's Medication Instructions Recorded Last Taken Type ALBUTEROL NEB's [Proventil 0.083% 2.5 mg IH Q3HRT PRN #100 nebu 01/30/17 1 Day Ago Rx NEBS] ~02/25/17 2.5 mg q3h Ipratropium [Atrovent NEB] 0.5 mg IH Q4HR #100 ml 01/30/17 1 Day Ago Rx ~02/25/17 0.5 mg IH Ipratropium/Albuterol Sulfate 1 ampul IH TID #30 day 03/07/17 Unknown Rx [DUONEB *Not for PRN Use*] levETIRAcetam [Keppra TAB] 500 mg PO BID #60 tablet 03/07/17 07/27/17 Rx predniSONE [Deltasone] 20 mg PO QDAY #30 tablet 03/07/17 07/27/17 Rx Allergies Allergy/AdvReac Type Severity Reaction Status Date / Time No Known Allergies Allergy Verified 02/25/17 14:18 Heart Score - HEART Score History: Moderately suspicious EKG: Non-specific Age: 45-65 Risk factors: > 3 risk factors or hx of atherosclerotic disease Troponin: < normal limit HEART Score: 5 - Critical Actions Critical Actions: 4-6 pts:12-16.6% risk of adverse cardiac event. Should be admitted ED Review of Systems ROS: Stated complaint: GENERAL WEAKNESS Other details as noted in HPI Comment: All other systems reviewed and negative Constitutional: denies: chills, fever Respiratory: denies: cough, shortness of breath, SOB with exertion, SOB at rest Cardiovascular: chest pain. denies: palpitations, dyspnea on exertion Gastrointestinal: denies: abdominal pain, nausea, vomiting, diarrhea, constipation, hematemesis Neurological: denies: headache, weakness, numbness, paresthesias ED Past Medical Hx - Past Medical History Previous Medical History?: Yes Hx Hypertension: Yes Hx CVA: Yes Hx Heart Attack/AMI: Yes Hx Congestive Heart Failure: Yes Hx Diabetes: No Hx Deep Vein Thrombosis: No Hx Seizures: Yes Hx Asthma: Yes Hx COPD: Yes Hx HIV: No - Surgical History Past Surgical History?: Yes Hx Pacemaker: Yes Hx Internal Defibrillator: No Additional Surgical History: brain surgery. PM placed and removed - Social History Smoking Status: Former Smoker Substance Use Type: None - Medications Home Medications: Home Medications Medication Instructions Recorded Confirmed Last Taken Type ALBUTEROL NEB's [Proventil 0.083% 2.5 mg IH Q3HRT PRN #100 nebu 01/30/17 1 Day Ago Rx NEBS] ~02/25/17 2.5 mg q3h Ipratropium [Atrovent NEB] 0.5 mg IH Q4HR #100 ml 01/30/17 07/28/17 1 Day Ago Rx ~02/25/17 0.5 mg IH Ipratropium/Albuterol Sulfate 1 ampul IH TID #30 day 03/07/17 07/28/17 Unknown Rx [DUONEB *Not for PRN Use*] levETIRAcetam [Keppra TAB] 500 mg PO BID #60 tablet 03/07/17 07/28/17 07/27/17 Rx predniSONE [Deltasone] 20 mg PO QDAY #30 tablet 03/07/17 07/28/17 07/27/17 Rx ED Physical Exam - General Limitations: Physical Limitation General appearance: alert, in no apparent distress - Head Head exam: Present: atraumatic, normocephalic - Eye Eye exam: Present: normal appearance, PERRL - ENT ENT exam: Present: normal exam, normal orophraynx, mucous membranes moist - Neck Neck exam: Present: normal inspection, full ROM. Absent: tenderness, meningismus, lymphadenopathy, thyromegaly - Respiratory Respiratory exam: Present: normal lung sounds bilaterally. Absent: respiratory distress, wheezes, rales, rhonchi, stridor, chest wall tenderness, accessory muscle use, prolonged expiratory - Cardiovascular Cardiovascular Exam: Present: regular rate, normal rhythm, normal heart sounds - GI/Abdominal GI/Abdominal exam: Present: soft, normal bowel sounds. Absent: distended, tenderness, guarding, rebound, rigid, organomegaly, mass, bruit, pulsatile mass - Extremities Exam Extremities exam: Present: normal inspection, full ROM - Back Exam Back exam: Present: normal inspection, full ROM. Absent: tenderness, CVA tenderness (R), CVA tenderness (L), muscle spasm, paraspinal tenderness - Neurological Exam Neurological exam: Present: alert, oriented X3, CN II-XII intact, normal gait - Skin Skin exam: Present: warm, intact, normal color ED Course Vital Signs 07/28/17 07/28/17 07/28/17 03:59 04:00 04:13 Pulse Rate 92 H 92 H Respiratory 18 19 20 Rate Blood Pressure 124/94 O2 Sat by Pulse 100 100 100 Oximetry 07/28/17 07/28/17 07/28/17 04:30 04:49 05:00 Pulse Rate 89 87 Respiratory 21 18 19 Rate Blood Pressure 130/92 109/86 O2 Sat by Pulse 99 Oximetry 07/28/17 07/28/17 07/28/17 05:30 06:00 06:30 Pulse Rate 87 83 84 Respiratory 17 13 14 Rate Blood Pressure 123/90 107/80 117/83 O2 Sat by Pulse 100 100 99 Oximetry 07/28/17 07/28/17 07/28/17 07:00 07:30 08:00 Pulse Rate 82 83 78 Respiratory 13 15 13 Rate Blood Pressure 115/91 115/87 106/71 O2 Sat by Pulse 99 100 98 Oximetry 07/28/17 07/28/17 07/28/17 08:30 09:00 09:30 Pulse Rate 78 75 75 Respiratory 11 L 12 11 L Rate Blood Pressure 106/71 103/75 103/71 O2 Sat by Pulse 100 100 100 Oximetry 07/28/17 07/28/17 10:00 10:31 Pulse Rate 76 84 Respiratory 12 15 Rate Blood Pressure 107/77 107/77 O2 Sat by Pulse 100 Oximetry ED Medical Decision Making - Lab Data Result diagrams: 07/28/17 05:23 07/28/17 05:23 - EKG Data -: EKG Interpreted by Ma EKG shows normal: sinus rhythm Rate: normal - EKG Data Interpretation: no acute changes - Radiology Data Radiology results: report reviewed Referring Physician: CHRIS MENCHACA Patient Name: JOE MARKS Date of : 1960 Sex: Male Report Date: 2017-07-28 Report Status: Finalized Findings [address] [address] Cat Scan Report Signed Patient: JOE MARKS MR#: [id number] : 1960 Acct:[id number] Age/Sex: 57 / M ADM Date: 07/28/17 Loc: ED Attending Dr: Ordering Physician: CHRIS MENCHACA Date of Service: 07/28/17 Procedure(s): CT angio chest Accession Number(s): [id number] cc: CHRIS MENCHACA CTA chest: History: Chest pain with elevated d-dimer. Findings: Enlarged right lobe of thyroid gland. Ascending aortic diameter 3.9 cm. No evidence of pulmonary embolism. Dilated pulmonary trunk and branches suggestive of pulmonary arterial hypertension. No pleural or pericardial effusion. Minimal bilateral pleural thickening. No evidence of adenopathy. Normal lung parenchyma. Impression: No evidence of pulmonary embolism. No acute lung changes. Enlarged right lobe of thyroid gland. Transcribed By: PTP Dictated By: BANG HUDDLESTON MD Electronically Authenticated By: BANG HUDDLESTON MD Signed Date/Time: 07/28/17 1023 DD/ 1020 TD/TT: 07/28/17 1023 - Medical Decision Making Referring Physician: CHRIS MENCHACA Patient Name: JOE MARKS Date of : 1960 Sex: Male Report Date: 2017-07-28 Report Status: Finalized Findings [address] [address] Cat Scan Report Signed Patient: JOE MARKS MR#: [id number] : 1960 Acct:[id number] Age/Sex: 57 / M ADM Date: 07/28/17 Loc: ED Attending Dr: Ordering Physician: CHRIS MENCHACA Date of Service: 07/28/17 Procedure(s): CT angio chest Accession Number(s): [id number] cc: CHRIS MENCHACA CTA chest: History: Chest pain with elevated d-dimer. Findings: Enlarged right lobe of thyroid gland. Ascending aortic diameter 3.9 cm. No evidence of pulmonary embolism. Dilated pulmonary trunk and branches suggestive of pulmonary arterial hypertension. No pleural or pericardial effusion. Minimal bilateral pleural thickening. No evidence of adenopathy. Normal lung parenchyma. Impression: No evidence of pulmonary embolism. No acute lung changes. Enlarged right lobe of thyroid gland. Transcribed By: PTP Dictated By: BANG HUDDLESTON MD Electronically Authenticated By: BANG HUDDLESTON MD Signed Date/Time: 07/28/17 1023 DD/ 1020 TD/TT: 07/28/17 1023 Critical care attestation.: If time is entered above; I have spent that time in minutes in the direct care of this critically ill patient, excluding procedure time. ED Disposition Clinical Impression: Chest pain Disposition: DC-09 OP ADMIT IP TO THIS HOSP Is pt being admited?: Yes Condition: Stable Instructions: Chest Pain (ED) Referrals: [facility] DR [Other] - 3-5 Days
--- NOTE | 2017-07-28 10:44 | Cat Scan Report ---
CTA chest: History: Chest pain with elevated d-dimer. Findings: Enlarged right lobe of thyroid gland. Ascending aortic diameter 3.9 cm. No evidence of pulmonary embolism. Dilated pulmonary trunk and branches suggestive of pulmonary arterial hypertension. No pleural or pericardial effusion. Minimal bilateral pleural thickening. No evidence of adenopathy. Normal lung parenchyma. Impression: No evidence of pulmonary embolism. No acute lung changes. Enlarged right lobe of thyroid gland.
--- NOTE | 2017-07-28 11:44 | History and Physical Report ---
History of Present Illness Chief complaint: My chest hurts History of present illness: 57 YO Male with HTN, COPD, CHF, NV, CVA, Seizure DO, Asthma, VRE Endocarditis with Removal of Pacemaker. Pt states that he has experienced acute onset chest pain upon waking from sleep this morning with persistent symptoms since the onset of symptoms. Pt states that pain is 10/10, substernal, sharp, nonradiating , not worsened with exertion or relieved with rest. Pt acknowledges shortness of breath, orthopnea, PND, and decreased exercise tolerance. Pt denies fever, chills, palpitatons, NVD, Syncope, Trauma, unilateral leg swelling, calf pain, productive cough, BRBPR, seizure, vertigo, or recent ill contacts. Pt seen and evaluated in ED and found to have CHF decompensation, SIRS, and ACS. Pt admitted to telemetry. Cardiology consulted in ED. Past History Past Medical History: acute NV, COPD, heart failure, hypertension, seizures, stroke Past Surgical History: Other (Pacemaker placement/removal, Brain surgery) Social history: Family history: hypertension Medications and Allergies Allergies Allergy/AdvReac Type Severity Reaction Status Date / Time No Known Allergies Allergy Verified 02/25/17 14:18 Home Medications Medication Instructions Recorded Confirmed Last Taken Type ALBUTEROL NEB's [Proventil 0.083% 2.5 mg IH Q3HRT PRN #100 nebu 01/30/17 1 Day Ago Rx NEBS] ~02/25/17 2.5 mg q3h Ipratropium [Atrovent NEB] 0.5 mg IH Q4HR #100 ml 01/30/17 07/28/17 1 Day Ago Rx ~02/25/17 0.5 mg IH Ipratropium/Albuterol Sulfate 1 ampul IH TID #30 day 03/07/17 07/28/17 Unknown Rx [DUONEB *Not for PRN Use*] levETIRAcetam [Keppra TAB] 500 mg PO BID #60 tablet 03/07/17 07/28/17 07/27/17 Rx predniSONE [Deltasone] 20 mg PO QDAY #30 tablet 03/07/17 07/28/17 07/27/17 Rx Review of Systems Constitutional: no weight loss, no weight gain, no fever, no chills Ears, nose, mouth and throat: no ear pain, no ear discharge, no tinnitis, no decreased hearing, no nose pain Cardiovascular: chest pain, orthopnea, dyspnea on exertion, paroxysmal nocturnal dyspnea, decreased exercise tolerance, no palpitations, no rapid/ irregular heart beat, no syncope, no lightheadedness Respiratory: no cough, no cough with sputum, no excessive sputum, no hemoptysis Gastrointestinal: no nausea, no vomiting, no diarrhea, no constipation Genitourinary Male: no hematuria, no flank pain, no discharge, no urinary frequency, no urinary hesitancy Rectal: no pain, no incontinence, no bleeding Musculoskeletal: no neck stiffness, no neck pain, no shooting arm pain, no arm numbness/tingling, no low back pain, no shooting leg pain Integumentary: no rash, no pruritis, no redness, no sores, no wounds Neurological: no head injury, no transient paralysis, no paralysis, no weakness , no parathesias, no numbness, no tingling, no seizures Psychiatric: no anxiety, no memory loss, no change in sleep habits, no sleep disturbances, no insomnia, no hypersomnia Endocrine: no cold intolerance, no heat intolerance, no polyphagia, no excessive thirst, no polydipsia, no polyuria, no nocturia Hematologic/Lymphatic: no easy bruising, no easy bleeding, no lymphadenopathy, no lymphedema Allergic/Immunologic: no urticaria, no allergic rhinitis, no wheezing, no persistent infections, no anaphylaxis, no angioedema Exam - Constitutional Vitals: Temp Pulse Resp BP Pulse Ox 84 15 107/77 100 07/28/17 10:31 07/28/17 10:31 07/28/17 10:31 07/28/17 10:00 General appearance: Present: mild distress - EENT Eyes: Present: PERRL ENT: hearing intact, clear oral mucosa - Neck Neck: Present: supple, normal ROM - Respiratory Respiratory effort: labored Respiratory: bilateral: diminished, rhonchi - Cardiovascular Heart Sounds: Present: S1 & S2. Absent: rub, click - Extremities Extremities: pulses symmetrical, No edema Extremity abnormal: edema Peripheral Pulses: within normal limits - Abdominal General gastrointestinal: Present: soft, non-tender, non-distended, normal bowel sounds Male genitourinary: Present: normal - Integumentary Integumentary: Present: clear, warm, dry - Musculoskeletal Musculoskeletal: generalized weakness - Psychiatric Psychiatric: appropriate mood/affect, intact judgment & insight - Neurologic Neurologic: CNII-XII intact, moves all extremities Results - Labs CBC & Chem 7: 07/28/17 05:23 07/28/17 05:23 Labs: Abnormal lab results 07/28/17 07/28/17 07/28/17 Range/Units 05:23 05:23 06:55 WBC 11.4 H (4.5-11.0) K/mm3 Hgb 10.1 L (11.8-15.2) gm/dl Hct 33.6 L (35.5-45.6) % MCV 67 L (84-94) fl MCH 20 L (28-32) pg MCHC 30 L (32-34) % RDW 20.5 H (13.2-15.2) % Lymph % (Auto) 6.8 L (13.4-35.0) % [place] % (Auto) 15.4 H (0.0-7.3) % Lymph # 0.8 L (1.2-5.4) K/mm3 [place] # 1.8 H (0.0-0.8) K/mm3 Seg Neutrophils % 77.0 H (40.0-70.0) % Seg Neutrophils # 8.8 H (1.8-7.7) K/mm3 D-Dimer 688.80 H (0-234) ng/mlDDU Sodium 130 L (137-145) mmol/L Chloride 95.6 L (98-107) mmol/L Carbon Dioxide 20 L (22-30) mmol/L BUN 26 H (9-20) mg/dL Glucose 137 H (75-100) mg/dL Assessment and Plan - Patient Problems (1) SIRS (systemic inflammatory response syndrome) Current Visit: Yes Status: Acute (2) Acute exacerbation of CHF (congestive heart failure) Current Visit: No Status: Acute (3) Acute respiratory failure Current Visit: No Status: Acute Qualifiers: Respiratory failure complication: hypoxia and hypercapnia Qualified Code(s) : J96.01 - Acute respiratory failure with hypoxia; J96.02 - Acute respiratory failure with hypercapnia; J96.02 - Acute respiratory failure with hypercapnia; J96.02 - Acute respiratory failure with hypercapnia (4) Seizure disorder Current Visit: No Status: Acute (5) ETOH abuse Current Visit: No Status: Chronic Plan to address problem: BAL, [place] protocol, Thiamine, folic acid, multivitamin, (6) DVT prophylaxis Current Visit: No Status: Acute Plan to address problem: scd to ble while in bed
[2017-07-28] MEDS ORDERED: PROVENTIL IH PRN (11:48)
[2017-07-28] MEDS ORDERED: NITROSTAT SL PRN (11:48)
[2017-07-28] MEDS ORDERED: SODIUM CHLORIDE FLUSH SYRINGE 10 ML IV PRN ×2 (11:48)
[2017-07-28] MEDS ORDERED: BABY ASPIRIN PO STA (11:48)
[2017-07-28] MEDS ORDERED: TYLENOL PO PRN (11:48)
[2017-07-28] MEDS ORDERED: ZOFRAN IV PRN (11:48)
[2017-07-28] MEDS: MORPHINE IV PRN ×3 (12:23→20:36)
[2017-07-28] MEDS ORDERED: ATIVAN IV PRN (16:53)
[2017-07-28] MEDS: SODIUM CHLORIDE FLUSH SYRINGE 10 ML IV SCH (22:55)
[2017-07-29] MEDS: FOLVITE PO SCH (10:13)
[2017-07-29] MEDS: THERAGRAN Tab PO SCH (10:13)
[2017-07-29] MEDS: VITAMIN B-1 PO SCH (10:13)
[2017-07-29] MEDS ORDERED: ATROVENT IH SCH ×2 (12:00)
[2017-07-29] MEDS ORDERED: PROVENTIL IH PRN (12:24)
--- NOTE | 2017-07-29 12:27 | Progress Note ---
Assessment and Plan Assessment and plan: 57 YO Male with HTN, COPD, CHF, [place], CVA With residual right sided hemiparesis, Seizure DO, Asthma, VRE Endocarditis with Removal of Pacemaker. Pt states that he has experienced acute onset chest pain upon waking from sleep with persistent symptoms. Pt states that pain is 10/10, substernal, sharp, nonradiating, not worsened with exertion or relieved with rest. Pt acknowledges shortness of breath, orthopnea, PND, and decreased exercise tolerance. Pt denies fever, chills, palpitatons, NVD, Syncope, Trauma, unilateral leg swelling, calf pain, productive cough, BRBPR, seizure, vertigo, or recent ill contacts. During review today, patients daughter at the bedside reported that patient ran out of some pulmonary medications and unfortunately has continue to drink ETOH daily and although quit Tobacco about 7-9 years ago is not sure if the patient has returned to tobacco use. Acute Respiratory failure COPD exacerbation Acute ON Chronic Systolic Congestive heart failure Seizure disorder Hyponatremia ETOH abuses and dependance Right upper ext Hemiplegia SIRS Plan Continue current therapy, supportive care. Doubt CHF exacerbation ABG on room air CTA Chest negative for PE. Check dopper lower ext to r/o DVT Restart Nebs, Steroids [place] CIWA protocol Counselling provided on tobacco and ETOH, patient verbalized understanding 25 mins spent Family updated per patients request Anticipate discharge in a day or two History Interval history: Patient seen and examined in no acute distress. Resting comfortable. Hospitalist Physical - Physical exam Narrative exam: VITAL SIGNS: Reviewed. GENERAL: The patient appeared well nourished and normally developed. Vital signs as documented. HEAD: No signs of head trauma. EYES: Pupils are equal. Extraocular motions intact. EARS: Hearing grossly intact. MOUTH: Oropharynx is normal. NECK: No adenopathy, no JVD. CHEST: Chest with clear breath sounds bilaterally. No wheezes, rales, or rhonchi. CARDIAC: Regular rate and rhythm. S1 and S2, without murmurs, gallops, or rubs. VASCULAR: No Edema. Peripheral pulses normal and equal in all extremities. ABDOMEN: Soft, without detectable tenderness. No sign of distention. No rebound or guarding, and no masses palpated. Bowel Sounds normal. MUSCULOSKELETAL: Good range of motion of all major joints ext right upper ext. Extremities without clubbing, cyanosis or edema. NEUROLOGIC EXAM: Alert and oriented x 3. residual right upper ext weakness Speech normal. Follows commands. PSYCHIATRIC: Mood normal. SKIN: No rash or lesions. - Constitutional Vitals: Temp Pulse Resp BP Pulse Ox 98.1 F 80 18 103/70 91 07/29/17 09:01 07/29/17 09:01 07/29/17 09:01 07/29/17 09:01 07/29/17 09:01 General appearance: Present: mild distress Results - Labs CBC & Chem 7: 07/30/17 07:18 07/30/17 07:18 Labs: Laboratory Last Values WBC 11.4 K/mm3 (4.5-11.0) H 07/28/17 05:23 RBC 4.99 M/mm3 (3.65-5.03) 07/28/17 05:23 Hgb 10.1 gm/dl (11.8-15.2) L 07/28/17 05:23 Hct 33.6 % (35.5-45.6) L 07/28/17 05:23 MCV 67 fl (84-94) L 07/28/17 05:23 MCH 20 pg (28-32) L 07/28/17 05:23 MCHC 30 % (32-34) L 07/28/17 05:23 RDW 20.5 % (13.2-15.2) H 07/28/17 05:23 Plt Count 274 K/mm3 (140-440) 07/28/17 05:23 Lymph % (Auto) 6.8 % (13.4-35.0) L 07/28/17 05:23 [place] % (Auto) 15.4 % (0.0-7.3) H 07/28/17 05:23 Eos % (Auto) 0.1 % (0.0-4.3) 07/28/17 05:23 Baso % (Auto) 0.7 % (0.0-1.8) 07/28/17 05:23 Lymph # 0.8 K/mm3 (1.2-5.4) L 07/28/17 05:23 [place] # 1.8 K/mm3 (0.0-0.8) H 07/28/17 05:23 Eos # 0.0 K/mm3 (0.0-0.4) 07/28/17 05:23 Baso # 0.1 K/mm3 (0.0-0.1) 07/28/17 05:23 Seg Neutrophils % 77.0 % (40.0-70.0) H 07/28/17 05:23 Seg Neutrophils # 8.8 K/mm3 (1.8-7.7) H 07/28/17 05:23 D-Dimer 688.80 ng/mlDDU (0-234) H 07/28/17 06:55 Sodium 130 mmol/L (137-145) L 07/28/17 05:23 Potassium 4.5 mmol/L (3.6-5.0) 07/28/17 05:23 Chloride 95.6 mmol/L (98-107) L 07/28/17 05:23 Carbon Dioxide 20 mmol/L (22-30) L 07/28/17 05:23 Anion Gap 19 mmol/L 07/28/17 05:23 BUN 26 mg/dL (9-20) H 07/28/17 05:23 Creatinine 1.1 mg/dL (0.8-1.5) 07/28/17 05:23 Estimated GFR > 60 ml/min 07/28/17 05:23 BUN/Creatinine Ratio 24 % 07/28/17 05:23 Glucose 137 mg/dL (75-100) H 07/28/17 05:23 POC Glucose 121 (70-105) H 07/29/17 00:27 Calcium 8.9 mg/dL (8.4-10.2) 07/28/17 05:23 Troponin T < 0.010 ng/mL (0.00-0.029) 07/28/17 17:03 NT-Pro-B Natriuret Pep 93513 pg/mL (0-900) H 07/28/17 11:45 Lipase 37 units/L (13-60) 07/28/17 06:55 Plasma/Serum Alcohol < 0.01 % (0-0.07) 07/28/17 06:55
[2017-07-29] MEDS ORDERED: ATROVENT IH ONE (13:00)
[2017-07-29] MEDS ORDERED: DUONEB *Not for PRN Use IH SCH (14:00)
[2017-07-29] MEDS ORDERED: PROVENTIL IH SCH (16:00)
[2017-07-29] MEDS: DUONEB *Not for PRN Use IH SCH (17:13)
--- NOTE | 2017-07-29 18:10 | Consultation ---
History of Present Illness Consult date: 07/29/17 Consult reason: congestive heart failure History of present illness: Patient states 57-year-old man with a long history of a severe dilated cardiomyopathy and coronary artery disease. 6 months ago, he had an indwelling cardiac defibrillator extracted due to persistent bacteremia and lead infection. Following that he was placed on a life vest and outpatient cardiology follow-up. He is admitted to the hospital at this time with complaints of nonexertional chest pain. The pain is poorly characterized, he mostly states that he hurts all over and requests a narcotic for pain control. There is no anginal characteristics to his pain. ECG is sinus rhythm with old lateral myocardial infarction, no acute ST or T- wave abnormalities. Chest x-ray reveals cardiomegaly, no interstitial edema or decompensated heart failure. Past History Past Medical History: acute DC, CAD, COPD, heart failure, hypertension, seizures , stroke Past Surgical History: Other (Pacemaker placement/removal, Brain surgery) Social history: Family history: hypertension Medications and Allergies Allergies Allergy/AdvReac Type Severity Reaction Status Date / Time No Known Allergies Allergy Verified 02/25/17 14:18 Home Medications Medication Instructions Recorded Confirmed Last Taken Type ALBUTEROL NEB's [Proventil 0.083% 2.5 mg IH Q3HRT PRN #100 nebu 01/30/17 1 Day Ago Rx NEBS] ~02/25/17 2.5 mg q3h Ipratropium [Atrovent NEB] 0.5 mg IH Q4HR #100 ml 01/30/17 07/28/17 1 Day Ago Rx ~02/25/17 0.5 mg IH Ipratropium/Albuterol Sulfate 1 ampul IH TID #30 day 03/07/17 07/28/17 Unknown Rx [DUONEB *Not for PRN Use*] levETIRAcetam [Keppra TAB] 500 mg PO BID #60 tablet 03/07/17 07/28/17 07/27/17 Rx predniSONE [Deltasone] 20 mg PO QDAY #30 tablet 03/07/17 07/28/17 07/27/17 Rx Active Meds: Active Medications Acetaminophen (Tylenol) 650 mg PO Q4H PRN PRN Reason: Pain MILD(1-3)/Fever >100.5/OCAMPO Albuterol (Proventil) 2.5 mg IH Q3H PRN PRN Reason: Shortness Of Breath Last Admin: 07/29/17 13:06 Dose: 2.5 mg Albuterol/Ipratropium (Duoneb *Not For Prn Use*) 1 ampul IH Q8HRT [facility] Last Admin: 07/29/17 17:13 Dose: 1 ampul Folic Acid (Folvite) 1 mg PO QDAY [facility] Last Admin: 07/29/17 10:13 Dose: 1 mg Levetiracetam (Keppra) 500 mg PO BID [facility] Lorazepam (Ativan) 2 mg IV Q1HR PRN PRN Reason: CIWA-Ar 8-15 Last Admin: 07/28/17 20:36 Dose: 2 mg Morphine Sulfate (Morphine) 2 mg IV Q4H PRN PRN Reason: Pain, Moderate (4-6) Last Admin: 07/28/17 20:36 Dose: 2 mg Multivitamins (Theragran Tab) 1 each PO QDAY [facility] Last Admin: 07/29/17 10:13 Dose: 1 each Nitroglycerin (Nitrostat) 0.4 mg SL Q5M PRN PRN Reason: Chest Pain Ondansetron HCl (Zofran) 4 mg IV Q8H PRN PRN Reason: Nausea And Vomiting Prednisone (Deltasone) 20 mg PO QDAY [facility] Sodium Chloride (Sodium Chloride Flush Syringe 10 Ml) 10 ml IV BID [facility] Last Admin: 07/28/17 22:55 Dose: Not Given Sodium Chloride (Sodium Chloride Flush Syringe 10 Ml) 10 ml IV PRN PRN PRN Reason: LINE FLUSH Sodium Chloride (Sodium Chloride Flush Syringe 10 Ml) 10 ml IV PRN PRN PRN Reason: LINE FLUSH Thiamine HCl (Vitamin B-1) 100 mg PO QDAY [facility] Last Admin: 07/29/17 10:13 Dose: 100 mg Review of Systems Cardiovascular: chest pain, shortness of breath, no orthopnea, no palpitations, no rapid/irregular heart beat, no edema, no syncope, no lightheadedness Physical Examination Vital Signs Pulse Resp Pulse Ox 92 H 18 100 07/28/17 03:59 07/28/17 03:59 07/28/17 03:59 General appearance: no acute distress HEENT: Positive: PERRL Neck: Positive: neck supple Cardiac: Positive: Reg Rate and Rhythm Lungs: Positive: Decreased Breath Sounds Neuro: Positive: Grossly Intact Abdomen: Positive: Soft Male genitourinary: Positive: deferred Skin: Positive: Clear Extremities: Absent: edema Results 07/28/17 05:23 07/28/17 05:23 EKG interpretations - Telemetry EKG Rhythm: Sinus Rhythm (old lateral DC) Assessment and Plan - Patient Problems (1) Cardiomyopathy Current Visit: Yes Status: Acute Plan to address problem: Medical therapy to include afterload agents, beta blockers and oral antiplatelet therapy. (2) Chest pain Current Visit: Yes Status: Acute Plan to address problem: Chest pain is atypical, appears musculoskeletal. We'll continue optimal medical therapy for underlying coronary artery disease.
[2017-07-29] MEDS: SODIUM CHLORIDE FLUSH SYRINGE 10 ML IV SCH (21:31)
[2017-07-29] MEDS: KEPPRA PO SCH (21:32)
[2017-07-30] MEDS: DUONEB *Not for PRN Use IH SCH ×2 (00:16→08:15)
[2017-07-30 05:25] VITALS: BP 111/80
[2017-07-30 07:51] LABS: Hematocrit 28.4 % (35.5-45.6); Hemoglobin 9.1 gm/dl (11.8-15.2); Mean Corpuscular HGB Conc 32 % (32-34); Platelet Count 243 K/mm3 (140-440); Red Blood Count 4.29 M/mm3 (3.65-5.03)
[2017-07-30 08:04] LABS: Mean Corpuscular Hemoglobin 21 pg (28-32); Mean Corpuscular Volume 66 fl (84-94); Red Cell Distribution Width 20.4 % (13.2-15.2)
[2017-07-30 08:11] LABS: BUN/Creatinine Ratio 23; Blood Urea Nitrogen 25 mg/dL (9-20); Calcium 8.6 mg/dL (8.4-10.2); Hemolysis Index 0
[2017-07-30] MEDS ORDERED: DELTASONE PO SCH (10:00)
[2017-07-30] MEDS: FOLVITE PO SCH (11:23)
[2017-07-30] MEDS: THERAGRAN Tab PO SCH (11:23)
[2017-07-30] MEDS: VITAMIN B-1 PO SCH (11:23)
[2017-07-30] MEDS: KEPPRA PO SCH (11:23)
--- NOTE | 2017-07-30 11:47 | Discharge Summary ---
Providers - Providers Date of Admission: 07/28/17 11:48 Attending physician: GREG ROSALES MD 07/28/17 Consult to Cardiac Rehabilitation [CONS] Routine Reason For Exam: Phase I 07/28/17 11:48 Consult to Cardiology [CONS] Routine Consulting Provider: KOFI DUKE Reason For Exam: chf Hospitalization Condition: Stable Hospital course: 57 YO Male with HTN, COPD, CHF, [place], CVA With residual right sided hemiparesis, Seizure DO, Asthma, VRE Endocarditis with Removal of Pacemaker. Pt states that he has experienced acute onset chest pain upon waking from sleep with persistent symptoms. Pt states that pain is 10/10, substernal, sharp, nonradiating, not worsened with exertion or relieved with rest. Pt acknowledges shortness of breath, orthopnea, PND, and decreased exercise tolerance. Pt denies fever, chills, palpitatons, NVD, Syncope, Trauma, unilateral leg swelling, calf pain, productive cough, BRBPR, seizure, vertigo, or recent ill contacts. During review today, patients daughter at the bedside reported that patient ran out of some pulmonary medications and unfortunately has continue to drink ETOH daily and although quit Tobacco about 7-9 years ago is not sure if the patient has returned to tobacco use. Acute Respiratory failure COPD exacerbation Acute ON Chronic Systolic Congestive heart failure Seizure disorder Hyponatremia ETOH abuses and dependance Right upper ext Hemiplegia SIRS Plan Continue current therapy, supportive care. Doubt CHF exacerbation ABG on room air CTA Chest negative for PE. Check dopper lower ext to r/o DVT Restart Nebs, Steroids [place] CIWA protocol Counselling provided on tobacco and ETOH, patient verbalized understanding 25 mins spent Family updated per patients request Anticipate discharge in a day or two Disposition: [id number] HOME UNDER HOME [facility] Time spent for discharge: 35 mins Core Measure Documentation - Palliative Care Palliative Care/ Comfort Measures: Not Applicable - Core Measures Any of the following diagnoses?: none - VTE Discharge Requirements Deep Vein Thrombosis/Pulmonary Embolism Present on Admission: No Exam - Physical Exam Narrative exam: VITAL SIGNS: Reviewed. GENERAL: The patient appeared well nourished and normally developed. Vital signs as documented. HEAD: No signs of head trauma. EYES: Pupils are equal. Extraocular motions intact. EARS: Hearing grossly intact. MOUTH: Oropharynx is normal. NECK: No adenopathy, no JVD. CHEST: Chest with clear breath sounds bilaterally. No wheezes, rales, or rhonchi. CARDIAC: Regular rate and rhythm. S1 and S2, without murmurs, gallops, or rubs. VASCULAR: No Edema. Peripheral pulses normal and equal in all extremities. ABDOMEN: Soft, without detectable tenderness. No sign of distention. No rebound or guarding, and no masses palpated. Bowel Sounds normal. MUSCULOSKELETAL: Good range of motion of all major joints ext right upper ext. Extremities without clubbing, cyanosis or edema. NEUROLOGIC EXAM: Alert and oriented x 3. residual right upper ext weakness Speech normal. Follows commands. PSYCHIATRIC: Mood normal. SKIN: No rash or lesions. - Constitutional Vitals: Temp Pulse Resp BP Pulse Ox 98.2 F 78 20 111/80 98 07/30/17 04:03 07/30/17 08:15 07/30/17 08:15 07/30/17 04:03 07/30/17 08:15 Plan Activity: advance as tolerated, fall precautions Diet: low salt Special Instructions: record daily weights, record daily BP diary Follow up with: CONSTANCE DWYER DR [Other] - 3-5 Days KOFI DUKE MD [Staff Physician] - 7 Days Prescriptions: Folic Acid [Folvite] 1 mg PO QDAY #30 tablet Ipratropium [Atrovent NEB] 0.5 mg IH Q4HR #100 ml Ipratropium/Albuterol Sulfate [DUONEB *Not for PRN Use*] 1 ampul IH TID #30 day Thiamine [Vitamin B-1] 100 mg PO QDAY #30 tablet
--- NOTE | 2017-07-30 14:26 | XRay Report ---
FINAL REPORT EXAM: XR CHEST 1V AP HISTORY: Shortness of breath. TECHNIQUE: A single frontal portable radiograph of the chest was obtained. Comparison is made with prior study 07/06/2017. FINDINGS: There is mild cardiomegaly. There is improved inspiratory effort on the current exam. The lungs are clear bilaterally, without focal infiltrate or effusion. The pulmonary vasculature is within normal limits. There is no pneumothorax. No significant osseous abnormalities are identified. IMPRESSION: Cardiomegaly. No focal infiltrate or effusion.
--- NOTE | 2017-07-31 17:58 | Vascular Lab Report ---
LOWER EXTREMITY VENOUS DUPLEX: REASON FOR EXAM: Deep venous thrombosis. COMMENTS ON THE RIGHT: All veins visualized are freely compressible without evidence of internal echogenicity. Flow is spontaneous and phasic throughout. COMMENTS ON THE LEFT: All veins visualized are freely compressible without evidence of internal echogenicity. Flow is spontaneous and phasic throughout. IMPRESSION: No evidence of acute or chronic deep venous thrombosis in either lower extremity.
== END 2017-07-30 12:54 | disposition home health service (06) | DRG 291 ==
LOC: ED 03:57 → 4A 11:48
PROVIDERS: ADMIT Internal Medicine; ATTEND Internal Medicine
DX: I11.0 Hypertensive heart disease with heart failure (principal); J96.00 Acute respiratory failure, unspecified whether with hypoxia or hypercapnia; I69.951 Hemiplegia and hemiparesis following unspecified cerebrovascular disease affecting right dominant side; J44.1 Chronic obstructive pulmonary disease with (acute) exacerbation; E87.1 Hypo-osmolality and hyponatremia; R65.10 Systemic inflammatory response syndrome (SIRS) of non-infectious origin without acute organ dysfunction; I50.23 Acute on chronic systolic (congestive) heart failure; I42.0 Dilated cardiomyopathy; G40.909 Epilepsy, unspecified, not intractable, without status epilepticus; F10.20 Alcohol dependence, uncomplicated; I25.10 Atherosclerotic heart disease of native coronary artery without angina pectoris; Z95.0 Presence of cardiac pacemaker; I25.2 Old myocardial infarction; Z87.891 Personal history of nicotine dependence; Z82.49 Family history of ischemic heart disease and other diseases of the circulatory system
CPT/HCPCS: 36415; 36600; 71045; 71275; 80048; 80320; 82803; 82962; 83690; 83880; 84484; 85025; 85027; 85379; 93005; 93010; 93970; 94640; 94760; 96374; 96375; 96376; G0480; J2060; J2270; J2405; J7512; Q9967